=== PATIENT | female | born 1980 | race Hispanic/Latino ===

== ENCOUNTER 2018-05-28 12:55 | Emergency (ER) | payer SELFPAY ==
[2018-05-28 13:26] LABS: Urine Blood NEGATIVE (NEG); Urine Glucose NEGATIVE (NEG); Urine Protein NEGATIVE (NEG); Urine Specific Gravity 1.015 (1.005-1.030); Urine pH 6.5 (5.0-7.0)
[2018-05-28 14:08] LABS: Absolute Lymphocytes (CBC) 2.3 K/uL (0.7-4.9); Absolute Monocytes 0.6 K/uL (0.1-1.3); Absolute Neutrophil 6.1 K/uL (1.8-8.0); Basophils % 0.2 % (0-1.3); Eosinophils % 1.8 % (0-4.4); Hematocrit 30.3 % (36.0-45.0); Lymphocytes % 25.1 % (15.3-44.8); MCH 23.9 pg (27.0-35.0); MCV 73.1 fL (80-100); MPV 7.5 fL (7.6-11.3); Monocytes % 6.6 % (3.3-12.3); Protime INR 0.97; RBC Red Blood Cell Count 4.15 M/uL (3.86-4.86)
[2018-05-28] MEDS ORDERED: ASPIRIN 81 MG CHEWABLE TABLET ONE (14:11)
[2018-05-28 14:16] LABS: ALT/SGPT 27 U/L (12-78); AST/SGOT 15 U/L (15-37); Albumin 3.4 g/dL (3.4-5.0); Alkaline Phosphatase 95 U/L (45-117); BUN Blood Urea Nitrogen 11 mg/dL (7-18); Bicarbonate 28 mmol/L (21-32); Bilirubin Direct < 0.1 mg/dL (0-0.2); Bilirubin Total 0.2 mg/dL (0.2-1.0); Glucose Level 101 mg/dL (74-106); NT PRO-BNP 26 pg/mL (<125); Potassium 3.7 mmol/L (3.5-5.1); Protein, Total 7.2 g/dL (6.4-8.2); Sodium Level 141 mmol/L (136-145); Troponin (Emerg Dept Use Only) < 0.02 ng/mL (0.0-0.045)
--- NOTE | 2018-05-28 14:19 | RAD REPORT ---
EXAM DESCRIPTION: RAD - Chest Single View - 05/28/2018 2:13 pm CLINICAL HISTORY: CHEST PAIN Chest pain. COMPARISON: No comparisons FINDINGS: Portable technique limits examination quality. The lungs are grossly clear. The heart is normal in size. No displaced fractures. IMPRESSION: No acute intrathoracic process suspected.
--- NOTE | 2018-05-28 14:59 | EDPHYS ---
Physician Documentation [facility] Name: Jane Izaguirre Age: 38 yrs Sex: Female : 1980 Arrival Date: 05/28/2018 Time: 12:59 Bed 26 Private MD: ED Physician Keith Chisholm HPI: 05/28 14:48 This 38 yrs old Female presents to ER via Ambulatory with complaints of Back jr8 Pain, Breast Problem. 14:48 The patient presents with pain that is acute. The symptoms are located in the left jr8 scapular area. Onset: The symptoms/episode began/occurred suddenly, 3 month(s) ago. The pain radiates to the chest. Associated signs and symptoms: The patient has no apparent associated signs or symptoms. Modifying factors: The patient symptoms are alleviated by nothing, the patient symptoms are aggravated by nothing. Severity of symptoms: At their worst the symptoms were moderate, in the emergency department the symptoms are unchanged. The patient has not experienced similar symptoms in the past. The patient has not recently seen a physician. 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 - Social history:: Smoking status: Patient/guardian denies using tobacco. - Ebola Screening: : No symptoms or risks identified at this time. ROS: 14:48 Eyes: Negative for injury, pain, redness, and discharge, ENT: Negative for injury, jr8 pain, and discharge, Neck: Negative for injury, pain, and swelling, Respiratory: Negative for shortness of breath, cough, wheezing, and pleuritic chest pain, Abdomen/GI: Negative for abdominal pain, nausea, vomiting, diarrhea, and constipation, MS/Extremity: Negative for injury and deformity, Skin: Negative for injury, rash, and discoloration, Neuro: Negative for headache, weakness, numbness, tingling, and seizure. 14:48 Cardiovascular: Positive for chest pain, Negative for edema, orthopnea, palpitations, paroxysmal nocturnal dyspnea. 14:48 Back: Positive for pain at rest. Exam: 14:48 Head/Face: Normocephalic, atraumatic. Eyes: Pupils equal round and reactive to light, jr8 extra-ocular motions intact. Lids and lashes normal. Conjunctiva and sclera are non-icteric and not injected. Cornea within normal limits. Periorbital areas with no swelling, redness, or edema. ENT: Nares patent. No nasal discharge, no septal abnormalities noted. Tympanic membranes are normal and external auditory canals are clear. Oropharynx with no redness, swelling, or masses, exudates, or evidence of obstruction, uvula midline. Mucous membranes moist. Neck: Trachea midline, no thyromegaly or masses palpated, and no cervical lymphadenopathy. Supple, full range of motion without nuchal rigidity, or vertebral point tenderness. No Meningismus. Cardiovascular: Regular rate and rhythm with a normal S1 and S2. No gallops, murmurs, or rubs. Normal PMI, no JVD. No pulse deficits. Respiratory: Lungs have equal breath sounds bilaterally, clear to auscultation and percussion. No rales, rhonchi or wheezes noted. No increased work of breathing, no retractions or nasal flaring. Abdomen/GI: Soft, non-tender, with normal bowel sounds. No distension or tympany. No guarding or rebound. No evidence of tenderness throughout. Skin: Warm, dry with normal turgor. Normal color with no rashes, no lesions, and no evidence of cellulitis. MS/ Extremity: Pulses equal, no cyanosis. Neurovascular intact. Full, normal range of motion. Neuro: Awake and alert, GCS 15, oriented to person, place, time, and situation. Cranial nerves II-XII grossly intact. Motor strength 5/5 in all extremities. Sensory grossly intact. Cerebellar exam normal. Normal gait. 14:48 Chest/axilla: Inspection: normal, Palpation: tenderness, that is mild, of the left breast, that totally reproduces the patient's complaints, Breasts: nipple discharge, is not appreciated, tenderness, that is mild of the left breast. 14:48 Back: pain, that is moderate, of the left scapular area and left subscapular area, palpation replicates exact pain patient had been having, ROM is painful, normal spinal alignment noted, CVA tenderness, is absent. Vital Signs: 13:07 BP 131 / 64; Pulse 80; Resp 16 S; Temp 98.0(TE); Pulse Ox 99% on R/A; Weight 108.86 kg aa5 (R); Height 5 ft. 0 in. (152.40 cm) (R); Pain 8/10; 13:50 BP 103 / 73; Pulse 73; Resp 18; Pulse Ox 100% on R/A; tl3 14:58 BP 104 / 59; Pulse 74; Resp 18; Pulse Ox 99% on R/A; tl3 13:07 Body Mass Index 46.87 (108.86 kg, 152.40 cm) aa5 MDM: 13:08 Patient medically screened. jr8 14:48 Data reviewed: vital signs, nurses notes, lab test result(s), EKG, radiologic studies, jr8 plain films. Data interpreted: Pulse oximetry: on room air is 100 %. Interpretation: normal. Counseling: I had a detailed discussion with the patient and/or guardian regarding: the historical points, exam findings, and any diagnostic results supporting the discharge/admit diagnosis, lab results, radiology results, the need for outpatient follow up, a family practitioner, to return to the emergency department if symptoms worsen or persist or if there are any questions or concerns that arise at home. ED course: Recommended f/u for mammogram. Will put on medicine for musculoskeletal pain . 05/28 13:22 Order name: Urine Dipstick--Ancillary (enter results); Complete Time: 13:26 eb 05/28 13:22 Order name: Urine --Ancillary (enter results); Complete Time: 13:26 eb 05/28 13:34 Order name: Basic Metabolic Panel 8 05/28 13:34 Order name: CBC with Diff jr8 05/28 13:34 Order name: LFT's jr8 05/28 13:34 Order name: Magnesium jr8 05/28 13:34 Order name: NT PRO-BNP jr8 05/28 13:34 Order name: PT-INR; Complete Time: 14:25 jr8 05/28 13:34 Order name: Troponin (emerg Dept Use Only); Complete Time: 14:25 8 05/28 13:34 Order name: Basic Metabolic Panel; Complete Time: 14:25 EDMS 05/28 13:34 Order name: CBC with Automated Diff; Complete Time: 14:25 EDMS 05/28 13:34 Order name: Liver (Hepatic) Function; Complete Time: 14:25 [facility] 05/28 13:34 Order name: Magnesium; Complete Time: 14: [facility] 05/28 13:34 Order name: NT PRO-BNP; Complete Time: 14:25 [facility] 05/28 13:34 Order name: XRAY Chest (1 view); Complete Time: 14:25 [facility] 05/28 13:34 Order name: EKG; Complete Time: 13:35 [facility] 05/28 13:34 Order name: Cardiac monitoring; Complete Time: 14: [facility] 05/28 13:34 Order name: EKG - Nurse/Tech; Complete Time: 14: [facility] 05/28 13:34 Order name: IV Saline Lock; Complete Time: 14: [facility] 05/28 13:34 Order name: Labs collected and sent; Complete Time: 14:03 [facility] 05/28 13:34 Order name: O2 Per Protocol; Complete Time: 14: [facility] 05/28 13:34 Order name: O2 Sat Monitoring; Complete Time: 14: [facility] Administered Medications: 14:10 Drug: Aspirin Chewable Tablet 324 mg Route: PO; tl3 15:20 Follow up: Response: No adverse reaction tl3 Disposition: 17:52 Co-signature as Attending Physician, Keith Chisholm MD. rn Disposition: 05/28/18 14:59 Discharged to Home. Impression: Muscle spasm of back, Breast Tenderness . - Condition is Stable. - Discharge Instructions: Muscle Cramps and Spasms, Back Exercises, Dsxa-ex-Icuw, Heat Therapy. - Prescriptions for Ibuprofen 800 mg Oral Tablet - take 1 tablet by ORAL route every 12 hours As needed take with food; 20 tablet. Cyclobenzaprine 10 mg Oral Tablet - take 1 tablet by ORAL route every 8 hours As needed; 30 tablet. - Medication Reconciliation Form, Thank You Letter, Antibiotic Education, Prescription Opioid Use, Work release form form. - Follow up: Private Physician; When: 2 - 3 days; Reason: Recheck today's complaints, Continuance of care, Re-evaluation by your physician. - Problem is new. - Symptoms have improved. Signatures: Dispatcher [employer] [facility] Keith Chisholm MD MD rn Calderon, Audri RN RN aa5 Walter Beltran PA PA jr8 Loreta Fairchild, RN RN tl3 Corrections: (The following items were deleted from the chart) 15:37 14:59 05/28/2018 14:59 Discharged to Home. Impression: Muscle spasm of back; Breast tl3 Tenderness . Condition is Stable. Forms are Medication Reconciliation Form, Thank You Letter, Antibiotic Education, Prescription Opioid Use. Follow up: Private Physician; When: 2 - 3 days; Reason: Recheck today's complaints, Continuance of care, Re-evaluation by your physician. Problem is new. Symptoms have improved. jr8
--- NOTE | 2018-05-28 14:59 | ER ---
Nurse's Notes [facility] Name: Jane Izaguirre Age: 38 yrs Sex: Female : 1980 Arrival Date: 05/28/2018 Time: 12:59 Bed 26 Private MD: Diagnosis: Muscle spasm of back;Breast Tenderness Presentation: 05/28 13:05 Presenting complaint: Patient states: left breast pain radiating to left scapular area aa5 that began 2-3 months ago. Pt also c/o pain to left ear and left side of back of head, pt states "I went to a doctor for the ear and head pain and he told me it was stress". Pt reports pain got worse 5 days ago. Transition of care: patient was not received from another setting of care. Onset of symptoms was 2017. Risk Assessment: Do you want to hurt yourself or someone else? Patient reports no desire to harm self or others. Initial Sepsis Screen: Does the patient meet any 2 criteria? No. Patient's initial sepsis screen is negative. Does the patient have a suspected source of infection? No. Patient's initial sepsis screen is negative. Care prior to arrival: None. 13:05 Method Of Arrival: Ambulatory aa5 13:05 Acuity: JENISE 3 aa5 Triage Assessment: 15:33 General: Behavior is calm, cooperative, appropriate for age. 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 - Social history:: Smoking status: Patient/guardian denies using tobacco. - Ebola Screening: : No symptoms or risks identified at this time. Screenin:50 Abuse screen: Denies threats or abuse. Nutritional screening: No deficits noted. tl3 Tuberculosis screening: No symptoms or risk factors identified. Fall Risk None identified. Assessment: 13:50 General: Appears uncomfortable, obese, well groomed, well developed, well nourished. tl3 Pain: Complains of pain in left clavicle, left nipple and left breast Pain currently is 4 out of 10 on a pain scale. Neuro: Level of Consciousness is awake, alert, obeys commands, Oriented to person, place, time, situation, Appropriate for age. Cardiovascular: Heart tones S1 S2 present Patient's skin is warm and dry. Rhythm is regular. Respiratory: Airway is patent Respiratory effort is even, unlabored, Respiratory pattern is regular, symmetrical, Breath sounds are clear bilaterally. GI: No signs and/or symptoms were reported involving the gastrointestinal system. : No signs and/or symptoms were reported regarding the genitourinary system. EENT: No signs and/or symptoms were reported regarding the EENT system. Derm: No signs and/or symptoms reported regarding the dermatologic system. Musculoskeletal: No signs and/or symptoms reported regarding the musculoskeletal system. 13:50 Reassessment: pt states that pain has been intermittent for the last two months but in tl3 the last 5 days has progressively gotten worse. 14:58 Reassessment: Patient appears in no apparent distress at this time. No changes from tl3 previously documented assessment. Patient and/or family updated on plan of care and expected duration. Pain level reassessed. Patient is alert, oriented x 3, equal unlabored respirations, skin warm/dry/pink. obtained information for free screening thru the [employer] [facility] for pt and gave the flyer and a list of items needed to get screened. Vital Signs: 13:07 BP 131 / 64; Pulse 80; Resp 16 S; Temp 98.0(TE); Pulse Ox 99% on R/A; Weight 108.86 kg aa5 (R); Height 5 ft. 0 in. (152.40 cm) (R); Pain 8/10; 13:50 BP 103 / 73; Pulse 73; Resp 18; Pulse Ox 100% on R/A; tl3 14:58 BP 104 / 59; Pulse 74; Resp 18; Pulse Ox 99% on R/A; tl3 13:07 Body Mass Index 46.87 (108.86 kg, 152.40 cm) aa5 ED Course: 12:59 Patient arrived in ED. mr 13:06 Triage completed. aa5 13:06 Arm band placed on. aa5 13:08 Walter Beltran PA is PHCP. jr8 13:08 Keith Chisholm MD is Attending Physician. jr8 13:19 Loreta Fairchild, RN is Primary Nurse. tl3 13:50 Patient has correct armband on for positive identification. Placed in gown. Bed in low tl3 position. Call light in reach. Side rails up X 1. Adult w/ patient. bake room worker on. Pulse ox on. NIBP on. Door closed. Warm blanket given. Pillow given. 13:50 No provider procedures requiring assistance completed. Initial lab(s) drawn, by va, tl3 sent to lab. Urine collected: EKG done, X-ray(s) taken. Inserted saline lock: 20 gauge in left antecubital area, using aseptic technique. Blood collected. 14:00 EKG done, by database technician. reviewed by Walter AYALA. at1 14:02 XRAY Chest (1 view) Sent. tl3 14:12 X-ray completed. Portable x-ray completed in exam room. Patient tolerated procedure sw well. 14:13 XRAY Chest (1 view) In Process Unspecified. EDMS 15:25 Basic Metabolic Panel Sent. tl3 15:32 CBC with Diff Sent. tl3 15:32 LFT's Sent. tl3 15:32 Magnesium Sent. tl3 15:32 NT PRO-BNP Sent. tl3 15:32 IV discontinued, intact, bleeding controlled, No redness/swelling at site. Pressure tl3 dressing applied. Administered Medications: 14:10 Drug: Aspirin Chewable Tablet 324 mg Route: PO; tl3 15:20 Follow up: Response: No adverse reaction tl3 Outcome: 14:59 Discharge ordered by . rahel 15:32 Discharged to home ambulatory. tl3 15:32 Condition: stable 15:32 Discharge instructions given to patient, family, Instructed on discharge instructions, follow up and referral plans. medication usage, Demonstrated understanding of instructions, follow-up care, medications, Prescriptions given X 2. 15:37 Patient left the ED. tl3 Signatures: Dispatcher [employer] EDAZ Victoria Palacios Audri, RN RN [email or web address] Walter Beltran PA PA jr8 Yamile Neff, production planning supervisor EKG Tat1 Leann Gutierrez Tammy, RN RN tl3 Corrections: (The following items were deleted from the chart) 15:33 14:58 Patient did not have IV access during this emergency room visit. tl3 tl3
[2018-05-28 15:42] VITALS: TEMP 98
[2018-05-28 15:44] VITALS: BP 104/59; O2SAT 99
--- NOTE | 2018-05-28 16:46 | EKG ---
Test Date: 2018-05-28 Test Time: 13:59:35 Specialty Person: GALE MEASUREMENT RESULTS: Intervals: Rate: 73 CA: 162 QRSD: 96 QT: 382 QTc: 420 [place]: P: 34 CA: 162 QRS: 31 T: 23 INTERPRETIVE STATEMENTS: Normal sinus rhythm Normal ECG No previous ECG available for comparison Electronically Signed On 05-28-18 16:44:24 CDT by Luisito John
== END 2018-05-28 15:37 | disposition home or self-care (01) ==
LOC: ER 12:55
DX: M62.830 Muscle spasm of back (principal); N64.4 Mastodynia
CPT/HCPCS: 36415; 71045; 80048; 80076; 81003; 81025; 83735; 83880; 84484; 85025; 85610; 93005; 99285

== ENCOUNTER 2019-01-01 22:50 | Emergency (ER) | payer SELFPAY ==
--- NOTE | 2019-01-01 23:40 | ER ---
Nurse's Notes [facility] Name: Jane Izaguirre Age: 38 yrs Sex: Female : 1980 Arrival Date: 01/01/2019 Time: 22:52 Bed 19 Private MD: Diagnosis: Otalgia, left ear;Dizziness and giddiness Presentation: 01/01 22:58 Presenting complaint: Child states: She has been dizzy and her left ear hurts. ed1 Transition of care: patient was not received from another setting of care. Onset of symptoms was December 28, 2018. Risk Assessment: Do you want to hurt yourself or someone else? Patient reports no desire to harm self or others. Initial Sepsis Screen: Does the patient meet any 2 criteria? No. Patient's initial sepsis screen is negative. Does the patient have a suspected source of infection? No. Patient's initial sepsis screen is negative. Care prior to arrival: Medication(s) given: Tylenol. 22:58 Method Of Arrival: Ambulatory ed1 22:58 Acuity: JENISE 4 ed1 Triage Assessment: 23:00 General: Appears in no apparent distress. Behavior is calm, cooperative, Pt reports ed1 receiving a pain injection yesterday. Pain: Complains of pain in left ear Pain currently is 0 out of 10 on a pain scale. EENT: Reports loss of hearing in left ear. 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 - Social history:: Smoking status: Patient/guardian denies using tobacco. - Ebola Screening: : Patient negative for fever greater than or equal to 101.5 degrees Fahrenheit, and additional compatible Ebola Virus Disease symptoms Patient denies exposure to infectious person Patient denies travel to an Ebola-affected area in the 21 days before illness onset No symptoms or risks identified at this time. Screenin:04 Abuse screen: Denies threats or abuse. Denies injuries from another. Nutritional cc3 screening: No deficits noted. Tuberculosis screening: No symptoms or risk factors identified. Fall Risk Ambulatory Aid- None/Bed Rest/Nurse Assist (0 pts). Gait- Normal/Bed Rest/Wheelchair (0 pts) Mental Status- Oriented to own ability (0 pts). Assessment: 23:04 Reassessment: Patient appears in no apparent distress at this time. Patient and/or cc3 family updated on plan of care and expected duration. Pain level reassessed. Patient is alert, oriented x 3, equal unlabored respirations, skin warm/dry/pink. 01/02 00:10 Reassessment: Patient appears in no apparent distress at this time. Patient and/or cc3 family updated on plan of care and expected duration. Pain level reassessed. Patient is alert, oriented x 3, equal unlabored respirations, skin warm/dry/pink. LUCY Mittal discharged the patient home with prescriptions given. No IV cannula in situ. Patient left ER vitally stable and ambulatory with her daughter. Patient denies pain at this time. Patient states feeling better. Vital Signs: 01/01 23:00 BP 140 / 69; Pulse 69; Resp 18; Temp 97.3; Pulse Ox 97% on R/A; Height 5 ft. 1 in. ed1 (154.94 cm); Pain 0/10; 01/02 00:06 BP 135 / 63; Pulse 72; Resp 17 S; Pulse Ox 97% on R/A; cc3 05 23:00 Pt does not know her weight ed1 ED Course: 22:52 Patient arrived in ED. am2 22:59 Triage completed. ed1 23:00 Arm band placed on. ed1 23:03 Jose Armando Mittal PA is PHCP. cp 23:03 Jose Armando Read MD is Attending Physician. cp 23:04 Anabella Peralta is Primary Nurse. cc3 23:04 Patient has correct armband on for positive identification. Bed in low position. Call cc3 light in reach. Side rails up X 1. Pulse ox on. NIBP on. 23:38 Mady Wick MD is Referral Physician. cp 01/02 00:10 No provider procedures requiring assistance completed. Patient did not have IV access cc3 during this emergency room visit. Administered Medications: 01/01 23:58 Drug: Meclizine 25 mg Route: PO; cc3 01/02 00:10 Follow up: Response: No adverse reaction cc3 Outcome: 01/01 23:39 Discharge ordered by MD. boudreaux 01/02 00:10 Discharged to home ambulatory, with family. cc3 Condition: stable Discharge instructions given to patient, family, Instructed on discharge instructions, follow up and referral plans. medication usage, Demonstrated understanding of instructions, follow-up care, medications, Prescriptions given X 3. 00:11 Patient left the ED. cc3 Signatures: Gabriela Guerra RN RN ed1 Jose Armando Mittal PA PA cp Moreno, Amanda amAnabella Pérez cc3
--- NOTE | 2019-01-01 23:40 | EDPHYS ---
Physician Documentation [facility] Name: Jane Izaguirre Age: 38 yrs Sex: Female : 1980 Arrival Date: 01/01/2019 Time: 22:52 Bed 19 Private MD: ED Physician Jose Armando Read HPI: 01/01 23:26 This 38 yrs old Female presents to ER via Ambulatory with complaints of Ear cp Pain. 23:26 The patient presents with pain, that is acute. The complaints affect the left ear. cp Onset: The symptoms/episode began/occurred 4 day(s) ago. 23:26 Associated signs and symptoms: Pertinent positives: dizziness, decreased hearing, cp Pertinent negatives: cough, fever, sinus trouble. 23:26 Severity of symptoms: in the emergency department the symptoms are unchanged despite cp home interventions. 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 - Social history:: Smoking status: Patient/guardian denies using tobacco. - Ebola Screening: : Patient negative for fever greater than or equal to 101.5 degrees Fahrenheit, and additional compatible Ebola Virus Disease symptoms Patient denies exposure to infectious person Patient denies travel to an Ebola-affected area in the 21 days before illness onset No symptoms or risks identified at this time. ROS: 23:20 Constitutional: Negative for body aches, chills, fever, poor PO intake. cp 23:20 Eyes: Negative for injury, pain, redness, and discharge. cp 23:20 ENT: Positive for ear pain, hearing loss, Negative for drainage from ear(s), sinus congestion, sinus pain, sore throat, difficulty swallowing, difficulty handling secretions. 23:20 Respiratory: Negative for cough, wheezing. 23:20 Abdomen/GI: Negative for abdominal pain, vomiting, diarrhea, constipation. 23:20 Skin: Negative for rash. 23:20 Neuro: Positive for dizziness, Negative for altered mental status, headache, weakness. 23:20 All other systems are negative. Exam: 23:20 Constitutional: The patient appears in no acute distress, alert, awake, comfortable, cp well developed, well nourished. 23:20 Head/Face: Normocephalic, atraumatic. cp 23:20 Eyes: Periorbital structures: appear normal, Conjunctiva: normal, no exudate, no injection, Lids and lashes: appear normal, bilaterally. 23:20 ENT: External ear(s): are unremarkable, Ear canal(s): are normal, clear, TM's: erythema, that is mild, on the left, Nose: is normal, Mouth: Lips: moist, Oral mucosa: pink and intact, moist, Posterior pharynx: is normal, airway is patent, no erythema, no exudate, Voice: is normal. 23:20 Neck: ROM/movement: is normal, is supple, without pain, no range of motions limitations, no nuchal rigidity, Lymph nodes: no appreciated lymphadenopathy. 23:20 Chest/axilla: Inspection: normal. 23:20 Cardiovascular: Rate: normal. 23:20 Respiratory: the patient does not display signs of respiratory distress, Respirations: normal. 23:20 Skin: cellulitis, is not appreciated, lesion(s), probable vesicle(s) noted, located on the left tympanic membrane. 23:20 Neuro: Cerebellar function: is grossly normal, Motor: moves all fours, strength is normal, Sensation: is normal, Gait: is steady, at a normal pace, without difficulty. Vital Signs: 23:00 BP 140 / 69; Pulse 69; Resp 18; Temp 97.3; Pulse Ox 97% on R/A; Height 5 ft. 1 in. ed1 (154.94 cm); Pain 0/10; 05/11 00:06 BP 135 / 63; Pulse 72; Resp 17 S; Pulse Ox 97% on R/A; cc3 05/10 23:00 Pt does not know her weight ed1 MDM: 23:03 Patient medically screened. cp 23:38 Data reviewed: vital signs, nurses notes, I have discussed the patient's cp presentation/case with the attending Emergency Department Physician; and as a result, I will discharge patient. 23:38 Differential diagnosis: otitis media, otitis externa, ruptured TM, acute otalgia, cp cerumen impaction. Response to treatment: the patient's symptoms have mildly improved after treatment, and as a result, I will discharge patient. Administered Medications: 23:58 Drug: Meclizine 25 mg Route: PO; cc3 01/02 00:10 Follow up: Response: No adverse reaction cc3 Disposition: 01/01/19 23:39 Discharged to Home. Impression: Otalgia, left ear, Dizziness and giddiness. - Condition is Stable. - Discharge Instructions: Dizziness, Earache, Adult. - Prescriptions for prednisone 50 mg Oral tablet - take 1 tablet by ORAL route once daily for 5 days; 5 tablet. Meclizine 25 mg Oral Tablet - take 1 tablet by ORAL route every 8 hours As needed; 30 tablet. Acyclovir 800 mg Oral Tablet - take 1 tablet by ORAL route 5 times per day for 10 days; 50 tablet. - Medication Reconciliation Form, Thank You Letter, Antibiotic Education, Prescription Opioid Use form. - Follow up: Mady Wick MD; When: 2 - 3 days; Reason: Worsening of condition. - Problem is new. - Symptoms are unchanged. Addendum: 01/04/2019 09:19 Co-signature as Attending Physician, Jose Armando Read MD I agree with the assessment and c [place] plan of care. Signatures: Jose Armando Read MD MD cha Riggs, Erika, RN RN ed1 Jose Armando Mittal PA PA Anabella Schmid cc3 Corrections: (The following items were deleted from the chart) 01/02 00:11 05 23:39 01/01/2019 23:39 Discharged to Home. Impression: Otalgia, left ear; cc3 Dizziness and giddiness. Condition is Stable. Forms are Medication Reconciliation Form, Thank You Letter, Antibiotic Education, Prescription Opioid Use. Follow up: Mady Wick; When: 2 - 3 days; Reason: Worsening of condition. Problem is new. Symptoms are unchanged. cp
[2019-01-02] MEDS ORDERED: MECLIZINE HCL 12.5 MG TAB ONE (00:13)
[2019-01-02 00:54] VITALS: BP 140/69; TEMP 97.3; O2SAT 97
== END 2019-01-02 00:11 | disposition home or self-care (01) ==
LOC: ER 22:50
DX: H92.02 Otalgia, left ear (principal); R42 Dizziness and giddiness; E07.9 Disorder of thyroid, unspecified
CPT/HCPCS: 99283

== ENCOUNTER 2019-01-04 13:46 | Emergency (ER) | payer SELFPAY ==
--- NOTE | 2019-01-04 18:07 | ER ---
Nurse's Notes [facility] Name: Jane Izaguirre Age: 38 yrs Sex: Female : 1980 Arrival Date: 01/04/2019 Time: 13:51 Bed Waiting Private MD: Diagnosis: Presentation: 01/04 14:06 Presenting complaint: Child states: Daughter states pt seen here in the ER and sent sv home with prescriptions but she is feeling worse than before. Unable to hear out of the left ear and dizziness. Transition of care: patient was not received from another setting of care. Onset of symptoms was December 2018. Care prior to arrival: None. 14:06 Method Of Arrival: Ambulatory sv 14:06 Acuity: JENISE 3 sv Triage Assessment: 14:06 General: Appears in no apparent distress. uncomfortable, well developed, Behavior is sv calm, cooperative, appropriate for age. Pain: Denies pain. Neuro: Level of Consciousness is awake, alert, obeys commands, Oriented to person, place, time, situation, Gait is steady. Neuro: Reports dizziness. Respiratory: Respiratory effort is even, unlabored, Respiratory pattern is regular, symmetrical. Historical: - Allergies: 14:07 No Known Drug Allergies; sv Vital Signs: 14:07 BP 120 / 56; Pulse 69; Resp 18; Temp 97.0; Pulse Ox 99% ; Height 5 ft. 1 in. (154.94 sv cm); Pain 0/10; ED Course: 13:51 Patient arrived in ED. mr 14:07 Triage completed. sv 14:08 Arm band placed on. sv 17:48 Patient's name was called from ER lobby. No response. sv 18:06 Patient's name was called from ER lobby. No response. sv Administered Medications: No medications were administered Outcome: 18:07 Patient left the ED. sv Signatures: Mady Macias, RN RN sv Victoria Palacios mr
[2019-01-04 22:16] VITALS: BP 120/56; TEMP 97; O2SAT 99
== END 2019-01-04 18:07 | disposition left against medical advice (07) ==
LOC: ER 13:46
DX: R42 Dizziness and giddiness (principal); Z53.21 Procedure and treatment not carried out due to patient leaving prior to being seen by health care provider
CPT/HCPCS: 99281

== ENCOUNTER 2019-01-04 23:53 | Emergency (ER) | payer SELFPAY ==
--- NOTE | 2019-01-05 01:16 | ER ---
Nurse's Notes [facility] Name: Jane Izaguirre Age: 38 yrs Sex: Female : 1980 Arrival Date: 01/04/2019 Time: 23:55 Bed 20 Private MD: Diagnosis: Conductive hearing loss, unspecified Presentation: 01/05 00:17 Presenting complaint: Patient states: she was seen here several days ago and diagnosed bb with an ear infection but her symptoms are getting worse, pt is dizzy now which caused her fall Friday and she is feeling dizzy she also says her head and neck are sweating mostly on the left side. Transition of care: patient was not received from another setting of care. Onset of symptoms was January 05, 2019. Risk Assessment: Do you want to hurt yourself or someone else? Patient reports no desire to harm self or others. Initial Sepsis Screen: Does the patient meet any 2 criteria? No. Patient's initial sepsis screen is negative. Does the patient have a suspected source of infection? No. Patient's initial sepsis screen is negative. Care prior to arrival: None. 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 - Social history:: Smoking status: Patient/guardian denies using tobacco, Patient/guardian denies using alcohol, street drugs. - Ebola Screening: : No symptoms or risks identified at this time. Screenin:26 Abuse screen: Denies threats or abuse. Nutritional screening: No deficits noted. jd3 Tuberculosis screening: No symptoms or risk factors identified. Fall Risk Ambulatory Aid- None/Bed Rest/Nurse Assist (0 pts). Gait- Normal/Bed Rest/Wheelchair (0 pts) Mental Status- Oriented to own ability (0 pts). Total Williamson Fall Scale indicates No Risk (0-24 pts). Assessment: 00:24 General: Appears in no apparent distress. uncomfortable, Behavior is calm, cooperative, jd3 appropriate for age. Pain: Complains of pain in left ear Quality of pain is described as aching. Neuro: Level of Consciousness is awake, alert, obeys commands, Oriented to person, place, time, situation, Appropriate for age Reports dizziness, headache. Cardiovascular: Capillary refill < 3 seconds Patient's skin is warm and dry. Respiratory: Airway is patent Respiratory effort is even, unlabored, Respiratory pattern is regular, symmetrical. GI: No signs and/or symptoms were reported involving the gastrointestinal system. : No signs and/or symptoms were reported regarding the genitourinary system. EENT: No signs and/or symptoms were reported regarding the EENT system. Derm: Skin is intact, Skin is dry, Skin is normal, Skin temperature is warm. Musculoskeletal: Circulation, motion, and sensation intact. Range of motion: intact in all extremities. 01:23 Reassessment: Patient appears in no apparent distress at this time. Patient and/or jd3 family updated on plan of care and expected duration. Pain level reassessed. Patient is alert, oriented x 3, equal unlabored respirations, skin warm/dry/pink. Vital Signs: 00:19 BP 99 / 74; Pulse 69; Resp 16 S; Temp 98.8(O); Pulse Ox 100% on R/A; Weight 109.77 kg bb (R); Height 5 ft. 1 in. (154.94 cm) (R); Pain 10/10; 01:23 BP 105 / 64; Pulse 62; Resp 17 S; Pulse Ox 99% on R/A; jd3 00:19 Body Mass Index 45.73 (109.77 kg, 154.94 cm) ED Course: 01/04 23:55 Patient arrived in ED. 01/05 00:19 Triage completed. bb 00:19 Wilder Myles, RN is Primary Nurse. jd3 00:19 Arm band placed on Patient placed in an exam room, on a stretcher, on pulse oximetry. bb Family accompanied patient. 00:27 Patient has correct armband on for positive identification. Bed in low position. Call jd3 light in reach. Side rails up X 1. Adult w/ patient. 00:45 Polo Johnson MD is Attending Physician. tw4 01:15 Mady Wick MD is Referral Physician. tw4 01:22 No provider procedures requiring assistance completed. Patient did not have IV access jsol during this emergency room visit. Administered Medications: No medications were administered Outcome: 01:16 Discharge ordered by . tw4 01:22 Discharged to home ambulatory, with family. jd3 01:22 Condition: stable 01:22 Discharge instructions given to patient, family, Instructed on discharge instructions, follow up and referral plans. Demonstrated understanding of instructions, follow-up care. 01:24 Patient left the ED. jd3 Signatures: Oriana King Brenda, RN RN Wilder Schwarz RN RN Polo Pineda MD MD tw4
[2019-01-05 10:27] VITALS: TEMP 98.8
[2019-01-05 10:29] VITALS: BP 105/64; O2SAT 99
--- NOTE | 2019-01-06 01:30 | EDPHYS ---
Physician Documentation [facility] Name: Jane Izaguirre Age: 38 yrs Sex: Female : 1980 Arrival Date: 01/04/2019 Time: 23:55 Bed 20 Private MD: ED Physician Polo Johnson HPI: 01/05 06:49 This 38 yrs old Female presents to ER via Ambulatory with complaints of tw4 Dizziness, Hearing problem. 06:49 The patient presents with dizziness. Onset: The symptoms/episode began/occurred today. tw4 Context: occurred at home. Associated signs and symptoms: The patient has no apparent associated signs or symptoms. The patient has not experienced similar symptoms in the past. 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 - Social history:: Smoking status: Patient/guardian denies using tobacco, Patient/guardian denies using alcohol, street drugs. - Ebola Screening: : No symptoms or risks identified at this time. ROS: 06:49 Constitutional: Negative for fever, chills, and weight loss, Eyes: Negative for injury, tw4 pain, redness, and discharge. 06:49 ENT: Positive for hearing loss. Exam: 06:49 Constitutional: This is a well developed, well nourished patient who is awake, alert, tw4 and in no acute distress. Head/Face: Normocephalic, atraumatic. 06:49 Neck: Trachea midline, no thyromegaly or masses palpated, and no cervical lymphadenopathy. Supple, full range of motion without nuchal rigidity, or vertebral point tenderness. No Meningismus. Chest/axilla: Normal chest wall appearance and motion. Nontender with no deformity. No lesions are appreciated. Cardiovascular: Regular rate and rhythm with a normal S1 and S2. No gallops, murmurs, or rubs. Normal PMI, no JVD. No pulse deficits. Respiratory: Lungs have equal breath sounds bilaterally, clear to auscultation and percussion. No rales, rhonchi or wheezes noted. No increased work of breathing, no retractions or nasal flaring. 06:49 ENT: Ear canal(s): TM's: erythema, that is mild, on the left. Vital Signs: 00:19 BP 99 / 74; Pulse 69; Resp 16 S; Temp 98.8(O); Pulse Ox 100% on R/A; Weight 109.77 kg bb (R); Height 5 ft. 1 in. (154.94 cm) (R); Pain 10/10; 01:23 BP 105 / 64; Pulse 62; Resp 17 S; Pulse Ox 99% on R/A; jd3 00:19 Body Mass Index 45.73 (109.77 kg, 154.94 cm) bb MDM: 00:45 Patient medically screened. tw4 06:49 Data reviewed: vital signs, nurses notes. Counseling: I had a detailed discussion with tw4 the patient and/or guardian regarding: the historical points, exam findings, and any diagnostic results supporting the discharge/admit diagnosis. Special discussion: I discussed with the patient/guardian in detail that at this point there is no indication for admission to the hospital. It is understood, however, that if the symptoms persist or worsen the patient needs to return immediately for re-evaluation. Administered Medications: No medications were administered Disposition: 01/05/19 01:16 Discharged to Home. Impression: Conductive hearing loss, unspecified. - Condition is Stable. - Discharge Instructions: Hearing Loss. - Medication Reconciliation Form, Thank You Letter, Antibiotic Education, Prescription Opioid Use form. - Follow up: Mady Wick MD; When: Tomorrow; Reason: If symptoms return, Recheck today's complaints, Continuance of care. - Problem is new. - Symptoms have improved. Signatures: Heidy Ling RN RN Wilder Schwarz RN RN jd3 Wadley, Terrence, MD MD tw4 Corrections: (The following items were deleted from the chart) 01:24 01:16 01/05/2019 01:16 Discharged to Home. Impression: Conductive hearing loss, jd3 unspecified. Condition is Stable. Forms are Medication Reconciliation Form, Thank You Letter, Antibiotic Education, Prescription Opioid Use. Follow up: Mady Wick; When: Tomorrow; Reason: If symptoms return, Recheck today's complaints, Continuance of care. Problem is new. Symptoms have improved. tw4
== END 2019-01-05 01:24 | disposition home or self-care (01) ==
LOC: ER 23:53
DX: H90.2 Conductive hearing loss, unspecified (principal)
CPT/HCPCS: 99283

== ENCOUNTER 2020-07-17 00:50 | Emergency (ER) | payer SELFPAY ==
[2020-07-17] MEDS ORDERED: ACETAMINOPHEN 500 MG TAB ONE (02:56)
[2020-07-17 04:08] LABS: Urine Blood NEGATIVE (NEG); Urine Glucose NEGATIVE (NEG); Urine Protein NEGATIVE (NEG); Urine Specific Gravity >1.030 (1.005-1.030)
[2020-07-17 04:09] LABS: Absolute Lymphocytes (CBC) 3.3 K/uL (0.7-4.9); Basophils % 0.3 % (0-1.3); Hematocrit 32.4 % (36.0-45.0); Lymphocytes % 42.9 % (15.3-44.8); MPV 7.9 fL (7.6-11.3); RBC Red Blood Cell Count 4.15 M/uL (3.86-4.86)
[2020-07-17 04:16] LABS: ALT/SGPT 25 U/L (12-78); AST/SGOT 14 U/L (15-37); Albumin 3.4 g/dL (3.4-5.0); Alkaline Phosphatase 80 U/L (45-117); BUN Blood Urea Nitrogen 18 mg/dL (7-18); Bicarbonate 27 mmol/L (21-32); Bilirubin Direct < 0.1 mg/dL (0-0.2); Bilirubin Total 0.2 mg/dL (0.2-1.0); Creatine Phosphokinase 65 U/L (26-192); Glucose Level 103 mg/dL (74-106); Potassium 3.6 mmol/L (3.5-5.1); Sodium Level 143 mmol/L (136-145); Troponin (Emerg Dept Use Only) < 0.02 ng/mL (0.0-0.045)
--- NOTE | 2020-07-17 05:30 | EDPHYS ---
Physician Documentation [facility] Name: Jane Izaguirre Age: 40 yrs Sex: Female : 1980 Arrival Date: 07/17/2020 Time: 00:52 Bed 20 Private MD: KRISTINA Physician Henry Freedman HPI: 07/17 03:05 This 40 yrs old Female presents to ER via Ambulatory with complaints of Back mh7 Pain, PAIN IN LUNGS. 03:05 The patient presents with pain that is acute, with no known mechanism of injury. The mh7 symptoms are located in the left scapular area and right scapular area. Onset: The symptoms/episode began/occurred 3 day(s) ago. The pain does not radiate. 03:07 Associated signs and symptoms: Pertinent negatives: abdominal pain, chest pain, mh7 constipation, dysuria, fever, headache, hematuria, incontinence, nausea, numbness, tingling, urinary retention, vomiting, weakness. The problem was sustained without known cause. Modifying factors: The patient symptoms are alleviated by nothing, the patient symptoms are aggravated by nothing. Severity of symptoms: At their worst the symptoms were moderate, yesterday, in the emergency department the symptoms are unchanged. Historical: - Allergies: 03:11 No Known Allergies; jb4 - Home Meds: 03:11 "thyroid medication" [Active]; jb4 - PMHx: 03:11 Thyroid problem; jb4 - PSHx: 03:11 ; Cholecystectomy; jb4 ROS: 03:07 Constitutional: Negative for fever, chills, and weight loss, Eyes: Negative for injury, mh7 pain, redness, and discharge, ENT: Negative for injury, pain, and discharge, Neck: Negative for injury, pain, and swelling, Cardiovascular: Negative for chest pain, palpitations, and edema, Respiratory: Negative for shortness of breath, cough, wheezing, and pleuritic chest pain, Abdomen/GI: Negative for abdominal pain, nausea, vomiting, diarrhea, and constipation, : Negative for injury, bleeding, discharge, and swelling, MS/Extremity: Negative for injury and deformity, Skin: Negative for injury, rash, and discoloration, Neuro: Negative for headache, weakness, numbness, tingling, and seizure, Psych: Negative for depression, anxiety, suicide ideation, homicidal ideation, and hallucinations, Allergy/Immunology: Negative for hives, rash, and allergies, Endocrine: Negative for neck swelling, polydipsia, polyuria, polyphagia, and marked weight changes, Hematologic/Lymphatic: Negative for swollen nodes, abnormal bleeding, and unusual bruising. Exam: 03:07 Constitutional: This is a well developed, well nourished patient who is awake, alert, mh7 and in no acute distress. Head/Face: Normocephalic, atraumatic. Eyes: Pupils equal round and reactive to light, extra-ocular motions intact. Lids and lashes normal. Conjunctiva and sclera are non-icteric and not injected. Cornea within normal limits. Periorbital areas with no swelling, redness, or edema. Neck: Trachea midline, no thyromegaly or masses palpated, and no cervical lymphadenopathy. Supple, full range of motion without nuchal rigidity, or vertebral point tenderness. No Meningismus. Chest/axilla: Normal chest wall appearance and motion. Nontender with no deformity. No lesions are appreciated. Cardiovascular: Regular rate and rhythm with a normal S1 and S2. No gallops, murmurs, or rubs. Normal PMI, no JVD. No pulse deficits. Respiratory: Lungs have equal breath sounds bilaterally, clear to auscultation and percussion. No rales, rhonchi or wheezes noted. No increased work of breathing, no retractions or nasal flaring. Abdomen/GI: Soft, non-tender, with normal bowel sounds. No distension or tympany. No guarding or rebound. No evidence of tenderness throughout. 03:07 MS/ Extremity: Pulses equal, no cyanosis. Neurovascular intact. Full, normal range of motion. Neuro: Awake and alert, GCS 15, oriented to person, place, time, and situation. Cranial nerves II-XII grossly intact. Motor strength 5/5 in all extremities. Sensory grossly intact. Cerebellar exam normal. Normal gait. Psych: Awake, alert, with orientation to person, place and time. Behavior, mood, and affect are within normal limits. 03:07 Back: pain, that is mild, of the left scapular area and right scapular area, ROM is normal, normal spinal alignment noted, CVA tenderness, is absent, vertebral tenderness, is not appreciated, muscle spasm, is not present. Vital Signs: 01:11 BP 131 / 53; Pulse 62; Resp 18; Temp 98.5; Pulse Ox 97% on R/A; Weight 97.52 kg (R); dm5 Height 5 ft. 0 in. (152.40 cm); Pain 4/10; 03:05 BP 115 / 54; Pulse 53; Resp 16; Pulse Ox 100% on R/A; jb4 04:32 BP 109 / 63; Pulse 60; Resp 16; Pulse Ox 99% on R/A; jb4 01:11 Body Mass Index 41.99 (97.52 kg, 152.40 cm) dm5 MDM: 05:26 Differential diagnosis: chronic back pain, Ligament Injury Obesity sprain, mh7 Musculoskeletal Pain. Data reviewed: vital signs, nurses notes, old medical records, lab test result(s), cardiac enzymes, CBC, electrolytes, urinalysis, EKG, radiologic studies, plain films. Data interpreted: Pulse oximetry: on room air is 99 %. Interpretation: normal. Counseling: I had a detailed discussion with the patient and/or guardian regarding: the historical points, exam findings, and any diagnostic results supporting the discharge/admit diagnosis, lab results, radiology results, the need for outpatient follow up, to return to the emergency department if symptoms worsen or persist or if there are any questions or concerns that arise at home. Response to treatment: the patient's symptoms have resolved after treatment, the patient's blood pressure is in an acceptable range, mental status has returned to baseline, the patient no longer shows bradycardia, the patient is not short of breath, the patient is not tachycardic, the patient's pain is gone, the patient's temperature has normalized. 05:29 Patient medically screened. [facility] 07/17 02:07 Order name: CBC with Diff; Complete Time: 05:14 [facility] 07/17 02:07 Order name: Basic Metabolic Panel; Complete Time: 04:22 [facility] 07/17 02:07 Order name: LFT's; Complete Time: 04:22 [facility] 07/17 02:59 Order name: Urine Dipstick--Ancillary (enter results); Complete Time: 04:15 [facility] 07/17 02:59 Order name: Urine --Ancillary (enter results); Complete Time: 04:15 [facility] 07/17 02:07 Order name: Urine Dipstick-Ancillary (obtain specimen); Complete Time: 02:57 [facility] 07/17 02:07 Order name: Urine Test (obtain specimen); Complete Time: 02:57 [facility] 07/17 02:07 Order name: Chest Single View XRAY [facility] 07/17 02:08 Order name: EKG - Nurse/Tech; Complete Time: 02:57 [facility] 07/17 03:39 Order name: Creatine Phosphokinase; Complete Time: 04:22 [facility] 07/17 03:39 Order name: Troponin (Emerg Dept Use Only); Complete Time: 04:22 [facility] Administered Medications: 02:45 Drug: Tylenol 1000 mg Route: PO; 4 03:45 Follow up: Response: No adverse reaction; Pain is decreased jb4 Disposition: 07/17/20 05:29 Discharged to Home. Impression: Back Pain. - Condition is Stable. - Discharge Instructions: Back Pain, Adult, [id number]. - Prescriptions for ketorolac 10 mg Oral tablet - take 1 tablet by ORAL route every 8 hours As needed not to exceed 40 mg in 24hrs; 15 tablet. Robaxin 500 mg Oral Tablet - take 2 tablet by ORAL route every 6 hours As needed; 40 tablet. - Medication Reconciliation Form, Thank You Letter, Antibiotic Education, Prescription Opioid Use form. - Follow up: Private Physician; When: 1 - 2 days; Reason: Worsening of condition, Recheck today's complaints, Continuance of care, Re-evaluation by your physician. - Problem is new. - Symptoms have improved. Signatures: Dis[facility] Cristo Andrew RN RN jb4 Henry Freedman MD MD 7 Corrections: (The following items were deleted from the chart) 03:38 03:08 TROPONIN (EMERG DEPT USE ONLY)+C.LAB.BRZ ordered. [facility] 03:38 03:08 CREATINE PHOSPHOKINASE+C.LAB.BRZ ordered. [facility] 05:37 05:29 07/17/2020 05:29 Discharged to Home. Impression: Back Pain. Condition is Stable. jb4 Forms are Medication Reconciliation Form, Thank You Letter, Antibiotic Education, Prescription Opioid Use. Follow up: Private Physician; When: 1 - 2 days; Reason: Worsening of condition, Recheck today's complaints, Continuance of care, Re-evaluation by your physician. Problem is new. Symptoms have improved. mh7
--- NOTE | 2020-07-17 05:30 | ER ---
Nurse's Notes [facility] Name: Jane Izaguirre Age: 40 yrs Sex: Female : 1980 Arrival Date: 07/17/2020 Time: 00:52 Bed 20 Private MD: Diagnosis: Back Pain Presentation: 07/17 01:11 Chief complaint: Patient states: diagnosed with COVID on 07/04. Pt states she has a dm5 pain in her lungs that is somewhat relieved by Tylenol but not all the way. Denies being short of breath. Coronavirus screen: Client reports previous positive COVID test result. Date of collection: July 04, 2020. Ebola Screen: Patient negative for fever greater than or equal to 101.5 degrees Fahrenheit, and additional compatible Ebola Virus Disease symptoms Patient denies exposure to infectious person. Patient denies travel to an Ebola-affected area in the 21 days before illness onset. No symptoms or risks identified at this time. Initial Sepsis Screen: Does the patient meet any 2 criteria? No. Patient's initial sepsis screen is negative. Does the patient have a suspected source of infection? Yes: Productive cough/pneumonia. Risk Assessment: Do you want to hurt yourself or someone else? Patient reports no desire to harm self or others. Onset of symptoms was July 04, 2020. 01:11 Method Of Arrival: Ambulatory dm5 01:11 Acuity: JENISE 3 dm5 Historical: - Allergies: 03:11 No Known Allergies; jb4 - Home Meds: 03:11 "thyroid medication" [Active]; jb4 - PMHx: 03:11 Thyroid problem; jb4 - PSHx: 03:11 ; Cholecystectomy; jb4 Screenin:45 Abuse screen: Denies threats or abuse. Nutritional screening: No deficits noted. jb4 Tuberculosis screening: No symptoms or risk factors identified. Fall Risk None identified. Assessment: 01:45 General: Appears in no apparent distress. comfortable, Behavior is calm, cooperative, jb4 appropriate for age. Pain: Complains of pain in back Pain does not radiate. Pain currently is 4 out of 10 on a pain scale. Neuro: Level of Consciousness is awake, alert, obeys commands, Oriented to person, place, time, situation. Cardiovascular: Patient's skin is warm and dry. Respiratory: Airway is patent Respiratory effort is even, unlabored, Respiratory pattern is regular, symmetrical. GI: No signs and/or symptoms were reported involving the gastrointestinal system. : No signs and/or symptoms were reported regarding the genitourinary system. EENT: No signs and/or symptoms were reported regarding the EENT system. Derm: Skin is intact, Skin is pink, warm \\T\\ dry. Musculoskeletal: Circulation, motion, and sensation intact. Range of motion: intact in all extremities. 02:58 Reassessment: Patient appears in no apparent distress at this time. Patient and/or jb4 family updated on plan of care and expected duration. Pain level reassessed. Patient is alert, oriented x 3, equal unlabored respirations, skin warm/dry/pink. 04:32 Reassessment: Patient appears in no apparent distress at this time. Patient and/or jb4 family updated on plan of care and expected duration. Pain level reassessed. Patient is alert, oriented x 3, equal unlabored respirations, skin warm/dry/pink. 05:36 Reassessment: Patient appears in no apparent distress at this time. Patient and/or jb4 family updated on plan of care and expected duration. Pain level reassessed. Patient is alert, oriented x 3, equal unlabored respirations, skin warm/dry/pink. Vital Signs: 01:11 BP 131 / 53; Pulse 62; Resp 18; Temp 98.5; Pulse Ox 97% on R/A; Weight 97.52 kg (R); dm5 Height 5 ft. 0 in. (152.40 cm); Pain 4/10; 03:05 BP 115 / 54; Pulse 53; Resp 16; Pulse Ox 100% on R/A; jb4 04:32 BP 109 / 63; Pulse 60; Resp 16; Pulse Ox 99% on R/A; jb4 01:11 Body Mass Index 41.99 (97.52 kg, 152.40 cm) 5 ED Course: 00:52 Patient arrived in ED. cf2 01:14 Triage completed. dm5 01:38 Henry Freedman MD is Attending Physician. 7 01:45 Patient has correct armband on for positive identification. Bed in low position. Call jb4 light in reach. Side rails up X 1. Pulse ox on. NIBP on. 02:00 Missed attempt(s): 20 gauge in right forearm. 22 gauge in right forearm. Bleeding jb4 controlled, band aid applied, catheter tip intact. 02:08 Cristo Andrew, RN is Primary Nurse. jb4 03:37 Chest Single View XRAY In Process Unspecified. EDMS 05:36 No provider procedures requiring assistance completed. Patient did not have IV access jb4 during this emergency room visit. Administered Medications: 02:45 Drug: Tylenol 1000 mg Route: PO; jb4 03:45 Follow up: Response: No adverse reaction; Pain is decreased jb4 Outcome: 05:29 Discharge ordered by . 7 05:36 Discharged to home ambulatory, with family. jb4 05:36 Condition: stable 05:36 Discharge instructions given to patient, Instructed on discharge instructions, follow up and referral plans. medication usage, Demonstrated understanding of instructions, follow-up care, medications, Prescriptions given X 2. 05:37 Patient left the ED. jb4 Signatures: Dispatcher [employer] EDWI Delphine Parish RN RN dm5 Cristo Andrew, RN RN jb4 Serena Arceo 2 Henry Freedman MD MD 7
[2020-07-17 11:18] VITALS: TEMP 98.5
[2020-07-17 11:22] VITALS: BP 109/63; O2SAT 99
--- NOTE | 2020-07-17 11:55 | RAD REPORT ---
EXAM DESCRIPTION: XR Chest, 1 View CLINICAL HISTORY: The patient is 40 years old and is Female; CONGESTION TECHNIQUE: Single view of the chest. COMPARISON: No relevant prior studies available. FINDINGS: Lungs: Unremarkable. No consolidation. Pleural space: Unremarkable. No pneumothorax. Heart: Unremarkable. No cardiomegaly. Mediastinum: Unremarkable. Bones/joints: No acute fracture visualized. Upper abdomen: No free air in the visualized upper abdomen. IMPRESSION: No acute cardiopulmonary process identified. Electronically signed by: Mady Garcia MD 07/17/2020 4:46 AM PRODUCT DEVELOPMENT INTERN Due to temporary technical issues with the PACS/Fluency reporting system, reports are being signed by the in house radiologist without review as a courtesy to ensure prompt reporting. The interpreting r adiologist is fully responsible for the content of the report.
== END 2020-07-17 05:37 | disposition home or self-care (01) ==
LOC: ER 00:50
DX: M54.9 Dorsalgia, unspecified (principal); E07.9 Disorder of thyroid, unspecified
CPT/HCPCS: 36415; 71045; 80048; 80076; 81003; 81025; 82550; 84484; 85025; 93005; 99284

== ENCOUNTER 2022-01-10 02:55 | Emergency (ER) | payer SELFPAY ==
--- OUTSIDE RECORDS SUMMARY | 2022-01-10 02:57 | XMS REPORT | Continuity of Care Document ---
:1980 Author Organization [facility] t Address [address] [place] [address] Care Team Providers Name Role Phone Unavailable Unavailable Unavailable Problems This patient has no known problems. Allergies, Adverse Reactions, Alerts This patient has no known allergies or adverse reactions. Medications This patient has no known medications. Procedures This patient has no known procedures. Results Test Description Test Time Test Comments Results Result Comments Source SARS-CoV-2 (COVID-19), RT-PCR/TMA 2021-09-06 18:36:33 Test Item Value Reference Range Interpretation Comme nts SARS-CoV-2 INTERPRETATION NEGATIVE SEE NOTE S ARS-CoV-2 RNA NOT (test code = 13122) DETECTED Negative results do not preclude SARS-C oV-2 infection and should notb e used as the sole basis for patient management deci sions. Negativeresults must be combined with clinical o bservations, patient history ,and epidemiological information. Optimum specime n types and timingfor peak viral levels during infectio ns caused by SARS-CoV-2 have notbeen determined. Col lection of multiple specim ens or types ofspecimens may be necessary to detect virus. I mproper specimencollect ion and handling, sequence variab ility under primers/probes, or organism present below t he limit of detection may l ead to falsenegative r esults. Positive and negative pr edictive values oftesting are h ighly dependent on prevalence. False negative testresults are more likely when prevalence is h igh. SOURCE (test code = 63118) NASOPHARYNGEAL Note: Methodology is Bj Emily Real-Time RT-PCR. The expected r esult or reference range is NEGATIVE (Not Detected). For more information regarding COVID -19 testing to include clinica linformation, methodology det ail, intended use, FDA author ization andrecommended fact sheets for patients or hea lthcare providers, see [employer] Announcement: S ARS-CoV-2 (COVID-19) by Marah CRAFT at URL below (note,fact shee ts are provided by method given in report:https:// www.[employer]/c trip/rico t-communications/ Alternatively, see downloadable PDF fact sheet at:https://www. [employer]/COVID -19-RT-PCR UNLESS OTHERWISE INDIC ATED, ALL TESTING PERFORMED [facility]OLOG[facility], [place] [address] LABORATORY DIRE CTOR: MOLLY DAHL M.D. CLIA NUMBER [id number] [facility] [place]. [id number]
--- NOTE | 2022-01-10 03:28 | EDPHYS ---
Physician Documentation [facility] Name: Jane Izaguirre Age: 41 yrs Sex: Female : 1980 Arrival Date: 01/10/2022 Time: 02:58 Bed 6 Private MD: ED Physician Keith Chisholm HPI: 01/10 03:21 This 41 yrs old Female presents to ER via Unassigned with complaints of Sore rn Throat, Throat Pain. 03:21 The patient presents with sore throat. The patient describes throat pain as burning, rn raw. Onset: The symptoms/episode began/occurred last night. Severity of symptoms: At their worst the symptoms were moderate, in the emergency department the symptoms have improved. Modifying factors: The symptoms are alleviated by nothing, the symptoms are aggravated by swallowing, Patient's oral intake status: good. Associated signs and symptoms: Pertinent positives: Sore throat Pertinent negatives chest pain, cough, fever, flu-like symptoms, rhinorrhea, shortness of breath. The patient has experienced similar episodes in the past. The patient has not recently seen a physician. Pt reports sore throat/throat pain, got bad last night, worse when swallowing spit. No fever/congestion. Reports eating and drinking fine lately. No trauma. Only hx is hypothyroidism, was not taking meds for a while, but now back on her levothyroxine for last 2 months. Denies sob. . 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 - Social history:: Smoking status: Patient denies any tobacco usage or history of. - Family history:: not pertinent. - Hospitalizations: : No recent hospitalization is reported. ROS: 03:21 Constitutional: Negative for fever, chills, and weight loss, Eyes: Negative for injury, rn pain, redness, and discharge, ENT: Negative for injury, + sore throat Neck: Negative for injury, and swelling, Cardiovascular: Negative for chest pain, palpitations, and edema, Respiratory: Negative for shortness of breath, cough, wheezing, and pleuritic chest pain, Neuro: Negative for headache, weakness, numbness, tingling, and seizure. Exam: 03:21 Constitutional: This is a well developed, well nourished patient who is awake, alert, rn and in no acute distress. Ambulatory to room without difficulty or assistance. Head/Face: Normocephalic, atraumatic. Eyes: Pupils equal round and reactive to light, extra-ocular motions intact. Lids and lashes normal. Conjunctiva and sclera are non-icteric and not injected. Cornea within normal limits. Periorbital areas with no swelling, redness, or edema. ENT: Mild pharyngeal erythema, no stridor, uvula midline, no evidence of GRAPHIC DESIGN INTERN. Handling secretions well. Neck: Trachea midline, + mild left sided cervical tender LAD, no crepitus. Cardiovascular: Regular rate and rhythm. No pulse deficits. Respiratory: No increased work of breathing, no retractions or nasal flaring. Vital Signs: 03:23 BP 151 / 74; Pulse 63; Resp 20 S; Temp 97.3(TE); Pulse Ox 97% on R/A; Weight 99.79 kg; as6 Height 5 ft. 1 in. (154.94 cm); Pain 4/10; 03:23 Body Mass Index 41.57 (99.79 kg, 154.94 cm) as6 MDM: 03:01 Patient medically screened. rn 03:26 Differential diagnosis: pharyngitis, lymphadenitis, laryngitis. Data reviewed: vital rn signs, nurses notes, and as a result, I will discharge patient. Counseling: I had a detailed discussion with the patient and/or guardian regarding: the historical points, exam findings, and any diagnostic results supporting the discharge/admit diagnosis, the need for outpatient follow up, to return to the emergency department if symptoms worsen or persist or if there are any questions or concerns that arise at home. Special discussion: I discussed with the patient/guardian in detail that at this point there is no indication for admission to the hospital. It is understood, however, that if the symptoms persist or worsen the patient needs to return immediately for re-evaluation. ED course: No stridor or acute emergent finding on exam, + mild pharyngeal erythema with tender LAD, will dc home with abx and pcp f/u. . Administered Medications: 03:32 Drug: Augmentin (Amoxicillin-Clavulanate) 875 mg Route: PO; as6 04:01 Follow up: Response: No adverse reaction as6 Disposition Summary: 01/10/22 03:28 Discharge Ordered Location: Home rn Problem: new rn Symptoms: have improved rn Condition: Stable rn Diagnosis - Acute pharyngitis, unspecified rn Followup: rn - With: Private Physician - When: As needed - Reason: Recheck today's complaints, Re-evaluation by your physician Discharge Instructions: - Discharge Summary Sheet rn - Pharyngitis rn - Sore Throat rn Forms: - Medication Reconciliation Form rn - Thank You Letter rn - Antibiotic yarn handler - Prescription Opioid Use rn - Work release form as6 Prescriptions: - Augmentin 875-125 mg Oral Tablet - take 1 tablet by ORAL route every 12 hours for 10 days; 20 tablet; Refills: 0, rn Product Selection Permitted Signatures: Keith Chisholm MD MD rn Slawson, Ashby, RN RN as6 Corrections: (The following items were deleted from the chart) 03:25 03:24 PMHx: Thyroid problem; as6 as6
--- NOTE | 2022-01-10 03:28 | ER ---
Nurse's Notes [facility] Name: Jane Izaguirre Age: 41 yrs Sex: Female : 1980 Arrival Date: 01/10/2022 Time: 02:58 Bed 6 Private MD: Diagnosis: Acute pharyngitis, unspecified Presentation: 01/10 03:23 Chief complaint: Patient states: left sided throat pain when she swallows x1 month. as6 Coronavirus screen: At this time, the client does not indicate any symptoms associated with coronavirus-19. Ebola Screen: No symptoms or risks identified at this time. Initial Sepsis Screen: Does the patient meet any 2 criteria? No. Patient's initial sepsis screen is negative. Does the patient have a suspected source of infection? No. Patient's initial sepsis screen is negative. Risk Assessment: Do you want to hurt yourself or someone else? Patient reports no desire to harm self or others. Onset of symptoms is unknown. 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 - Social history:: Smoking status: Patient denies any tobacco usage or history of. - Family history:: not pertinent. - Hospitalizations: : No recent hospitalization is reported. Screenin:26 Abuse screen: Denies threats or abuse. Denies injuries from another. Nutritional as6 screening: No deficits noted. Tuberculosis screening: No symptoms or risk factors identified. Fall Risk None identified. Assessment: 03:25 General: Appears in no apparent distress. Behavior is calm, cooperative. Pain: as6 Complains of pain in left submandibular area and left sternocleidomastoid. Neuro: Level of Consciousness is awake, alert, obeys commands, Oriented to person, place, time, situation. Cardiovascular: JVD is absent Patient's skin is warm and dry. Respiratory: Respiratory effort is even, unlabored, Respiratory pattern is regular, symmetrical. EENT: Reports pain in left jaw when swallowing. Vital Signs: 03:23 BP 151 / 74; Pulse 63; Resp 20 S; Temp 97.3(TE); Pulse Ox 97% on R/A; Weight 99.79 kg; as6 Height 5 ft. 1 in. (154.94 cm); Pain 4/10; 03:23 Body Mass Index 41.57 (99.79 kg, 154.94 cm) as6 ED Course: 02:58 Patient arrived in ED. bp1 03:01 Keith Chisholm MD is Attending Physician. rn 03:09 Elie Del Cid, TAMAR is Primary Nurse. as6 03:24 Triage completed. as6 03:25 Arm band placed on. as6 03:26 Bed in low position. Call light in reach. Adult w/ patient. Pulse ox on. NIBP on. as6 04:01 No provider procedures requiring assistance completed. Patient did not have IV access as6 during this emergency room visit. Administered Medications: 03:32 Drug: Augmentin (Amoxicillin-Clavulanate) 875 mg Route: PO; as6 04:01 Follow up: Response: No adverse reaction as6 Medication: 03:26 VIS not applicable for this client. as6 Outcome: 03:28 Discharge ordered by . rn 04:01 Discharged to home ambulatory, with significant other. as6 04:01 Condition: stable 04:01 Discharge instructions given to patient, family, Instructed on discharge instructions, follow up and referral plans. medication usage, Demonstrated understanding of instructions, follow-up care, medications, Prescriptions given X 1. 04:02 Patient left the ED. as6 Signatures: Keith Chisholm MD MD rn [place], Brittany bp1 Elie Del Cid, TAMAR RN as6 Corrections: (The following items were deleted from the chart) 03:25 03:24 PMHx: Thyroid problem; as6 as6
[2022-01-10] MEDS ORDERED: AMOX/K CLAV 875 MG TAB ONE (03:35)
[2022-01-10 04:07] VITALS: BP 151/74; TEMP 97.3; O2SAT 97
== END 2022-01-10 04:02 | disposition home or self-care (01) ==
LOC: ER 02:55
DX: J02.9 Acute pharyngitis, unspecified (principal); E03.9 Hypothyroidism, unspecified
CPT/HCPCS: 99283

== ENCOUNTER 2023-01-27 12:32 | Emergency (ER) | payer OTHER, SELFPAY ==
--- OUTSIDE RECORDS SUMMARY | 2023-01-27 12:37 | XMS REPORT | Continuity of Care Document ---
:1980 Author Organization [facility] [place] [facility] t Address [address] [facility] [address] [place] [address] Care Team Providers Name Role Phone Abraham Melanie Primary Care Physician [phone] EMILIANA MELENDREZ Attending Clinician Unavailable Emiliana Melendrez MD Attending Clinician ELIZ SEVILLA Attending Clinician Unavailable Eliz Rubio Attending Clinician Doctor Unassigned, [place] Attending Clinician Unavailable EMILIANA MELENDREZ Admitting Clinician Unavailable ELIZ SEVILLA Admitting Clinician Unavailable Problems Condition Condition Condition Status Onset Resolution Last Treating Co mments Source Name Details Category Date Date Treatment Clinician Date Sore Sore Disease Active 2015-08 Univers throat throat 0-12 ity of 00:00: [address] Vaginal Vaginal Disease Active 2015-08 Univers itching itching 0-12 ity of 00:: [address] Hypothyroi Hypothyroi Disease Active U nivers dism dism 6-20 ity of 00:00: [address] Screening Screening Disease Active Uni vers for for 6-17 ity of thyroid thyroid 00:00: [place] disorder disorder 00 Medica l Branch Abnormal Abnormal Disease Active Unive rs weight weight 6-17 ity of gain gain 00:00: [address] Contracept Contracept Disease Active U nivers idris idris 4-27 [place] [facility] Allergies, Adverse Reactions, Alerts Allergy Allergy Status Severity Reaction(s) Onset Inactive Treating Comm ents Source Name Type Date Date Clinician NO KNOWN Drug Active Univers ALLERGIE Class ity of S [facility] Social History Social Habit Start Date Stop Date Quantity Comments Source Exposure to 2022-10-05 2022-10-[address] [facility]-CoV-2 00:00:00 21:56:00 [facility] (event) [place] Alcohol intake 2022-10-15 2022-10-15 0 /d [facility] 00:00:00 00:00:00 [facility] Tobacco use and 2016-02-09 2016-02-09 Smokeless tobacco Un iversity of exposure 00:00:00 00:00:00 non-user [facility] Sex Assigned At [birth year] Universit y of 00:00:00 00:00:00 [facility] Smoking Status Start Date Stop Date Source Never smoked tobacco [facility] Medications Ordered Filled Start Stop Current Ordering Indication Dosage Frequency Signature Comments Components Source Medication Medication Date Date Medication? Clinician (SIG) Name Name iopamidol 2022- No [id number] 100mL 100 mL, Univers (ISOVUE 10-16 Intravenou ity o f 370-500 mL) 08:00: 08:00 s, ONCE, 1 [place] injection 00 :00 dose, On Medica l 100 mL Fri [place] 10/16/22 at 0200, Routine acetaminoph 2022- No 1000mg 1,000 mg, Univers en 10-16 Oral, ity of (TYLENOL) 06:30: 06:27 ONCE[place] tablet [place] :[place] dose, On Medical 1,000 mg Fri [place] 10/16/22 at 0030, TAMMY FENTanyl PF 2022- No 25ug 25 mcg, Un becky (SUBLIMAZE 10-16 Slow IV ity o f (PF)) 04:30: 04:25 Push, [place] injection 00 :00 ONCE, 1 Medical 25 mcg dose, On Branch 10/15/22 at 2230, STAT diphenhydrA 2022- No 12.5mg 12.5 mg, Univers MINE 10-16 Slow IV ity of (BENADRYL) 04:30: 04:26 Push, [place] injection 00 :00 ONCE, 1 Medical 12.5 mg dose, On Branch 10/15/22 at 2230, STAT metoclopram 0 2022- No 10mg 10 mg, Uni vers bridget HCl 10-16 Slow IV ity of (REGLAN) 04:30: 04:26 Push, [place] injection 00 :00 ONCE, 1 Medical 10 mg dose, On Branch 10/15/22 at 2230, TAMMY traMADoL Yes [id number] 50mg Take 1 Univers (ULTRAM) 50 2-22 tablet by ity of mg tablet 00:00: mouth [place] 00 every 6 Medical (six) Branch hours as needed for Pain (scale 7-10). Indication s: acute pain TAKE 1 2021-08 No TABLET 2-13 DAILY. 00:00: 00 NaCl 0.9% 2021-08 No 1000mL at 999 Uni vers (NS) bolus 0- 10-23 mL/hr, ity of infusion 20:15: 21:07 1,000 mL, [place] as 1,000 mL 00 :00 IV Medical Infusion, Branch ONCE, 1 dose, On [place] 06/16/22 at 1515, TAMMY diphenhydrA 2021-08- No 25mg 25 mg, Uni vers MINE 0-23 10-23 Oral, ity of (BENADRYL) 19:45: 19:51 ONCE, 1 [place] as tablet 25 00 :00 dose, On Medica l mg [place] 06/16/22 at 1445, TAMMY metoclopram 2021-08- No 10mg 10 mg, Uni vers bridget HCl 0-16 06-23 Slow IV ity of (REGLAN) 19:45: 19:51 Push, [place] injection 00 :00 ONCE, 1 Medical 10 mg dose, On Branch [place] 06/16/22 at 1445, TAMMY ketorolac 2021-08- No 30mg 30 mg, Unive rs (TORADOL) 0- 10-23 Slow IV ity of injection 19:45: 19:51 Push, [place] 30 mg 00 :00 ONCE, 1 Medical dose, On Branch [place] 06/16/22 at 1445, Routine butalbital- 2021-08 Yes [id number] 1{tbl} Take 1 Univers acetaminoph 0-23 tablet by ity of en-caff 00:00: mouth [place] 50-325-40 00 every 6 Medical mg tablet (six) Branch hours as needed for Pain (scale 7-10). butalbital- 2021-08 Yes [id number] 1{tbl} Take 1 Univers acetaminoph 0-23 tablet by ity of en-caff 00:00: mouth [place] 50-325-40 00 every 6 Medical mg tablet (six) Branch hours as needed for Pain (scale 7-10). Dose 2021-0 No Unknown 4-25 00:00: 00 Dose 2-0 No Unknown 4-25 00:00: 00 Dose 2022-0 No Unknown 4-25 00:00: 00 Dose 2022-0 No Unknown 4-25 00:00: 00 Dose 2022-0 No Unknown 4-25 00:00: 00 Dose 2022-0 No Unknown 4-25 00:00: 00 Dose 2022-0 No Unknown 4-25 00:00: 00 Dose 2022-0 No Unknown 4-25 00:00: 00 Dose 2022-0 No Unknown 4-25 00:00: 00 Dose 2022-0 No Unknown 4-25 00:00: 00 Dose 2022-0 No Unknown 4-25 00:00: 00 Dose 2022-0 No Unknown 4-25 00:00: 00 Dose 2022-0 No Unknown 4-25 00:00: 00 Dose 2022-0 No Unknown 4-25 00:00: 00 Dose 2021-1 No Unknown 1-11 00:00: 00 Dose 2021-1 No Unknown 1-11 00:00: 00 meclizine Yes [id number] 25mg Take 1 U nivers 25 mg 5-16 tablet by ity of tablet 00:00: mouth [place] 00 every 6 Medical (six) Branch hours as needed for Dizziness. meclizine Yes [id number] 25mg Take 1 U nivers 25 mg 5-16 tablet by ity of tablet 00:00: mouth [place] 00 every 6 Medical (six) Branch hours as needed for Dizziness. meclizine Yes [id number] 25mg Take 1 U nivers 25 mg 5-16 tablet by ity of tablet 00:00: mouth [place] 00 every 6 Medical (six) Branch hours as needed for Dizziness. phenazopyri Yes 200mg Take 1 Uni vers dine 200 mg 6-26 tablet by ity of tablet 00:00: mouth 3 [place] 00 (three) Medical times Branch daily after meals. phenazopyri Yes 200mg Take 1 Uni vers dine 200 mg 6-26 tablet by ity of tablet 00:00: mouth 3 [place] 00 (three) Medical times Branch daily after meals. phenazopyri Yes 200mg Take 1 Uni vers dine 200 mg 6-26 tablet by ity of tablet 00:00: mouth 3 [place] 00 (three) Medical times Branch daily after meals. levothyroxi 2015-08 Yes [id number] 50ug Take 1 Univers ne 0-12 tablet by ity of (SYNTHROID) 00:00: mouth [place] 50 mcg 00 every Medical tablet morning. Branch levothyroxi 2015-08 Yes [id number] 50ug Take 1 Univers ne 0-12 tablet by ity of (SYNTHROID) 00:00: mouth [place] 50 mcg 00 every Medical tablet morning. Branch levothyroxi 2015-08 Yes [id number] 50ug Take 1 Univers ne 0-12 tablet by ity of (SYNTHROID) 00:00: mouth [place] 50 mcg 00 every Medical tablet morning. Branch naproxen Yes 550mg Take 1 Univer s sodium 4-26 tablet by ity of (ANAPROX) 00:00: mouth 2 [place] 550 mg 00 (two) Medical tablet times Branch daily with meals. levofloxaci 2015-0 Yes 500mg Take 1 Uni vers n 4-26 tablet by ity of (LEVAQUIN) 00:00: mouth [place] 500 mg 00 every 24 Medical tablet (twenty-fo Branch ur) hours. naproxen 2015-0 Yes 550mg Take 1 Univer s sodium 4-26 tablet by ity of (ANAPROX) 00:00: mouth 2 [place] 550 mg 00 (two) Medical tablet times Branch daily with meals. levofloxaci 2015-0 Yes 500mg Take 1 Uni vers n 4-26 tablet by ity of (LEVAQUIN) 00:00: mouth [place] 500 mg 00 every 24 Medical tablet (twenty-fo Branch ur) hours. naproxen 2016-0 Yes 550mg Take 1 Univer s sodium 4-26 tablet by ity of (ANAPROX) 00:00: mouth 2 [place] 550 mg 00 (two) Medical tablet times Branch daily with meals. levofloxaci 2016-0 Yes 500mg Take 1 Uni vers n 4-26 tablet by ity of (LEVAQUIN) 00:00: mouth [place] 500 mg 00 every 24 Medical tablet (-fo Branch ur) hours. Immunizations Ordered Filled Immunization Date Status Comments [facility] Immunization Name Name Huy COVID-19 2021-03-02 Completed Vaccine 00:00:00 Moderna COVID-19 2021-03-02 Completed Vaccine 00:00:00 Mikaa COVID-19 2021-01-26 Completed Vaccine 00:00:00 Moderna COVID-19 2021-01-26 Completed Vaccine 00:00:00 Varicella 2012-08-05 Completed [facility] (varivax)(chicken 00:00:00 [facility] edical pox) Branch Varicella 2012-08-05 Completed [facility] (varivax)(chicken 00:00:00 [facility] edical pox) Branch Varicella 2012-08-05 Completed [place] of (varivax)(chicken 00:00:00 [facility] edical pox) Branch TDAP 2011-08-25 Completed University of 00:00:00 [facility] TDAP 2011-08-25 Completed University of 00:00:00 [facility] TDAP 2011-08-25 Completed [place] of 00:00:00 [facility] Vital Signs Vital Name Observation Time Observation Value Comments Source Systolic blood 2022-10-16 07:00:00 106 mm[Hg] Univer sity of pressure [facility] Diastolic blood 2022-10-16 07:00:00 88 mm[Hg] [facility] Heart rate 2022-10-16 07:00:00 93 /min [facility] Oxygen saturation in 2022-10-16 07:00:00 96 /min [facility] Arterial blood by [facility] Pulse oximetry Branch Respiratory rate 2022-10-16 06:25:00 27 /min [facility] Body temperature 2022-10-16 06:25:00 38.94 [place] [facility] Body height 2022-10-16 03:51:00 152.4 cm [facility] [place] [facility] Body weight 2022-10-16 03:51:00 111.585 kg [facility] [place] [facility] BMI 2022-10-16 03:51:00 48.04 kg/m2 Universi ty [facility] Medical Branch Systolic blood 2022-06-16 21:00:00 116 mm[Hg] Univer sity of pressure [facility] Diastolic blood 2022-06-16 21:00:00 76 mm[Hg] Unive rsity of pressure [place] Medical [place] Heart rate 2022-06-16 21:00:00 61 /min [facility] [place] [facility] Respiratory rate 2022-06-16 21:00:00 18 /min [facility] Oxygen saturation in 2022-06-16 21:00:00 97 /min [facility] Arterial blood by [facility] Pulse oximetry Branch Body temperature 2022-06-16 17:24:00 37.06 Lynsey [facility] [place] [facility] [place] Body height 2022-06-16 17:24:00 152.4 cm [facility] [place] [facility] Body weight 2022-06-16 17:24:00 106.595 kg Universi ty [facility] Medical Branch BMI 2022-06-16 17:24:00 45.90 kg/m2 [facility] BP Systolic 2022-08-06 14:42:00 123 mm[Hg] BP Diastolic 2022-08-06 14:42:00 81 mm[Hg] Weight Measured 2022-08-06 14:42:00 251.00 pounds Height Measured 2022-08-06 14:42:00 60.04 inches Body Temperature 2022-08-06 14:42:00 99.00 degrees Heart Rate 2022-08-06 14:42:00 66.00 /min Respiratory Rate 2022-08-06 14:42:00 BP Systolic 2022-07-25 11:55:00 119 mm[Hg] BP Diastolic 2022-07-25 11:55:00 77 mm[Hg] Weight Measured 2022-07-25 11:55:00 247.60 pounds Height Measured 2022-07-25 11:55:00 60.04 inches Body Temperature 2022-07-25 11:55:00 98.50 degrees Heart Rate 2022-07-25 11:55:00 72.00 /min Respiratory Rate 2022-07-25 11:55:00 16.00 /min BP Systolic 2021-07-05 08:21:00 123 mm[Hg] BP Diastolic 2021-07-05 08:21:00 83 mm[Hg] Weight Measured 2021-07-05 08:21:00 245.40 pounds Height Measured 2021-07-05 08:21:00 60.04 inches Body Temperature 2021-07-05 08:21:00 97.40 degrees Heart Rate 2021-07-05 08:21:00 76.00 /min Respiratory Rate 2021-07-05 08:21:00 Procedures Procedure Date / Time Performed Performing Clinician [facility] e TROPONIN I 2022-10-16 06:30:00 Emiliana Melendrez [facility] XR CHEST 1 VW 2022-10-16 04:33:53 Emiliana Melendrez [facility] D-DIMER 2022-10-16 04:26:00 Emiliana Melendrez [facility] URINALYSIS 2022-10-16 04:26:00 Emiliana Melendrez [facility] POCT TEST 2022-10-16 04:07:00 Emiliana Melendrez [facility] LIPASE 2022-10-16 03:58:00 Emiliana Melendrez [facility] TROPONIN I 2022-10-16 03:58:00 Emiliana Melendrez [facility] COMP. METABOLIC PANEL 2022-10-16 03:58:00 Emiliana Melendrez [facility] ([id number]) [facility] CBC WITH DIFF 2022-10-16 03:58:00 Emiliana Melendrez [facility] RAPID INFLUENZA A/B 2022-10-16 03:58:00 Emiliana Melendrez [facility] COVID-19 (ID NOW RAPID 2022-10-16 03:58:00 Emiliana Melendrez [facility] TESTING) [facility] NOTICE OF PRIVACY 2022-10-16 03:42:26 Doctor Unassigned, No [facility] PRACTICES Name Medical Branch CONSENT/REFUSAL FOR 2022-10-16 03:41:57 Doctor Unassigned, No [facility] [place] DIAGNOSIS AND Name Medical Branch TREATMENT COMP. METABOLIC PANEL 2022-06-16 19:50:00 [facility] ([id number]) [facility] CT HEAD WO CONTRAST 2022-06-16 18:28:00 Eliz Sevilla [facility] CBC WITH DIFF 2022-06-16 18:09:00 Eliz Sevilla [facility] URINALYSIS 2022-06-16 18:09:00 Eliz Sevilla [facility] ASSIGNMENT OF BENEFITS 2022-06-16 17:57:56 Doctor Unassigned, No [facility] CONSENT/REFUSAL FOR 2022-06-16 17:20:01 Doctor Unassigned, No [facility] [place] DIAGNOSIS AND Name Medical Branch TREATMENT Plan of Care Planned Activity Planned Date Details Comments Source Goal Plan of Care Note [code = 73314-2] Goal Plan of Care Note [code = 08486-8] Goal Plan of Care Note [code = 60365-2] Goal Plan of Care Note [code = 50677-6] Goal Plan of Care Note [code = 08480-5] Goal Plan of Care Note [code = 79095-7] Goal Plan of Care Note [code = 62564-0] Goal Plan of Care Note [code = 05840-7] Goal Plan of Care Note [code = 93439-7] Goal Plan of Care Note [code = 11622-5] Goal Plan of Care Note [code = 52740-7] Goal Plan of Care Note [code = 30122-2] Goal Plan of Care Note [code = 71644-0] Goal Plan of Care Note [code = 98252-6] Goal Plan of Care Note [code = 59106-6] Goal Plan of Care Note [code = 43054-1] Goal Plan of Care Note [code = 62779-9] Goal Plan of Care Note [code = 08600-8] Goal Plan of Care Note [code = 03740-8] Goal Plan of Care Note [code = 99750-7] Goal Plan of Care Note [code = 29132-3] Goal Plan of Care Note [code = 95153-8] Goal Plan of Care Note [code = 59675-2] Goal Plan of Care Note [code = 08566-8] Goal Plan of Care Note [code = 94360-2] Goal Plan of Care Note [code = 48498-6] Goal Plan of Care Note [code = 20717-6] Goal Plan of Care Note [code = 87085-7] Goal Plan of Care Note [code = 36142-7] Goal Plan of Care Note [code = 42609-3] Encounters Start End Encounter Admission Attending Care Care Encounter Source Date/Time Date/Time Type Type Clinicians Facility Department ID 2022-10-15 2022-10-16 Emergency [facility] [id number] Univers 21:44:00 02:14:00 EMILIANA [facility] 2022-10-15 2022-10-16 Emergency [facility] [id number] Univers 21:44:00 02:14:00 Emiliana Hernandez [place] [id number] [id number] [id number] [address] 2022-09-16 2022-09-16 Outpatient SFA SFA [id number] Deni 13:48:54 13:48:54 [address] [place] 2022-08-06 2022-08-06 Outpatient SFA SFA [id number] [place]i 14:32:16 14:32:16 [address] [place] 2022-08-06 2022-08-06 Outpatient [id number] 00:00:00 00:00:00 Visit [id number] 2022-07-26 2022-07-26 Outpatient SFA SFA [id number] [place] 08:02:44 08:02:44 1202 F Bhaves[place] 2022-07-25 2022-07-25 Outpatient SFA SFA [id number] [place] 11:42:15 11:42:15 1201 F Bhavesh 2022-07-252022-07-25 Outpatient [id number] 00:00:00 00:00:00 Visit [id number] [id number] 2022-06-16 2022-06-16 Emergency X SEVILLA, [facility] ERT [id number] Univers 12:26:00 16:15:00 ELIZ ity of [facility] 2022-06-16 2022-06-16 Emergency Sevilla, [facility] [id number] Univers 12:26:00 16:15:00 Eliz TIJOSEPH [id number] i ty [facility] [id number] [facility] [id number] [facility] 084 Branch 2022-06-16 2022-06-16 Orders Doctor ALF [id number] Univers 00:00:00 00:00:00 Only Unassigned, [place] [id number] ity of [place] [facility] 4.2.7.2.686 [facility] [place] [facility] [id number] [facility] 009 Branch Results Test Description Test Time Test Comments Results Result Comments Source TROPONIN I 2022-10-16 07:01:26 Test Item Value Reference Range Interpretation Comme nts TROPONIN I (test code = 1533440152) 0.004 ng/mL <=0.034 GEORGETTE (test code = GEORGETTE) Reference (Normal) Range (defined by the 99th percentile reference limit): <= 0.034 ng/mL Note: Cardiac troponin begins to rise 3-4 hours after the onset of ischemia. Repeat in 4-6 hours if the sample was drawn within 3-4 hours of the onset of the symptom and found normal. Diagnosis of myocardial injury is made with acute changes in cTn concentrations with at least one serial sample above the 99th percentile upper reference limit (URL), taken together with the patient's clinical presentation. Biotin has been reported to cause a negative bias, interpret results relative to patient's use of biotin. Lab Interpretation (test code = Normal 49319-8) [facility][id number] 04:50:17 Test Item Value Reference Interpretation Comments Range D-DIMER (test code = 0.73 See_Comment H [Autom ated [id number]) message] The system which generated this result transmitted reference range : <0.41 ?g/mL (FEU). The reference range was not used to interpret this result as normal/abnormal . GEORGETTE (test code = This test may be GEORGETTE) used in conjunction with a clinical pretest probability (PTP) assessment model to exclude venous thromboembolism (VTE) in patients suspected of deep venous thrombosis (DVT) and pulmonary embolism (PE) A D-Dimer value less than 0.50 ?g/ml (FEU) has a negative predicative value of 96 to 100% (95% CI)and 97 to 100% (95% CI) as an aid in the diagnosis of deep vein thrombosis (DVT) and pulmonary embolism when there is low or moderate pretest probability of PE or DVT. D-Dimer values are expressed in initial fibrinogen equivalent units (FEU)" The assay results should be used with other information, including the clinical context, in forming a diagnosis. Lab Interpretation Abnormal (test code = 50717-4) [facility] [id number] 04:39:55 Test Item Value Reference Range Interpretation Comments TROPONIN I (test code = 0.003 ng/mL <=0.034 [id number]) GEORGETTE (test code = GEORGETTE) Reference (Normal) Range (defined by the 99th percentile reference limit): <= 0.034 ng/mL Note: Cardiac troponin begins to rise 3-4 hours after the onset of ischemia. Repeat in 4-6 hours if the sample was drawn within 3-4 hours of the onset of the symptom and found normal. Diagnosis of myocardial injury is made with acute changes in cTn concentrations with at least one serial sample above the 99th percentile upper reference limit (URL), taken together with the patient's clinical presentation. Biotin has been reported to cause a negative bias, interpret results relative to patient's use of biotin. Lab Interpretation Normal (test code = 31299-2) [facility]OL[facility] PANEL ([id number])2022-10-16 04:28:17 Test Item Value Reference Range Interpretation Comments NA (test code = 137 mmol/L 135-145 9266346838) K (test code = 4.2 mmol/L 3.5-5.0 6051060700) CL (test code = 105 mmol/L 98-108 9306343620) CO2 TOTAL (test code = 24 mmol/L 23-31 6672020293) AGAP (test code = 8 2-16 0856298990) BUN (test code = 12 mg/dL 7-23 6675086228) GLUCOSE (test code = 115 mg/dL 70-110 H 0274124090) CREATININE (test code = 0.62 mg/dL 0.50-1.04 4247297575) TOTAL BILI (test code = 0.7 mg/dL 0.1-1.2 6567155558) CALCIUM (test code = 8.7 mg/dL 8.6-10.6 5616592131) T PROTEIN (test code = 7.7 g/dL 6.3-8.2 1045354451) ALBUMIN (test code = 4.5 g/dL 3.5-5.0 6120410463) ALK PHOS (test code = 78 U/L 34-122 4040972031) ALTv (test code = 27 U/L 5-35 2-6) AST(SGOT) (test code = 29 U/L 13-40 9665089047) eGFR (test code = 105.6 mL/min/1.73m2 5102391371) GEORGETTE (test code = GEORGETTE) Association of Glomerular Filtration Rate (GFR) and Staging of Kidney Disease* + --+ --+ ------+| GFR (mL/min/1.73 m2) ?| With Kidney Damage ?| ?Without Kidney Damage+ --------+ --------+ +| ?>90 ?| ?Stage one ?| ? Normal ?+ ---+ ---+ -------+| ?60-89 ?| ?Stage two ?| ? Decreased GFR ? + --+ --+ ------+| ?30-59 ?| ?Stage three ?| ? Stage three ? + --+ --+ ------+| ?15-29 ?| ?Stage four ? | ? Stage four ?+ ---+ ---+ -------+| ?<15 (or dialysis) ? ?| ?Stage five ? | ? Stage five ?+ ---+ ---+ -------+ *Each stage assumes the associated GFR level has been in effect for at least three months. ?Stages 1 to 5, with or without kidney disease, indicate chronic kidney disease. Notes: Determination of stages one and two (with eGFR >59mL/min/1.73 m2) requires estimation of kidney damage for at least three months as defined by structural or functional abnormalities of the kidney, manifested by either:Pathological abnormalities or Markers of kidney damage (including abnormalities in the composition of the blood or urine or abnormalities in imaging tests). Lab Interpretation Abnormal (test code = 17571-0) [facility], [id number] 04:28:17 Test Item Value Reference Range Interpretation Comments LIPASE (test code = 3752451771) 69 U/L 0-220 Lab Interpretation (test code = Normal 56376-8) [facility] WITH [id number] 04:17:33 Test Item Value Reference Range Interpretation Comments WBC (test code = 11.78 See_Comment H [Automated 4814-2) message] The sy stem which generated this result transmitted reference range : 4.30 - 11.10 10*3/?L. The reference range was not used to interpret this result as normal/abnormal . RBC (test code = 4.55 See_Comment [Automated 319-8) message] The sy stem which generated this result transmitted reference range : 3.93 - 5.25 10*6/?L. The reference range was not used to interpret this result as normal/abnormal . HGB (test code = 13.2 g/dL 11.6-15.0 718-7) HCT (test code = 38.7 % 35.7-45.2 4544-3) MCV (test code = 85.1 fL 80.6-95.5 787-2) MCH (test code = 29.0 pg 25.9-32.8 785-6) MCHC (test code = 34.1 g/dL 31.6-35.1 786-4) RDW-SD (test code = 38.2 fL 39.0-49.9 L 26794-6) RDW-CV (test code = 12.3 % 12.0-15.5 788-0) PLT (test code = 253 See_Comment [Automated 993-3) message] The sy stem which generated this result transmitted reference range : 166 - 358 10*3/ ?L. The reference r gloria was not used to interpret this result as normal/abnormal . MPV (test code = 9.2 fL 9.5-12.9 L 53564-5) NRBC/100 WBC (test 0.0 See_Comment [Automat ed code = [id number]) message] The system which generated this result transmitted reference range : 0.0 - 10.0 /100 WBCs. The refer ence range was not u sed to interpret th is result as normal/abnormal . NRBC x10^3 (test code See_Comment [Auto mated = [id number]) message] The s ystem which generated this result transmitted reference range : 10*3/?L. The reference range was not used to interpret this result as normal/abnormal . GRAN MAT (NEUT) % 77.1 % (test code = 770-8) IMM GRAN % (test code 0.60 % = 9036146216) LYMPH % (test code = 15.4 % 736-9) MONO % (test code = 6.2 % 5905-5) EOS % (test code = 0.4 % 713-8) BASO % (test code = 0.3 % 706-2) GRAN MAT x10^3(ANC) 9.08 10*3/uL 1.88-7.09 H (test code = 2172407700) IMM GRAN x10^3 (test 0.07 10*3/uL 0.00-0.06 H code = 7632144438) LYMPH x10^3 (test code 1.82 10*3/uL 1.32-3.29 = 731-0) MONO x10^3 (test code 0.73 10*3/uL 0.33-0.92 = 742-7) EOS x10^3 (test code = 0.05 10*3/uL 0.03-0.39 711-2) BASO x10^3 (test code 0.03 10*3/uL 0.01-0.07 = 704-7) Lab Interpretation Abnormal (test code = 41849-0) [facility] [id number] 04:07:00 Test Item Value Reference Range Interpretation Comments POCT PREG (test code = 1605) Negative On board controls acceptable with Positive C Line (test code = 3574) POCT PREG LOT # (test code = 3575) [id number] POCT PREG TEST DATE (test 11/23/2023 code = 3576) Lab Interpretation (test code = Normal 72530-4) [facility], THIRD [id number] 05:49:05 Test Item Value Reference Range Interpretation Comments TSH, THIRD GENERATION (test code 2.500 UIU/ML 0.400-4.100 = 2821) LIPID [id number] 03:31:11 Test Item Value Reference Range Interpretation Comments CHOLESTEROL (test 188 MG/DL <200 code = 2210) TRIGLYCERIDES (test 282 MG/DL <150 H code = 2232) HDL CHOLESTEROL (test 31 MG/DL >39 L code = 2220) CALC LDL CHOL (test 117 MG/DL <100 H NOTE: C ALCULATED LDL code = 2237) IS BASED ON SRINIVASAN-CABRAL METHOD WHICHINCLUDES ADJUSTABLE TRIGLYCERIDE:VL DL CHOLESTEROL RAT IO.THIS FACTOR VARIES B Y MEASURED TRIGLY CERIDE AND NON-HDLCHOL ESTEROL CONCENTRATIONS WITH INCREASED CALCU LATED LDL SEENIN HIGH ER TRIGLYCERIDE OR LOWER NON-HDL SPECIME NS. FOR MOREINFORMATION , SEE CLIENT ANNOUNCE MENT AT [email or web address] [email or web address] RATIO LDL/HDL 3.77 RATIO <3.22 H (test code = 2238) COMPREHENSIVE METABOLIC [id number] 03:31:11 Test Item Value Reference Range Interpretation Comments GLUCOSE (test code = 99 MG/DL 70-99 2216) BUN (test code = 14 MG/DL 02-11) CREATININE (test 0.74 MG/DL 0.60-1.30 code = 2214) eGFR (2020 CKD-EPI) 104 >60 (test code = 98967) ML/MIN/1.73 CALC BUN/CREAT (test 19 RATIO 02-19 code = 2235) SODIUM (test code = 141 MEQ/L 807-739 3834) POTASSIUM (test code 4.0 MEQ/L 3.5-5.4 = 2227) CHLORIDE (test code 104 MEQ/L 95-107 = 2214) CARBON DIOXIDE (test 26 MEQ/L code = 2206) CALCIUM (test code = 9.5 MG/DL 8.5-10.5 2208) PROTEIN, TOTAL (test 7.0 G/DL 6.1-8.3 code = 2229) ALBUMIN (test code = 4.5 G/DL 3.5-5.2 2200) CALC GLOBULIN (test 2.5 G/DL 1.9-3.7 code = 2240) CALC A/G RATIO (test 1.8 RATIO 1.0-2.6 code = 2234) BILIRUBIN, TOTAL 0.3 MG/DL See_Comment [Automated message] (test code = 2206) The syste m which generated this result transmit naty reference range : <=1.2. The refe rence range was not u sed to interpret th is result as normal/abnormal . ALKALINE PHOSPHATASE 91 U/L 40-113 (test code = 2203) AST (test code = 21 U/L 9-40 2217) ALT (test code = 26 U/L 5-40 2218) HEMOGLOBIN [id number] 03:01:44 Test Item Value Reference Range Interpretation Comments HEMOGLOBIN A1c (test 5.9 % 4.2-5.6 H UNLESS OTHERWISE code = 22639) INDICATED, ALL TESTING PERFORMED [facility]. [address] [place] [place] [address] [place] [address] DIRECTOR: Santa CRANDALLIA NUMBER [id number] [facility] ACCREDITATION N O. [id number] CBC W/AUTO [id number] 00:00:00 Test Item Value Reference Range Interpretation Comments WBC (test code = 1001) 5.8 K/UL RBC (test code = 1002) 4.39 M/UL HEMOGLOBIN (test code = 1003) 12.7 G/DL HEMATOCRIT (test code = 1004) 36.9 % MCV (test code = 1005) 84.1 fL MCH (test code = 1006) 28.9 PG MCHC (test code = 1007) 34.4 G/DL RDW (test code = 1038) 13.1 % NEUTROPHILS (test code = 1008) 46.7 % LYMPHOCYTES (test code = 1010) 41.4 % MONOCYTES (test code = 1011) 6.4 % EOSINOPHILS (test code = 1012) 5.0 % BASOPHILS (test code = 1013) 0.2 % IMMATURE GRANULOCYTES (test 0.3 % code = 1036) NUCLEATED RBCS (test code = 0.0 /100WBC'S 1065) PLATELET COUNT (test code = 246 K/UL 1015) ABSOLUTE NEUTROPHILS (test code 2.72 K/UL = 1066) ABSOLUTE LYMPHOCYTES (test code 2.41 K/UL = 1067) ABSOLUTE MONOCYTES (test code = 0.37 K/UL 1068) ABSOLUTE EOSINOPHILS (test code 0.29 K/UL = 1040) ABSOLUTE BASOPHILS (test code = 0.01 K/UL 1069) ABS IMMATURE GRANULOCYTES (test 0.02 K/UL code = 1020) ABS NUCLEATED RBCS (test code = 0.00 K/UL 85245) CBC W/AUTO [id number] 00:00:00 Test Item Value Reference Range Interpretation Comments WBC (test code = 1001) 5.8 K/UL RBC (test code = 1002) 4.39 M/UL HEMOGLOBIN (test code = 1003) 12.7 G/DL HEMATOCRIT (test code = 1004) 36.9 % MCV (test code = 1005) 84.1 fL MCH (test code = 1006) 28.9 PG MCHC (test code = 1007) 34.4 G/DL RDW (test code = 1038) 13.1 % NEUTROPHILS (test code = 1008) 46.7 % LYMPHOCYTES (test code = 1010) 41.4 % MONOCYTES (test code = 1011) 6.4 % EOSINOPHILS (test code = 1012) 5.0 % BASOPHILS (test code = 1013) 0.2 % IMMATURE GRANULOCYTES (test 0.3 % code = 1036) NUCLEATED RBCS (test code = 0.0 /100WBC'S 1065) PLATELET COUNT (test code = 246 K/UL 1015) ABSOLUTE NEUTROPHILS (test code 2.72 K/UL = 1066) ABSOLUTE LYMPHOCYTES (test code 2.41 K/UL = 1067) ABSOLUTE MONOCYTES (test code = 0.37 K/UL 1068) ABSOLUTE EOSINOPHILS (test code 0.29 K/UL = 1040) ABSOLUTE BASOPHILS (test code = 0.01 K/UL 1069) ABS IMMATURE GRANULOCYTES (test 0.02 K/UL code = 1020) ABS NUCLEATED RBCS (test code = 0.00 K/UL 05630) CBC W/AUTO [id number] 00:00:00 Test Item Value Reference Range Interpretation Comments WBC (test code = 1001) 5.8 K/UL RBC (test code = 1002) 4.39 M/UL HEMOGLOBIN (test code = 1003) 12.7 G/DL HEMATOCRIT (test code = 1004) 36.9 % MCV (test code = 1005) 84.1 fL MCH (test code = 1006) 28.9 PG MCHC (test code = 1007) 34.4 G/DL RDW (test code = 1038) 13.1 % NEUTROPHILS (test code = 1008) 46.7 % LYMPHOCYTES (test code = 1010) 41.4 % MONOCYTES (test code = 1011) 6.4 % EOSINOPHILS (test code = 1012) 5.0 % BASOPHILS (test code = 1013) 0.2 % IMMATURE GRANULOCYTES (test 0.3 % code = 1036) NUCLEATED RBCS (test code = 0.0 /100WBC'S 1065) PLATELET COUNT (test code = 246 K/UL 1015) ABSOLUTE NEUTROPHILS (test code 2.72 K/UL = 1066) ABSOLUTE LYMPHOCYTES (test code 2.41 K/UL = 1067) ABSOLUTE MONOCYTES (test code = 0.37 K/UL 1068) ABSOLUTE EOSINOPHILS (test code 0.29 K/UL = 1040) ABSOLUTE BASOPHILS (test code = 0.01 K/UL 1069) ABS IMMATURE GRANULOCYTES (test 0.02 K/UL code = 1020) ABS NUCLEATED RBCS (test code = 0.00 K/UL 47584) TSH, THIRD [id number] 00:00:00 Test Item Value Reference Range Interpretation Comments TSH, THIRD GENERATION (test code 4.590 UIU/ML = 2821) TSH, THIRD [id number] 00:00:00 Test Item Value Reference Range Interpretation Comments TSH, THIRD GENERATION (test code 4.590 UIU/ML = 2821) TSH, THIRD [id number] 00:00:00 Test Item Value Reference Range Interpretation Comments TSH, THIRD GENERATION (test code 4.590 UIU/ML = 2821) LIPID [id number] 00:00:00 Test Item Value Reference Range Interpretation Comments CHOLESTEROL (test code = 2210) 188 MG/DL TRIGLYCERIDES (test code = 2232) 112 MG/DL HDL CHOLESTEROL (test code = 2220) 30 MG/DL CALC LDL CHOL (test code = 2237) 136 MG/DL RISK RATIO LDL/HDL (test code = 4.53 RATIO 2238) LIPID [id number] 00:00:00 Test Item Value Reference Range Interpretation Comments CHOLESTEROL (test code = 2210) 188 MG/DL TRIGLYCERIDES (test code = 2232) 112 MG/DL HDL CHOLESTEROL (test code = 2220) 30 MG/DL CALC LDL CHOL (test code = 2237) 136 MG/DL RISK RATIO LDL/HDL (test code = 4.53 RATIO 2238) CBC WITH [id number] 19:07:54 Test Item Value Reference Range Interpretation Comments WBC (test code = See_Comment [Automated 4390-2) message] The sy stem which generated this result transmitted reference range : 4.30 - 11.10 10*3/?L. The reference range was not used to interpret this result as normal/abnormal . RBC (test code = See_Comment [Automated 639-8) message] The sy stem which generated this result transmitted reference range : 3.93 - 5.25 10*6/?L. The reference range was not used to interpret this result as normal/abnormal . HGB (test code = 14.1 g/dL 11.6-15 718-7) HCT (test code = 40.3 % 35.7-45.2 4544-3) MCV (test code = 83.8 fL 80.6-95.5 787-2) MCH (test code = 29.3 pg 25.9-32.8 785-6) MCHC (test code = 35.0 g/dL 31.6-35.1 786-4) RDW-SD (test code = 37.8 fL 39-49.9 L 07786-2) RDW-CV (test code = 12.4 % 12-15.5 788-0) PLT (test code = See_Comment [Automated 777-3) message] The sy stem which generated this result transmitted reference range : 166 - 358 10*3/ ?L. The reference r gloria was not used to interpret this result as normal/abnormal . MPV (test code = 10.2 fL 9.5-12.9 46589-9) IPF % (test code = 1.5 % 1.3-7.7 Platelet count 7051913792) measured by fluorescence method. NRBC/100 WBC (test See_Comment [Automat ed code = 5949480247) message] The system which generated this result transmitted reference range : 0.0 - 10.0 /100 WBCs. The refer ence range was not u sed to interpret th is result as normal/abnormal . NRBC x10^3 (test code See_Comment [Auto mated = [id number]) message] The s ystem which generated this result transmitted reference range : 10*3/?L. The reference range was not used to interpret this result as normal/abnormal . GRAN MAT (NEUT) % 57.1 % (test code = 770-8) IMM GRAN % (test code 0.40 % = 8017102129) LYMPH % (test code = 34.9 % 736-9) MONO % (test code = 5.4 % 5905-5) EOS % (test code = 1.9 % 713-8) BASO % (test code = 0.3 % 706-2) GRAN MAT x10^3(ANC) 5.36 10*3/uL 1.88-7.09 (test code = 6050399363) IMM GRAN x10^3 (test 0.04 10*3/uL 0-0.06 code = 3286400180) LYMPH x10^3 (test code 3.28 10*3/uL 1.32-3.29 = 731-0) MONO x10^3 (test code 0.51 10*3/uL 0.33-0.92 = 742-7) EOS x10^3 (test code = 0.18 10*3/uL 0.03-0.39 711-2) BASO x10^3 (test code 0.03 10*3/uL 0.01-0.07 = 704-7) Lab Interpretation Abnormal (test code = 02090-9) [facility] RT-PCR/[id number] 18:36:33 Test Item Value Reference Interpretation Comments Range SARS-CoV-2 NEGATIVE SEE NOTE SARS-CoV-2 RNA NOT INTERPRETATION DETECTEDNegat idris (test code = 22852) results do not preclude SARS-C oV-2 infection and s hould notbe used as t he sole basis for patie nt management deci sions. Negativeresults must be combined wit h clinical observ ations, patient history ,and epidemiological information. Op timum specimen types and timingfor peak viral levels during infections caus ed by SARS-CoV-2 have notbeen determi rahul. Collection of m ultiple specimens or ty pes ofspecimens may be necessary to de tect virus. Improper specimencollect ion and handling, seque nce variability und er primers/probes, or organism presen t below the limit of de tection may lead to falsenegative r esults. Positive and ne gative predictive valu es oftesting are h ighly dependent on prevalence. Fal se negative testre sults are more likely when prevalence is h igh. SOURCE (test code = NASOPHARYNGEAL Note: [place] [address]) Bj Emily Mary Ellen l-Time RT-PCR. The exp ected result or refer ence range is NEGATI VE (Not Detected). For more information reg arding COVID-19 testin g to include clinicalinforma tion, methodology det ail, intended use, F DA authorization andrecommended fact sheets for maddy ents or healthcare prov iders, see [employer] Announcement: SARS-CoV-2 (COV ID-19) by NAAT at URL below (note,fact shee ts are provided by met hod given in report:https:// [email or web address] [email or web address] [email or web address] Alternatively, see downloadable PD F fact sheet at:[email or web address]. [email or web address] T-PCR UNLESS OTHERWIS E INDICATED, ALL TESTING PERFORMED [facility], [facility]. [address] [place] [address] LABOR ATORY DIRECTOR: MOLLY DAHL M.D. CLIA NUMBER [id number] CAP ACCREDITATION N O. [id number] SARS-CoV-2 (COVID-19) by RT-PCR (HIGH RISK)2021-09-06 00:00:00 Test Item Value Reference Range Interpretation Comments SARS-CoV-2 INTERPRETATION NEGATIVE (test code = 63271) SOURCE (test code = 48197) NASOPHARYNGEAL SARS-CoV-2 (COVID-19) by RT-PCR (HIGH RISK)2021-09-06 00:00:00 Test Item Value Reference Range Interpretation Comments SARS-CoV-2 INTERPRETATION NEGATIVE (test code = 67786) SOURCE (test code = 15511) NASOPHARYNGEAL SARS-CoV-2 (COVID-19) by RT-PCR (HIGH RISK)2021-09-06 00:00:00 Test Item Value Reference Range Interpretation Comments SARS-CoV-2 INTERPRETATION NEGATIVE (test code = 74511) SOURCE (test code = 85559) NASOPHARYNGEAL SARS-CoV-2 (COVID-19) by RT-PCR (HIGH RISK)2021-09-06 00:00:00 Test Item Value Reference Range Interpretation Comments SARS-CoV-2 INTERPRETATION NEGATIVE (test code = 76986) SOURCE (test code = 68615) NASOPHARYNGEAL CBC W/AUTO [id number] 00:00:00 Test Item Value Reference Range Interpretation Comments WBC (test code = 1001) 9.0 K/UL RBC (test code = 1002) 4.58 M/UL HEMOGLOBIN (test code = 1003) 13.2 G/DL HEMATOCRIT (test code = 1004) 38.1 % MCV (test code = 1005) 83.2 fL MCH (test code = 1006) 28.8 PG MCHC (test code = 1007) 34.6 G/DL RDW (test code = 1038) 13.7 % NEUTROPHILS (test code = 1008) 63.7 % LYMPHOCYTES (test code = 1010) 28.1 % MONOCYTES (test code = 1011) 5.3 % EOSINOPHILS (test code = 1012) 2.3 % BASOPHILS (test code = 1013) 0.3 % IMMATURE GRANULOCYTES (test 0.3 % code = 1036) NUCLEATED RBCS (test code = 0.0 /100WBC'S 1065) PLATELET COUNT (test code = 321 K/UL 1015) ABSOLUTE NEUTROPHILS (test code 5.73 K/UL = 1066) ABSOLUTE LYMPHOCYTES (test code 2.53 K/UL = 1067) ABSOLUTE MONOCYTES (test code = 0.48 K/UL 1068) ABSOLUTE EOSINOPHILS (test code 0.21 K/UL = 1040) ABSOLUTE BASOPHILS (test code = 0.03 K/UL 1069) ABS IMMATURE GRANULOCYTES (test 0.03 K/UL code = 1020) ABS NUCLEATED RBCS (test code = 0.00 K/UL 07237) CBC W/AUTO [id number] 00:00:00 Test Item Value Reference Range Interpretation Comments WBC (test code = 1001) 9.0 K/UL RBC (test code = 1002) 4.58 M/UL HEMOGLOBIN (test code = 1003) 13.2 G/DL HEMATOCRIT (test code = 1004) 38.1 % MCV (test code = 1005) 83.2 fL MCH (test code = 1006) 28.8 PG MCHC (test code = 1007) 34.6 G/DL RDW (test code = 1038) 13.7 % NEUTROPHILS (test code = 1008) 63.7 % LYMPHOCYTES (test code = 1010) 28.1 % MONOCYTES (test code = 1011) 5.3 % EOSINOPHILS (test code = 1012) 2.3 % BASOPHILS (test code = 1013) 0.3 % IMMATURE GRANULOCYTES (test 0.3 % code = 1036) NUCLEATED RBCS (test code = 0.0 /100WBC'S 1065) PLATELET COUNT (test code = 321 K/UL 1015) ABSOLUTE NEUTROPHILS (test code 5.73 K/UL = 1066) ABSOLUTE LYMPHOCYTES (test code 2.53 K/UL = 1067) ABSOLUTE MONOCYTES (test code = 0.48 K/UL 1068) ABSOLUTE EOSINOPHILS (test code 0.21 K/UL = 1040) ABSOLUTE BASOPHILS (test code = 0.03 K/UL 1069) ABS IMMATURE GRANULOCYTES (test 0.03 K/UL code = 1020) ABS NUCLEATED RBCS (test code = 0.00 K/UL 54555) CBC W/AUTO [id number] 00:00:00 Test Item Value Reference Range Interpretation Comments WBC (test code = 1001) 9.0 K/UL RBC (test code = 1002) 4.58 M/UL HEMOGLOBIN (test code = 1003) 13.2 G/DL HEMATOCRIT (test code = 1004) 38.1 % MCV (test code = 1005) 83.2 fL MCH (test code = 1006) 28.8 PG MCHC (test code = 1007) 34.6 G/DL RDW (test code = 1038) 13.7 % NEUTROPHILS (test code = 1008) 63.7 % LYMPHOCYTES (test code = 1010) 28.1 % MONOCYTES (test code = 1011) 5.3 % EOSINOPHILS (test code = 1012) 2.3 % BASOPHILS (test code = 1013) 0.3 % IMMATURE GRANULOCYTES (test 0.3 % code = 1036) NUCLEATED RBCS (test code = 0.0 /100WBC'S 1065) PLATELET COUNT (test code = 321 K/UL 1015) ABSOLUTE NEUTROPHILS (test code 5.73 K/UL = 1066) ABSOLUTE LYMPHOCYTES (test code 2.53 K/UL = 1067) ABSOLUTE MONOCYTES (test code = 0.48 K/UL 1068) ABSOLUTE EOSINOPHILS (test code 0.21 K/UL = 1040) ABSOLUTE BASOPHILS (test code = 0.03 K/UL 1069) ABS IMMATURE GRANULOCYTES (test 0.03 K/UL code = 1020) ABS NUCLEATED RBCS (test code = 0.00 K/UL 10866) LIPID [id number] 00:00:00 Test Item Value Reference Range Interpretation Comments CHOLESTEROL (test code = 2210) 211 MG/DL TRIGLYCERIDES (test code = 2232) 159 MG/DL HDL CHOLESTEROL (test code = 2220) 35 MG/DL CALC LDL CHOL (test code = 2237) 147 MG/DL RISK RATIO LDL/HDL (test code = 4.20 RATIO 2238) LIPID [id number] 00:00:00 Test Item Value Reference Range Interpretation Comments CHOLESTEROL (test code = 2210) 211 MG/DL TRIGLYCERIDES (test code = 2232) 159 MG/DL HDL CHOLESTEROL (test code = 2220) 35 MG/DL CALC LDL CHOL (test code = 2237) 147 MG/DL RISK RATIO LDL/HDL (test code = 4.20 RATIO 2238) COMPREHENSIVE METABOLIC [id number] 00:00:00 Test Item Value Reference Range Interpretation Comments GLUCOSE (test code = 2217) 95 MG/DL BUN (test code = 2208) 15 MG/DL CREATININE (test code = 2214) 0.79 MG/DL eGFR AMER. (test code 108 ML/MIN/1.73 = 56388) eGFR NON- AMER. (test 93 ML/MIN/1.73 code = 32734) CALC BUN/CREAT (test code = 19 RATIO 2235) SODIUM (test code = 2231) 141 MEQ/L POTASSIUM (test code = 2228) 4.5 MEQ/L CHLORIDE (test code = 2215) 103 MEQ/L CARBON DIOXIDE (test code = 26 MEQ/L 2205) CALCIUM (test code = 2209) 9.6 MG/DL PROTEIN, TOTAL (test code = 7.7 G/DL 2228) ALBUMIN (test code = 2201) 4.5 G/DL CALC GLOBULIN (test code = 3.2 G/DL 2240) CALC A/G RATIO (test code = 1.4 RATIO 2234) BILIRUBIN, TOTAL (test code = 0.2 MG/DL 2206) ALKALINE PHOSPHATASE (test 97 U/L code = 2204) AST (test code = 2218) 17 U/L ALT (test code = 2219) 19 U/L COMPREHENSIVE METABOLIC [id number] 00:00:00 Test Item Value Reference Range Interpretation Comments GLUCOSE (test code = 2217) 95 MG/DL BUN (test code = 2208) 15 MG/DL CREATININE (test code = 2214) 0.79 MG/DL eGFR AMER. (test code 108 ML/MIN/1.73 = 30056) eGFR NON- AMER. (test 93 ML/MIN/1.73 code = 82032) CALC BUN/CREAT (test code = 19 RATIO 2235) SODIUM (test code = 2231) 141 MEQ/L POTASSIUM (test code = 2228) 4.5 MEQ/L CHLORIDE (test code = 2215) 103 MEQ/L CARBON DIOXIDE (test code = 26 MEQ/L 2205) CALCIUM (test code = 2209) 9.6 MG/DL PROTEIN, TOTAL (test code = 7.7 G/DL 2228) ALBUMIN (test code = 2201) 4.5 G/DL CALC GLOBULIN (test code = 3.2 G/DL 2240) CALC A/G RATIO (test code = 1.4 RATIO 2234) BILIRUBIN, TOTAL (test code = 0.2 MG/DL 2206) ALKALINE PHOSPHATASE (test 97 U/L code = 2204) AST (test code = 2218) 17 U/L ALT (test code = 2219) 19 U/L [id number] 00:00:00 Test Item Value Reference Range Interpretation Comments TSH, THIRD GENERATION (test code 3.630 UIU/ML = 2821) [id number] 00:00:00 Test Item Value Reference Range Interpretation Comments TSH, THIRD GENERATION (test code 3.630 UIU/ML = 2821) [id number] 00:00:00 Test Item Value Reference Range Interpretation Comments TSH, THIRD GENERATION (test code 3.630 UIU/ML = 2821) CBC W/AUTO [id number] 00:00:00 Test Item Value Reference Range Interpretation Comments WBC (test code = 1001) 9.0 K/UL RBC (test code = 1002) 4.58 M/UL HEMOGLOBIN (test code = 1003) 13.2 G/DL HEMATOCRIT (test code = 1004) 38.1 % MCV (test code = 1005) 83.2 fL MCH (test code = 1006) 28.8 PG MCHC (test code = 1007) 34.6 G/DL RDW (test code = 1038) 13.7 % NEUTROPHILS (test code = 1008) 63.7 % LYMPHOCYTES (test code = 1010) 28.1 % MONOCYTES (test code = 1011) 5.3 % EOSINOPHILS (test code = 1012) 2.3 % BASOPHILS (test code = 1013) 0.3 % IMMATURE GRANULOCYTES (test 0.3 % code = 1036) NUCLEATED RBCS (test code = 0.0 /100WBC'S 1065) PLATELET COUNT (test code = 321 K/UL 1015) ABSOLUTE NEUTROPHILS (test code 5.73 K/UL = 1066) ABSOLUTE LYMPHOCYTES (test code 2.53 K/UL = 1067) ABSOLUTE MONOCYTES (test code = 0.48 K/UL 1068) ABSOLUTE EOSINOPHILS (test code 0.21 K/UL = 1040) ABSOLUTE BASOPHILS (test code = 0.03 K/UL 1069) ABS IMMATURE GRANULOCYTES (test 0.03 K/UL code = 1020) ABS NUCLEATED RBCS (test code = 0.00 K/UL 28687) CBC W/AUTO [id number] 00:00:00 Test Item Value Reference Range Interpretation Comments WBC (test code = 1001) 9.0 K/UL RBC (test code = 1002) 4.58 M/UL HEMOGLOBIN (test code = 1003) 13.2 G/DL HEMATOCRIT (test code = 1004) 38.1 % MCV (test code = 1005) 83.2 fL MCH (test code = 1006) 28.8 PG MCHC (test code = 1007) 34.6 G/DL RDW (test code = 1038) 13.7 % NEUTROPHILS (test code = 1008) 63.7 % LYMPHOCYTES (test code = 1010) 28.1 % MONOCYTES (test code = 1011) 5.3 % EOSINOPHILS (test code = 1012) 2.3 % BASOPHILS (test code = 1013) 0.3 % IMMATURE GRANULOCYTES (test 0.3 % code = 1036) NUCLEATED RBCS (test code = 0.0 /100WBC'S 1065) PLATELET COUNT (test code = 321 K/UL 1015) ABSOLUTE NEUTROPHILS (test code 5.73 K/UL = 1066) ABSOLUTE LYMPHOCYTES (test code 2.53 K/UL = 1067) ABSOLUTE MONOCYTES (test code = 0.48 K/UL 1068) ABSOLUTE EOSINOPHILS (test code 0.21 K/UL = 1040) ABSOLUTE BASOPHILS (test code = 0.03 K/UL 1069) ABS IMMATURE GRANULOCYTES (test 0.03 K/UL code = 1020) ABS NUCLEATED RBCS (test code = 0.00 K/UL 82228) CBC W/AUTO [id number] 00:00:00 Test Item Value Reference Range Interpretation Comments WBC (test code = 1001) 9.0 K/UL RBC (test code = 1002) 4.58 M/UL HEMOGLOBIN (test code = 1003) 13.2 G/DL HEMATOCRIT (test code = 1004) 38.1 % MCV (test code = 1005) 83.2 fL MCH (test code = 1006) 28.8 PG MCHC (test code = 1007) 34.6 G/DL RDW (test code = 1038) 13.7 % NEUTROPHILS (test code = 1008) 63.7 % LYMPHOCYTES (test code = 1010) 28.1 % MONOCYTES (test code = 1011) 5.3 % EOSINOPHILS (test code = 1012) 2.3 % BASOPHILS (test code = 1013) 0.3 % IMMATURE GRANULOCYTES (test 0.3 % code = 1036) NUCLEATED RBCS (test code = 0.0 /100WBC'S 1065) PLATELET COUNT (test code = 321 K/UL 1015) ABSOLUTE NEUTROPHILS (test code 5.73 K/UL = 1066) ABSOLUTE LYMPHOCYTES (test code 2.53 K/UL = 1067) ABSOLUTE MONOCYTES (test code = 0.48 K/UL 1068) ABSOLUTE EOSINOPHILS (test code 0.21 K/UL = 1040) ABSOLUTE BASOPHILS (test code = 0.03 K/UL 1069) ABS IMMATURE GRANULOCYTES (test 0.03 K/UL code = 1020) ABS NUCLEATED RBCS (test code = 0.00 K/UL 29584) LIPID [id number] 00:00:00 Test Item Value Reference Range Interpretation Comments CHOLESTEROL (test code = 2210) 211 MG/DL TRIGLYCERIDES (test code = 2232) 159 MG/DL HDL CHOLESTEROL (test code = 2220) 35 MG/DL CALC LDL CHOL (test code = 2237) 147 MG/DL RISK RATIO LDL/HDL (test code = 4.20 RATIO 2238) LIPID [id number] 00:00:00 Test Item Value Reference Range Interpretation Comments CHOLESTEROL (test code = 2210) 211 MG/DL TRIGLYCERIDES (test code = 2232) 159 MG/DL HDL CHOLESTEROL (test code = 2220) 35 MG/DL CALC LDL CHOL (test code = 2237) 147 MG/DL RISK RATIO LDL/HDL (test code = 4.20 RATIO 2238) COMPREHENSIVE METABOLIC [id number] 00:00:00 Test Item Value Reference Range Interpretation Comments GLUCOSE (test code = 2217) 95 MG/DL BUN (test code = 2208) 15 MG/DL CREATININE (test code = 2214) 0.79 MG/DL eGFR AMER. (test code 108 ML/MIN/1.73 = 84089) eGFR NON- AMER. (test 93 ML/MIN/1.73 code = 29200) CALC BUN/CREAT (test code = 19 RATIO 2235) SODIUM (test code = 2231) 141 MEQ/L POTASSIUM (test code = 2228) 4.5 MEQ/L CHLORIDE (test code = 2215) 103 MEQ/L CARBON DIOXIDE (test code = 26 MEQ/L 2205) CALCIUM (test code = 2209) 9.6 MG/DL PROTEIN, TOTAL (test code = 7.7 G/DL 2228) ALBUMIN (test code = 220) 4.5 G/DL CALC GLOBULIN (test code = 3.2 G/DL 2239) CALC A/G RATIO (test code = 1.4 RATIO 2234) BILIRUBIN, TOTAL (test code = 0.2 MG/DL 2206) ALKALINE PHOSPHATASE (test 97 U/L code = 2204) AST (test code = 2218) 17 U/L ALT (test code = 2219) 19 U/L COMPREHENSIVE METABOLIC [id number] 00:00:00 Test Item Value Reference Range Interpretation Comments GLUCOSE (test code = 2217) 95 MG/DL BUN (test code = 2208) 15 MG/DL CREATININE (test code = 2214) 0.79 MG/DL eGFR AMER. (test code 108 ML/MIN/1.73 = 56744) eGFR NON- AMER. (test 93 ML/MIN/1.73 code = 66873) CALC BUN/CREAT (test code = 19 RATIO 2235) SODIUM (test code = 2231) 141 MEQ/L POTASSIUM (test code = 2228) 4.5 MEQ/L CHLORIDE (test code = 2215) 103 MEQ/L CARBON DIOXIDE (test code = 26 MEQ/L 2205) CALCIUM (test code = 2209) 9.6 MG/DL PROTEIN, TOTAL (test code = 7.7 G/DL 2228) ALBUMIN (test code = 2201) 4.5 G/DL CALC GLOBULIN (test code = 3.2 G/DL 0) CALC A/G RATIO (test code = 1.4 RATIO 4) BILIRUBIN, TOTAL (test code = 0.2 MG/DL 2206) ALKALINE PHOSPHATASE (test 97 U/L code = 2204) AST (test code = 2218) 17 U/L ALT (test code = 2219) 19 U/L [id number] 00:00:00 Test Item Value Reference Range Interpretation Comments TSH, THIRD GENERATION (test code 3.630 UIU/ML = 2821) [id number] 00:00:00 Test Item Value Reference Range Interpretation Comments TSH, THIRD GENERATION (test code 3.630 UIU/ML = 2821) [id number] 00:00:00 Test Item Value Reference Range Interpretation Comments TSH, THIRD GENERATION (test code 3.630 UIU/ML = 2821) SARS-CoV-2 (COVID-19) by RT-PCR (HIGH RISK)2020-07-20 00:00:00 Test Item Value Reference Range Interpretation Comments SARS-CoV-2 INTERPRETATION (test NEGATIVE code = 57579) SOURCE (test code = 90649) NOT SPECIFIED SARS-CoV-2 (COVID-19) by RT-PCR (HIGH RISK)2020-07-20 00:00:00 Test Item Value Reference Range Interpretation Comments SARS-CoV-2 INTERPRETATION (test NEGATIVE code = 38464) SOURCE (test code = 00233) NOT SPECIFIED SARS-CoV-2 (COVID-19) by RT-PCR (HIGH RISK)2020-07-20 00:00:00 Test Item Value Reference Range Interpretation Comments SARS-CoV-2 INTERPRETATION (test NEGATIVE code = 38769) SOURCE (test code = 58706) NOT SPECIFIED SARS-CoV-2 (COVID-19) by RT-PCR (HIGH RISK)2020-07-20 00:00:00 Test Item Value Reference Range Interpretation Comments SARS-CoV-2 INTERPRETATION (test NEGATIVE code = 22517) SOURCE (test code = 71785) NOT SPECIFIED SARS-CoV-2 (COVID-19) by RT-PCR (HIGH RISK)2020-07-05 00:00:00 Test Item Value Reference Range Interpretation Comments SARS-CoV-2 INTERPRETATION Positive (test code = 64035) SOURCE (test code = 75992) Nasal_Swab_in_VTM__ UTM SARS-CoV-2 (COVID-19) by RT-PCR (HIGH RISK)2020-07-05 00:00:00 Test Item Value Reference Range Interpretation Comments SARS-CoV-2 INTERPRETATION Positive (test code = 23666) SOURCE (test code = 74076) Nasal_Swab_in_VTM__ UTM
[2023-01-27 14:33] LABS: Absolute Lymphocytes (CBC) 2.5 K/uL (0.7-4.9); Hematocrit 40.6 % (36.0-45.0); Lymphocytes % 35.1 % (15.3-44.8); MCV 83.5 fL (80-100); MPV 7.3 fL (7.6-11.3); RBC Red Blood Cell Count 4.86 M/uL (3.86-4.86)
[2023-01-27] MEDS ORDERED: CYCLOBENZAPRINE 10 MG TAB ONE (14:35)
[2023-01-27] MEDS ORDERED: KETOROLAC 30 MG/ML INJ ONE (14:35)
[2023-01-27 14:48] LABS: Albumin 3.9 g/dL (3.4-5.0); Bilirubin Total 0.3 mg/dL (0.2-1.0); Potassium 3.7 mEq/L (3.5-5.1); Troponin High Sensitivity 15.3 pg/mL (<58.9)
--- NOTE | 2023-01-27 15:24 | EDPHYS ---
Physician Documentation [facility] Name: Jane Izaguirre Age: 42 yrs Sex: Female : 1980 Arrival Date: 01/27/2023 Time: 12:32 Bed 15 Private MD: ED Physician Chino Paulson HPI: 01/27 14:21 This 42 yrs old Female presents to ER via Ambulatory with complaints of rt Dizziness. 14:21 Patient presents to the ED with 1 month of an intermittent left-sided neck pain that rt does radiate to the chest, left arm. She reports having intermittent dizziness. Pain is aching in nature. Denies injury, other acute complaints at this time. Symptoms are aching nature, no other aggravating alleviating factors. She has taken Advil at home to some relief.. 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 - Social history:: Smoking status: Patient denies any tobacco usage or history of. - Family history:: not pertinent. ROS: 14:21 Constitutional: Negative for fever, chills, and weight loss, Respiratory: Negative for rt shortness of breath, cough, wheezing, and pleuritic chest pain, Abdomen/GI: Negative for abdominal pain, nausea, vomiting, diarrhea, and constipation, Skin: Negative for injury, rash, and discoloration, Neuro: Negative for headache, weakness, numbness, tingling, and seizure, Psych: Negative for depression, anxiety, suicide ideation, homicidal ideation, and hallucinations. 14:21 Neck: Positive for pain with movement, pain at rest. 14:21 Cardiovascular: Positive for chest pain, Negative for edema. Exam: 14:21 Constitutional: This is a well developed, well nourished patient who is awake, alert, rt and in no acute distress. Head/Face: Normocephalic, atraumatic. Chest/axilla: Normal chest wall appearance and motion. Nontender with no deformity. No lesions are appreciated. Cardiovascular: Regular rate and rhythm with a normal S1 and S2. No gallops, murmurs, or rubs. Normal PMI, no JVD. No pulse deficits. Respiratory: Lungs have equal breath sounds bilaterally, clear to auscultation and percussion. No rales, rhonchi or wheezes noted. No increased work of breathing, no retractions or nasal flaring. Abdomen/GI: Soft, non-tender, with normal bowel sounds. No distension or tympany. No guarding or rebound. No evidence of tenderness throughout. Skin: Warm, dry with normal turgor. Normal color with no rashes, no lesions, and no evidence of cellulitis. MS/ Extremity: Pulses equal, no cyanosis. Neurovascular intact. Full, normal range of motion. Neuro: Awake and alert, GCS 15, oriented to person, place, time, and situation. Cranial nerves II-XII grossly intact. Motor strength 5/5 in all extremities. Sensory grossly intact. Cerebellar exam normal. Normal gait. Psych: Awake, alert, with orientation to person, place and time. Behavior, mood, and affect are within normal limits. 14:21 Neck: Full range of motion, supple, no meningismus, tenderness over the left superior trapezius muscle, no midline tenderness. 15:25 ECG was reviewed by the Attending Physician. rt Vital Signs: 12:42 BP 137 / 94; Pulse 66; Resp 16; Temp 98.5; Pulse Ox 100% on R/A; Weight 110.22 kg; mb9 Height 5 ft. 0 in. ; Pain 6/10; 14:59 BP 135 / 81; Pulse 64; ap3 12:42 Body Mass Index 47.46 (110.22 kg, 152.4 cm) mb9 12:42 Pain Scale: Adult mb9 MDM: 14:00 Patient medically screened. rt 15:25 Differential diagnosis: Musculoskeletal pain, vertebral artery dissection, acute rt coronary syndrome. Data reviewed: vital signs, nurses notes, EKG, radiologic studies. I considered the following discharge prescriptions or medication management in the emergency department Medications were administered in the Emergency Department. See MAR. Test considered but Not performed: CT: Pain has been present for 1 month, no focal deficits, symptoms are not consistent with vertebral dissection, CT scan not indicated.. Counseling: I had a detailed discussion with the patient and/or guardian regarding: the historical points, exam findings, and any diagnostic results supporting the discharge/admit diagnosis, lab results, the need for outpatient follow up, to return to the emergency department if symptoms worsen or persist or if there are any questions or concerns that arise at home. Response to treatment: the patient's symptoms have resolved after treatment. 01/27 14:06 Order name: CBC with Diff; Complete Time: 14:49 rt 06 14:06 Order name: CMP; Complete Time: 14:49 rt 01/27 14:06 Order name: Troponin High Sensitivity; Complete Time: 14:49 rt 01/27 14:06 Order name: EKG - Nurse/Tech; Complete Time: 15:25 rt EC:25 Rate is 57 beats/min. Rhythm is regular, Normal Sinus Rhythm with No ectopy. QRS [place] rt is Normal. MS interval is normal. QRS interval is normal. QT interval is normal. No Q waves. T waves are Normal. No ST changes noted. Interpreted by me. Administered Medications: 14:32 Drug: Ketorolac IVP 30 mg Route: IVP; Site: right hand; ap3 15:25 Follow up: Response: No adverse reaction; Pain is decreased ap3 14:32 Drug: Cyclobenzaprine PO 10 mg Route: PO; ap3 15:25 Follow up: Response: No adverse reaction; Pain is decreased ap3 Disposition Summary: 01/27/23 15:24 Discharge Ordered Location: Home rt Problem: new rt Symptoms: are resolved rt Condition: Stable rt Diagnosis - Neck pain rt Followup: rt - With: Private Physician - When: 2 - 3 days - Reason: Discharge Instructions: - Discharge Summary Sheet rt - Muscle Cramps and Spasms rt Forms: - Work release form rt - Medication Reconciliation Form rt - Thank You Letter rt - Antibiotic Education rt - Prescription Opioid Use rt Prescriptions: - Cyclobenzaprine 10 mg Oral Tablet - take 1 tablet by ORAL route every 8 hours As needed; 30 tablet; Refills: 0, rt Product Selection Permitted Signatures: Dispatcher [employer] Yamile Khan RN RN ap3 Victoria Cason RN RN mb9 Chino Paulson MD MD rt
--- NOTE | 2023-01-27 15:24 | ER ---
Nurse's Notes [facility] Name: Jane Izaguirre Age: 42 yrs Sex: Female : 1980 Arrival Date: 01/27/2023 Time: 12:32 Bed 15 Private MD: Diagnosis: Neck pain Presentation: 01/27 12:42 Chief complaint: Left sided neck pain that radiates to left arm and dizziness x 1 mb9 month. Coronavirus screen: At this time, the client does not indicate any symptoms associated with coronavirus-19. Ebola Screen: No symptoms or risks identified at this time. Initial Sepsis Screen: Does the patient meet any 2 criteria? No. Patient's initial sepsis screen is negative. Does the patient have a suspected source of infection? No. Patient's initial sepsis screen is negative. Risk Assessment: Do you want to hurt yourself or someone else? Patient reports no desire to harm self or others. Onset of symptoms was December 2022. 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 - Social history:: Smoking status: Patient denies any tobacco usage or history of. - Family history:: not pertinent. Screenin:58 [facility] ED Fall Risk Assessment (Adult) History of falling in the last 3 months, ap3 including since admission No falls in past 3 months (0 pts). Abuse screen: Denies threats or abuse. Nutritional screening: No deficits noted. Tuberculosis screening: No symptoms or risk factors identified. Assessment: 14:58 General: Appears comfortable, Behavior is calm, cooperative. Pain:. Neuro: Level of ap3 Consciousness is awake, alert, obeys commands, Oriented to person, place, time, situation, Gait is steady, Speech is normal. Neuro: Reports dizziness. Cardiovascular: Patient's skin is warm and dry. Respiratory: Airway is patent Respiratory effort is even, unlabored, Respiratory pattern is regular, symmetrical. 14:59 Pain: Complains of pain in neck. ap3 Vital Signs: 12:42 BP 137 / 94; Pulse 66; Resp 16; Temp 98.5; Pulse Ox 100% on R/A; Weight 110.22 kg; mb9 Height 5 ft. 0 in. ; Pain 6/10; 14:59 BP 135 / 81; Pulse 64; ap3 12:42 Body Mass Index 47.46 (110.22 kg, 152.4 cm) mb9 12:42 Pain Scale: Adult mb9 ED Course: 12:37 Patient arrived in ED. im 12:43 Triage completed. mb9 12:44 Arm band placed on. mb9 13:08 Chino Paulson MD is Attending Physician. rt 13:59 Yamile Salgado, RN is Primary Nurse. ap3 14:59 Patient has correct armband on for positive identification. Bed in low position. Call ap3 light in reach. Side rails up X 1. Adult w/ patient. Pulse ox on. NIBP on. Door closed. Noise minimized. Warm blanket given. 15:24 EKG done, by ED staff, reviewed by Yamile Salgado RN. ap3 15:40 No provider procedures requiring assistance completed. IV discontinued, intact, ap3 bleeding controlled, No redness/swelling at site. Pressure dressing applied. Administered Medications: 14:32 Drug: Ketorolac IVP 30 mg Route: IVP; Site: right hand; ap3 15:25 Follow up: Response: No adverse reaction; Pain is decreased ap3 14:32 Drug: Cyclobenzaprine PO 10 mg Route: PO; ap3 15:25 Follow up: Response: No adverse reaction; Pain is decreased ap3 Medication: 14:59 VIS not applicable for this client. ap3 Outcome: 15:24 Discharge ordered by . rt 15:40 Discharged to home ambulatory, with family. ap3 15:40 Condition: good 15:40 Discharge instructions given to patient, Instructed on discharge instructions, follow up and referral plans. medication usage, Demonstrated understanding of instructions, follow-up care, medications, Prescriptions given X 1. 15:42 Patient left the ED. ap3 Signatures: Yamile Salgado RN RN ap3 Victoria Cason RN RN mb9 Chino Paulson MD MD rt Shanda Rico
[2023-01-27 16:03] VITALS: TEMP 98.5; O2SAT 100
[2023-01-27 16:05] VITALS: BP 135/81
--- NOTE | 2023-01-29 07:21 | EKG ---
Test Date: 2023-01-27 Test Time: 15:16:34 Quality Systems Manager: ALP MEASUREMENT RESULTS: Intervals: Rate: 57 ME: 166 QRSD: 92 QT: 436 QTc: 424 [place]: P: 56 ME: 166 QRS: 66 T: 42 INTERPRETIVE STATEMENTS: Sinus bradycardia with sinus arrhythmia Otherwise normal ECG Compared to ECG 06/03/2022 05:55:42 No significant changes Electronically Signed On 01-29-23 07:15:09 CDT by Luisito John
== END 2023-01-27 15:42 | disposition home or self-care (01) ==
LOC: ER 12:32
DX: M54.2 Cervicalgia (principal); R42 Dizziness and giddiness; E03.9 Hypothyroidism, unspecified
CPT/HCPCS: 36415; 80053; 84484; 85025; 93005; 96374; 99284

== ENCOUNTER 2023-02-22 17:44 | Emergency (ER) | payer OTHER ==
--- OUTSIDE RECORDS SUMMARY | 2023-02-22 17:49 | XMS REPORT | Continuity of Care Document ---
:1980 Author Organization [facility] t Address [address] [facility] [facility] [address] [place] [address] Care Team Providers Name Role Phone Abraham Melanie Primary Care Physician [phone] EMILIANA MELENDREZ Attending Clinician Unavailable Emiliana Melendrez MD Attending Clinician ELIZ SEVILLA Attending Clinician Unavailable Eliz Rubio Attending Clinician Doctor Unassigned, [place] Attending Clinician Unavailable EMILIANA MELENDREZ Admitting Clinician Unavailable ELIZ SEVILLA Admitting Clinician Unavailable Problems Condition Condition Condition Status Onset Resolution Last Treating Co mments Source Name Details Category Date Date Treatment Clinician Date Sore Sore Disease Active 2015-08 Univers throat throat 0-12 ity of 00:00: [address] Vaginal Vaginal Disease Active 2015-08 Univers itching itching 0-12 ity of 00:00: [address] Hypothyroi Hypothyroi Disease Active U nivers dism dism 6-20 ity of 00:00: [address] Screening Screening Disease Active Uni vers for for 6-17 ity of thyroid thyroid 00:00: [place] disorder disorder 00 Medica l Branch Abnormal Abnormal Disease Active Unive rs weight weight 6-17 ity of gain gain 00:00: [address] Contracept Contracept Disease Active U nivers idris idris 4-27 [place] [address] [place] [address] Allergies, Adverse Reactions, Alerts Allergy Allergy Status Severity Reaction(s) Onset Inactive Treating Comm ents Source Name Type Date Date Clinician NO KNOWN Drug Active Univers ALLERGIE Class ity of S [facility] Social History Social Habit Start Date Stop Date Quantity Comments Source Exposure to 2022-10-05 2022-10-15 Not sure [facility]-CoV-2 00:00:00 21:56:00 [facility] (event) [place] Alcohol intake 2022-10-15 2022-10-15 0 /d [facility] 00:00:00 00:00:00 [facility] Tobacco use and 2016-02-09 2016-02-09 Smokeless tobacco Un iversity of exposure 00:00:00 00:00:00 non-user [facility] Sex Assigned At [birth year] Universit y of 00:00:00 00:00:00 [facility] Smoking Status Start Date Stop Date Source Never smoked tobacco [facility] Medications Ordered Filled Start Stop Current Ordering Indication Dosage Frequency Signature Comments Components Source Medication Medication Date Date Medication? Clinician (SIG) Name Name iopamidol 2022- No [id number] 100mL 100 mL, Univers (ISOVUE 10-16 Intravenou ity o f 370-500 mL) 08:00: 08:00 s, ONCE, 1 [place] injection 00 :00 dose, On Medica l 100 mL [facility] 10/16/22 at 0200, Routine acetaminoph 2022- No 1000mg 1,000 mg, Univers en 10-16 Oral, ity of (TYLENOL) 06:30: 06:27 ONCE, 1 [place] tablet 00 :00 dose, On Medical 1,000 mg Fri [place] 10/16/22 at 0030, TAMMY FENTanyl PF 2022- No 25ug 25 mcg, Un becky (SUBLIMAZE 10-16 Slow IV ity o f (PF)) 04:30: 04:25 Push, [place] injection 00 :00 ONCE, 1 Medical 25 mcg dose, On Branch 10/15/22 at 2230, STAT diphenhydrA 2022- No 12.5mg 12.5 mg, [facility] MINE 10-16 Slow IV ity of (BENADRYL) 04:30: 04:26 Push, [place] injection 00 :00 ONCE, 1 Medical 12.5 mg dose, On Branch Fri10/15/22 at 2230, STAT metoclopram 0 2022- No [...] Medical Infusion, Branch ONCE, 1 dose, On [place] 06/16/22 at 1515, TAMMY diphenhydrA 2021-08- No 25mg 25 mg, Uni vers MINE 0-23 10-23 Oral, ity of (BENADRYL) 19:45: 19:51 ONCE, 1 [place] tablet 25 00 :00 dose, On Medica l mg Sun [place] 06/16/22 at 1445, TAMMY metoclopram 2021-08- No 10mg 10 mg, Uni vers bridget HCl 0- 10-23 Slow IV ity of (REGLAN) 19:45: 19:51 Push, [place] injection 00 :00 ONCE, 1 Medical 10 mg dose, On Branch [place] 06/16/22 at 1445, TAMMY ketorolac 2021-08- No 30mg 30 mg, Unive rs (TORADOL) 0- 10-23 Slow IV ity of injection 19:45: 19:51 Push, [place] 30 mg 00 :00 ONCE, 1 Medical dose, On Branch 06/16/22 at 1445, Routine butalbital- 2021-08 Yes [id number] 1{tbl} Take 1 Univers acetaminoph 0-23 tablet by ity of en-caff 00:00: mouth [place] 50-325-40 00 every 6 Medical mg tablet (six) Branch hours as needed for Pain (scale 7-10). butalbital- 2021-08 Yes [id number] 1{tbl} Take 1 Univers acetaminoph 0-23 tablet by ity of en-caff 00:00: mouth [place] 50-325-40 00 every 6 Medical mg tablet (six) Branch hours as needed for Pain (scale 7-10). Dose 2021-0 No Unknown 4-25 00:00: 00 Dose 2-0 No Unknown 4-25 00:00: 00 Dose 2-0 [...] 2021-1 No Unknown 1-11 00:00: 00 Dose 202-1 No Unknown 1-11 00:00: 00 meclizine Yes [id number] 25mg Take 1 U nivers 25 mg 5-16 tablet by ity of tablet 00:00: mouth [place] 00 every 6 Medical (six) Branch hours as needed for Dizziness. meclizine Yes [id number] 25mg Take 1 U nivers 25 mg 5-16 tablet by ity of tablet 00:00: mouth [place] 00 every 6 Medical (six) Branch hours as needed for Dizziness. meclizine Yes [id number] 25mg Take 1 U nivers 25 mg 5-16 tablet by ity of tablet 00:00: mouth [place] 00 every 6 Medical (six) Branch hours as needed for Dizziness. phenazopyri 2016- Yes 200mg Take 1 Uni vers dine 200 mg 6-26 tablet by ity of tablet 00:00: mouth 3 [place] 00 (three) Medical times Branch daily after meals. phenazopyri 2016-0 Yes 200mg Take 1 Uni vers dine 200 mg 6-26 tablet by ity of tablet 00:00: mouth 3 [place] 00 (three) Medical times Branch daily after meals. phenazopyri 2016- Yes 200mg Take 1 Uni vers dine 200 mg 6-26 tablet by ity of tablet 00:00: mouth 3 [place] 00 (three) Medical times Branch daily after meals. levothyroxi 2015-08 Yes [id number] 50ug Take 1 Univers ne 0-12 tablet by ity of (SYNTHROID) 00:00: mouth [place] 50 mcg 00 every Medical tablet morning. Branch levothyroxi 2015-08 Yes [id number] 50ug Take 1 Univers ne 0-12 tablet by ity of (SYNTHROID) 00:00: mouth [place] 50 mcg 00 every Medical tablet morning. Branch levothyroxi 2015-08 Yes [id number] 50ug Take 1 Univers ne 0-12 tablet [...] 550 mg 00 (two) Medical tablet times [place] daily with meals. levofloxaci 2016-0 Yes 500mg Take 1 Uni vers n 4-26 tablet by ity of (LEVAQUIN) 00:00: mouth [place] 500 mg 00 every 24 Medical tablet (twenty-fo Branch ur) hours. Immunizations Ordered Filled Immunization Date Status Comments [facility] Immunization Name Name Huy COVID-19 2021-03-02 Completed Vaccine 00:00:00 Mikaa COVID-19 2021-03-02 Completed Vaccine 00:00:00 Huy COVID-19 2021-01-26 Completed Vaccine 00:00:00 Moderna COVID-19 2021-01-26 Completed Vaccine 00:00:00 Varicella 2012-08-05 Completed [facility] (varivax)(chicken 00:00:00 [facility] [place] edical pox) Branch Varicella 2012-08-05 Completed [place] of (varivax)(chicken 00:00:00 [facility] [place] edical pox) Branch Varicella 2012-08-05 Completed [place] of (varivax)(chicken 00:00:00 [facility] [place] edical pox) Branch TDAP 2011-08-25 Completed University of 00:00:00 [facility] TDAP 2011-08-25 Completed University of 00:00:00 [facility] TDAP 2011-08-25 Completed [place] of 00:00:00 [facility] Vital Signs Vital Name Observation Time Observation Value Comments Source Systolic blood 2022-10-16 07:00:00 106 mm[Hg] Univer sity of pressure [facility] Diastolic blood 2022-10-16 07:00:00 88 mm[Hg] [facility] Heart rate 2022-10-16 07:00:00 93 /min [facility] Oxygen saturation in 2022-10-16 07:00:00 96 /min [facility] Arterial blood by [facility] Pulse oximetry Branch Respiratory rate 2022-10-16 06:25:00 27 /min [facility] Body temperature 2022-10-16 06:25:00 38.94 Lynsey [facility] Body height 2022-10-16 03:51:00 152.4 cm [facility] ty [facility] [place] [facility] [place] Body weight 2022-10-16 03:51:00 111.585 kg [facility]i ty [facility] [place] [facility] BMI 2022-10-16 03:51:00 48.04 kg/m2 Universi ty [facility] Systolic blood 2022-06-16 21:00:00 116 mm[Hg] Univer sity of pressure [facility] Diastolic blood 2022-06-16 21:00:00 76 mm[Hg] Unive rsity of pressure [facility] Heart rate 2022-06-16 21:00:00 61 /min Universi ty of [facility] Respiratory rate 2022-06-16 21:00:00 18 /min [facility] Oxygen saturation in 2022-06-16 21:00:00 97 /min [facility] Arterial blood by [facility] Pulse oximetry Branch Body temperature 2022-06-16 17:24:00 37.06 Lynsey [facility] Body height 2022-06-16 17:24:00 152.4 cm [facility] [place] [facility] [place] Body weight 2022-06-16 17:24:[address] [facility] Medical [place] BMI 2022-06-16 17:24:00 45.90 kg/m2 [facility] BP Systolic 2022-08-06 14:42:00 123 mm[Hg] BP [...] Procedure Date / Time Performed Performing Clinician Sour e TROPONIN I 2022-10-16 06:30:00 Emiliana Melendrez [facility] XR CHEST 1 VW 2022-10-16 04:33:53 Emiliana Melendrez [facility] D-DIMER 2022-10-16 04:26:00 Emiliana Melendrez [facility] URINALYSIS 2022-10-16 04:26:00 Emiliana Melendrez [facility] POCT TEST 2022-10-16 04:07:00 Emiliana Melendrez [facility] LIPASE 2022-10-16 03:58:00 Emiliana Melendrez [facility] TROPONIN I 2022-10-16 03:58:00 Emiliana Melendrez [facility] COMP. METABOLIC PANEL 2022-10-16 03:58:00 Emiliana Melendrez [facility] ([id number]) [facility] CBC WITH DIFF 2022-10-16 03:58:00 Emiliana Melendrez [facility] RAPID INFLUENZA A/B 2022-10-16 03:58:00 Emiliana Melendrez [facility] COVID-19 (ID NOW RAPID 2022-10-16 03:58:00 Emiliana Melendrez [facility] TESTING) [facility] NOTICE OF PRIVACY 2022-10-16 03:42:26 Doctor Unassigned, No [facility] PRACTICES Name Medical Branch CONSENT/REFUSAL FOR 2022-10-16 03:41:57 Doctor Unassigned, No [facility] [place] DIAGNOSIS AND Name Medical Branch TREATMENT COMP. METABOLIC PANEL 2022-06-16 19:50:00 Eliz Sevilla [facility] ([id number]) [facility] CT HEAD WO CONTRAST 2022-06-16 18:28:00 Eliz Sevilla [facility] CBC WITH DIFF 2022-06-16 18:09:00 Eliz Sevilla [facility] URINALYSIS 2022-06-16 18:09:00 Eliz Sevilla [facility] ASSIGNMENT OF BENEFITS 2022-06-16 17:57:56 Doctor Unassigned, No [facility] CONSENT/REFUSAL FOR 2022-06-16 17:20:01 Doctor Unassigned, No Un [facility] [place] DIAGNOSIS AND Name Medical Branch TREATMENT Plan of Care Planned Activity Planned Date Details Comments Source Goal Plan of Care Note [code = 53709-7] Goal Plan of Care Note [code = 93787-8] Goal Plan of Care Note [code = 66571-0] Goal Plan of Care Note [code = 82315-4] Goal Plan of Care Note [code = 11479-7] Goal Plan of Care Note [code = 64568-5] Goal Plan of Care Note [code = 74118-2] Goal Plan of Care Note [code = 57610-2] Goal Plan of Care Note [code = 49084-1] Goal Plan of Care Note [code = 93662-5] Goal Plan of Care Note [code = 85561-6] Goal Plan of Care Note [code = 53990-6] Goal Plan of Care Note [code = 57775-9] Goal Plan of Care Note [code = 91496-5] Goal Plan of Care Note [code = 33503-0] Goal Plan of Care Note [code = 58998-9] Goal Plan of Care Note [code = 05704-5] Goal Plan of Care Note [code = 73079-1] Goal Plan of Care Note [code = 37651-1] Goal Plan of Care Note [code = 41951-2] Goal Plan of Care Note [code = 83795-0] Goal Plan of Care Note [code = 52123-1] Goal Plan of Care Note [code = 83976-7] Goal Plan of Care Note [code = 10310-8] Goal Plan of Care Note [code = 67917-4] Goal Plan of Care Note [code = 53064-7] Goal Plan of Care Note [code = 98560-9] Goal Plan of Care Note [code = 52219-5] Goal Plan of Care Note [code = 48166-1] Goal Plan of Care Note [code = 02570-2] Encounters Start End Encounter Admission Attending Care Care Encounter Source Date/Time Date/Time Type Type Clinicians Facility Department ID 2022-10-15 2022-10-16 Emergency X [facility] ERT [id number] Univers 21:44:00 02:14:00 EMILIANA hale [facility] 2022-10-15 2022-10-16 Emergency [facility] [id number] Univers 21:44:00 02:14:00 [facility] [id number] [address] 2022-09-16 2022-09-16 Outpatient SFA SFA [id number] [place] 13:48:54 13:48:54 0123 [address] [place] 2022-08-06 2022-08-06 Outpatient SFA SFA [id number] [place] 14:32:16 14:32:16 1213 [address] [place] 2022-08-06 2022-08-06 Outpatient [id number] 00:00:00 00:00:00 Visit 2z3y-7v34 q2v-7q78-g -bh09-fy0 v61-xv2cdu emk17g96e 67b67f 2022-07-26 2022-07-26 Outpatient SFA SFA [id number] [place] 08:02:44 08:02:44 1202 [address] [place] 2022-07-25 2022-07-25 Outpatient SFA SFA [id number] 022 [place] 11:42:15 11:42:15 1201 [address] [place] 2022-07-25 2022-07-25 Outpatient [id number] 00:00:00 00:00:00 Visit 4py6-2j8m af2-4e7d-9 -947a-f3e 47a-f3ed5c i1q840ht4 [id number] 2022-06-16 2022-06-16 Emergency X [facility] ERT [id number] Univers 12:26:00 16:15:00 ELIZ ity of [facility] 2022-06-16 2022-06-16 Emergency [place], [facility] [id number] Univers 12:26:00 16:15:00 Eliz TIJOSEPH 350.1.13.10 i ty [facility] 4.2.7.2.686 [facility] [id number] [facility] 084 Branch 2022-06-16 2022-06-16 Orders Doctor ALF [id number] Univers 00:00:00 00:00:00 Only Unassigned, KRUNAL 350.1.13.10 ity of [place] [facility] 4.2.7.2.686 [facility] [id number] [facility] 009 Branch Results Test Description Test Time Test Comments Results Result Comments Source TROPONIN I 2022-10-16 07:01:26 Test Item Value Reference Range Interpretation Comme nts TROPONIN I (test code = 2535753919) 0.004 ng/mL <=0.034 GEORGETTE (test code = [...] biotin. Lab Interpretation (test code = Normal 99005-3) [id number] 04:50:17 Test Item Value Reference Interpretation Comments Range D-DIMER (test code = 0.73 See_Comment H [Autom ated 9263822551) message] The system which generated this result [...] diagnosis. Lab Interpretation Abnormal (test code = 44806-0) [facility] [id number] 04:39:55 Test Item Value Reference Range Interpretation Comments TROPONIN I (test code = 0.003 ng/mL <=0.034 3665343007) GEORGETTE (test code = GEORGETTE) Reference (Normal) [...] biotin. Lab Interpretation Normal (test code = 76598-8) [facility] PAN[facility] (44767)2022-10-16 04:28:17 Test Item Value Reference Range Interpretation Comments NA (test code = 137 mmol/L 135-145 7763191146) K (test code = 4.2 mmol/L 3.5-5.0 8634571508) CL (test code = 105 mmol/L 98-108 4432670400) CO2 TOTAL (test code = 24 mmol/L 23-31 3726589693) AGAP (test code = 8 2-16 2061882215) BUN (test code = 12 mg/dL 7-23 1544000590) GLUCOSE (test code = 115 mg/dL 70-110 H 6434313815) CREATININE (test code = 0.62 mg/dL 0.50-1.04 3048089920) TOTAL BILI (test code = 0.7 mg/dL 0.1-1.9 9206416768) CALCIUM (test code = 8.7 mg/dL 8.6-10.6 6397825328) T PROTEIN (test code = 7.7 g/dL 6.3-8.2 1073925267) ALBUMIN (test code = 4.5 g/dL 3.5-5.0 8692801503) ALK PHOS (test code = 78 U/L 34-122 7267546085) ALTv (test code = 27 U/L 5-35 2-6) AST(SGOT) (test code = 29 U/L 13-40 5095934668) eGFR (test code = 105.6 mL/min/1.73m2 0254015229) GEORGETTE (test code = GEORGETTE) Association of [...] tests). Lab Interpretation Abnormal (test code = 41694-2) [facility], [id number] 04:28:17 Test Item Value Reference Range Interpretation Comments LIPASE (test code = 1957447789) 69 U/L 0-220 Lab Interpretation (test code = Normal 74846-2) [facility]CB WITH [id number] 04:17:33 Test Item Value Reference Range Interpretation Comments WBC (test code = 11.78 See_Comment H [Automated 8849-2) message] The sy stem which generated this result transmitted reference range : 4.30 - 11.10 10*3/?L. The reference range was not used to interpret this result as normal/abnormal . RBC (test code = 4.55 See_Comment [Automated 837-8) message] The sy stem which generated this [...] (test code = 38.2 fL 39.0-49.9 L 74541-1) RDW-CV (test code = 12.3 % 12.0-15.5 788-0) PLT (test code = 253 See_Comment [Automated 206-3) message] The sy stem which generated this result transmitted reference range : 166 - 358 10*3/ ?L. The reference r gloria was not used to interpret this result as normal/abnormal . MPV (test code = 9.2 fL 9.5-12.9 L 63374-9) NRBC/100 WBC (test 0.0 See_Comment [Automat ed code = 7416293400) message] The system which generated this result transmitted reference range : 0.0 - 10.0 /100 WBCs. The refer ence range was not u sed to interpret th is result as normal/abnormal . NRBC x10^3 (test code See_Comment [Auto mated = 4826526367) message] The s ystem which generated this result transmitted reference range : 10*3/?L. The reference range was not used to interpret this result as normal/abnormal . GRAN MAT (NEUT) % 77.1 % (test code = 770-8) IMM GRAN % (test code 0.60 % = 9482461232) LYMPH % (test code = 15.4 % 736-9) MONO % (test code = 6.2 % 5905-5) EOS % (test code = 0.4 % 713-8) BASO % (test code = 0.3 % 706-2) GRAN MAT x10^3(ANC) 9.08 10*3/uL 1.88-7.09 H (test code = 5149461461) IMM GRAN x10^3 (test 0.07 10*3/uL 0.00-0.06 H code = 2574473454) LYMPH x10^3 (test code 1.82 10*3/uL 1.32-3.29 = 731-0) MONO x10^3 (test code 0.73 10*3/uL 0.33-0.92 = 742-7) EOS x10^3 (test code = 0.05 10*3/uL 0.03-0.39 711-2) BASO x10^3 (test code 0.03 10*3/uL 0.01-0.07 = 704-7) Lab Interpretation Abnormal (test code = 97498-9) [facility] [id number] 04:07:00 Test Item Value Reference Range Interpretation Comments POCT PREG (test code = 1605) Negative On board controls acceptable with Positive C Line (test code = 3574) POCT PREG LOT # (test code = 3575) [id number] POCT PREG TEST DATE (test 11/23/2023 code = 3576) Lab Interpretation (test code = Normal 57370-7) [facility], THIRD [id number] 05:49:05 Test Item Value Reference Range Interpretation Comments TSH, THIRD GENERATION (test code 2.500 UIU/ML 0.400-4.100 = 282) LIPID [id number] 03:31:11 Test Item Value Reference Range Interpretation [...] MOREINFORMATION , SEE CLIENT ANNOUNCE MENT AT [email or web address] [email or web address] RISK RATIO LDL/HDL 3.77 RATIO <3.22 H (test code = 2238) COMPREHENSIVE METABOLIC [id number] 03:31:11 Test Item Value Reference Range Interpretation Comments GLUCOSE (test code = 99 MG/DL 70-99 2216) BUN (test code = 14 MG/DL 02-11) CREATININE (test 0.74 MG/DL 0.60-1.30 code = 2214) eGFR (2020 CKD-EPI) 104 >60 (test code = 53259) ML/MIN/1.73 CALC BUN/CREAT (test 19 RATIO 02-19 code = 2235) SODIUM (test code = 141 MEQ/L 082-213 5987) POTASSIUM (test code 4.0 MEQ/L 3.5-5.4 = [...] MG/DL See_Comment [Automated message] (test code = 220) The syste m which generated this result transmit naty reference range : <=1.2. The refe rence range was not u sed to interpret th is result as normal/abnormal . ALKALINE PHOSPHATASE 91 U/L 40-113 (test code = 2203) AST (test code = 21 U/L 9-40 2217) ALT (test code = 26 U/L 5-40 2218) HEMOGLOBIN [id number] 03:01:44 Test Item Value Reference Range Interpretation Comments HEMOGLOBIN A1c (test 5.9 % 4.2-5.6 H UNLESS OTHERWISE code = 66109) INDICATED, ALL TESTING PERFORMED [facility], [facility]. [address] [place], [place] [id number] [place] [address] DIRECTOR: Santa CRANDALLIA NUMBER [id number] CAP ACCREDITATION N O. [id number] LIPID [id number] 00:00:00 Test Item Value Reference Range Interpretation Comments CHOLESTEROL (test code = 2210) 188 MG/DL TRIGLYCERIDES (test code = 2232) 112 MG/DL HDL CHOLESTEROL (test code = 2220) 30 MG/DL CALC LDL CHOL (test code = 2237) 136 MG/DL RISK RATIO LDL/HDL (test code = 4.53 RATIO 2238) LIPID [id number] 00:00:00 Test Item Value Reference Range Interpretation Comments CHOLESTEROL (test code = 2210) 188 MG/DL TRIGLYCERIDES (test code = 2232) 112 MG/DL HDL CHOLESTEROL (test code = 2220) 30 MG/DL CALC LDL CHOL (test code = 2237) 136 MG/DL RISK RATIO LDL/HDL (test code = 4.53 RATIO 2238) CBC W/AUTO [id number] 00:00:00 Test Item Value Reference Range Interpretation [...] NUCLEATED RBCS (test code = 0.00 K/UL 32343) CBC W/AUTO [id number] 00:00:00 Test Item Value Reference Range Interpretation [...] NUCLEATED RBCS (test code = 0.00 K/UL 24674) CBC W/AUTO [id number] 00:00:00 Test Item Value Reference Range Interpretation [...] NUCLEATED RBCS (test code = 0.00 K/UL 62746) TSH, THIRD [id number] 00:00:00 Test Item Value Reference Range Interpretation Comments TSH, THIRD GENERATION (test code 4.590 UIU/ML = 2821) TSH, THIRD [id number] 00:00:00 Test Item Value Reference Range Interpretation Comments TSH, THIRD GENERATION (test code 4.590 UIU/ML = 2821) TSH, THIRD [id number] 00:00:00 Test Item Value Reference Range Interpretation Comments TSH, THIRD GENERATION (test code 4.590 UIU/ML = 2821) CBC WITH [id number] 19:07:54 Test Item Value Reference Range Interpretation Comments WBC (test code = See_Comment [Automated 4079-2) message] The sy stem which generated this result transmitted reference range : 4.30 - 11.10 10*3/?L. The reference range was not used to interpret this result as normal/abnormal . RBC (test code = See_Comment [Automated 459-8) message] The sy stem which generated this [...] (test code = 37.8 fL 39-49.9 L 22227-6) RDW-CV (test code = 12.4 % 12-15.5 788-0) PLT (test code = See_Comment [Automated 777-3) message] The sy stem which generated this result transmitted reference range : 166 - 358 10*3/ ?L. The reference r gloria was not used to interpret this result as normal/abnormal . MPV (test code = 10.2 fL 9.5-12.9 12172-4) IPF % (test code = 1.5 % 1.3-7.7 Platelet count 0652724893) measured by fluorescence method. NRBC/100 WBC (test See_Comment [Automat ed code = 4132934876) message] The system which generated this result transmitted reference range : 0.0 - 10.0 /100 WBCs. The refer ence range was not u sed to interpret th is result as normal/abnormal . NRBC x10^3 (test code See_Comment [Auto mated = 7878506204) message] The s ystem which generated this result transmitted reference range : 10*3/?L. The reference range was not used to interpret this result as normal/abnormal . GRAN MAT (NEUT) % 57.1 % (test code = 770-8) IMM GRAN % (test code 0.40 % = 1716137502) LYMPH % (test code = 34.9 % 736-9) MONO % (test code = 5.4 % 5905-5) EOS % (test code = 1.9 % 713-8) BASO % (test code = 0.3 % 706-2) GRAN MAT x10^3(ANC) 5.36 10*3/uL 1.88-7.09 (test code = 6516350584) IMM GRAN x10^3 (test 0.04 10*3/uL 0-0.06 code = 0160598078) LYMPH x10^3 (test code 3.28 10*3/uL 1.32-3.29 = 731-0) MONO x10^3 (test code 0.51 10*3/uL 0.33-0.92 = 742-7) EOS x10^3 (test code = 0.18 10*3/uL 0.03-0.39 711-2) BASO x10^3 (test code 0.03 10*3/uL 0.01-0.07 = 704-7) Lab Interpretation Abnormal (test code = 48957-8) [facility] RT-[id number] 18:36:33 Test Item Value Reference Interpretation Comments Range SARS-CoV-2 NEGATIVE SEE NOTE SARS-CoV-2 RNA NOT INTERPRETATION DETECTEDNegat idris (test code = 68299) results do not preclude SARS-C oV-2 infection [...] (test code = NASOPHARY[place]: [place] [address]) Bj Emily Mary Ellen l-Time RT-PCR. The [...] provided by met hod given in report:https:// www.[email or web address]/clinic ians/cl ient-communicat ions/ Alternatively, see downloadable PD F fact sheet at:[email or web address]://www. [email or web address] .[email or web address]/COVID-19-R T-PCR UNLESS OTHERWIS E INDICATED, ALL TESTING PERFORMED [facility], [facility]. [address] [place], [place] [id number] LABOR ATORY DIRECTOR: MOLLY DAHL M.D. CLIA NUMBER [id number] CAP ACCREDITATION N O. [id number] SARS-CoV-2 (COVID-19) by RT-PCR (HIGH RISK)2021-09-06 00:00:00 Test Item Value Reference Range Interpretation Comments SARS-CoV-2 INTERPRETATION NEGATIVE (test code = 80782) SOURCE (test code = 03930) NASOPHARYNGEAL SARS-CoV-2 (COVID-19) by RT-PCR (HIGH RISK)2021-09-06 00:00:00 Test Item Value Reference Range Interpretation Comments SARS-CoV-2 INTERPRETATION NEGATIVE (test code = 22074) SOURCE (test code = 66082) NASOPHARYNGEAL SARS-CoV-2 (COVID-19) by RT-PCR (HIGH RISK)2021-09-06 00:00:00 Test Item Value Reference Range Interpretation Comments SARS-CoV-2 INTERPRETATION NEGATIVE (test code = 40636) SOURCE (test code = 85743) NASOPHARYNGEAL SARS-CoV-2 (COVID-19) by RT-PCR (HIGH RISK)2021-09-06 00:00:00 Test Item Value Reference Range Interpretation Comments SARS-CoV-2 INTERPRETATION NEGATIVE (test code = 83697) SOURCE (test code = 78879) NASOPHARYNGEAL COMPREHENSIVE METABOLIC [id number] 00:00:00 Test Item Value Reference Range Interpretation Comments GLUCOSE (test code = 2217) 95 MG/DL BUN (test code = 2208) 15 MG/DL CREATININE (test code = 2214) 0.79 MG/DL eGFR AMER. (test code 108 ML/MIN/1.73 = 34168) eGFR NON- AMER. (test 93 ML/MIN/1.73 code = 78780) CALC BUN/CREAT (test code = 19 RATIO 2235) SODIUM (test code = 2231) 141 MEQ/L POTASSIUM (test code = 2228) 4.5 MEQ/L CHLORIDE (test code = 2215) 103 MEQ/L CARBON DIOXIDE (test code = 26 MEQ/L 2206) CALCIUM (test code = 2209) 9.6 MG/DL [...] ALT (test code = 2219) 19 U/L [id number] 00:00:00 Test Item Value Reference Range Interpretation Comments TSH, THIRD GENERATION (test code 3.630 UIU/ML = 2821) [id number] 00:00:00 Test Item Value Reference Range Interpretation Comments TSH, THIRD GENERATION (test code 3.630 UIU/ML = 2821) [id number] 00:00:00 Test Item Value Reference Range Interpretation Comments TSH, THIRD GENERATION (test code 3.630 UIU/ML = 2821) CBC W/AUTO [id number] 00:00:00 Test Item Value Reference Range Interpretation [...] NUCLEATED RBCS (test code = 0.00 K/UL 77695) CBC W/AUTO [id number] 00:00:00 Test Item Value Reference Range Interpretation [...] NUCLEATED RBCS (test code = 0.00 K/UL 98468) CBC W/AUTO [id number] 00:00:00 Test Item Value Reference Range Interpretation [...] NUCLEATED RBCS (test code = 0.00 K/UL 28245) LIPID [id number] 00:00:00 Test Item Value Reference Range Interpretation Comments CHOLESTEROL (test code = 2210) 211 MG/DL TRIGLYCERIDES (test code = 2232) 159 MG/DL HDL CHOLESTEROL (test code = 2220) 35 MG/DL CALC LDL CHOL (test code = 2237) 147 MG/DL RISK RATIO LDL/HDL (test code = 4.20 RATIO 2238) LIPID [id number] 00:00:00 Test Item Value Reference Range Interpretation Comments CHOLESTEROL (test code = 2210) 211 MG/DL TRIGLYCERIDES (test code = 2232) 159 MG/DL HDL CHOLESTEROL (test code = 2220) 35 MG/DL CALC LDL CHOL (test code = 2237) 147 MG/DL RISK RATIO LDL/HDL (test code = 4.20 RATIO 2238) COMPREHENSIVE METABOLIC [id number] 00:00:00 Test Item Value Reference Range Interpretation Comments GLUCOSE (test code = 2217) 95 MG/DL BUN (test code = 2208) 15 MG/DL CREATININE (test code = 2214) 0.79 MG/DL eGFR AMER. (test code 108 ML/MIN/1.73 = 72288) eGFR NON- AMER. (test 93 ML/MIN/1.73 code = 09624) CALC BUN/CREAT (test code = 19 RATIO [...] code = 2219) 19 U/L COMPREHENSIVE METABOLIC [id number] 00:00:00 Test Item Value Reference Range Interpretation Comments GLUCOSE (test code = 2217) 95 MG/DL BUN (test code = 2208) 15 MG/DL CREATININE (test code = 2214) 0.79 MG/DL eGFR AMER. (test code 108 ML/MIN/1.73 = 21479) eGFR NON- AMER. (test 93 ML/MIN/1.73 code = 87992) CALC BUN/CREAT (test code = 19 RATIO [...] ALT (test code = 2219) 19 U/L [id number] 00:00:00 Test Item Value Reference Range Interpretation Comments TSH, THIRD GENERATION (test code 3.630 UIU/ML = 2821) [id number] 00:00:00 Test Item Value Reference Range Interpretation Comments TSH, THIRD GENERATION (test code 3.630 UIU/ML = 2821) [id number] 00:00:00 Test Item Value Reference Range Interpretation Comments TSH, THIRD GENERATION (test code 3.630 UIU/ML = 2821) CBC W/AUTO [id number] 00:00:00 Test Item Value Reference Range Interpretation [...] NUCLEATED RBCS (test code = 0.00 K/UL 84226) CBC W/AUTO [id number] 00:00:00 Test Item Value Reference Range Interpretation [...] NUCLEATED RBCS (test code = 0.00 K/UL 63977) CBC W/AUTO [id number] 00:00:00 Test Item Value Reference Range Interpretation [...] NUCLEATED RBCS (test code = 0.00 K/UL 34097) LIPID [id number] 00:00:00 Test Item Value Reference Range Interpretation Comments CHOLESTEROL (test code = 2210) 211 MG/DL TRIGLYCERIDES (test code = 2232) 159 MG/DL HDL CHOLESTEROL (test code = 2220) 35 MG/DL CALC LDL CHOL (test code = 2237) 147 MG/DL RISK RATIO LDL/HDL (test code = 4.20 RATIO 2238) LIPID [id number] 00:00:00 Test Item Value Reference Range Interpretation Comments CHOLESTEROL (test code = 2210) 211 MG/DL TRIGLYCERIDES (test code = 2232) 159 MG/DL HDL CHOLESTEROL (test code = 2220) 35 MG/DL CALC LDL CHOL (test code = 2237) 147 MG/DL RISK RATIO LDL/HDL (test code = 4.20 RATIO 2238) COMPREHENSIVE METABOLIC [id number] 00:00:00 Test Item Value Reference Range Interpretation Comments GLUCOSE (test code = 2217) 95 MG/DL BUN (test code = 2208) 15 MG/DL CREATININE (test code = 2214) 0.79 MG/DL eGFR AMER. (test code 108 ML/MIN/1.73 = 04805) eGFR NON- AMER. (test 93 ML/MIN/1.73 code = 28383) CALC BUN/CREAT (test code = 19 RATIO [...] ALT (test code = 2219) 19 U/L SARS-CoV-2 (COVID-19) by RT-PCR (HIGH RISK)2020-07-20 00:00:00 Test Item Value Reference Range Interpretation Comments SARS-CoV-2 INTERPRETATION (test NEGATIVE code = 60557) SOURCE (test code = 55766) NOT SPECIFIED SARS-CoV-2 (COVID-19) by RT-PCR (HIGH RISK)2020-07-20 00:00:00 Test Item Value Reference Range Interpretation Comments SARS-CoV-2 INTERPRETATION (test NEGATIVE code = 44239) SOURCE (test code = 97040) NOT SPECIFIED SARS-CoV-2 (COVID-19) by RT-PCR (HIGH RISK)2020-07-20 00:00:00 Test Item Value Reference Range Interpretation Comments SARS-CoV-2 INTERPRETATION (test NEGATIVE code = 82080) SOURCE (test code = 72966) NOT SPECIFIED SARS-CoV-2 (COVID-19) by RT-PCR (HIGH RISK)2020-07-20 00:00:00 Test Item Value Reference Range Interpretation Comments SARS-CoV-2 INTERPRETATION (test NEGATIVE code = 88845) SOURCE (test code = 95711) NOT SPECIFIED SARS-CoV-2 (COVID-19) by RT-PCR (HIGH RISK)2020-07-05 00:00:00 Test Item Value Reference Range Interpretation Comments SARS-CoV-2 INTERPRETATION Positive (test code = 03653) SOURCE (test code = 39151) Nasal_Swab_in_VTM__ UTM SARS-CoV-2 (COVID-19) by RT-PCR (HIGH RISK)2020-07-05 00:00:00 Test Item Value Reference Range Interpretation Comments SARS-CoV-2 INTERPRETATION Positive (test code = 33042) SOURCE (test code = 90330) Nasal_Swab_in_VTM__ UTM
[2023-02-22] MEDS ORDERED: TRIAMCINOLONE ACETON 40 MG/ML VIAL ONE (18:13)
--- NOTE | 2023-02-22 18:28 | ER ---
Nurse's Notes [facility] Name: Jane Izaguirre Age: 42 yrs Sex: Female : 1980 Arrival Date: 02/22/2023 Time: 17:44 Bed 11 Private MD: Diagnosis: Radiculopathy, cervical region;Muscle spasm Presentation: 02/22 18:00 Chief complaint: Patient states: L sided neck pain that radiates down shoulder to upper ss L arm since last night. Coronavirus screen: Client denies travel out of the [place] in the last 14 days. Ebola Screen: Patient denies exposure to infectious person. Patient denies travel to an Ebola-affected area in the 21 days before illness onset. Initial Sepsis Screen: Does the patient meet any 2 criteria? No. Patient's initial sepsis screen is negative. Does the patient have a suspected source of infection? No. Patient's initial sepsis screen is negative. Risk Assessment: Do you want to hurt yourself or someone else? Patient reports no desire to harm self or others. Onset of symptoms was February 21, 2023. 18:00 Method Of Arrival: Ambulatory ss 18:00 Acuity: JENISE 3 ss Historical: - Allergies: 18:01 No Known Allergies; ss - Home Meds: 18:01 levothyroxine 50 mcg capsule daily [Active]; ss - PMHx: 18:01 Hypothyroidism; ss - PSHx: 18:01 section; Cholecystectomy; ss - Immunization history:: Client reports receiving the 2nd dose of the Covid vaccine. - Social history:: Smoking status: Patient denies any tobacco usage or history of. Vital Signs: 18:00 BP 131 / 71; Pulse 74; Resp 16; Temp 97.4(TE); Pulse Ox 99% on R/A; Weight 106.59 kg; ss Height 5 ft. 0 in. ; Pain 6/10; 18:00 Body Mass Index 45.89 (106.59 kg, 152.4 cm) ss 18:00 Pain Scale: Adult ss ED Course: 17:45 Patient arrived in ED. ts1 17:50 Yris Kitchen [facility]C [facility] snw 17:50 Keith Chisholm MD is Attending Physician. snw 18:01 Triage completed. ss 18:01 Arm band placed on right wrist. ss 18:33 Bettina Weeks, RN is Primary Nurse. ss 18:42 No provider procedures requiring assistance completed. Patient did not have IV access ss during this emergency room visit. Administered Medications: 18:33 Drug: Triamcinolone Acetonide IM 40 mg {Note: administered by STEVE Arndt.} Route: IM; ss Site: affected area; Outcome: 18:27 Discharge ordered by . snw 18:42 Discharge instructions given to patient, Instructed on discharge instructions, follow ss up and referral plans. medication usage, Demonstrated understanding of instructions, follow-up care, medications, Prescriptions given X 4. 18:42 Patient left the ED. Signatures: Yris Kitchen, [employer] PROFESSION[employer] EMPLOYER CONSULTANT-Csnw Bettina Weeks RN RN Huma Ceja PAS PAS ts1 Corrections: (The following items were deleted from the chart) 18:03 18:01 Allergies: Aspirin; [facility]
--- NOTE | 2023-02-22 18:28 | EDPHYS ---
Physician Documentation [facility] Name: Jane Izaguirre Age: 42 yrs Sex: Female : 1980 Arrival Date: 02/22/2023 Time: 17:44 Bed 11 Private MD: ED Physician Keith Chisholm HPI: 02/22 18:25 This 42 yrs old Female presents to ER via Ambulatory with complaints of Neck snw and Upper Back Pain. 18:25 The patient or guardian complains of decreased range of motion, pain, that is acute. snw The symptoms are located on the left trapezius and left scapular area. Onset: The symptoms/episode began/occurred acutely. Context: The problem was sustained at home, The neck injury/problem resulted from from unknown cause. Severity of symptoms: At their worst the symptoms were moderate. It is unknown whether or not the patient has had similar symptoms in the past. The patient has not recently seen a physician. Historical: - Allergies: 18:01 No Known Allergies; ss - Home Meds: 18:01 levothyroxine 50 mcg capsule daily [Active]; ss - PMHx: 18:01 Hypothyroidism; ss - PSHx: 18:01 section; Cholecystectomy; ss - Immunization history:: Client reports receiving the 2nd dose of the Covid vaccine. - Social history:: Smoking status: Patient denies any tobacco usage or history of. ROS: 18:23 Constitutional: Negative for fever, chills, and weight loss, Eyes: Negative for injury, snw pain, redness, and discharge, Cardiovascular: Negative for chest pain, palpitations, and edema, Respiratory: Negative for shortness of breath, cough, wheezing, and pleuritic chest pain, Abdomen/GI: Negative for abdominal pain, nausea, vomiting, diarrhea, and constipation, Back: Negative for injury and pain, : Negative for injury, bleeding, discharge, and swelling, MS/Extremity: Negative for injury and deformity, Skin: Negative for injury, rash, and discoloration, Neuro: Negative for headache, weakness, numbness, tingling, and seizure, Psych: Negative for depression, anxiety, suicide ideation, homicidal ideation, and hallucinations. 18:23 ENT: Negative for injury, pain, and discharge. 18:23 Neck: Positive for stiffness, tenderness, of the left lateral aspect of neck and left posterior aspect of neck and left trapezius. Exam: 18:04 Constitutional: This is a well developed, well nourished patient who is awake, alert, snw and in no acute distress. Head/Face: Normocephalic, atraumatic. Eyes: Pupils equal round and reactive to light, extra-ocular motions intact. Lids and lashes normal. Conjunctiva and sclera are non-icteric and not injected. Cornea within normal limits. Periorbital areas with no swelling, redness, or edema. ENT: Nares patent. No nasal discharge, no septal abnormalities noted. Tympanic membranes are normal and external auditory canals are clear. Oropharynx with no redness, swelling, or masses, exudates, or evidence of obstruction, uvula midline. Mucous membranes moist. Chest/axilla: Normal chest wall appearance and motion. Nontender with no deformity. No lesions are appreciated. Cardiovascular: Regular rate and rhythm with a normal S1 and S2. No gallops, murmurs, or rubs. Normal PMI, no JVD. No pulse deficits. Respiratory: Lungs have equal breath sounds bilaterally, clear to auscultation and percussion. No rales, rhonchi or wheezes noted. No increased work of breathing, no retractions or nasal flaring. Abdomen/GI: Soft, non-tender, with normal bowel sounds. No distension or tympany. No guarding or rebound. No evidence of tenderness throughout. Skin: Warm, dry with normal turgor. Normal color with no rashes, no lesions, and no evidence of cellulitis. MS/ Extremity: Pulses equal, no cyanosis. Neurovascular intact. Full, normal range of motion. Neuro: Awake and alert, GCS 15, oriented to person, place, time, and situation. Cranial nerves II-XII grossly intact. Motor strength 5/5 in all extremities. Sensory grossly intact. Cerebellar exam normal. Normal gait. Psych: Awake, alert, with orientation to person, place and time. Behavior, mood, and affect are within normal limits. 18:04 Neck: External neck: is normal, tenderness, that is moderate, of the left trapezius, left posterior aspect of neck and left lateral aspect of neck, ROM/movement: is normal. 18:04 Back: pain, that is moderate, of the left trapezius, ROM is normal. Vital Signs: 18:00 BP 131 / 71; Pulse 74; Resp 16; Temp 97.4(TE); Pulse Ox 99% on R/A; Weight 106.59 kg; ss Height 5 ft. 0 in. ; Pain 6/10; 18:00 Body Mass Index 45.89 (106.59 kg, 152.4 cm) ss 18:00 Pain Scale: Adult ss Procedures: 18:24 Performed trigger point injection x 2, 1 ml each location with 1/2ml lidocaine and 20mg snw Kenalog. MDM: 17:56 Patient medically screened. snw 18:25 Differential diagnosis: arthritis, Cervical Raiculopathy Cervical Spondylosis cervical snw strain, torticollis. Data reviewed: vital signs, nurses notes. Historians other than the Patient: Daughter/Son: Son. Special discussion: Based on the history and exam findings, there is no indication for further emergent testing or inpatient evaluation. I discussed with the patient/guardian the need to see the orthopedic surgeon for further evaluation of the symptoms. I discussed with the patient/guardian the need to see the primary care provider for further evaluation of the symptoms. Administered Medications: 18:33 Drug: Triamcinolone Acetonide IM 40 mg {Note: administered by STEVE Arndt.} Route: IM; ss Site: affected area; Disposition: 18:46 Co-signature as Attending Physician, Keith Chisholm MD I reviewed the patient's care rn provided by the Advanced Practice Provider and agree with the diagnosis and treatment plan. Disposition Summary: 02/22/23 18:27 Discharge Ordered Location: Home snw Condition: Stable snw Diagnosis - Radiculopathy, cervical region snw - Muscle spasm snw Followup: snw - With: Emergency Department - When: As needed - Reason: Worsening of condition Followup: snw - With: Private Physician - When: 2 - 3 days - Reason: Recheck today's complaints, Continuance of care, Re-evaluation by your physician Discharge Instructions: - Discharge Summary Sheet snw - Cervical Radiculopathy snw - Heat Therapy snw - Radicular Pain snw Forms: - Work release form snw - Medication Reconciliation Form snw - Thank You Letter snw - Antibiotic Education snw - Prescription Opioid Use snw - [email or web address] snw Prescriptions: - Mobic 7.5 mg Oral Tablet - take 1 tablet by ORAL route once daily take with food; 20 tablet; Refills: 0, snw Product Selection Permitted - Zyrtec 10 mg Oral Tablet - take 1 tablet by ORAL route once daily As needed; 20 tablet; Refills: 0, snw Product Selection Permitted - orphenadrine citrate 100 mg Oral Tablet Sustained Release - take 1 tablet by ORAL route 2 times per day As needed; 20 tablet; Refills: 0, snw Product Selection Permitted - Pepcid 20 mg Oral Tablet - take 1 tablet by ORAL route once daily; 20 tablet; Refills: 0, Product snw Selection Permitted Signatures: Yris Kitchen, CHILDRENS CLUB ATTENDANT-C CHILDRENS CLUB ATTENDANT-Csnw Kieth Chisholm MD MD rn Blanchard, Shelby, RN RN ss Corrections: (The following items were deleted from the chart) 18:03 18:01 Allergies: Aspirin; ss ss
[2023-02-22 18:46] VITALS: BP 131/71; TEMP 97.4; O2SAT 99
== END 2023-02-22 18:42 | disposition home or self-care (01) ==
LOC: ER 17:44
DX: M54.12 Radiculopathy, cervical region (principal); M62.838 Other muscle spasm; E03.9 Hypothyroidism, unspecified
CPT/HCPCS: 96372; 99284; J3301

== ENCOUNTER 2023-11-26 20:42 | Emergency (ER) | payer OTHER ==
--- OUTSIDE RECORDS SUMMARY | 2023-11-26 20:45 | XMS REPORT | Continuity of Care Document ---
Author Name Unknown Address [address] [facility] [address] [place] [address] [facility] thconnect Address [address] [facility] [address] [place] [address] Care Team Providers Care Community Health Navigator Name Role Phone PCP, PATIENT DOES NOT HAVE A Primary Care Physic humza Unavailable BALAJI KWONG Attending Clinician Unavailable LAB90 Attending Clinician Unavailable FAREED HOLBROOK Attending Clinician Mika ilEMILIANA Burleson Attending Clinician Unavailable Emiliana Scherer MD Attending Clinician [phone] ELIZ SEVILLA Attending Clinician Unavailable Eliz Rubio Attending Clinician [phone] Doctor Unassigned, [place] Attending Clinician U EMILIANA Mcdaniel Admitting Clinician Unavailable ELIZ SEVILLA Admitting Clinician Unavailable Payers Payer Name Policy Type Policy Number Effective Date Expirati on Date Source RAQUEL LOPEZ [facility] [employer] O [employer] 94 ON 9 [id number] 2023 00:00:00 Problems Condition Name Condition Details Condition Category Status Onset Date Resolution Date Last Treatment Date Treating Clinician Comments Source Hypothyroi dism (acquired) Hypothyroi dism (acquired) Disease Active 11-03 00:00: 00 Khushboo pat History of iron deficiency anemia History of iron deficiency anemia Disease Active 11-03 00:00: 00 Khushboo pat Obesity Obesity Disease Active 11-03 00:00: 00 Khushboo pat Family history of diabetes mellitus in mother Family history of diabetes mellitus in mother Disease Active 11-03 00:00: 00 Khushboo pat Sore throat Sore throat Disease Active 2015-08 00:00: 00 [facility] Vaginal itching Vaginal itching Disease Active 2015-08 00:00: 00 [facility] Hypothyroi dism Hypothyroi dism Disease Active 02-11 00:00: 00 [facility] Screening for thyroid disorder Screening for thyroid disorder Disease Active 02-08 00:00: 00 [facility] Abnormal weight gain Abnormal weight gain Disease Active 02-08 00:00: 00 [facility] Contracept idris management Contracept idris management Disease Active 12-19 00:00: 00 [facility] Allergies, Adverse Reactions, Alerts Allergy Name Allergy Type Status Severity Reaction(s) Onset Date Inactive Date Treating Clinician Comments Source NO KNOWN ALLERGIE S Drug Class Active [facility] Social History Social Habit Start Date Stop Date Quantity Comments Source Sexual orientation Helga Pillai - External Education - What is the highest level of school you have completed or the highest degree you have received? 2023-11-04 00:00:00 2023-11-04 00:00:00 6th grade Khushboo Pillai - External Alcohol Comment 2023-11-04 00:00:00 2023-11-04 00:00:00 occasionally Khushboo Pillai - External Alcohol intake 2023-11-04 00:00:00 2023-11-04 00:00:00 Current drinker of alcohol (finding) Khushboo Pillai - External History of Social function 2023-10-01 00:00:00 2023-10-01 00:00:00 Khushboo Pillai - External Tobacco use and exposure 2023-10-01 00:00:00 2023-10-01 00:00:00 Smokeless tobacco non-user Khushboo Pillai - External Exposure to SARS-CoV-2 (event) 2022-10-05 00:00:00 2022-10-15 21:56:00 Not sure [facility] Sex Assigned At 1980 00:00:00 1980 00:00:00 Khushboo Reneetamikoosei - External Smoking Status Start Date Stop Date Source Never smoked tobacco Khushboo Reneetamikoosei - External Medications Ordered Medication Name Filled Medication Name Start Date Stop Date Current Medication? Ordering Clinician Indication Dosage Frequency Signature (SIG) Comments Components Source Levothyroxi ne Sodium 50 MCG oral Tablet 11-03 00:00: 00 Yes [id number] 50ug Take 1 tablet (50 mcg total) by mouth daily. Khushboo Mccalla l Levothyroxi ne Sodium 50 MCG oral Tablet 10-02 00:00: 00 11-03 00:00 :00 No 50ug Take 1 tablet (50 mcg total) by mouth daily. Khushboo Sethi l iopamidol (ISOVUE 370-500 mL) injection 100 mL 10-16 08:00: 00 10-16 08:00 :00 No [id number] 100mL 100 mL, Intravenou s, ONCE, 1 dose, On Fri10/16/22 at 0200, Routine [facility] acetaminoph en (TYLENOL) tablet 1,000 mg 10-16 06:30: 00 10-16 06:27 :00 No 1000mg 1,000 mg, Oral, ONCE, 1 dose, On Fri10/16/22 at 0030, TAMMY [facility] FENTanyl PF (SUBLIMAZE (PF)) injection 25 mcg 10-16 04:30: 00 10-16 04:25 :00 No 25ug 25 mcg, Slow IV Push, ONCE, 1 dose, On Fri10/15/22 at 2230, STAT [facility] diphenhydrA MINE (BENADRYL) injection 12.5 mg 10-16 04:30: 00 10-16 04:26 :00 No 12.5mg 12.5 mg, Slow IV Push, ONCE, 1 dose, On Fri10/15/22 at 2230, STAT [facility] metoclopram bridget HCl (REGLAN) injection 10 mg 10-16 04:30: 00 10-16 04:26 :00 No 10mg 10 mg, Slow IV Push, ONCE, 1 dose, On Fri10/15/22 at 2230, [facility] traMADoL (ULTRAM) 50 mg tablet 10-16 00:00: 00 Yes [id number] 50mg Take 1 tablet by mouth every 6 (six) hours as needed for Pain (scale 7-10). Indication s: acute pain [facility] TAKE 1 TABLET DAILY. 2021-08 00:00: 00 No NaCl 0.9% (NS) bolus infusion 1,000 mL 2021-08 20:15: 00 06-16 21:07 :00 No 1000mL at 999 mL/hr, 1,000 mL, IV Infusion, ONCE, 1 dose, On Fri06/16/22 at 1515, [facility] diphenhydrA MINE (BENADRYL) tablet 25 mg 2021-08 19:45: 00 06-16 19:51 :00 No 25mg 25 mg, Oral, ONCE, 1 dose, On Fri06/16/22 at 1445, [facility] metoclopram bridget HCl (REGLAN) injection 10 mg 2021-08 19:45: 00 06-16 19:51 :00 No 10mg 10 mg, Slow IV Push, ONCE, 1 dose, On Fri06/16/22 at 1445, [facility] ketorolac (TORADOL) injection 30 mg 2021-08 19:45: 00 06-16 19:51 :00 No 30mg 30 mg, Slow IV Push, ONCE, 1 dose, On Fri06/16/22 at 1445, Routine [facility] butalbital- acetaminoph en-caff 50-325-40 mg tablet 2021-08 00:00: 00 Yes [id number] 1{tbl} Take 1 tablet by mouth every 6 (six) hours as needed for Pain (scale 7-10). [facility] Dose Unknown 12-17 00:00: 00 No Dose Unknown 12-17 00:00: 00 No Dose Unknown 2020-08 00:00: 00 No Dose Unknown 2020-08 00:00: 00 No meclizine 25 mg tablet 01-07 00:00: 00 Yes [id number] 25mg Take 1 tablet by mouth every 6 (six) hours as needed for Dizziness. [facility] phenazopyri dine 200 mg tablet 02-17 00:00: 00 Yes 200mg Take 1 tablet by mouth 3 (three) times daily after meals. [facility] levothyroxi ne (SYNTHROID) 50 mcg tablet 2015-08 00:00: 00 Yes [id number] 50ug Take 1 tablet by mouth every morning. [facility] naproxen sodium (ANAPROX) 550 mg tablet 12-18 00:00: 00 Yes 550mg Take 1 tablet by mouth 2 (two) times daily with meals. [facility] levofloxaci n (LEVAQUIN) 500 mg tablet 12-18 00:00: 00 Yes 500mg Take 1 tablet by mouth every 24 (twenty-fo ur) hours. [facility] Immunizations Ordered Immunization Name Filled Immunization Name Date Status Comments Source Moderna COVID-19 Vaccine 2021-03-02 00:00:00 Completed Moderna COVID-19 Vaccine 2021-03-02 00:00:00 Completed Moderna COVID-19 Vaccine 2021-01-26 00:00:00 Completed Moderna COVID-19 Vaccine 2021-01-26 00:00:00 Completed Varicella (varivax)(chicken pox) 2012-08-05 00:00:00 Completed [facility] Varicella (varivax)(chicken pox) 2012-08-05 00:00:00 Completed [facility] Varicella (varivax)(chicken pox) 2012-08-05 00:00:00 Completed [facility] TDAP 2011-08-25 00:00:00 Completed [facility] TDAP 2011-08-25 00:00:00 Completed [facility] TDAP 2011-08-25 00:00:00 Completed [facility] Covid-19 Vaccine Moderna (Spikevax), Mrna-lnp, Stanford Protein, Pf Unknown Completed Khushboo Bravoold - External Covid-19 Vaccine Moderna (Spikevax), Mrna-lnp, Stanford Protein, Pf Unknown Completed Khushboo Pillai - External Varicella Vaccine Unknown Completed Mars lopez Seybold - External Tdap- (Boostrix, Adacel) Unknown Completed Khushboo Pillai - External Vital Signs Vital Name Observation Time Observation Value Comments S ource Body height 2023-11-04 21:34:00 152.4 cm Marli kwan Seybold - External Systolic blood pressure 2023-11-04 21:11:00 116 mm[Hg] Khushboo tamikoo ld - External Diastolic blood pressure 2023-11-04 21:11:00 61 mm[Hg] Khushboo Setamikoo ld - External Heart rate 2023-11-04 21:11:00 58 /min Mark freeman Seybold - External Respiratory rate 2023-11-04 21:11:00 15 /min Khushboo Seybold - External Body weight 2023-11-04 21:11:00 112.946 kg Marli aquiles Seybold - External BMI 2023-11-04 21:11:00 48.63 kg/m2 Marli kwan Seybold - External Oxygen saturation in Arterial blood by Pulse oximetry 2023-11-04 21:11:00 100 /min Khushboo Epps ld - External Systolic blood pressure 2022-10-16 07:00:00 106 mm[Hg] [facility] Diastolic blood pressure 2022-10-16 07:00:00 88 mm[Hg] [facility] Heart rate 2022-10-16 07:00:00 93 /min [facility] Oxygen saturation in Arterial blood by Pulse oximetry 2022-10-16 07:00:00 96 /min [facility] Respiratory rate 2022-10-16 06:25:00 27 /min [facility] Body temperature 2022-10-16 06:25:00 38.94 Lynsey [facility] Body height 2022-10-16 03:51:00 152.4 cm [facility] Body weight 2022-10-16 03:51:00 111.585 kg [facility] BMI 2022-10-16 03:51:00 48.04 kg/m2 [facility] Systolic blood pressure 2022-06-16 21:00:00 116 mm[Hg] [facility] Diastolic blood pressure 2022-06-16 21:00:00 76 mm[Hg] [facility] Heart rate 2022-06-16 21:00:00 61 /min [facility] Respiratory rate 2022-06-16 21:00:00 18 /min [facility] Oxygen saturation in Arterial blood by Pulse oximetry 2022-06-16 21:00:00 97 /min [facility] Body temperature 2022-06-16 17:24:00 37.06 Lynsey [facility] Body height 2022-06-16 17:24:00 152.4 cm [facility] Body weight 2022-06-16 17:24:00 106.595 kg [facility] BMI 2022-06-16 17:24:00 45.90 kg/m2 [facility] BP Systolic 2022-08-06 14:42:00 123 mm[Hg] [...] Procedures Procedure Date / Time Performed Performing Clinicia n Source TROPONIN I 2022-10-16 06:30:00 Emiliana Scherer [facility] XR CHEST 1 VW 2022-10-16 04:33:53 Emiliana Scherer [facility] D-DIMER 2022-10-16 04:26:00 Emiliana Scherer [facility] URINALYSIS 2022-10-16 04:26:00 Emiliana Scherer [facility] POCT TEST 2022-10-16 04:07:00 Emiliana Scherer [facility] LIPASE 2022-10-16 03:58:00 Emiliana Scherer [facility] TROPONIN I 2022-10-16 03:58:00 Emiliana Scherer [facility] COMP. METABOLIC PANEL ([id number]) 2022-10-16 03:58:00 Emiliana Scherer [facility] CBC WITH DIFF 2022-10-16 03:58:00 Emiliana Scherer [facility] RAPID INFLUENZA A/B 2022-10-16 03:58:00 Emiliana Scherer [facility] COVID-19 (ID NOW RAPID TESTING) 2022-10-16 03:58:00 Emiliana Scherer [facility] NOTICE OF PRIVACY PRACTICES 2022-10-16 03:42:26 Doctor Unassigned, [place] [facility] CONSENT/REFUSAL FOR DIAGNOSIS AND TREATMENT 2022-10-16 03:41:57 Doctor Unassigned, [place] [facility] COMP. METABOLIC PANEL ([id number]) 2022-06-16 19:50:00 Eliz Sevilla [facility] CT HEAD WO CONTRAST 2022-06-16 18:28:00 Cheryl Sevilla [facility] CBC WITH DIFF 2022-06-16 18:09:00 Eliz Sevilla [facility] URINALYSIS 2022-06-16 18:09:00 Eliz Sevilla [facility] ASSIGNMENT OF BENEFITS 2022-06-16 17:57:56 Docto r Unassigned, [place] [facility] CONSENT/REFUSAL FOR DIAGNOSIS AND TREATMENT 2022-06-16 17:20:01 Doctor Unassigned, [place] [facility] Plan of Care Planned Activity Planned Date Details Comments Source Goal Plan of Care Note [code = 02514-1] Goal Plan of Care Note [code = 18178-3] Goal Plan of Care Note [code = 66342-8] Goal Plan of Care Note [code = 54264-7] Goal Plan of Care Note [code = 53805-0] Goal Plan of Care Note [code = 88190-5] Goal Plan of Care Note [code = 67948-7] Goal Plan of Care Note [code = 04301-1] Goal Plan of Care Note [code = 15795-4] Goal Plan of Care Note [code = 36542-6] Goal Plan of Care Note [code = 42632-0] Goal Plan of Care Note [code = 79199-6] Goal Plan of Care Note [code = 61888-2] Goal Plan of Care Note [code = 26725-7] Goal Plan of Care Note [code = 79736-8] Goal Plan of Care Note [code = 48402-4] Goal Plan of Care Note [code = 19382-5] Goal Plan of Care Note [code = 86345-3] Goal Plan of Care Note [code = 93319-5] Goal Plan of Care Note [code = 25989-6] Goal Plan of Care Note [code = 48781-1] Goal Plan of Care Note [code = 77234-5] Goal Plan of Care Note [code = 82887-2] Goal Plan of Care Note [code = 31092-1] Goal Plan of Care Note [code = 61779-7] Goal Plan of Care Note [code = 34826-8] Goal Plan of Care Note [code = 14134-5] Goal Plan of Care Note [code = 52728-3] Goal Plan of Care Note [code = 28474-4] Goal Plan of Care Note [code = 11759-0] Encounters Start Date/Time End Date/Time Encounter Type Admission Type Attending [facility] Care Department Encounter ID Source 2023-12-18 16:00:00 2023-12-18 16:00:00 Outpatient BALAJI KWONG [id number] [facility]boo [facility] 2023-11-21 00:00:00 2023-11-21 00:00:00 Outpatient BALAJI KWONG [id number] [facility]ushbo[facility] 2023-11-10 00:00:00 2023-11-10 00:00:00 Outpatient BALAJI KWONG [id number] [facility]bo[facility] 2023-11-10 00:00:00 2023-11-10 00:00:00 Outpatient BALAJI KWONG [id number] [facility]ushboo [facility] 2023-11-05 09:10:00 2023-11-05 09:10:00 Outpatient LAB90 KHUSHBOO MURPHY [id number] [facility] 2023-11-04 16:15:00 2023-11-04 16:15:00 Outpatient BALAJI KWONG [id number] [facility]ushboo [facility] 2023-10-20 10:15:00 2023-10-20 10:15:00 Outpatient FAREED HOLBROOK [id number] [facility]boo [facility] 2023-10-20 00:00:00 2023-10-20 00:00:00 Outpatient BALAJI KWONG [id number] [facility] 2023-10-02 17:47:46 2023-10-02 17:47:46 Outpatient SFA SFA [id number] Deni Ospina 2023-10-02 10:00:00 2023-10-02 10:00:00 Outpatient FAREED HOLBROOK KHUSHBOO MURPHY [id number] Khushboo Pillai 2023-10-02 00:00:00 2023-10-02 00:00:00 Outpatient FAREED HOLBROOK KHUSHBOO MURPHY [id number] [facility] 2023-04-04 17:29:23 2023-04-04 17:29:23 Outpatient SFA SFA [id number] Deni Ospina 2022-10-15 21:44:00 2022-10-16 02:14:00 Emergency X EMILIANA SCHERER [facility] ERT [id number] [facility] 2022-10-15 21:44:00 2022-10-16 02:14:00 Emergency Emiliana Scherer [facility] [id number] [facility] 2022-09-16 13:48:54 2022-09-16 13:48:54 Outpatient SFA SFA [id number] Deni Ospina 2022-08-06 14:32:16 2022-08-06 14:32:16 Outpatient SFA SFA [id number] Deni Ospina 2022-08-06 00:00:00 2022-08-06 00:00:00 Outpatient Visit [id number] 2022-07-26 08:02:44 2022-07-26 08:02:44 Outpatient SFA SFA [id number] Deni Ospina 2022-07-25 11:42:15 2022-07-25 11:42:15 Outpatient SFA SFA [id number] Deni Ospina 2022-07-25 00:00:00 2022-07-25 00:00:00 Outpatient Visit [id number] 2022-06-16 12:26:00 2022-06-16 16:15:00 Emergency X ELIZ SEVILLA [facility] ERT [id number] [facility] 2022-06-16 12:26:00 2022-06-16 16:15:00 Emergency Eliz Sevilla [facility] [id number] [id number] [id number] [id number] [facility] 2022-06-16 00:00:00 2022-06-16 00:00:00 Orders Only Doctor Unassigned, [place] [facility] [id number] 350.1.13.10 4.2.7.2.686 [id number] [facility] Results Test Description Test Time Test Comments Results Result Co mments Source [id number] 04:50:17* Test Item Value Reference Range Interpretation Comments D-DIMER (test code = 3485674475) 0.73 See_Comment H [Automated message] The system which generated this result transmitted reference range: <0.41 ?g/mL (FEU). The reference range was not used to interpret this result as normal/abnormal. GEORGETTE (test code = GEORGETTE) This test may be used in conjunction with a clinical pretest [...] context, in forming a diagnosis. Lab Interpretation (test code = 07416-7) Abnormal [facility] [id number] 04:39:55* Test Item Value Reference Range Interpretation Comme nts TROPONIN I (test code = 6258275349) 0.003 ng/mL <=0.034 GEORGETTE (test code = GEORGETTE) [...] of biotin. Lab Interpretation (test code = 42584-3) Normal [facility] MET[facility]OLIC PANEL (84354)2022-10-16 04:28:17* Test Item Value Reference Range Interpretation Comme nts NA (test code = 5703602475) 137 mmol/L 135-145 K (test code = 1563846153) 4.2 mmol/L 3.5-5.0 CL (test code = 5306178191) 105 mmol/L 98-108 CO2 TOTAL (test code = 0146120098) 24 mmol/L 23-31 AGAP (test code = 8933419978) 8 2-16 BUN (test code = 1036033534) 12 mg/dL 7-23 GLUCOSE (test code = 2364724689) 115 mg/dL 70-110 H CREATININE (test code = 0746096115) 0.62 mg/dL 0.50-1.04 TOTAL BILI (test code = 4352187860) 0.7 mg/dL 0.1-1.1 CALCIUM (test code = 1526515058) 8.7 mg/dL 8.6-10.6 T PROTEIN (test code = 8661714726) 7.7 g/dL 6.3-8.2 ALBUMIN (test code = 5105598923) 4.5 g/dL 3.5-5.0 ALK PHOS (test code = 9587602380) 78 U/L 34-122 ALTv (test code = 1742-6) 27 U/L 5-35 AST(SGOT) (test code = 4297441237) 29 U/L 13-40 eGFR (test code = 9526493021) 105.6 mL/min/1.73m2 GEORGETTE (test code = GEORGETTE) Association of [...] or abnormalities in imaging tests). Lab Interpretation (test code = 24659-0) Abnormal [facility], [id number] 04:28:17* Test Item Value Reference Range Interpretation Comme nts LIPASE (test code = 5548907226) 69 U/L 0-220 Lab Interpretation (test cod e = 05970-6) Normal [facility] WITH [id number] 04:17:33* Test Item Value Reference Range Interpretation Comme nts WBC (test code = 6690-2) 11.78 See_Comment H [Automated messa ge] The system which generated this result transmitted reference range: 4.30 - 11.10 10*3/?L. The reference range was not used to interpret this result as normal/abnormal. RBC (test code = 789-8) 4.55 See_Comment [Automated messa ge] The system which generated this result transmitted reference range: 3.93 - 5.25 10*6/?L. The reference range was not used to interpret this result as normal/abnormal. HGB (test code = 718-7) 13.2 g/dL 11.6-15.0 HCT (test code = 4544-3) 38.7 % 35.7-45.2 MCV (test code = 787-2) 85.1 fL 80.6-95.5 MCH (test code = 785-6) 29.0 pg 25.9-32.8 MCHC (test code = 786-4) 34.1 g/dL 31.6-35.1 RDW-SD (test code = 26969-2) 38.2 fL 39.0-49.9 L RDW-CV (test code = 788-0) 12.3 % 12.0-15.5 PLT (test code = 777-3) 253 See_Comment [Automated messa ge] The system which generated this result transmitted reference range: 166 - 358 10*3/?L. The reference range was not used to interpret this result as normal/abnormal. MPV (test code = 58573-3) 9.2 fL 9.5-12.9 L NRBC/100 WBC (test code = 2768096401) 0.0 See_Comment [Automated [employer] ssage] The system which generated this result transmitted reference range: 0.0 - 10.0 /100 WBCs. The reference range was not used to interpret this result as normal/abnormal. NRBC x10^3 (test code = 8793173817) See_Comment [Automated messa ge] The system which generated this result transmitted reference range: 10*3/?L. The reference range was not used to interpret this result as normal/abnormal. GRAN MAT (NEUT) % (test code = 770-8) 77.1 % IMM GRAN % (test code = 7234941877) 0.60 % LYMPH % (test code = 736-9) 15.4 % MONO % (test code = 5905-5) 6.2 % EOS % (test code = 713-8) 0.4 % BASO % (test code = 706-2) 0.3 % GRAN MAT x10^3(ANC) (test code = 3053220315) 9.08 10*3/uL 1.88-7.09 H IMM GRAN x10^3 (test code = 1651880136) 0.07 10*3/uL 0.00-0.06 H LYMPH x10^3 (test code = 731-0) 1.82 10*3/uL 1.32-3.29 MONO x10^3 (test code = 742-7) 0.73 10*3/uL 0.33-0.92 EOS x10^3 (test code = 711-2) 0.05 10*3/uL 0.03-0.39 BASO x10^3 (test code = 704-7) 0.03 10*3/uL 0.01-0.07 Lab Interpretation (test code = 82674-0) Abnormal [facility] [id number] 04:07:00* Test Item Value Reference Range Interpretation Comme nts POCT PREG (test code = 1605) Negative On board controls acceptable with C Line (test code = 3574) Positive POCT PREG LOT # (test code = 3575) [id number] POCT PREG TEST DATE ( test code = 3576) 11/23/2023 Lab Interpretation (test cod e = 02160-1) Normal [facility] CenterTSH, THIRD [id number] 05:49:05* Test Item Value Reference Range Interpretation Comme [facility] TSH, THIRD GENERATION (test code = 2821) 2.500 UIU/ML 0.400-4.100 LIPID [id number] 03:31:11* Test Item Value Reference Range Interpretation Comme nts CHOLESTEROL (test code = 2210) 188 MG/DL <200 TRIGLYCERIDES (test code = 2232) 282 MG/DL <150 H HDL CHOLESTEROL (test code = 2220) 31 MG/DL >39 L CALC LDL CHOL (test code = 2236) 117 MG/DL <100 H NOTE: CALCULATED LDL IS BASED ON SRINIVASAN-CABRAL METHOD WHICHINCLUDES ADJUSTABLE TRIGLYCERIDE:VLDL CHOLESTEROL RATIO.THIS FACTOR VARIES BY MEASURED TRIGLYCERIDE AND NON-HDLCHOLESTEROL CONCENTRATIONS WITH INCREASED CALCULATED LDL SEENIN HIGHER TRIGLYCERIDE OR LOWER NON-HDL SPECIMENS. FOR MOREINFORMATION, SEE CLIENT ANNOUNCEMENT AT [email or web address] RISK RATIO LDL/HDL (test code = 2237) 3.77 RATIO <3.22 H COMPREHENSIVE METABOLIC [id number] 03:31:11* Test Item Value Reference Range Interpretation Comme nts GLUCOSE (test code = 2216) 99 MG/DL 70-99 BUN (test code = 2207) 14 MG/DL 6-20 CREATININE (test code = 221) 0.74 MG/DL 0.60-1.30 eGFR (2020 CKD-EPI) (test code = 62900) 104 ML/MIN/1.73 >60 CALC BUN/CREAT (test code = 2235) 19 RATIO 6-28 SODIUM (test code = 2230) 141 MEQ/L 133-146 POTASSIUM (test code = 2228) 4.0 MEQ/L 3.5-5.4 CHLORIDE (test code = 2215) 104 MEQ/L 95-107 CARBON DIOXIDE (test code = 6) 26 MEQ/L 19-31 CALCIUM (test code = 220) 9.5 MG/DL 8.5-10.5 PROTEIN, TOTAL (test code = 2228) 7.0 G/DL 6.1-8.3 ALBUMIN (test code = 2200) 4.5 G/DL 3.5-5.2 CALC GLOBULIN (test code = 2240) 2.5 G/DL 1.9-3.7 CALC A/G RATIO (test code = 223) 1.8 RATIO 1.0-2.6 BILIRUBIN, TOTAL (test code = 2206) 0.3 MG/DL See_Comment [Automated me ssage] The system which generated this result transmitted reference range: <=1.2. The reference range was not used to interpret this result as normal/abnormal. ALKALINE PHOSPHATASE (test code = 2203) 91 U/L 40-113 AST (test code = 221) 21 U/L 9-40 ALT (test code = 2219) 26 U/L 5-40 HEMOGLOBIN [id number] 03:01:44* Test Item Value Reference Range Interpretation Comme nts HEMOGLOBIN A1c (test code = 46229) 5.9 % 4.2-5.6 H UNLESS OTHERWISE INDICATED, ALL TESTING PERFORMED [facility] [address] [place] [id number] [address] MAORI: MOLLY DAHL M.D. [place] NUMBER [id number] [facility] [place]. [id number] CBC W/AUTO [id number] 00:00:00* Test Item Value Reference Range Interpretation Comme nts WBC (test code = 1001) 5.8 K/UL [...] = 1013) 0.2 % IMMATURE GRANULOCYTES (test code = 1036) 0.3 % NUCLEATED RBCS (test code = 1065) 0.0 /100WBC'S PLATELET COUNT (test code = 1015) 246 K/UL ABSOLUTE NEUTROPHILS (test c ode = 1066) 2.72 K/UL ABSOLUTE LYMPHOCYTES (test c ode = 1067) 2.41 K/UL ABSOLUTE MONOCYTES (test cod e = 1068) 0.37 K/UL ABSOLUTE EOSINOPHILS (test c ode = 1040) 0.29 K/UL ABSOLUTE BASOPHILS (test cod e = 1069) 0.01 K/UL ABS IMMATURE GRANULOCYTES (t est code = 1020) 0.02 K/UL ABS NUCLEATED RBCS (test cod e = 18122) 0.00 K/UL CBC W/AUTO [id number] 00:00:00* Test Item Value Reference Range Interpretation Comme nts WBC (test code = 1001) 5.8 K/UL [...] = 1013) 0.2 % IMMATURE GRANULOCYTES (test code = 1036) 0.3 % NUCLEATED RBCS (test code = 1065) 0.0 /100WBC'S PLATELET COUNT (test code = 1015) 246 K/UL ABSOLUTE NEUTROPHILS (test c ode = 1066) 2.72 K/UL ABSOLUTE LYMPHOCYTES (test c ode = 1067) 2.41 K/UL ABSOLUTE MONOCYTES (test cod e = 1068) 0.37 K/UL ABSOLUTE EOSINOPHILS (test c ode = 1040) 0.29 K/UL ABSOLUTE BASOPHILS (test cod e = 1069) 0.01 K/UL ABS IMMATURE GRANULOCYTES (t est code = 1020) 0.02 K/UL ABS NUCLEATED RBCS (test cod e = 13199) 0.00 K/UL CBC W/AUTO [id number] 00:00:00* Test Item Value Reference Range Interpretation Comme nts WBC (test code = 1001) 5.8 K/UL [...] = 1013) 0.2 % IMMATURE GRANULOCYTES (test code = 1036) 0.3 % NUCLEATED RBCS (test code = 1065) 0.0 /100WBC'S PLATELET COUNT (test code = 1015) 246 K/UL ABSOLUTE NEUTROPHILS (test c ode = 1066) 2.72 K/UL ABSOLUTE LYMPHOCYTES (test c ode = 1067) 2.41 K/UL ABSOLUTE MONOCYTES (test cod e = 1068) 0.37 K/UL ABSOLUTE EOSINOPHILS (test c ode = 1040) 0.29 K/UL ABSOLUTE BASOPHILS (test cod e = 1069) 0.01 K/UL ABS IMMATURE GRANULOCYTES (t est code = 1020) 0.02 K/UL ABS NUCLEATED RBCS (test cod e = 99515) 0.00 K/UL TSH, THIRD [id number] 00:00:00* Test Item Value Reference Range Interpretation Comme nts TSH, THIRD GENERATION (test code = 2821) 4.590 UIU/ML TSH, THIRD [id number] 00:00:00* Test Item Value Reference Range Interpretation Comme nts TSH, THIRD GENERATION (test code = 2821) 4.590 UIU/ML TSH, THIRD [id number] 00:00:00* Test Item Value Reference Range Interpretation Comme nts TSH, THIRD GENERATION (test code = 2821) 4.590 UIU/ML LIPID [id number] 00:00:00* Test Item Value Reference Range Interpretation Comme nts CHOLESTEROL (test code = 2210) 188 MG/DL TRIGLYCERIDES (test code = 2232) 112 MG/DL HDL CHOLESTEROL (test code = 2220) 30 MG/DL CALC LDL CHOL (test code = 2237) 136 MG/DL RISK RATIO LDL/HDL (test cod e = 2238) 4.53 RATIO LIPID [id number] 00:00:00* Test Item Value Reference Range Interpretation Comme nts CHOLESTEROL (test code = 2210) 188 MG/DL TRIGLYCERIDES (test code = 2232) 112 MG/DL HDL CHOLESTEROL (test code = 2220) 30 MG/DL CALC LDL CHOL (test code = 2237) 136 MG/DL RISK RATIO LDL/HDL (test cod e = 2238) 4.53 RATIO CBC WITH [id number] 19:07:54* Test Item Value Reference Range Interpretation Comme nts WBC (test code = 6690-2) See_Comment [Automated [employer] ge] The system which generated this result transmitted reference range: 4.30 - 11.10 10*3/?L. The reference range was not used to interpret this result as normal/abnormal. RBC (test code = 789-8) See_Comment [Automated [employer] ge] The system which generated this result transmitted reference range: 3.93 - 5.25 10*6/?L. The reference range was not used to interpret this result as normal/abnormal. HGB (test code = 718-7) 14.1 g/dL 11.6-15 HCT (test code = 4544-3) 40.3 % 35.7-45.2 MCV (test code = 787-2) 83.8 fL 80.6-95.5 MCH (test code = 785-6) 29.3 pg 25.9-32.8 MCHC (test code = 786-4) 35.0 g/dL 31.6-35.1 RDW-SD (test code = 74767-8) 37.8 fL 39-49.9 L RDW-CV (test code = 788-0) 12.4 % 12-15.5 PLT (test code = 777-3) See_Comment [Automated [employer] ge] The system which generated this result transmitted reference range: 166 - 358 10*3/?L. The reference range was not used to interpret this result as normal/abnormal. MPV (test code = 84194-1) 10.2 fL 9.5-12.9 IPF % (test code = 5942985622) 1.5 % 1.3-7.7 Platelet count measured by fluorescence method. NRBC/100 WBC (test code = 6453623894) See_Comment [Automated [employer] ssage] The system which generated this result transmitted reference range: 0.0 - 10.0 /100 WBCs. The reference range was not used to interpret this result as normal/abnormal. NRBC x10^3 (test code = 3378969583) See_Comment [Automated [employer] ge] The system which generated this result transmitted reference range: 10*3/?L. The reference range was not used to interpret this result as normal/abnormal. GRAN MAT (NEUT) % (test code = 770-8) 57.1 % IMM GRAN % (test code = 1946660269) 0.40 % LYMPH % (test code = 736-9) 34.9 % MONO % (test code = 5905-5) 5.4 % EOS % (test code = 713-8) 1.9 % BASO % (test code = 706-2) 0.3 % GRAN MAT x10^3(ANC) (test code = 9518578651) 5.36 10*3/uL 1.88-7.09 IMM GRAN x10^3 (test code = 7347171486) 0.04 10*3/uL 0-0.06 LYMPH x10^3 (test code = 731-0) 3.28 10*3/uL 1.32-3.29 MONO x10^3 (test code = 742-7) 0.51 10*3/uL 0.33-0.92 EOS x10^3 (test code = 711-2) 0.18 10*3/uL 0.03-0.39 BASO x10^3 (test code = 704-7) 0.03 10*3/uL 0.01-0.07 Lab Interpretation (test code = 43366-9) [facility] ([facility]), RT-PCR/[id number] 18:36:33* Test Item Value Reference Range Interpretation Comments SARS-CoV-2 INTERPRETATION (test code = 88244) NEGATIVE SEE NOTE SARS-CoV-2 R NA NOT DETECTEDNegative results do not preclude SARS-CoV-2 infection and should notbe used as the sole basis for patient management decisions. Negativeresults must be combined with clinical observations, patient history,and epidemiological information. Optimum specimen types and timingfor peak viral levels during infections caused by SARS-CoV-2 have notbeen determined. Collection of multiple specimens or types ofspecimens may be necessary to detect virus. Improper specimencollection and handling, sequence variability under primers/probes,or organism present below the limit of detection may lead to falsenegative results. Positive and negative predictive values oftesting are highly dependent on prevalence. False negative testresults are more likely when prevalence is high. SOURCE (test code = ) NASOPHARYNGEAL Note: Methodolog y is Bj Emily Real-Time RT-PCR. The expected result or reference range is NEGATIVE (Not Detected). For more information regarding COVID-19 testing to include clinicalinformation, methodology detail, intended use, FDA authorization andrecommended fact sheets for patients or healthcare providers, see [employer] Announcement: SARS-CoV-2 (COVID-19) by NAAT at URL below (note,fact sheets are provided by method given in report:[email or web address] Alternatively, see downloadable PDF fact sheet at:[email or web address] UNLESS OTHERWISE INDICATED, ALL TESTING PERFORMED [facility]ITAL[facility] PATHOLOG[facility] [employer], [facility]. [address] [place] [id number] [address] MAORI: MOLLY DAHL M.D. CLIA NUMBER [id number] [facility] [place] [id number] SARS-CoV-2 (COVID-19) by RT-PCR (HIGH RISK)2021-09-06 00:00:00* Test Item Value Reference Range Interpretation Comme nts SARS-CoV-2 INTERPRETATION (test code = 39578) NEGATIVE SOURCE (test code = 22569) NASOPHARYNGEAL SARS-CoV-2 (COVID-19) by RT-PCR (HIGH RISK)2021-09-06 00:00:00* Test Item Value Reference Range Interpretation Comme nts SARS-CoV-2 INTERPRETATION (test code = 86925) NEGATIVE SOURCE (test code = 22995) NASOPHARYNGEAL SARS-CoV-2 (COVID-19) by RT-PCR (HIGH RISK)2021-09-06 00:00:00* Test Item Value Reference Range Interpretation Comme nts SARS-CoV-2 INTERPRETATION (test code = 29944) NEGATIVE SOURCE (test code = 31079) NASOPHARYNGEAL SARS-CoV-2 (COVID-19) by RT-PCR (HIGH RISK)2021-09-06 00:00:00* Test Item Value Reference Range Interpretation Comme nts SARS-CoV-2 INTERPRETATION (test code = 67162) NEGATIVE SOURCE (test code = 66905) NASOPHARYNGEAL CBC W/AUTO [id number] 00:00:00* Test Item Value Reference Range Interpretation Comme nts WBC (test code = 1001) 9.0 K/UL [...] = 1013) 0.3 % IMMATURE GRANULOCYTES (test code = 1036) 0.3 % NUCLEATED RBCS (test code = 1065) 0.0 /100WBC'S PLATELET COUNT (test code = 1015) 321 K/UL ABSOLUTE NEUTROPHILS (test c ode = 1066) 5.73 K/UL ABSOLUTE LYMPHOCYTES (test c ode = 1067) 2.53 K/UL ABSOLUTE MONOCYTES (test cod e = 1068) 0.48 K/UL ABSOLUTE EOSINOPHILS (test c ode = 1040) 0.21 K/UL ABSOLUTE BASOPHILS (test cod e = 1069) 0.03 K/UL ABS IMMATURE GRANULOCYTES (t est code = 1020) 0.03 K/UL ABS NUCLEATED RBCS (test cod e = 50465) 0.00 K/UL CBC W/AUTO [id number] 00:00:00* Test Item Value Reference Range Interpretation Comme nts WBC (test code = 1001) 9.0 K/UL [...] = 1013) 0.3 % IMMATURE GRANULOCYTES (test code = 1036) 0.3 % NUCLEATED RBCS (test code = 1065) 0.0 /100WBC'S PLATELET COUNT (test code = 1015) 321 K/UL ABSOLUTE NEUTROPHILS (test c ode = 1066) 5.73 K/UL ABSOLUTE LYMPHOCYTES (test c ode = 1067) 2.53 K/UL ABSOLUTE MONOCYTES (test cod e = 1068) 0.48 K/UL ABSOLUTE EOSINOPHILS (test c ode = 1040) 0.21 K/UL ABSOLUTE BASOPHILS (test cod e = 1069) 0.03 K/UL ABS IMMATURE GRANULOCYTES (t est code = 1020) 0.03 K/UL ABS NUCLEATED RBCS (test cod e = 59130) 0.00 K/UL CBC W/AUTO [id number] 00:00:00* Test Item Value Reference Range Interpretation Comme nts WBC (test code = 1001) 9.0 K/UL [...] = 1013) 0.3 % IMMATURE GRANULOCYTES (test code = 1036) 0.3 % NUCLEATED RBCS (test code = 1065) 0.0 /100WBC'S PLATELET COUNT (test code = 1015) 321 K/UL ABSOLUTE NEUTROPHILS (test c ode = 1066) 5.73 K/UL ABSOLUTE LYMPHOCYTES (test c ode = 1067) 2.53 K/UL ABSOLUTE MONOCYTES (test cod e = 1068) 0.48 K/UL ABSOLUTE EOSINOPHILS (test c ode = 1040) 0.21 K/UL ABSOLUTE BASOPHILS (test cod e = 1069) 0.03 K/UL ABS IMMATURE GRANULOCYTES (t est code = 1020) 0.03 K/UL ABS NUCLEATED RBCS (test cod e = 25078) 0.00 K/UL LIPID [id number] 00:00:00* Test Item Value Reference Range Interpretation Comme nts CHOLESTEROL (test code = 2210) 211 MG/DL TRIGLYCERIDES (test code = 2232) 159 MG/DL HDL CHOLESTEROL (test code = 2220) 35 MG/DL CALC LDL CHOL (test code = 2237) 147 MG/DL RISK RATIO LDL/HDL (test cod e = 2238) 4.20 RATIO LIPID [id number] 00:00:00* Test Item Value Reference Range Interpretation Comme nts CHOLESTEROL (test code = 2210) 211 MG/DL TRIGLYCERIDES (test code = 2232) 159 MG/DL HDL CHOLESTEROL (test code = 2220) 35 MG/DL CALC LDL CHOL (test code = 2237) 147 MG/DL RISK RATIO LDL/HDL (test cod e = 2238) 4.20 RATIO COMPREHENSIVE METABOLIC [id number] 00:00:00* Test Item Value Reference Range Interpretation Comme nts GLUCOSE (test code = 2217) 95 MG/DL BUN (test code = 2208) 15 MG/DL CREATININE (test code = 2214) 0.79 MG/DL eGFR AMER. (test cod e = 34033) 108 ML/MIN/1.73 eGFR NON- AMER. (test code = 29515) 93 ML/MIN/1.73 CALC BUN/CREAT (test code = 2235) 19 RATIO SODIUM (test code = 2231) 141 MEQ/L POTASSIUM (test code = 2228) 4.5 MEQ/L CHLORIDE (test code = 2215) 103 MEQ/L CARBON DIOXIDE (test code = 2206) 26 MEQ/L CALCIUM (test code = 2209) 9.6 MG/DL PROTEIN, TOTAL (test code = 2229) 7.7 G/DL ALBUMIN (test code = 2201) 4.5 G/DL CALC GLOBULIN (test code = 2240) 3.2 G/DL CALC A/G RATIO (test code = 2234) 1.4 RATIO BILIRUBIN, TOTAL (test code = 2207) 0.2 MG/DL ALKALINE PHOSPHATASE (test code = 2204) 97 U/L AST (test code = 2218) 17 U/L ALT (test code = 2219) 19 U/L COMPREHENSIVE METABOLIC [id number] 00:00:00* Test Item Value Reference Range Interpretation Comme nts GLUCOSE (test code = 2217) 95 MG/DL BUN (test code = 2208) 15 MG/DL CREATININE (test code = 2214) 0.79 MG/DL eGFR AMER. (test cod e = 96119) 108 ML/MIN/1.73 eGFR NON- AMER. (test code = 99119) 93 ML/MIN/1.73 CALC BUN/CREAT (test code = 2235) 19 RATIO SODIUM (test code = 2231) 141 MEQ/L POTASSIUM (test code = 2228) 4.5 MEQ/L CHLORIDE (test code = 2215) 103 MEQ/L CARBON DIOXIDE (test code = 2206) 26 MEQ/L CALCIUM (test code = 2209) 9.6 MG/DL PROTEIN, TOTAL (test code = 2229) 7.7 G/DL ALBUMIN (test code = 2201) 4.5 G/DL CALC GLOBULIN (test code = 2240) 3.2 G/DL CALC A/G RATIO (test code = 2234) 1.4 RATIO BILIRUBIN, TOTAL (test code = 2207) 0.2 MG/DL ALKALINE PHOSPHATASE (test code = 2204) 97 U/L AST (test code = 2218) 17 U/L ALT (test code = 2219) 19 U/L [id number] 00:00:00* Test Item Value Reference Range Interpretation Comme nts TSH, THIRD GENERATION (test code = 2821) 3.630 UIU/ML [id number] 00:00:00* Test Item Value Reference Range Interpretation Comme nts TSH, THIRD GENERATION (test code = 2821) 3.630 UIU/ML [id number] 00:00:00* Test Item Value Reference Range Interpretation Comme nts TSH, THIRD GENERATION (test code = 2821) 3.630 UIU/ML CBC W/AUTO [id number] 00:00:00* Test Item Value Reference Range Interpretation Comme nts WBC (test code = 1001) 9.0 K/UL [...] = 1013) 0.3 % IMMATURE GRANULOCYTES (test code = 1036) 0.3 % NUCLEATED RBCS (test code = 1065) 0.0 /100WBC'S PLATELET COUNT (test code = 1015) 321 K/UL ABSOLUTE NEUTROPHILS (test c ode = 1066) 5.73 K/UL ABSOLUTE LYMPHOCYTES (test c ode = 1067) 2.53 K/UL ABSOLUTE MONOCYTES (test cod e = 1068) 0.48 K/UL ABSOLUTE EOSINOPHILS (test c ode = 1040) 0.21 K/UL ABSOLUTE BASOPHILS (test cod e = 1069) 0.03 K/UL ABS IMMATURE GRANULOCYTES (t est code = 1020) 0.03 K/UL ABS NUCLEATED RBCS (test cod e = 23953) 0.00 K/UL CBC W/AUTO [id number] 00:00:00* Test Item Value Reference Range Interpretation Comme nts WBC (test code = 1001) 9.0 K/UL [...] = 1013) 0.3 % IMMATURE GRANULOCYTES (test code = 1036) 0.3 % NUCLEATED RBCS (test code = 1065) 0.0 /100WBC'S PLATELET COUNT (test code = 1015) 321 K/UL ABSOLUTE NEUTROPHILS (test c ode = 1066) 5.73 K/UL ABSOLUTE LYMPHOCYTES (test c ode = 1067) 2.53 K/UL ABSOLUTE MONOCYTES (test cod e = 1068) 0.48 K/UL ABSOLUTE EOSINOPHILS (test c ode = 1040) 0.21 K/UL ABSOLUTE BASOPHILS (test cod e = 1069) 0.03 K/UL ABS IMMATURE GRANULOCYTES (t est code = 1020) 0.03 K/UL ABS NUCLEATED RBCS (test cod e = 06585) 0.00 K/UL CBC W/AUTO [id number] 00:00:00* Test Item Value Reference Range Interpretation Comme nts WBC (test code = 1001) 9.0 K/UL [...] = 1013) 0.3 % IMMATURE GRANULOCYTES (test code = 1036) 0.3 % NUCLEATED RBCS (test code = 1065) 0.0 /100WBC'S PLATELET COUNT (test code = 1015) 321 K/UL ABSOLUTE NEUTROPHILS (test c ode = 1066) 5.73 K/UL ABSOLUTE LYMPHOCYTES (test c ode = 1067) 2.53 K/UL ABSOLUTE MONOCYTES (test cod e = 1068) 0.48 K/UL ABSOLUTE EOSINOPHILS (test c ode = 1040) 0.21 K/UL ABSOLUTE BASOPHILS (test cod e = 1069) 0.03 K/UL ABS IMMATURE GRANULOCYTES (t est code = 1020) 0.03 K/UL ABS NUCLEATED RBCS (test cod e = 77913) 0.00 K/UL LIPID [id number] 00:00:00* Test Item Value Reference Range Interpretation Comme nts CHOLESTEROL (test code = 2210) 211 MG/DL TRIGLYCERIDES (test code = 2232) 159 MG/DL HDL CHOLESTEROL (test code = 2220) 35 MG/DL CALC LDL CHOL (test code = 2237) 147 MG/DL RISK RATIO LDL/HDL (test cod e = 2238) 4.20 RATIO LIPID [id number] 00:00:00* Test Item Value Reference Range Interpretation Comme nts CHOLESTEROL (test code = 2210) 211 MG/DL TRIGLYCERIDES (test code = 2232) 159 MG/DL HDL CHOLESTEROL (test code = 2220) 35 MG/DL CALC LDL CHOL (test code = 2237) 147 MG/DL RISK RATIO LDL/HDL (test cod e = 2238) 4.20 RATIO COMPREHENSIVE METABOLIC [id number] 00:00:00* Test Item Value Reference Range Interpretation Comme nts GLUCOSE (test code = 2217) 95 MG/DL BUN (test code = 2208) 15 MG/DL CREATININE (test code = 2214) 0.79 MG/DL eGFR AMER. (test cod e = 84881) 108 ML/MIN/1.73 eGFR NON- AMER. (test code = 11172) 93 ML/MIN/1.73 CALC BUN/CREAT (test code = 2235) 19 RATIO SODIUM (test code = 2231) 141 MEQ/L POTASSIUM (test code = 2228) 4.5 MEQ/L CHLORIDE (test code = 2215) 103 MEQ/L CARBON DIOXIDE (test code = 2206) 26 MEQ/L CALCIUM (test code = 2209) 9.6 MG/DL PROTEIN, TOTAL (test code = 2229) 7.7 G/DL ALBUMIN (test code = 2201) 4.5 G/DL CALC GLOBULIN (test code = 2240) 3.2 G/DL CALC A/G RATIO (test code = 2234) 1.4 RATIO BILIRUBIN, TOTAL (test code = 2207) 0.2 MG/DL ALKALINE PHOSPHATASE (test code = 2204) 97 U/L AST (test code = 2218) 17 U/L ALT (test code = 2219) 19 U/L COMPREHENSIVE METABOLIC [id number] 00:00:00* Test Item Value Reference Range Interpretation Comme nts GLUCOSE (test code = 2217) 95 MG/DL BUN (test code = 2208) 15 MG/DL CREATININE (test code = 2214) 0.79 MG/DL eGFR AMER. (test cod e = 91530) 108 ML/MIN/1.73 eGFR NON- AMER. (test code = 75175) 93 ML/MIN/1.73 CALC BUN/CREAT (test code = 2235) 19 RATIO SODIUM (test code = 2231) 141 MEQ/L POTASSIUM (test code = 2228) 4.5 MEQ/L CHLORIDE (test code = 2215) 103 MEQ/L CARBON DIOXIDE (test code = 2206) 26 MEQ/L CALCIUM (test code = 2209) 9.6 MG/DL PROTEIN, TOTAL (test code = 2229) 7.7 G/DL ALBUMIN (test code = 2201) 4.5 G/DL CALC GLOBULIN (test code = 2240) 3.2 G/DL CALC A/G RATIO (test code = 2234) 1.4 RATIO BILIRUBIN, TOTAL (test code = 2207) 0.2 MG/DL ALKALINE PHOSPHATASE (test code = 2204) 97 U/L AST (test code = 2218) 17 U/L ALT (test code = 2219) 19 U/L [id number] 00:00:00* Test Item Value Reference Range Interpretation Comme nts TSH, THIRD GENERATION (test code = 2821) 3.630 UIU/ML [id number] 00:00:00* Test Item Value Reference Range Interpretation Comme nts TSH, THIRD GENERATION (test code = 2821) 3.630 UIU/ML [id number] 00:00:00* Test Item Value Reference Range Interpretation Comme nts TSH, THIRD GENERATION (test code = 2821) 3.630 UIU/ML SARS-CoV-2 (COVID-19) by RT-PCR (HIGH RISK)2020-07-20 00:00:00* Test Item Value Reference Range Interpretation Comme nts SARS-CoV-2 INTERPRETATION (t est code = 43538) NEGATIVE SOURCE (test code = 08184) NOT SPECIFIED SARS-CoV-2 (COVID-19) by RT-PCR (HIGH RISK)2020-07-20 00:00:00* Test Item Value Reference Range Interpretation Comme nts SARS-CoV-2 INTERPRETATION (t est code = 30429) NEGATIVE SOURCE (test code = 98542) NOT SPECIFIED SARS-CoV-2 (COVID-19) by RT-PCR (HIGH RISK)2020-07-20 00:00:00* Test Item Value Reference Range Interpretation Comme nts SARS-CoV-2 INTERPRETATION (t est code = 19854) NEGATIVE SOURCE (test code = 33099) NOT SPECIFIED SARS-CoV-2 (COVID-19) by RT-PCR (HIGH RISK)2020-07-20 00:00:00* Test Item Value Reference Range Interpretation Comme nts SARS-CoV-2 INTERPRETATION (t est code = 45329) NEGATIVE SOURCE (test code = 22556) NOT SPECIFIED SARS-CoV-2 (COVID-19) by RT-PCR (HIGH RISK)2020-07-05 00:00:00* Test Item Value Reference Range Interpretation Comme nts SARS-CoV-2 INTERPRETATION (test code = 64536) Positive SOURCE (test code = 97542) Nasal_Swab_in _VTM__ UTM SARS-CoV-2 (COVID-19) by RT-PCR (HIGH RISK)2020-07-05 00:00:00* Test Item Value Reference Range Interpretation Comme nts SARS-CoV-2 INTERPRETATION (test code = 33410) Positive SOURCE (test code = 61420) Nasal_Swab_in _VTM__ UTM
--- NOTE | 2023-11-26 22:28 | ER ---
Nurse's Notes [facility] Name: Jane Izaguirre Age: 43 yrs Sex: Female : 1980 Arrival Date: 11/26/2023 Time: 20:42 Bed 12 Private MD: Diagnosis: Pain in left breast Presentation: 11/25 20:51 Chief complaint: Patient states: Left breast pain onset 2 days ago. Pt also reports cm10 that she has a lump on her left breast that is worse when she pushes on it. Coronavirus screen: Client denies travel out of the [place] in the last 14 days. At this time, the client does not indicate any symptoms associated with coronavirus-19. Ebola Screen: Patient denies travel to an Ebola-affected area in the 21 days before illness onset. No symptoms or risks identified at this time. Initial Sepsis Screen: Does the patient meet any 2 criteria? No. Patient's initial sepsis screen is negative. Does the patient have a suspected source of infection? No. Patient's initial sepsis screen is negative. Risk Assessment: Do you want to hurt yourself or someone else? Patient reports no desire to harm self or others. Onset of symptoms was November 26, 2023. 20:51 Method Of Arrival: Ambulatory cm10 20:51 Acuity: JENISE 3 cm10 Triage Assessment: 20:52 General: Appears in no apparent distress. comfortable, Behavior is calm, cooperative. cm10 Pain: Complains of pain in left breast. Neuro: No deficits noted. Level of Consciousness is awake, alert, obeys commands, Oriented to person, place, time, situation. Respiratory: No deficits noted. Airway is patent Respiratory effort is even, unlabored, Respiratory pattern is regular, symmetrical. Historical: - Allergies: 20:52 No Known Allergies; cm10 - PMHx: 20:52 Hypothyroidism; cm10 - PSHx: 20:52 section; Cholecystectomy; cm10 - Immunization history:: Adult Immunizations up to date. - Infectious Disease History:: Denies. - Social history:: Smoking status: Patient denies any tobacco usage or history of. Screenin:45 [facility] ED Fall Risk Assessment (Adult) History of falling in the last 3 months, cm10 including since admission No falls in past 3 months (0 pts) Confusion or Disorientation No (0 pts) Intoxicated or Sedated No (0 pts) Impaired Gait No (0 pts) Mobility Assist Device Used No (0 pt) Altered Elimination No (0 pt) Score/Fall Risk Level 0 - 2 = Low Risk Oriented to surroundings, Maintained a safe environment, Hourly rounding (assess needs \T\ fall precautionary measures) done. Abuse screen: Denies threats or abuse. Denies injuries from another. Nutritional screening: No deficits noted. Tuberculosis screening: No symptoms or risk factors identified. Vital Signs: 20:51 BP 105 / 47; Pulse 65; Resp 18; Temp 98.2; Pulse Ox 99% on R/A; Weight 112.04 kg; cm10 Height 5 ft. 9 in. ; Pain 7/10; 20:51 Body Mass Index 36.48 (112.04 kg, 175.26 cm) cm10 20:51 Pain Scale: Adult cm10 ED Course: 20:45 Patient arrived in ED. im 20:48 [facility]ann [facility]C [facility] kb 20:48 Huber Cheng MD is Attending Physician. kb 20:52 Triage completed. cm10 20:52 Arm band placed on Patient placed in waiting room. cm10 22:45 Patient has correct armband on for positive identification. Provided Education on: cm10 Follow-up instructions. . 22:45 No provider procedures requiring assistance completed. Patient did not have IV access cm10 during this emergency room visit. Administered Medications: No medications were administered Medication: 22:45 VIS not applicable for this client. cm10 Outcome: 22:27 Discharge ordered by . kb 22:46 Discharged to home with family, cm10 22:46 Condition: good 22:46 Discharge instructions given to Pt left prior to receiving discharge instructions. 22:47 Patient left the ED. cm10 Signatures: Alesia Spann FNP-C FNP-Shanda Valenzuela Clarissa, RN RN cm10
--- NOTE | 2023-11-26 22:28 | EDPHYS ---
Physician Documentation [facility] Name: Jane Izaguirre Age: 43 yrs Sex: Female : 1980 Arrival Date: 11/26/2023 Time: 20:42 Bed 12 Private MD: ED Physician Huber Cheng HPI: 11/25 22:06 This 43 yrs old Female presents to ER via Ambulatory with complaints of Breast kb Lump. 22:06 Pt is a 43 year old female who presents for left breast pain and believes she has felt kb a lump. Denies fever, erythema. States there was some swelling yesterday. . Historical: - Allergies: 20:52 No Known Allergies; cm10 - PMHx: 20:52 Hypothyroidism; cm10 - PSHx: 20:52 section; Cholecystectomy; cm10 - Immunization history:: Adult Immunizations up to date. - Infectious Disease History:: Denies. - Social history:: Smoking status: Patient denies any tobacco usage or history of. ROS: 22:06 Constitutional: As per HPI kb Exam: 22:06 Constitutional: This is a well developed, well nourished patient who is awake, alert, kb and in no acute distress. Head/Face: Normocephalic, atraumatic. ENT: Moist Mucous membranes Cardiovascular: Regular rate Respiratory: Respirations even and unlabored. No increased work of breathing. Talking in full sentences Abdomen/GI: Soft, non-tender. No distention Skin: Warm, dry with normal turgor. Normal color. MS/ Extremity: Pulses equal, no cyanosis. Neurovascular intact. Full, normal range of motion. Neuro: Awake and alert, GCS 15, oriented to person, place, time, and situation. Moves all extremities. Normal gait. Vital Signs: 20:51 BP 105 / 47; Pulse 65; Resp 18; Temp 98.2; Pulse Ox 99% on R/A; Weight 112.04 kg; cm10 Height 5 ft. 9 in. ; Pain 7/10; 20:51 Body Mass Index 36.48 (112.04 kg, 175.26 cm) cm10 20:51 Pain Scale: Adult cm10 MDM: 20:48 Patient medically screened. kb 22:07 Differential diagnosis: abscess, cellulitis, malignancy, cyst. Data reviewed: vital kb signs, nurses notes. 22:26 Historians other than the Patient: Daughter/Son: daughter. Counseling: I had a detailed kb discussion with the patient and/or guardian regarding the historical points, exam findings, and any diagnostic results supporting the discharge/admit diagnosis, the need for outpatient follow up, an OB/Gyne specialist, to return to the emergency department if symptoms worsen or persist or if there are any questions or concerns that arise at home. Administered Medications: No medications were administered Disposition: 23:31 Co-signature as Attending Physician, Huber Cheng MD I agree with the assessment sp4 and plan of care. I reviewed the patient's care provided by the Advanced Practice Provider and agree with the diagnosis and treatment plan. Disposition Summary: 11/26/23 22:27 Discharge Ordered Notes: Location: Home kb Condition: Stable kb Diagnosis - Pain in left breast kb Followup: kb - With: Emergency Department - When: As needed - Reason: Worsening of condition Followup: kb - With: Private Physician - When: 2 - 3 days - Reason: Recheck today's complaints, Continuance of care, Re-evaluation by your physician Discharge Instructions: - Discharge Summary Sheet kb - Breast Tenderness kb Forms: - Medication Reconciliation Form kb - Thank You Letter kb - Antibiotic Education kb - Prescription Opioid Use kb - Patient Portal Instructions kb - Leadership Thank You Letter kb Signatures: Alesia Spann, SMILEY-C SMILEY-Huber Wright MD MD sp4 Maria D Forde, RN RN cm10
[2023-11-26 23:13] VITALS: BP 105/47; TEMP 98.2; O2SAT 99
== END 2023-11-26 22:47 | disposition home or self-care (01) ==
LOC: ER 20:42
DX: N64.4 Mastodynia (principal)

== ENCOUNTER 2023-12-24 16:54 | Emergency (ER) | payer OTHER ==
--- OUTSIDE RECORDS SUMMARY | 2023-12-24 16:58 | XMS REPORT | Continuity of Care Document ---
Author Name Unknown Address [address] [place] [address] [facility] thconnect Address [address] [place] [address] Care Team Providers Care Enterprise Systems Administrator Name Role Phone PCP, PATIENT DOES NOT HAVE A Primary Care Physic humza Unavailable BALAJI KWONG Attending Clinician Unavailable CARI WARREN Attending Clinician Unavailabl e LAB90 Attending Clinician Unavailable FAREED HOLBROOK Attending Clinician Unaboom ilEMILIANA Burleson Attending Clinician Unavailable Emiliana Scherer MD Attending Clinician ELIZ SEVILLA Attending Clinician Unavailable Eliz Rubio Attending Clinician Doctor Unassigned, [place] Attending Clinician U EMILIANA Mcdaniel Admitting Clinician Unavailable ELIZ SEVILLA Admitting Clinician Unavailable Payers Payer Name Policy Type Policy Number Effective Date Expirati on Date Source RAQUEL LOPEZ [employer] 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 ON 9 [id number] 2023 00:00:00 Problems Condition Name Condition Details Condition Category Status Onset Date Resolution Date Last Treatment Date Treating Clinician Comments Source Prediabete s Prediabete s Disease Active 12-17 00:00: 00 Khushboo Pillai - Externa l Snoring Snoring Disease Active 12-17 00:00: 00 Khushboo Bravoold - Externa l Hypothyroi dism (acquired) Hypothyroi dism (acquired) Disease Active 11-03 00:00: 00 Khushboo Pillai - Externa l History of iron deficiency anemia History of iron deficiency anemia Disease Active 11-03 00:00: 00 Khushboo Pillai - Externa l Obesity Obesity Disease Active 11-03 00:00: 00 Khushboo Pillai - Externa l Family history of diabetes mellitus in mother Family history of diabetes mellitus in mother Disease Active 11-03 00:00: 00 Khushboo Pillai - Externa l Sore throat Sore throat Disease Active 2015-08 00:00: 00 [facility] Vaginal itching Vaginal itching Disease Active 2015-08 00:00: 00 [facility] Hypothyroi dism Hypothyroi dism Disease Active 02-11 00:00: 00 [facility] Screening for thyroid disorder Screening for thyroid disorder Disease Active 02-08 00:00: 00 [facility] Abnormal weight gain Abnormal weight gain Disease Active 02-08 00:00: 00 [facility] Contracept idris management Contracept idris management Disease Active 12-19 00:00: 00 [facility] Allergies, Adverse Reactions, Alerts Allergy Name Allergy Type Status Severity Reaction(s) Onset Date Inactive Date Treating Clinician Comments Source NO KNOWN ALLERGIE S Drug Class Active [facility] Social History Social Habit Start Date Stop Date Quantity Comments Source Sexual orientation Helga Pillai - External Alcoholic beverage intake 2023-12-18 00:00:00 2023-12-18 00:00:00 Current drinker of alcohol (finding) Khushboo Pillai - External Education - What is [...] (event) 2022-10-05 00:00:00 2022-10-15 21:56:00 Not sure [facility] Sex assigned at 1980 00:00:00 1980 00:00:00 Khushboo Pillai - External Smoking Status Start Date Stop Date Source Never smoked tobacco Khushboo Pillai - External Medications Ordered Medication Name Filled Medication Name Start Date Stop Date Current Medication? Ordering Clinician Indication Dosage Frequency Signature (SIG) Comments Components Source Topiramate 25 MG oral Tablet 12-17 00:00: 00 Yes [id number] 104 25mg Take 1 tablet (25 mg total) by mouth daily. Khushboo pat Levothyroxi ne Sodium 50 MCG oral Tablet 11-03 00:00: 00 Yes [id number] 50ug Take 1 tablet (50 mcg total) by mouth daily. Khushboo pat Levothyroxi ne Sodium 50 MCG oral Tablet 10-02 00:00: 00 11-03 00:00 :00 No 50ug Take 1 tablet (50 mcg total) by mouth daily. Khushboo pat iopamidol (ISOVUE 370-500 mL) injection 100 mL 10-16 08:00: 00 10-16 08:00 :00 No [id number] 100mL 100 mL, Intravenou s, ONCE, 1 dose, On Fri10/16/22 at 0200, [facility] (TYLENOL[facility] tablet 1,000 mg 10-16 06:30: 00 10-16 06:27 :00 No 1000mg 1,000 mg, Oral, ONCE, 1 dose, On Fri10/16/22 at 0030, [facility] FENTanyl PF (SUBLIMAZE (PF)) injection 25 mcg 10-16 04:30: 00 10-16 04:25 :00 No 25ug 25 mcg, Slow IV Push, ONCE, 1 dose, On Fri10/15/22 at 2230, [facility] diphenhydrA MINE (BENADRYL) injection 12.5 mg 10-16 04:30: 00 10-16 04:26 :00 No 12.5mg 12.5 mg, Slow IV Push, ONCE, 1 dose, On Fri10/15/22 at 2230, [facility] metoclopram bridget HCl (REGLAN) injection 10 mg 10-16 04:30: 00 10-16 04:26 :00 No 10mg 10 mg, Slow IV Push, ONCE, 1 dose, On Fri10/15/22 at 2230, [facility] traMADoL (ULTRAM) 50 mg tablet 10-16 00:00: 00 Yes [id number] 50mg Take 1 tablet by mouth every 6 (six) hours as needed for Pain (scale 7-10). Indication s: acute pain [facility] TAKE 1 TABLET DAILY. 2021-08 00:00: 00 No NaCl 0.9% (NS) bolus infusion 1,000 mL 2021-08 20:15: 00 06-16 21:07 :00 No 1000mL at 999 mL/hr, 1,000 mL, IV Infusion, ONCE, 1 dose, On Fri06/16/22 at 1515, [facility] diphenhydrA MINE (BENADRYL) tablet 25 mg 2021-08 19:45: 00 06-16 19:51 :00 No 25mg 25 mg, Oral, ONCE, 1 dose, On Fri06/16/22 at 1445, T[facility] metoclopram bridget HCl (REGLAN) injection 10 mg 2021-08 19:45: 00 06-16 19:51 :00 No 10mg 10 mg, Slow IV Push, ONCE, 1 dose, On 06/16/22 at 1445, T[facility] ketorolac (TORADOL) injection 30 mg 2021-08 19:45: 00 06-16 19:51 :00 No 30mg 30 mg, Slow IV Push, ONCE, 1 dose, On 06/16/22 at 1445, Routine [facility] butalbital- acetaminoph en-caff 50-325-40 mg tablet 2021-08 00:00: 00 Yes [id number] 1{tbl} Take 1 tablet by mouth every 6 (six) hours as needed for Pain (scale 7-10). [facility] Dose Unknown 12-17 00:00: 00 No Dose Unknown 12-17 00:00: 00 No Dose Unknown 2020-08 00:00: 00 No Dose Unknown 2020-08 00:00: 00 No meclizine 25 mg tablet 01-07 00:00: 00 Yes [id number] 25mg Take 1 tablet by mouth every 6 (six) hours as needed for Dizziness. [facility] phenazopyri dine 200 mg tablet 02-17 00:00: 00 Yes 200mg Take 1 tablet by mouth 3 (three) times daily after meals. [facility] levothyroxi ne (SYNTHROID) 50 mcg tablet 2015-08 00:00: 00 Yes [id number] 50ug Take 1 tablet by mouth every morning. [facility] naproxen sodium (ANAPROX) 550 mg tablet 12-18 00:00: 00 Yes 550mg Take 1 tablet by mouth 2 (two) times daily with meals. [facility] levofloxaci n (LEVAQUIN) 500 mg tablet 12-18 00:00: 00 Yes 500mg Take 1 tablet by mouth every 24 (twenty-fo ur) hours. [facility] Immunizations Ordered Immunization Name Filled Immunization Name Date Status Comments Source Moderna COVID-19 Vaccine 2021-03-02 00:00:00 Completed Moderna COVID-19 Vaccine 2021-03-02 00:00:00 Completed Moderna COVID-19 Vaccine 2021-01-26 00:00:00 Completed Moderna COVID-19 Vaccine 2021-01-26 00:00:00 Completed Varicella (varivax)(chicken pox) 2012-08-05 00:00:00 Completed [facility] Varicella (varivax)(chicken pox) 2012-08-05 00:00:00 Completed [facility] Varicella (varivax)(chicken pox) 2012-08-05 00:00:00 Completed [facility] TDAP 2011-08-25 00:00:00 Completed [facility] TDAP 2011-08-25 00:00:00 Completed [facility] TDAP 2011-08-25 00:00:00 Completed [facility] Covid-19 Vaccine Moderna (Spikevax), Mrna-lnp, Stanford Protein, Pf Unknown Completed Khushboo Olea External Covid-19 Vaccine Moderna (Spikevax), Mrna-lnp, [employer] Protein, Pf Unknown Completed Khushboo Pillai - External Varicella Vaccine Unknown Completed Mars Pillai - External Tdap- (Boostrix, Adacel) Unknown Completed Khushboo Pillai - External Covid-19 Vaccine Moderna (Spikevax), Mrna-lnp, [employer] Protein, Pf Unknown Completed Khushboo Bravoold - External Covid-19 Vaccine Moderna (Spikevax), Mrna-lnp, Stanford Protein, Pf Unknown Completed Khushboo Pillai - External Varicella Vaccine Unknown Completed Mars lopez Seybold - External Tdap- (Boostrix, Adacel) Unknown Completed Khushboo Pillai - External Vital Signs Vital Name Observation Time Observation Value Comments S ource Systolic blood pressure 2023-12-18 21:05:00 119 mm[Hg] Khushboo Epps ld - External Diastolic blood pressure 2023-12-18 21:05:00 74 mm[Hg] Khushboo Epps ld - External Heart rate 2023-12-18 21:05:00 68 /min Kelse y Seybold - External Body temperature 2023-12-18 21:05:00 36.61 Lynsey Khushboo Seybold - External Respiratory rate 2023-12-18 21:05:00 20 /min Khushboo Seybold - External Body height 2023-12-18 21:05:00 152.4 cm Marli ey Seybold - External Body weight 2023-12-18 21:05:00 112.038 kg Marli ey Seybold - External BMI 2023-12-18 21:05:00 48.24 kg/m2 Marli ey Seybold - External Oxygen saturation in Arterial blood by Pulse oximetry 2023-12-18 21:05:00 97 /min Khushboo Reneeybo ld - External Body height 2023-11-04 21:34:00 152.4 cm Marli ey Seybold - External Systolic blood pressure 2023-11-04 21:11:00 116 mm[Hg] Khushboo Seybo ld - External Diastolic blood pressure 2023-11-04 21:11:00 61 mm[Hg] Khushboo Reneeybo ld - External Heart rate 2023-11-04 21:11:00 58 /min Mark y Seybold - External Respiratory rate 2023-11-04 21:11:00 15 /min Khushboo Seybold - External Body weight 2023-11-04 21:11:00 112.946 kg Marli ey Seybold - External BMI 2023-11-04 21:11:00 48.63 kg/m2 Marli ey Seybold - External Oxygen saturation in Arterial blood by Pulse oximetry 2023-11-04 21:11:00 100 /min Khushboo Reneeybo ld - External Systolic blood pressure 2022-10-16 07:00:00 106 mm[Hg] [facility] Diastolic blood pressure 2022-10-16 07:00:00 88 mm[Hg] [facility] Heart rate 2022-10-16 07:00:00 93 /min [facility] Oxygen saturation in Arterial blood by Pulse oximetry 2022-10-16 07:00:00 96 /min [facility] Respiratory rate 2022-10-16 06:25:00 27 /min [facility] Body temperature 2022-10-16 06:25:00 38.94 Lynsey [facility] Body height 2022-10-16 03:51:00 152.4 cm [facility] Body weight 2022-10-16 03:51:00 111.585 kg [facility] BMI 2022-10-16 03:51:00 48.04 kg/m2 [facility] Systolic blood pressure 2022-06-16 21:00:00 116 mm[Hg] [facility] Diastolic blood pressure 2022-06-16 21:00:00 76 mm[Hg] [facility] Heart rate 2022-06-16 21:00:00 61 /min [facility] Respiratory rate 2022-06-16 21:00:00 18 /min [facility] Oxygen saturation in Arterial blood by Pulse oximetry 2022-06-16 21:00:00 97 /min [facility] Body temperature 2022-06-16 17:24:00 37.06 Lynsey [facility] Body height 2022-06-16 17:24:00 152.4 cm [facility] Body weight 2022-06-16 17:24:00 106.595 kg [facility] BMI 2022-06-16 17:24:00 45.90 kg/m2 [facility] BP Systolic 2022-08-06 14:42:00 123 mm[Hg] BP [...] Source TROPONIN I 2022-10-16 06:30:00 Emiliana Scherer [facility] XR CHEST 1 VW 2022-10-16 04:33:53 Emiliana Scherer [facility] D-DIMER 2022-10-16 04:26:00 Emiliana Scherer [facility] URINALYSIS 2022-10-16 04:26:00 Emiliana Scherer [facility] POCT TEST 2022-10-16 04:07:00 Emiliana Scherer [facility] LIPASE 2022-10-16 03:58:00 Emiliana Scherer [facility] TROPONIN I 2022-10-16 03:58:00 Emiliana Scherer [facility] COMP. METABOLIC PANEL (72654) 2022-10-16 03:58:00 Emiliana Scherer [facility] CBC WITH DIFF 2022-10-16 03:58:00 Emiliana Scherer [facility] RAPID INFLUENZA A/B 2022-10-16 03:58:00 Emiliana Scherer [facility] COVID-19 (ID NOW RAPID TESTING) 2022-10-16 03:58:00 Emiliana Scherer [facility] NOTICE OF PRIVACY PRACTICES 2022-10-16 03:42:26 Doctor Unassigned, [place] [facility] CONSENT/REFUSAL FOR DIAGNOSIS AND TREATMENT 2022-10-16 03:41:57 Doctor Unassigned, [place] [facility] COMP. METABOLIC PANEL (23246) 2022-06-16 19:50:00 Eliz Sevilla [facility] CT HEAD WO CONTRAST 2022-06-16 18:28:00 Cheryl Sevilla [facility] CBC WITH DIFF 2022-06-16 18:09:00 Eliz Sevilla [facility] URINALYSIS 2022-06-16 18:09:00 Eliz Sevilla [facility] ASSIGNMENT OF BENEFITS 2022-06-16 17:57:56 Docto r Unassigned, [place] [facility] CONSENT/REFUSAL FOR DIAGNOSIS AND TREATMENT 2022-06-16 17:20:01 Doctor Unassigned, [place] [facility] Plan of Care Planned Activity Planned Date Details Comments Source Goal Plan of Care Note [code = 32966-4] Goal Plan of Care Note [code = 65833-1] Goal Plan of Care Note [code = 61338-5] Goal Plan of Care Note [code = 86883-8] Goal Plan of Care Note [code = 47940-0] Goal Plan of Care Note [code = 48576-3] Goal Plan of Care Note [code = 23389-0] Goal Plan of Care Note [code = 97149-6] Goal Plan of Care Note [code = 26888-5] Goal Plan of Care Note [code = 91226-7] Goal Plan of Care Note [code = 25434-0] Goal Plan of Care Note [code = 70214-3] Goal Plan of Care Note [code = 58519-9] Goal Plan of Care Note [code = 50580-0] Goal Plan of Care Note [code = 44479-0] Goal Plan of Care Note [code = 49685-8] Goal Plan of Care Note [code = 85650-2] Goal Plan of Care Note [code = 21087-9] Goal Plan of Care Note [code = 21422-5] Goal Plan of Care Note [code = 21243-4] Goal Plan of Care Note [code = 24079-5] Goal Plan of Care Note [code = 92642-4] Goal Plan of Care Note [code = 96945-8] Goal Plan of Care Note [code = 58407-8] Goal Plan of Care Note [code = 33840-7] Goal Plan of Care Note [code = 48488-2] Goal Plan of Care Note [code = 34908-3] Goal Plan of Care Note [code = 07135-2] Goal Plan of Care Note [code = 66435-7] Goal Plan of Care Note [code = 91730-1] Encounters Start Date/Time End Date/Time Encounter Type Admission Type Attending [facility] Care Department Encounter ID Source 2024-03-18 16:00:00 2024-03-18 16:00:00 Outpatient PREZAS, BALAJI MURPHY [id number] [facility] 2024-01-15 16:00:00 2024-01-15 16:00:00 Outpatient KELVIN, CARI MURPHY [id number] [facility] 2023-12-18 16:00:00 2023-12-18 16:00:00 Outpatient PREZAS, BALAJI MURPHY [id number] [facility] 2023-11-21 00:00:00 2023-11-21 00:00:00 Outpatient PREZAS, BALAJI MURPHY [id number] [facility] 2023-11-10 00:00:00 2023-11-10 00:00:00 Outpatient PREZASBALAJI [id number] [facility] 2023-11-10 00:00:00 2023-11-10 00:00:00 Outpatient PREZASBALAJI [id number] Khushboo [facility] 2023-11-05 09:10:00 2023-11-05 09:10:00 Outpatient LAB90 KHUSHBOO MURPHY [id number] [facility] 2023-11-04 16:15:00 2023-11-04 16:15:00 Outpatient PREZASBALAJI [id number] [facility] 2023-10-20 10:15:00 2023-10-20 10:15:00 Outpatient FAREED HOLBROOK KHUSHBOO MURPHY [id number] [facility]ush[facility]o [facility] 2023-10-20 00:00:00 2023-10-20 00:00:00 Outpatient BALAJI KWONG KHUSHBOO MURPHY [id number] [facility] 2023-10-02 17:47:46 2023-10-02 17:47:46 Outpatient SFA SFA [id number] Deni Ospina 2023-10-02 10:00:00 2023-10-02 10:00:00 Outpatient FAREED HOLBROOK KHUSHBOO MURPHY [id number] [facility]o [facility] 2023-10-02 00:00:00 2023-10-02 00:00:00 Outpatient FAREED HOLBROOK KHUSHBOO MURPHY [id number] [facility] 2023-04-04 17:29:23 2023-04-04 17:29:23 Outpatient SFA SFA [id number] Deni Ospina 2022-10-15 21:44:00 2022-10-16 02:14:00 Emergency X GABRIELEBASIMRG EMILIANA [facility] ERT [id number] [facility] 2022-10-15 21:44:00 2022-10-16 02:14:00 Emergency Solis Schererestelita Hernandez [facility] [id number] [facility] 2022-09-16 13:48:54 2022-09-16 13:48:54 Outpatient SFA SFA [id number] Deni Ospina 2022-08-06 14:32:16 2022-08-06 14:32:16 Outpatient SFA SFA [id number] Deni Ospina 2022-08-06 00:00:00 2022-08-06 00:00:00 Outpatient Visit [id number] 2022-07-26 08:02:44 2022-07-26 08:02:44 Outpatient [facility] [id number] Deni Ospina 2022-07-25 11:42:15 2022-07-25 11:42:15 Outpatient [facility] [id number] Deni Ospina 2022-07-25 00:00:00 2022-07-25 00:00:00 Outpatient Visit [id number] 2022-06-16 12:26:00 2022-06-16 16:15:00 Emergency X SEVILLAELIZ [facility] ERT [id number] [facility] 2022-06-16 12:26:00 2022-06-16 16:15:00 Emergency SevillaEliz elena [facility] 1..840.114 350.1.13.10 4.2.7.2.686 [id number] [facility] 2022-06-16 00:00:00 2022-06-16 00:00:00 Orders Only Doctor Unassigned, [place] [facility] [id number] 350.1.13.10 4.2.7.2.686 [id number] [facility] Results Test Description Test Time Test Comments Results Result Co mments Source [id number] 04:50:17* Test Item Value Reference Range Interpretation Comments D-DIMER (test code = 3638771093) 0.73 See_Comment H [Automated message] The system [...] a diagnosis. Lab Interpretation (test code = 56953-7) [facility]normal [id number] 04:39:55* Test Item Value Reference Range Interpretation Comme nts TROPONIN I (test code = 9698944179) 0.003 ng/mL <=0.034 GEORGETTE (test code = [...] of biotin. Lab Interpretation (test code = 00326-3) Normal [facility]. METABOLIC PANEL (57734)2022-10-16 04:28:17* Test Item Value Reference Range Interpretation Comme nts NA (test code = 5784525234) 137 mmol/L 135-145 K (test code = 9743294526) 4.2 mmol/L 3.5-5.0 CL (test code = 7863732158) 105 mmol/L 98-108 CO2 TOTAL (test code = 8803288974) 24 mmol/L 23-31 AGAP (test code = 0056178286) 8 2-16 BUN (test code = 9790086648) 12 mg/dL 7-23 GLUCOSE (test code = 8216391242) 115 mg/dL 70-110 H CREATININE (test code = 8553130410) 0.62 mg/dL 0.50-1.04 TOTAL BILI (test code = 7674528251) 0.7 mg/dL 0.1-1.1 CALCIUM (test code = 4590286769) 8.7 mg/dL 8.6-10.6 T PROTEIN (test code = 5374060838) 7.7 g/dL 6.3-8.2 ALBUMIN (test code = 2066864793) 4.5 g/dL 3.5-5.0 ALK PHOS (test code = 9976312254) 78 U/L 34-122 ALTv (test code = 1742-6) 27 U/L 5-35 AST(SGOT) (test code = 3570626474) 29 U/L 13-40 eGFR (test code = 6387932743) 105.6 mL/min/1.73m2 GEORGETTE (test code = GEORGETTE) [...] imaging tests). Lab Interpretation (test code = 75294-0) [facility] [id number] 04:28:17* Test Item Value Reference Range Interpretation Comme nts LIPASE (test code = 0613971458) 69 U/L 0-220 Lab Interpretation (test cod e = 52482-8) Normal [facility] WITH [id number] 04:17:33* Test Item Value Reference Range Interpretation Comme nts WBC (test code = 6690-2) 11.78 See_Comment H [Automated Jalbuma ge] The system which generated this result transmitted reference range: 4.30 - 11.10 10*3/?L. The reference range was not used to interpret this result as normal/abnormal. RBC (test code = 789-8) 4.55 See_Comment [Automated Jalbuma ge] The system which generated this result [...] 34.1 g/dL 31.6-35.1 RDW-SD (test code = 50171-5) 38.2 fL 39.0-49.9 L RDW-CV (test code = 788-0) 12.3 % 12.0-15.5 PLT (test code = 777-3) 253 See_Comment [Automated Jalbuma ge] The system which generated this result transmitted reference range: 166 - 358 10*3/?L. The reference range was not used to interpret this result as normal/abnormal. MPV (test code = 59592-7) 9.2 fL 9.5-12.9 L NRBC/100 WBC (test code = 4548991931) 0.0 See_Comment [Automated Swifto ssage] The system which generated this result transmitted reference range: 0.0 - 10.0 /100 WBCs. The reference range was not used to interpret this result as normal/abnormal. NRBC x10^3 (test code = 7965371630) See_Comment [Automated messa ge] The system which generated this result transmitted reference range: 10*3/?L. The reference range was not used to interpret this result as normal/abnormal. GRAN MAT (NEUT) % (test code = 770-8) 77.1 % IMM GRAN % (test code = 9334075927) 0.60 % LYMPH % (test code = 736-9) 15.4 % MONO % (test code = 5905-5) 6.2 % EOS % (test code = 713-8) 0.4 % BASO % (test code = 706-2) 0.3 % GRAN MAT x10^3(ANC) (test code = 0903280800) 9.08 10*3/uL 1.88-7.09 H IMM GRAN x10^3 (test code = 5426333348) 0.07 10*3/uL 0.00-0.06 H LYMPH x10^3 (test code = 731-0) 1.82 10*3/uL 1.32-3.29 MONO x10^3 (test code = 742-7) 0.73 10*3/uL 0.33-0.92 EOS x10^3 (test code = 711-2) 0.05 10*3/uL 0.03-0.39 BASO x10^3 (test code = 704-7) 0.03 10*3/uL 0.01-0.07 Lab Interpretation (test code = 04162-2) [facility]normal [facility] [id number] 04:07:00* Test Item Value Reference Range Interpretation Comme nts POCT PREG (test code = 1605) Negative On board controls acceptable with C Line (test code = 3574) Positive POCT PREG LOT # (test code = 3575) [id number] POCT PREG TEST DATE ( test code = 3576) 11/23/2023 Lab Interpretation (test cod e = 17409-1) [facility] [id number] 05:49:05* Test Item Value Reference Range Interpretation Comme nts TSH, THIRD GENERATION (test code = 2821) 2.500 UIU/ML 0.400-4.100 COMPREHENSIVE METABOLIC [id number] 03:31:11* Test Item Value Reference Range Interpretation Comme nts GLUCOSE (test code = 2216) 99 MG/DL 70-99 BUN (test code = 2207) 14 MG/DL 6-20 CREATININE (test code = 2213) 0.74 MG/DL 0.60-1.30 eGFR (2020 CKD-EPI) (test code = ) 104 ML/MIN/1.73 >60 CALC BUN/CREAT (test code = 2234) 19 RATIO 6-28 SODIUM (test code = 2230) 141 MEQ/L 133-146 POTASSIUM (test code = 2227) 4.0 MEQ/L 3.5-5.4 CHLORIDE (test code = 2214) 104 MEQ/L 95-107 CARBON DIOXIDE (test code = 2205) 26 MEQ/L 19-31 CALCIUM (test code = 2208) 9.5 MG/DL 8.5-10.5 PROTEIN, TOTAL (test code = 2228) 7.0 G/DL 6.1-8.3 ALBUMIN (test code = 2200) 4.5 G/DL 3.5-5.2 CALC GLOBULIN (test code = 0) 2.5 G/DL 1.9-3.7 CALC A/G RATIO (test code = 2233) 1.8 RATIO 1.0-2.6 BILIRUBIN, TOTAL (test code = 2206) 0.3 MG/DL See_Comment [Automated me ssage] The system which generated this result transmitted reference range: <=1.2. The reference range was not used to interpret this result as normal/abnormal. ALKALINE PHOSPHATASE (test code = 2203) 91 U/L 40-113 AST (test code = 2217) 21 U/L 9-40 ALT (test code = 9) 26 U/L 5-40 LIPID [id number] 03:31:11* Test Item Value Reference Range Interpretation Comme nts CHOLESTEROL (test code = 0) 188 MG/DL <200 TRIGLYCERIDES (test code = 2232) 282 MG/DL <150 H HDL CHOLESTEROL (test code = 2219) 31 MG/DL >39 L CALC LDL CHOL (test code = 2236) 117 MG/DL <100 H NOTE: CALCULATED LDL IS BASED ON SRINIVASAN-CABRAL METHOD WHICHINCLUDES ADJUSTABLE TRIGLYCERIDE:VLDL CHOLESTEROL RATIO.THIS FACTOR VARIES BY MEASURED TRIGLYCERIDE AND NON-HDLCHOLESTEROL CONCENTRATIONS WITH INCREASED CALCULATED LDL SEENIN HIGHER TRIGLYCERIDE OR LOWER NON-HDL SPECIMENS. FOR MOREINFORMATION, SEE CLIENT ANNOUNCEMENT AT [email or web address] [email or web address] RATIO LDL/HDL (test code = 2238) 3.77 RATIO <3.22 H HEMOGLOBIN [id number] 03:01:44* Test Item Value Reference Range Interpretation Comme nts HEMOGLOBIN A1c (test code = 63947) 5.9 % 4.2-5.6 H UNLESS OTHERWISE INDICATED, ALL TESTING PERFORMED [facility] [employer] [employer] [address] [place] [id number] [employer] F[employer]ICATOR: MOLLY DAHL M.D. CLIA NUMBER [id number] [facility] [id number] CBC W/AUTO [id number] 00:00:00* Test Item Value Reference Range Interpretation [...] ABS NUCLEATED RBCS (test cod e = 31634) 0.00 K/UL CBC W/AUTO [id number] 00:00:00* Test Item Value Reference Range Interpretation [...] ABS NUCLEATED RBCS (test cod e = 71137) 0.00 K/UL CBC W/AUTO [id number] 00:00:00* Test Item Value Reference Range Interpretation [...] ABS NUCLEATED RBCS (test cod e = 07273) 0.00 K/UL TSH, THIRD [id number] 00:00:00* Test Item Value Reference Range Interpretation Comme nts TSH, THIRD GENERATION (test code = 2821) 4.590 UIU/ML TSH, THIRD [id number] 00:00:00* Test Item Value Reference Range Interpretation Comme nts TSH, THIRD GENERATION (test code = 2821) 4.590 UIU/ML TSH, THIRD [id number] 00:00:00* Test Item Value Reference Range Interpretation Comme nts TSH, THIRD GENERATION (test code = 2821) 4.590 UIU/ML LIPID [id number] 00:00:00* Test Item Value Reference Range Interpretation Comme nts CHOLESTEROL (test code = 2210) 188 MG/DL TRIGLYCERIDES (test code = 2232) 112 MG/DL HDL CHOLESTEROL (test code = 2220) 30 MG/DL CALC LDL CHOL (test code = 2237) 136 MG/DL RISK RATIO LDL/HDL (test cod e = 2238) 4.53 RATIO LIPID [id number] 00:00:00* Test Item Value Reference Range Interpretation Comme nts CHOLESTEROL (test code = 2210) 188 MG/DL TRIGLYCERIDES (test code = 2232) 112 MG/DL HDL CHOLESTEROL (test code = 2220) 30 MG/DL CALC LDL CHOL (test code = 2237) 136 MG/DL RISK RATIO LDL/HDL (test cod e = 2238) 4.53 RATIO CBC WITH [id number] 19:07:54* Test Item Value Reference Range Interpretation Comme nts WBC (test code = 6690-2) See_Comment [Automated [employer]] The system which generated this result transmitted reference range: 4.30 - 11.10 10*3/?L. The reference range was not used to interpret this result as normal/abnormal. RBC (test code = 789-8) See_Comment [Automated [employer]] The system which generated this result transmitted [...] 35.0 g/dL 31.6-35.1 RDW-SD (test code = 37984-1) 37.8 fL 39-49.9 L RDW-CV (test code = 788-0) 12.4 % 12-15.5 PLT (test code = 777-3) See_Comment [Automated [employer]] The system which generated this result transmitted reference range: 166 - 358 10*3/?L. The reference range was not used to interpret this result as normal/abnormal. MPV (test code = 90474-6) 10.2 fL 9.5-12.9 IPF % (test code = 3306310875) 1.5 % 1.3-7.7 Platelet count measured by fluorescence method. NRBC/100 WBC (test code = 7704902817) See_Comment [Automated [employer]] The system which generated this result transmitted reference range: 0.0 - 10.0 /100 WBCs. The reference range was not used to interpret this result as normal/abnormal. NRBC x10^3 (test code = 8921670545) See_Comment [Automated messa ge] The system which generated this result transmitted reference range: 10*3/?L. The reference range was not used to interpret this result as normal/abnormal. GRAN MAT (NEUT) % (test code = 770-8) 57.1 % IMM GRAN % (test code = 4895958561) 0.40 % LYMPH % (test code = 736-9) 34.9 % MONO % (test code = 5905-5) 5.4 % EOS % (test code = 713-8) 1.9 % BASO % (test code = 706-2) 0.3 % GRAN MAT x10^3(ANC) (test code = 8455512475) 5.36 10*3/uL 1.88-7.09 IMM GRAN x10^3 (test code = 8191244502) 0.04 10*3/uL 0-0.06 LYMPH x10^3 (test code = 731-0) 3.28 10*3/uL 1.32-3.29 MONO x10^3 (test code = 742-7) 0.51 10*3/uL 0.33-0.92 EOS x10^3 (test code = 711-2) 0.18 10*3/uL 0.03-0.39 BASO x10^3 (test code = 704-7) 0.03 10*3/uL 0.01-0.07 Lab Interpretation (test code = 23322-2) [facility]/[id number] 18:36:33* Test Item Value Reference Range Interpretation Comments SARS-CoV-2 INTERPRETATION (test code = 00840) NEGATIVE SEE NOTE SARS-CoV-2 R NA NOT [...] prevalence is high. SOURCE (test code = 50822) NASOPHARYNGEAL Note: Methodolog y is Bj Emily Real-Time RT-PCR. The expected result or reference range is NEGATIVE (Not Detected). For more information regarding COVID-19 testing to include clinicalinformation, methodology detail, intended use, FDA authorization andrecommended fact sheets for patients or healthcare providers, see [employer] Announcement: SARS-CoV-2 (COVID-19) by NAAT at URL below (note,fact sheets are provided by method given in report:[email or web address] Alternatively, see downloadable PDF fact sheet at:[email or web address] UNLESS OTHERWISE INDICATED, ALL TESTING PERFORMED [facility] [employer], [facility]. [address] [place] [address] STOCK PARTS FABRICATOR: MOLLY DAHL M.D. CLIA NUMBER [id number] [facility]. [id number] SARS-CoV-2 (COVID-19) by RT-PCR (HIGH RISK)2021-09-06 00:00:00* Test Item Value Reference Range Interpretation Comme nts SARS-CoV-2 INTERPRETATION (test code = 35074) NEGATIVE SOURCE (test code = 24103) NASOPHARYNGEAL SARS-CoV-2 (COVID-19) by RT-PCR (HIGH RISK)2021-09-06 00:00:00* Test Item Value Reference Range Interpretation Comme nts SARS-CoV-2 INTERPRETATION (test code = 16021) NEGATIVE SOURCE (test code = 94289) NASOPHARYNGEAL SARS-CoV-2 (COVID-19) by RT-PCR (HIGH RISK)2021-09-06 00:00:00* Test Item Value Reference Range Interpretation Comme nts SARS-CoV-2 INTERPRETATION (test code = 41186) NEGATIVE SOURCE (test code = 13913) NASOPHARYNGEAL SARS-CoV-2 (COVID-19) by RT-PCR (HIGH RISK)2021-09-06 00:00:00* Test Item Value Reference Range Interpretation Comme nts SARS-CoV-2 INTERPRETATION (test code = 60661) NEGATIVE SOURCE (test code = 81212) NASOPHARYNGEAL CBC W/AUTO [id number] 00:00:00* Test Item Value Reference Range Interpretation [...] ABS NUCLEATED RBCS (test cod e = 16501) 0.00 K/UL CBC W/AUTO [id number] 00:00:00* Test Item Value Reference Range Interpretation [...] ABS NUCLEATED RBCS (test cod e = 12911) 0.00 K/UL CBC W/AUTO [id number] 00:00:00* Test Item Value Reference Range Interpretation [...] ABS NUCLEATED RBCS (test cod e = 19517) 0.00 K/UL LIPID [id number] 00:00:00* Test Item Value Reference Range Interpretation Comme nts CHOLESTEROL (test code = 2210) 211 MG/DL TRIGLYCERIDES (test code = 2232) 159 MG/DL HDL CHOLESTEROL (test code = 2220) 35 MG/DL CALC LDL CHOL (test code = 2237) 147 MG/DL RISK RATIO LDL/HDL (test cod e = 2238) 4.20 RATIO LIPID [id number] 00:00:00* Test Item Value Reference Range Interpretation Comme nts CHOLESTEROL (test code = 2210) 211 MG/DL TRIGLYCERIDES (test code = 2232) 159 MG/DL HDL CHOLESTEROL (test code = 2220) 35 MG/DL CALC LDL CHOL (test code = 2237) 147 MG/DL RISK RATIO LDL/HDL (test cod e = 2238) 4.20 RATIO COMPREHENSIVE METABOLIC [id number] 00:00:00* Test Item Value Reference Range Interpretation Comme nts GLUCOSE (test code = 2217) 95 MG/DL BUN (test code = 2208) 15 MG/DL CREATININE (test code = 2214) 0.79 MG/DL eGFR AMER. (test cod e = 42022) 108 ML/MIN/1.73 eGFR NON- AMER. (test code = 39904) 93 ML/MIN/1.73 CALC BUN/CREAT (test code = [...] code = 2219) 19 U/L COMPREHENSIVE METABOLIC [id number] 00:00:00* Test Item Value Reference Range Interpretation Comme nts GLUCOSE (test code = 2217) 95 MG/DL BUN (test code = 2208) 15 MG/DL CREATININE (test code = 2214) 0.79 MG/DL eGFR AMER. (test cod e = 06345) 108 ML/MIN/1.73 eGFR NON- AMER. (test code = 14856) 93 ML/MIN/1.73 CALC BUN/CREAT (test code = [...] ALT (test code = 2219) 19 U/L [id number] 00:00:00* Test Item Value Reference Range Interpretation Comme nts TSH, THIRD GENERATION (test code = 2821) 3.630 UIU/ML [id number] 00:00:00* Test Item Value Reference Range Interpretation Comme nts TSH, THIRD GENERATION (test code = 2821) 3.630 UIU/ML [id number] 00:00:00* Test Item Value Reference Range Interpretation Comme nts TSH, THIRD GENERATION (test code = 2821) 3.630 UIU/ML CBC W/AUTO [id number] 00:00:00* Test Item Value Reference Range Interpretation [...] ABS NUCLEATED RBCS (test cod e = 25658) 0.00 K/UL CBC W/AUTO [id number] 00:00:00* Test Item Value Reference Range Interpretation [...] ABS NUCLEATED RBCS (test cod e = 27089) 0.00 K/UL CBC W/AUTO [id number] 00:00:00* Test Item Value Reference Range Interpretation [...] ABS NUCLEATED RBCS (test cod e = 18940) 0.00 K/UL LIPID [id number] 00:00:00* Test Item Value Reference Range Interpretation Comme nts CHOLESTEROL (test code = 2210) 211 MG/DL TRIGLYCERIDES (test code = 2232) 159 MG/DL HDL CHOLESTEROL (test code = 2220) 35 MG/DL CALC LDL CHOL (test code = 2237) 147 MG/DL RISK RATIO LDL/HDL (test cod e = 2238) 4.20 RATIO LIPID [id number] 00:00:00* Test Item Value Reference Range Interpretation Comme nts CHOLESTEROL (test code = 2210) 211 MG/DL TRIGLYCERIDES (test code = 2232) 159 MG/DL HDL CHOLESTEROL (test code = 2220) 35 MG/DL CALC LDL CHOL (test code = 2237) 147 MG/DL RISK RATIO LDL/HDL (test cod e = 2238) 4.20 RATIO COMPREHENSIVE METABOLIC [id number] 00:00:00* Test Item Value Reference Range Interpretation Comme nts GLUCOSE (test code = 2217) 95 MG/DL BUN (test code = 2208) 15 MG/DL CREATININE (test code = 2214) 0.79 MG/DL eGFR AMER. (test cod e = 69553) 108 ML/MIN/1.73 eGFR NON- AMER. (test code = 01987) 93 ML/MIN/1.73 CALC BUN/CREAT (test code = [...] code = 2219) 19 U/L COMPREHENSIVE METABOLIC [id number] 00:00:00* Test Item Value Reference Range Interpretation Comme nts GLUCOSE (test code = 2217) 95 MG/DL BUN (test code = 2208) 15 MG/DL CREATININE (test code = 2214) 0.79 MG/DL eGFR AMER. (test cod e = 81919) 108 ML/MIN/1.73 eGFR NON- AMER. (test code = 93936) 93 ML/MIN/1.73 CALC BUN/CREAT (test code = [...] ALT (test code = 2219) 19 U/L [id number] 00:00:00* Test Item Value Reference Range Interpretation Comme nts TSH, THIRD GENERATION (test code = 2821) 3.630 UIU/ML [id number] 00:00:00* Test Item Value Reference Range Interpretation Comme nts TSH, THIRD GENERATION (test code = 2821) 3.630 UIU/ML [id number] 00:00:00* Test Item Value Reference Range Interpretation Comme nts TSH, THIRD GENERATION (test code = 2821) 3.630 UIU/ML SARS-CoV-2 (COVID-19) by RT-PCR (HIGH RISK)2020-07-20 00:00:00* Test Item Value Reference Range Interpretation Comme nts SARS-CoV-2 INTERPRETATION (t est code = 73731) NEGATIVE SOURCE (test code = 57262) NOT SPECIFIED SARS-CoV-2 (COVID-19) by RT-PCR (HIGH RISK)2020-07-20 00:00:00* Test Item Value Reference Range Interpretation Comme nts SARS-CoV-2 INTERPRETATION (t est code = 13585) NEGATIVE SOURCE (test code = 03605) NOT SPECIFIED SARS-CoV-2 (COVID-19) by RT-PCR (HIGH RISK)2020-07-20 00:00:00* Test Item Value Reference Range Interpretation Comme nts SARS-CoV-2 INTERPRETATION (t est code = 56138) NEGATIVE SOURCE (test code = 80997) NOT SPECIFIED SARS-CoV-2 (COVID-19) by RT-PCR (HIGH RISK)2020-07-20 00:00:00* Test Item Value Reference Range Interpretation Comme nts SARS-CoV-2 INTERPRETATION (t est code = 56153) NEGATIVE SOURCE (test code = 88323) NOT SPECIFIED SARS-CoV-2 (COVID-19) by RT-PCR (HIGH RISK)2020-07-05 00:00:00* Test Item Value Reference Range Interpretation Comme nts SARS-CoV-2 INTERPRETATION (test code = 07432) Positive SOURCE (test code = 27162) Nasal_Swab_in _VTM__ UTM SARS-CoV-2 (COVID-19) by RT-PCR (HIGH RISK)2020-07-05 00:00:00* Test Item Value Reference Range Interpretation Comme nts SARS-CoV-2 INTERPRETATION (test code = 57620) Positive SOURCE (test code = 53766) Nasal_Swab_in _VTM__ UTM
[2023-12-24] MEDS ORDERED: ONDANSETRON 4 MG/2 ML VIAL ONE (17:44)
[2023-12-24] MEDS ORDERED: NA CHLORIDE 0.9% 1,000 ML ONE (17:44)
[2023-12-24] MEDS ORDERED: KETOROLAC 30 MG/ML INJ ONE (17:44)
[2023-12-24 18:23] LABS: Specific Gravity 1.015 (1.005-1.030)
[2023-12-24 18:23] LABS: Absolute Eosinophils 0.1 K/uL (0-0.5); Absolute Lymphocytes (CBC) 2.2 K/uL (0.7-4.9); Absolute Monocytes 0.4 K/uL (0.1-1.3); Absolute Neutrophil 7.1 K/uL (1.8-8.0); Basophils % 0.3 % (0-1.3); Hematocrit 38.8 % (36.0-45.0); Hemoglobin 13.4 g/dL (12.0-15.0); Lymphocytes % 22.3 % (15.3-44.8); MCH 29.1 pg (27.0-35.0); MCHC 34.4 g/dL (32.0-36.0); MCV 84.6 fL (80-100); MPV 7.3 fL (7.6-11.3); Monocytes % 4.2 % (3.3-12.3); Neutrophils % 72.2 % (41.7-73.7); Platelets 299 thou/uL (152-406); RBC Red Blood Cell Count 4.59 M/uL (3.86-4.86); Red Cell Distribution Width 13.7 % (12.1-15.2)
[2023-12-24 18:42] LABS: Albumin 3.9 g/dL (3.4-5.0); Albumin/Globulin Ratio 1.1 (1.1-1.8); Anion Gap 6.5 mEq/L (5.0-15.0); Bilirubin Total 0.4 mg/dL (0.2-1.0); Globulin 3.7 g/dL (2.3-3.5); Potassium 3.5 mEq/L (3.5-5.1); Protein, Total 7.6 g/dL (6.4-8.2)
[2023-12-24 18:47] LABS: Specific Gravity 1.015 (1.005-1.030); Sqamous Epithelial <5 /HPF (None Seen); Urine Bacteria <20 /HPF (<20); Urine Bilirubin NEGATIVE (Negative); Urine Blood Negative (Negative); Urine Clarity Extremely Turbid (Clear); Urine Color Light-Yellow (Yellow); Urine Culture Reflex Order NOT NEEDED; Urine Glucose NEGATIVE (Negative); Urine Ketones NEGATIVE (Negative); Urine Microscopic Reflex YN ORDER UMIC; Urine Nitrite NEGATIVE (Negative); Urine Protein NEGATIVE (Negative); Urine RBC <5 /HPF (None Seen); Urine Urobilinogen Normal (Normal); Urine WBC <5 /HPF (<5)
--- NOTE | 2023-12-24 19:09 | EDPHYS ---
Physician Documentation [facility] Name: Jane Izaguirre Age: 43 yrs Sex: Female : 1980 Arrival Date: 12/24/2023 Time: 16:54 Bed 20 Private MD: ED Physician Mady Lopez HPI: 12/23 17:37 This 43 yrs old Female presents to ER via Ambulatory with complaints of sd2 Abdominal Pain, Vomiting. 17:37 43-year-old female presents with chief complaint of generalized abdominal pain and sd2 vomiting for the past week. She reports the vomiting just started yesterday but the abdominal pain has been intermittent for the past week. She denies any associated fevers, chest pain, shortness of breath. She does endorse associated diarrhea as well as dysuria that is mild. No recent travel or antibiotics. No known sick contacts. Reports that a friend of hers gave her some medication for pain (unsure of the name) that she took earlier today and after that she started vomiting and has not been able to keep anything down since then.. [employer]: 17:15 LMP N/A - , Not iw Historical: - Allergies: 17:15 No Known Allergies; iw - Home Meds: 17:15 levothyroxine 50 mcg capsule daily [Active]; iw - PMHx: 17:15 Hypothyroidism; iw - PSHx: 17:15 section; Cholecystectomy; iw - Immunization history:: Adult Immunizations. - Infectious Disease History:: Denies. - Social history:: Smoking status: Patient denies any tobacco usage or history of. ROS: 17:37 Constitutional: Negative for fever, chills, and weight loss, Eyes: Negative for injury, sd2 pain, redness, and discharge, Cardiovascular: Negative for chest pain, palpitations, and edema, Respiratory: Negative for shortness of breath, cough, wheezing. 17:37 MS/Extremity: Negative for injury and deformity, Skin: Negative for injury, rash, and discoloration, Neuro: Negative for headache, numbness and tingling. 17:37 Abdomen/GI: Positive for abdominal pain, nausea, vomiting, and diarrhea, Negative for 17:37 : Positive for urinary symptoms, Negative for hematuria, vaginal bleeding, vaginal discharge, Exam: 17:37 Constitutional: This is a well developed, well nourished patient who is awake, alert, sd2 and in no acute distress. Head/Face: Normocephalic, atraumatic. Eyes: EOMI, normal conjunctiva bilaterally Chest/axilla: Normal chest wall appearance and motion. Nontender with no deformity. Cardiovascular: Regular rate and rhythm with a normal S1 and S2. No gallops, murmurs, or rubs. 2+ distal pulses. Respiratory: Lungs have equal breath sounds bilaterally, clear to auscultation and percussion. No rales, rhonchi or wheezes noted. No increased work of breathing, no retractions or nasal flaring. Abdomen/GI: Soft, ND, mild tenderness to upper abdomen, no rebound or guarding Skin: Warm, dry with normal turgor. Normal color with no rashes, no lesions, and no evidence of cellulitis. MS/ Extremity: Pulses equal, no cyanosis. Neurovascular intact. Full, normal range of motion. Psych: Awake, alert, with orientation to person, place and time. Behavior, mood, and affect are within normal limits. Vital Signs: 17:09 BP 130 / 73; Pulse 68; Resp 18; Temp 98.8(O); Pulse Ox 97% on R/A; Weight 108.86 kg; iw Height 5 ft. 0 in. ; Pain 10/10; 17:09 Body Mass Index 46.87 (108.86 kg, 152.4 cm) iw 17:09 Pain Scale: Adult iw MDM: 17:27 Patient medically screened. sd2 17:37 Differential diagnosis: Gastritis, cholecystitis, pancreatitis, SBO, diverticulitis, sd2 kidney stone, appendicitis, UTI, dehydration, electrolyte abnormality among others. Data reviewed: vital signs, nurses notes, lab test result(s), EKG, radiologic studies. I considered the following discharge prescriptions or medication management in the emergency department Medications were administered in the Emergency Department. See MAR. Test considered but Not performed: CT: not indicated based upon abdominal exam and symptoms. 19:07 Counseling: I had a detailed discussion with the patient and/or guardian regarding the sd2 historical points, exam findings, and any diagnostic results supporting the discharge/admit diagnosis, lab results, the need for outpatient follow up, to return to the emergency department if symptoms worsen or persist or if there are any questions or concerns that arise at home. ED course: Labs reviewed. Grossly WNCL. Benign abdominal exam. Pt feeling improved and tolerating PO. No indication for CT at this time. Pt advised of continued supportive care and strict return precautions and verbalizes understanding.. 12/23 17:37 Order name: CBC with Diff; Complete Time: 18:46 sd2 12/23 17:37 Order name: CMP; Complete Time: 18:46 sd2 12/23 17:37 Order name: Lipase; Complete Time: 18:46 sd2 12/23 17:37 Order name: Urinalysis w/ reflexes; Complete Time: 19:02 sd2 12/23 17:37 Order name: Test, Urine; Complete Time: 18:46 sd2 Administered Medications: 17:51 Drug: NS 0.9% IV 1000 ml IV at 1 bolus Per protocol; 1000 mL bolus Route: IV; Rate: 1 nj1 bolus; Site: right forearm; 17:52 Drug: Ondansetron IVP 4 mg IVP once; over 2 minutes Route: IVP; Site: right forearm; nj1 18:52 Follow up: Response: No adverse reaction mb9 17:54 Drug: Ketorolac IVP 15 mg IVP once Route: IVP; Site: right forearm; nj1 18:52 Follow up: Response: No adverse reaction mb9 Disposition Summary: 12/24/23 19:09 Discharge Ordered Problem: new sd2 Symptoms: have improved sd2 Condition: Stable sd2 Diagnosis - Abdominal pain, Generalized sd2 - Nausea with vomiting, unspecified sd2 Followup: sd2 - With: Private Physician - When: 2 - 3 days - Reason: Recheck today's complaints, Continuance of care, Re-evaluation by your physician Discharge Instructions: - Discharge Summary Sheet sd2 - Abdominal Pain, Adult sd2 - Nausea and Vomiting, Adult sd2 Forms: - Medication Reconciliation Form sd2 - Antibiotic Education sd2 - Prescription Opioid Use sd2 - Patient Portal Instructions sd2 - Leadership Thank You Letter sd2 - Work release form bc6 Prescriptions: - ondansetron 4 mg Oral Tablet,disintegrating - take 1 tablet ORAL route every 6 hours As needed; 15 tablet; Refills: 0, sd2 Product Selection Permitted - dicyclomine 20 mg Oral tablet - take 1 tablet ORAL route every 6 hours As needed Take as needed for abdominal sd2 cramping; 15 tablet; Refills: 0, Product Selection Permitted Signatures: Dispatcher [employer] Fatoumata Florian, RN RN iw Mady Lopez MD MD sd2 Maranda Elizabeth RN RN nj1 Victoria Cason RN mb9 Corrections: (The following items were deleted from the chart) 17:37 17:37 Abdomen Limited+[id number] ordered. EDMS EDMS
--- NOTE | 2023-12-24 19:09 | ER ---
Nurse's Notes [facility] Name: Jane Izaguirre Age: 43 yrs Sex: Female : 1980 Arrival Date: 12/24/2023 Time: 16:54 Bed 20 Private MD: Diagnosis: Abdominal pain, Generalized;Nausea with vomiting, unspecified Presentation: 12/23 17:09 Chief complaint: Spouse and/or significant other states: abd pain , n/v/d X 1 week , no iw fever , she had chills today. Coronavirus screen: Client presents with at least one sign or symptom that may indicate coronavirus-19. Ebola Screen: Patient negative for fever greater than or equal to 101.5 degrees Fahrenheit, and additional compatible Ebola Virus Disease symptoms Patient denies exposure to infectious person. Patient denies travel to an Ebola-affected area in the 21 days before illness onset. No symptoms or risks identified at this time. Initial Sepsis Screen: Does the patient meet any 2 criteria? No. Patient's initial sepsis screen is negative. Does the patient have a suspected source of infection? No. Patient's initial sepsis screen is negative. Risk Assessment: Do you want to hurt yourself or someone else? Patient reports no desire to harm self or others. Onset of symptoms was December 18, 2023. 17:09 Method Of Arrival: Ambulatory iw 17:09 Acuity: JENISE 3 iw Triage Assessment: 19:30 General: Appears in no apparent distress. Behavior is calm, cooperative. 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 - Infectious Disease History:: Denies. - Social history:: Smoking status: Patient denies any tobacco usage or history of. Screenin:32 [facility] ED Fall Risk Assessment (Adult) History of falling in the last 3 months, mb9 including since admission No falls in past 3 months (0 pts) Confusion or Disorientation No (0 pts) Intoxicated or Sedated No (0 pts) Impaired Gait No (0 pts) Mobility Assist Device Used No (0 pt) Altered Elimination No (0 pt) Score/Fall Risk Level 0 - 2 = Low Risk Oriented to surroundings, Maintained a safe environment, Educated pt \T\ family on fall prevention, incl call for assistance when getting out of bed, Assessed \T\ reinforced patient's understanding of fall precautions, Provided non-skid footwear. Abuse screen: Denies threats or abuse. Nutritional screening: No deficits noted. Tuberculosis screening: No symptoms or risk factors identified. Assessment: 17:31 Pain: Complains of pain in abdomen. Neuro: Gallegos Agitation-Sedation Scale (RASS): 0 mb9 - Alert and Calm Level of Consciousness is awake, alert, obeys commands, Oriented to person, place, time, situation, Appropriate for age. Cardiovascular: Patient's skin is warm and dry. Respiratory: Airway is patent Respiratory effort is even, unlabored, Respiratory pattern is regular, symmetrical. GI: Abdomen is round non-distended, Bowel sounds present X 4 quads. Abd is soft Abdomen is tender to palpation X 4 quads. Reports nausea, vomiting. : Reports burning with urination. EENT: No signs and/or symptoms were reported regarding the EENT system. Derm: Skin is pink, warm \T\ dry. Musculoskeletal: Range of motion: intact in all extremities. Vital Signs: 17:09 BP 130 / 73; Pulse 68; Resp 18; Temp 98.8(O); Pulse Ox 97% on R/A; Weight 108.86 kg; iw Height 5 ft. 0 in. ; Pain 10/10; 17:09 Body Mass Index 46.87 (108.86 kg, 152.4 cm) iw 17:09 Pain Scale: Adult iw ED Course: 17:01 Patient arrived in ED. mg5 17:10 Mady Lopez MD is Attending Physician. sd2 17:12 Triage completed. iw 17:15 Arm band placed on. iw 17:25 Missed attempt(s): 22 gauge in right antecubital area. Bleeding controlled, band aid mb9 applied, catheter tip intact. 17:31 Victoria Cason RN is Primary Nurse. mb9 17:33 Placed in gown. Bed in low position. Call light in reach. Side rails up X 1. Provided mb9 Education on: press call light if needing anything. Client placed on continuous cardiac and pulse oximetry monitoring. NIBP monitoring applied. Door closed. Noise minimized. Warm blanket given. 17:33 No provider procedures requiring assistance completed. mb9 17:34 Missed attempt(s): 22 gauge in right forearm. Bleeding controlled, band aid applied, mb9 catheter tip intact. 17:40 Missed attempt(s): 22 gauge in right forearm. Bleeding controlled, band aid applied, nj1 catheter tip intact. 17:50 Inserted saline lock: 20 gauge in right forearm, using aseptic technique. Blood nj1 collected. Ultrasound guided. Catheter tip well visualized within vasculature during placement. 19:30 IV discontinued, intact, bleeding controlled, No redness/swelling at site. Pressure rv dressing applied. Administered Medications: 17:51 Drug: NS 0.9% IV 1000 ml IV at 1 bolus Per protocol; 1000 mL bolus Route: IV; Rate: 1 nj1 bolus; Site: right forearm; 17:52 Drug: Ondansetron IVP 4 mg IVP once; over 2 minutes Route: IVP; Site: right forearm; nj1 18:52 Follow up: Response: No adverse reaction mb9 17:54 Drug: Ketorolac IVP 15 mg IVP once Route: IVP; Site: right forearm; nj1 18:52 Follow up: Response: No adverse reaction mb9 Medication: 17:32 VIS not applicable for this client. mb9 Outcome: 19:09 Discharge ordered by . sd2 19:30 Discharged to home ambulatory, with family, rv 19:30 Condition: improved 19:30 Discharge instructions given to patient, Instructed on discharge instructions, follow up and referral plans. medication usage, Demonstrated understanding of instructions, follow-up care, medications, Prescriptions given X 2, 19:31 Patient left the ED. rv Signatures: Fatoumata Lopez, RN RN Moe White RN RN rv Dunlop, Stephanie, MD MD sd2 Breneman, Mary Beth, RN RN mb9 Maranda Elizabeth RN RN nj1 Ayde Olguin mg5
[2023-12-24 20:06] VITALS: BP 130/73; TEMP 98.8; O2SAT 97
== END 2023-12-24 19:31 | disposition home or self-care (01) ==
LOC: ER 16:54
DX: R10.84 Generalized abdominal pain (principal); R11.2 Nausea with vomiting, unspecified; E03.9 Hypothyroidism, unspecified
CPT/HCPCS: 85025; 81001; 36415; 81025; 83690; 80053; J2405; J7030; 96374; 96375; 99284

== ENCOUNTER 2024-04-13 16:47 | Emergency (ER) | payer OTHER ==
--- OUTSIDE RECORDS SUMMARY | 2024-04-13 16:51 | XMS REPORT | Continuity of Care Document ---
Author Name Unknown Address [address] [facility] [address] [place] [address] [facility] thconnect Address [address] [facility] 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 Role Phone Melanie Rosario Primary Care Physician BALAJI KWONG Attending Clinician Unavailable CARI WARREN Attending Clinician Unavailabl e LAB90 Attending Clinician Unavailable FAREED HOLBROOK Attending Clinician Unaboom ilEMILIANA Burleson Attending Clinician Unavailable Emiliana Scherer MD Attending Clinician ELIZ SEVILLA Attending Clinician Unavailable Eliz Rubio Attending Clinician [phone] Doctor Unassigned, Isabela Attending Clinician U EMILIANA Mcdaniel Admitting Clinician Unavailable ELIZ SEVILLA Admitting Clinician Unavailable Payers Payer Name Policy Type Policy Number Effective Date Expirati on Date Source RAQUEL LOPEZ [employer] 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 87 ON 9 [id number] 2024 00:00:00 Problems Condition Name Condition Details Condition [...] Sore throat Disease Active 2015-08 00:00: 00 [facility] Vaginal itching Vaginal itching Disease Active 2015-08 00:00: 00 [facility] Hypothyroi dism Hypothyroi dism Disease Active 02-11 00:00: 00 [facility] Screening for thyroid disorder Screening for thyroid disorder Disease Active 02-08 00:00: 00 [facility] Abnormal weight gain Abnormal weight gain Disease Active 02-08 00:00: 00 [facility] Contracept idris management Contracept idris management Disease Active 12-19 00:00: 00 [facility] Allergies, Adverse Reactions, Alerts Allergy Name Allergy Type Status Severity Reaction(s) Onset Date Inactive Date Treating Clinician Comments Source NO KNOWN ALLERGIE S Drug Class Active [facility] Social History Social Habit Start Date [...] (event) 2022-10-05 00:00:00 2022-10-15 21:56:00 Not sure [facility] Sex assigned at 1980 00:00:00 1980 00:00:00 Khushboo Pillai - External Smoking Status Start Date Stop Date Source Never smoked tobacco Khushboo Pillai - External Medications Ordered Medication Name Filled Medication Name Start Date Stop Date Current Medication? Ordering Clinician Indication Dosage Frequency Signature (SIG) Comments Components Source Topiramate 25 MG oral Tablet 425 00:00: 00 Yes [id number] 104 25mg Take 1 tablet (25 mg total) by mouth daily. Khushboo pat Levothyroxi ne Sodium 50 MCG oral Tablet 11-03 00:00: 00 Yes [id number] 50ug Take 1 tablet (50 mcg total) by mouth daily. Khushboo pat Levothyroxi ne Sodium 50 MCG oral Tablet 10-02 00:00: 00 11-03 00:00 :00 No 50ug Take 1 tablet (50 mcg total) by mouth daily. Khushboo pat iopamidol (ISOVUE 370-500 mL) injection 100 mL 10-16 08:00: 00 10-16 08:00 :00 No [id number] 100mL 100 mL, Intravenou s, ONCE, 1 dose, On Fri10/16/22 at 0200, [facility] (TYLENOL[facility] tablet 1,000 mg 10-16 06:30: 00 10-16 06:27 :00 No 1000mg 1,000 mg, Oral, ONCE, 1 dose, On Fri10/16/22 at 0030, [facility] FENTanyl PF (SUBLIMAZE (PF)) injection 25 mcg 10-16 04:30: 00 10-16 04:25 :00 No 25ug 25 mcg, Slow IV Push, ONCE, 1 dose, On Fri10/15/22 at 2230, [facility] diphenhydrA MINE (BENADRYL) injection 12.5 mg 10-16 04:30: 00 10-16 04:26 :00 No 12.5mg 12.5 mg, Slow IV Push, ONCE, 1 dose, On Fri10/15/22 at 2230, [facility] metoclopram bridget HCl (REGLAN) injection 10 mg 10-16 04:30: 00 10-16 04:26 :00 No 10mg 10 mg, Slow IV Push, ONCE, 1 dose, On Fri10/15/22 at 2230, [facility] traMADoL (ULTRAM) 50 mg tablet 10-16 00:00: 00 Yes [id number] 50mg Take 1 tablet by mouth every 6 (six) hours as needed for Pain (scale 7-10). Indication s: acute pain [facility] TAKE 1 TABLET DAILY. 2021-08 00:00: 00 No NaCl 0.9% (NS) bolus infusion 1,000 mL 2021-08 20:15: 00 06-16 21:07 :00 No 1000mL at 999 mL/hr, 1,000 mL, IV Infusion, ONCE, 1 dose, On Fri06/16/22 at 1515, [facility] diphenhydrA MINE (BENADRYL) tablet 25 mg 2021-08 19:45: 00 06-16 19:51 :00 No 25mg 25 mg, Oral, ONCE, 1 dose, On 10/23/22 at 1445, TAMMY [facility] metoclopram bridget HCl (REGLAN) injection 10 mg 2021-08 19:45: 00 06-16 19:51 :00 No 10mg 10 mg, Slow IV Push, ONCE, 1 dose, On 06/16/22 at 1445, TAMMY [facility] ketorolac (TORADOL) injection 30 mg 2021-08 19:45: 00 06-16 19:51 :00 No 30mg 30 mg, Slow IV Push, ONCE, 1 dose, On 06/16/22 at 1445, Routine [facility] butalbital- acetaminoph en-caff 50-325-40 mg tablet 2021-08 00:00: 00 Yes [id number] 1{tbl} Take 1 tablet by mouth every 6 (six) hours as needed for Pain (scale 7-10). [facility] Dose Unknown 12-17 00:00: 00 No Dose Unknown 12-17 00:00: 00 No Dose Unknown 2020-08 00:00: 00 No Dose Unknown 2020-08 00:00: 00 No meclizine 25 mg tablet 01-07 00:00: 00 Yes [id number] 25mg Take 1 tablet by mouth every 6 (six) hours as needed for Dizziness. [facility] phenazopyri dine 200 mg tablet 02-17 00:00: 00 Yes 200mg Take 1 tablet by mouth 3 (three) times daily after meals. [facility] levothyroxi ne (SYNTHROID) 50 mcg tablet 2015-08 00:00: 00 Yes [id number] 50ug Take 1 tablet by mouth every morning. [facility] naproxen sodium (ANAPROX) 550 mg tablet 12-18 00:00: 00 Yes 550mg Take 1 tablet by mouth 2 (two) times daily with meals. [facility] levofloxaci n (LEVAQUIN) 500 mg tablet 12-18 00:00: 00 Yes 500mg Take 1 tablet by mouth every 24 (twenty-fo ur) hours. [facility] Immunizations Ordered Immunization Name Filled Immunization Name Date Status Comments Source Moderna COVID-19 Vaccine 2021-03-02 00:00:00 Completed Moderna COVID-19 Vaccine 2021-03-02 00:00:00 Completed Moderna COVID-19 Vaccine 2021-01-26 00:00:00 Completed Moderna COVID-19 Vaccine 2021-01-26 00:00:00 Completed Varicella (varivax)(chicken pox) 2012-08-05 00:00:00 Completed [facility] Varicella (varivax)(chicken pox) 2012-08-05 00:00:00 Completed [facility] Varicella (varivax)(chicken pox) 2012-08-05 00:00:00 Completed [facility] TDAP 2011-08-25 00:00:00 Completed [facility] TDAP 2011-08-25 00:00:00 Completed [facility] TDAP 2011-08-25 00:00:00 Completed [facility] Covid-19 Vaccine Moderna (Spikevax), Mrna-lnp, Stanford Protein, Pf Unknown Completed Khushboo Pillai - External Covid-19 Vaccine Moderna (Spikevax), Mrna-lnp, [employer] Protein, Pf Unknown Completed Khushboo Pillai - External Varicella Vaccine Unknown Completed Mars Bravoold - External Tdap- (Boostrix, Adacel) Unknown Completed Khushboo Pillai - External Covid-19 Vaccine Moderna (Spikevax), Mrna-lnp, Stanford Protein, Pf Unknown Completed Khushboo Bravoold - External Covid-19 Vaccine Moderna (Spikevax), Mrna-lnp, Stanford Protein, Pf Unknown Completed Khushboo Pillai - External Varicella Vaccine Unknown Completed Mars kovacsey Seybold - External Tdap- (Boostrix, Adacel) Unknown Completed Khushboo Pillai - External Vital Signs Vital Name Observation Time Observation Value Comments S ource Systolic blood pressure 2023-12-18 21:05:00 119 mm[Hg] Khushboo vaughn - External Diastolic blood pressure 2023-12-18 21:05:00 [...] blood pressure 2023-11-04 21:11:00 116 mm[Hg] Khushboo Reneeybo ld - External Diastolic blood pressure 2023-11-04 [...] Systolic blood pressure 2022-10-16 07:00:00 106 mm[Hg] [facility] Diastolic blood pressure 2022-10-16 07:00:00 88 mm[Hg] [facility] Heart rate 2022-10-16 07:00:00 93 /min [facility] Oxygen saturation in Arterial blood by Pulse oximetry 2022-10-16 07:00:00 96 /min [facility] Respiratory rate 2022-10-16 06:25:00 27 /min [facility] Body temperature 2022-10-16 06:25:00 38.94 Lynsey [facility] Body height 2022-10-16 03:51:00 152.4 cm [facility] Body weight 2022-10-16 03:51:00 111.585 kg [facility] BMI 2022-10-16 03:51:00 48.04 kg/m2 [facility] Systolic blood pressure 2022-06-16 21:00:00 116 mm[Hg] [facility] Diastolic blood pressure 2022-06-16 21:00:00 76 mm[Hg] [facility] Heart rate 2022-06-16 21:00:00 61 /min [facility] Respiratory rate 2022-06-16 21:00:00 18 /min [facility] Oxygen saturation in Arterial blood by Pulse oximetry 2022-06-16 21:00:00 97 /min [facility] Body temperature 2022-06-16 17:24:00 37.06 Lynsey [facility] Body height 2022-06-16 17:24:00 152.4 cm [facility] Body weight 2022-06-16 17:24:00 106.595 kg [facility] BMI 2022-06-16 17:24:00 45.90 kg/m2 [facility] BP Systolic 2022-08-06 14:42:00 123 mm[Hg] [...] Source TROPONIN I 2022-10-16 06:30:[address] [facility] XR CHEST 1 VW 2022-10-16 04:33:53 Emiliana Scherer [facility] D-DIMER 2022-10-16 04:26:[address] [facility] URINALYSIS 2022-10-16 04:26:[address] [facility] POCT TEST 2022-10-16 04:07:00 Emiliana Scherer [facility] LIPASE 2022-10-16 03:58:[address] [facility] TROPONIN I 2022-10-16 03:58:[address] [facility] COMP. METABOLIC PANEL (51825) 2022-10-16 03:58:00 Emiliana Scherer [facility] CBC WITH DIFF 2022-10-16 03:58:00 Emiliana Scherer [facility] RAPID INFLUENZA A/B 2022-10-16 03:58:00 Emiliana Scherer [facility] COVID-19 (ID NOW RAPID TESTING) 2022-10-16 03:58:00 Emiliana Scherer [facility] NOTICE OF PRIVACY PRACTICES 2022-10-16 03:42:26 Doctor Unassigned, Isabela [facility] CONSENT/REFUSAL FOR DIAGNOSIS AND TREATMENT 2022-10-16 03:41:57 Doctor Unassigned, Isabela [facility] COMP. METABOLIC PANEL (76075) 2022-06-16 19:50:00 Eliz Sevilla [facility] CT HEAD WO CONTRAST 2022-06-16 18:28:00 Cheryl Sevilla [facility] CBC WITH DIFF 2022-06-16 18:09:00 Eliz Sevilla [facility] URINALYSIS 2022-06-16 18:09:00 Eliz Sevilla [facility] ASSIGNMENT OF BENEFITS 2022-06-16 17:57:56 Docto r Unassigned, Isabela [facility] CONSENT/REFUSAL FOR DIAGNOSIS AND TREATMENT 2022-06-16 17:20:01 Doctor Unassigned, Isabela [facility] Plan of Care Planned Activity Planned Date Details Comments Source Goal Plan of Care Note [code = 64500-0] Goal Plan of Care Note [code = 15826-9] Goal Plan of Care Note [code = 95280-3] Goal Plan of Care Note [code = 92025-9] Goal Plan of Care Note [code = 36097-9] Goal Plan of Care Note [code = 22757-4] Goal Plan of Care Note [code = 52336-5] Goal Plan of Care Note [code = 37848-5] Goal Plan of Care Note [code = 64265-6] Goal Plan of Care Note [code = 45840-1] Goal Plan of Care Note [code = 45433-0] Goal Plan of Care Note [code = 95384-3] Goal Plan of Care Note [code = 59674-9] Goal Plan of Care Note [code = 47890-3] Goal Plan of Care Note [code = 96224-7] Goal Plan of Care Note [code = 05539-4] Goal Plan of Care Note [code = 58540-5] Goal Plan of Care Note [code = 89701-5] Goal Plan of Care Note [code = 84190-7] Goal Plan of Care Note [code = 95894-8] Goal Plan of Care Note [code = 89230-6] Goal Plan of Care Note [code = 38385-8] Goal Plan of Care Note [code = 51291-2] Goal Plan of Care Note [code = 06741-4] Goal Plan of Care Note [code = 15640-8] Goal Plan of Care Note [code = 04158-1] Goal Plan of Care Note [code = 25908-7] Goal Plan of Care Note [code = 56752-8] Goal Plan of Care Note [code = 83636-6] Goal Plan of Care Note [code = 45676-2] Encounters Start Date/Time End Date/Time Encounter Type Ad[facility] Encounter ID Source 2024-03-28 00:00:00 2024-03-28 00:00:00 Outpatient PREZASBALAJI [id number] Khushboo [facility] 2024-03-18 16:00:00 2024-03-18 16:00:00 Outpatient PREZASBALAJI [id number] [facility] 2024-01-15 16:00:00 2024-01-15 16:00:00 Outpatient CARI WARREN [id number] [facility] 2023-12-18 16:00:00 2023-12-18 16:00:00 Outpatient PREZAS, BALAJI MURPHY [id number] [facility] 2023-11-21 00:00:00 2023-11-21 00:00:00 Outpatient PREZASBALAJI [id number] Khushboo [facility] 2023-11-10 00:00:00 2023-11-10 00:00:00 Outpatient PREZASBALAJI [id number] Kh[facility]o [facility] 2023-11-10 00:00:00 2023-11-10 00:00:00 Outpatient PREZASBALAJI [id number] Khushboo [facility] 2023-11-05 09:10:00 2023-11-05 09:10:00 Outpatient LAB KHUSHBOO MURPHY [id number] [facility] 2023-11-04 16:15:00 2023-11-04 16:15:00 Outpatient BALAJI KWONG KHUSHBOO MURPHY [id number] Khushboo [facility] 2023-10-20 10:15:00 2023-10-20 10:15:00 Outpatient YUSEFFAREED KHUSHBOO MURPHY [id number] [facility] 2023-10-20 00:00:00 2023-10-20 00:00:00 Outpatient BALAJI KWNOG KHUSHBOO MURPHY [id number] Khushboo [facility] 2023-10-02 17:47:46 2023-10-02 17:47:46 Outpatient SFA SFA [id number] Deni Ospina 2023-10-02 10:00:00 2023-10-02 10:00:00 Outpatient YUSEF FAREED MURPHY [id number] [facility] 2023-10-02 00:00:00 2023-10-02 00:00:00 Outpatient FAREED HOLBROOK [id number] [facility] 2023-04-04 17:29:23 2023-04-04 17:29:23 Outpatient SFA SFA [id number] Deni Ospina 2022-10-15 21:44:00 2022-10-16 02:14:00 Emergency X [facility] ERT [id number] [facility] 2022-10-15 21:44:00 2022-10-16 02:14:00 Emergency Sergei Scherermirian Hernandez [facility] [id number] [id number] [facility] 2022-09-16 13:48:54 2022-09-16 13:48:54 Outpatient SFA SFA [id number] Deni Ospina 2022-08-06 14:32:16 2022-08-06 14:32:16 Outpatient SFA SFA [id number] Deni Ospina 2022-08-06 00:00:00 2022-08-06 00:00:00 Outpatient Visit [id number] 2022-07-26 08:02:44 2022-07-26 08:02:44 Outpatient [facility] [id number] Deni Ospina 2022-07-25 11:42:15 2022-07-25 11:42:15 Outpatient [facility] [id number] Deni Ospina 2022-07-25 00:00:00 2022-07-25 00:00:00 Outpatient Visit [id number] 2022-06-16 12:26:00 2022-06-16 16:15:00 [facility] [id number] 2022-06-16 12:26:00 2022-06-16 16:15:00 Emergency SevillaEliz [facility] [id number] [id number] 4.2.7.2.686 [id number] [facility] 2022-06-16 00:00:00 2022-06-16 00:00:00 Orders Only Doctor Unassigned, Isabela [facility] [id number] [id number] [id number] [facility] Results Test Description Test Time Test Comments Results Result Co mments Source [facility]-[id number] 04:50:17* Test Item Value Reference Range Interpretation Comments D-DIMER (test code = 4968599052) 0.73 See_Comment H [Automated message] The system [...] a diagnosis. Lab Interpretation (test code = 12797-9) Abnormal [facility] [id number] 04:39:55* Test Item Value Reference Range Interpretation Comme nts TROPONIN I (test code = 6500057819) 0.003 ng/mL <=0.034 GEORGETTE (test code = [...] of biotin. Lab Interpretation (test code = 61078-7) Normal [facility] MET[facility]OLIC PANEL (45271)2022-10-16 04:28:17* Test Item Value Reference Range Interpretation Comme nts NA (test code = 3740790490) 137 mmol/L 135-145 K (test code = 7557930353) 4.2 mmol/L 3.5-5.0 CL (test code = 9364235845) 105 mmol/L 98-108 CO2 TOTAL (test code = 8836887352) 24 mmol/L 23-31 AGAP (test code = 4574829822) 8 2-16 BUN (test code = 2587700702) 12 mg/dL 7-23 GLUCOSE (test code = 2065149351) 115 mg/dL 70-110 H CREATININE (test code = 7502261250) 0.62 mg/dL 0.50-1.04 TOTAL BILI (test code = 4547318111) 0.7 mg/dL 0.1-1.1 CALCIUM (test code = 5712925311) 8.7 mg/dL 8.6-10.6 T PROTEIN (test code = 9107839524) 7.7 g/dL 6.3-8.2 ALBUMIN (test code = 3261619812) 4.5 g/dL 3.5-5.0 ALK PHOS (test code = 7895359049) 78 U/L 34-122 ALTv (test code = 1742-6) 27 U/L 5-35 AST(SGOT) (test code = 9750304386) 29 U/L 13-40 eGFR (test code = 5720148813) 105.6 mL/min/1.73m2 GEORGETTE (test code = GEORGETTE) [...] imaging tests). Lab Interpretation (test code = 28484-3) Abnormal [facility], [id number] 04:28:17* Test Item Value Reference Range Interpretation Comme nts LIPASE (test code = 5542379296) 69 U/L 0-220 Lab Interpretation (test cod e = 61905-9) Normal [facility] CenterCB WITH [id number] 04:17:33* Test Item Value Reference Range Interpretation Comme nts WBC (test code = 6690-2) 11.78 See_Comment H [Automated [employer]] The system which generated this result transmitted reference range: 4.30 - 11.10 10*3/?L. The reference range was not used to interpret this result as normal/abnormal. RBC (test code = 789-8) 4.55 See_Comment [Automated [employer]] The system which generated this result transmitted [...] 34.1 g/dL 31.6-35.1 RDW-SD (test code = 10535-3) 38.2 fL 39.0-49.9 L RDW-CV (test code = 788-0) 12.3 % 12.0-15.5 PLT (test code = 777-3) 253 See_Comment [Automated [employer]] The system which generated this result transmitted reference range: 166 - 358 10*3/?L. The reference range was not used to interpret this result as normal/abnormal. MPV (test code = 48769-7) 9.2 fL 9.5-12.9 L NRBC/100 WBC (test code = 2169680314) 0.0 See_Comment [Automated me ssage] The system which generated this result transmitted reference range: 0.0 - 10.0 /100 WBCs. The reference range was not used to interpret this result as normal/abnormal. NRBC x10^3 (test code = 9976208582) See_Comment [Automated messa ge] The system which generated this result transmitted reference range: 10*3/?L. The reference range was not used to interpret this result as normal/abnormal. GRAN MAT (NEUT) % (test code = 770-8) 77.1 % IMM GRAN % (test code = 1313654459) 0.60 % LYMPH % (test code = 736-9) 15.4 % MONO % (test code = 5905-5) 6.2 % EOS % (test code = 713-8) 0.4 % BASO % (test code = 706-2) 0.3 % GRAN MAT x10^3(ANC) (test code = 4369985033) 9.08 10*3/uL 1.88-7.09 H IMM GRAN x10^3 (test code = 2159802562) 0.07 10*3/uL 0.00-0.06 H LYMPH x10^3 (test code = 731-0) 1.82 10*3/uL 1.32-3.29 MONO x10^3 (test code = 742-7) 0.73 10*3/uL 0.33-0.92 EOS x10^3 (test code = 711-2) 0.05 10*3/uL 0.03-0.39 BASO x10^3 (test code = 704-7) 0.03 10*3/uL 0.01-0.07 Lab Interpretation (test code = 78225-5) Abnormal [facility] [id number] 04:07:00* Test Item Value Reference Range Interpretation Comme nts POCT PREG (test code = 1605) Negative On board controls acceptable with C Line (test code = 3574) Positive POCT PREG LOT # (test code = 3575) [id number] POCT PREG TEST DATE ( test code = 3576) 11/23/2023 Lab Interpretation (test cod e = 79926-0) Normal [facility], THIRD [id number] 05:49:05* Test Item Value Reference Range Interpretation Comme nts TSH, THIRD GENERATION (test code = 2821) 2.500 UIU/ML 0.400-4.100 LIPID [id number] 03:31:11* Test Item Value Reference Range Interpretation Comme nts CHOLESTEROL (test code = 2210) 188 MG/DL <200 TRIGLYCERIDES (test code = 2232) 282 MG/DL <150 H HDL CHOLESTEROL (test code = 2220) 31 MG/DL >39 L CALC LDL CHOL (test code = 2237) 117 MG/DL <100 H NOTE: CALCULATED LDL IS BASED ON SRINIVASAN-CABRAL METHOD WHICHINCLUDES ADJUSTABLE TRIGLYCERIDE:VLDL CHOLESTEROL RATIO.THIS FACTOR VARIES BY MEASURED TRIGLYCERIDE AND NON-HDLCHOLESTEROL CONCENTRATIONS WITH INCREASED CALCULATED LDL SEENIN HIGHER TRIGLYCERIDE OR LOWER NON-HDL SPECIMENS. FOR MOREINFORMATION, SEE CLIENT ANNOUNCEMENT AT [email or web address] RISK RATIO LDL/HDL (test code = 2238) 3.77 RATIO <3.22 H COMPREHENSIVE METABOLIC [id number] 03:31:11* Test Item Value Reference Range Interpretation Comme nts GLUCOSE (test code = 2217) 99 MG/DL 70-99 BUN (test code = 2208) 14 MG/DL 6-20 CREATININE (test code = 2214) 0.74 MG/DL 0.60-1.30 eGFR (2020 CKD-EPI) (test code = 49254) 104 ML/MIN/1.73 >60 CALC BUN/CREAT (test code = 2235) 19 RATIO 6-28 SODIUM (test code = 223) 141 MEQ/L 133-146 POTASSIUM (test code = 2228) 4.0 MEQ/L 3.5-5.4 CHLORIDE (test code = 2215) 104 MEQ/L 95-107 CARBON DIOXIDE (test code = 2206) 26 MEQ/L 19-31 CALCIUM (test code = 2209) 9.5 MG/DL 8.5-10.5 PROTEIN, TOTAL (test code = 222) 7.0 G/DL 6.1-8.3 ALBUMIN (test code = 220) 4.5 G/DL 3.5-5.2 CALC GLOBULIN (test code = 224) 2.5 G/DL 1.9-3.7 CALC A/G RATIO (test code = 2234) 1.8 RATIO 1.0-2.6 BILIRUBIN, TOTAL (test code = 2207) 0.3 MG/DL See_Comment [Automated me ssage] The system which generated this result transmitted reference range: <=1.2. The reference range was not used to interpret this result as normal/abnormal. ALKALINE PHOSPHATASE (test code = 2204) 91 U/L 40-113 AST (test code = 2218) 21 U/L 9-40 ALT (test code = 2219) 26 U/L 5-40 HEMOGLOBIN [id number] 03:01:44* Test Item Value Reference Range Interpretation Comme nts HEMOGLOBIN A1c (test code = 17600) 5.9 % 4.2-5.6 H UNLESS OTHERWISE INDICATED, ALL TESTING PERFORMED [facility] [employer] [address] [place] [address] DROP SHIPMENT CLERK: MOLLY DAHL M.D. CLIA NUMBER [id number] [facility] [place]. [id number] CBC W/AUTO [id number] 00:00:00* Test Item Value Reference Range Interpretation [...] ABS NUCLEATED RBCS (test cod e = 34046) 0.00 K/UL CBC W/AUTO [id number] 00:00:00* Test Item Value Reference Range Interpretation [...] ABS NUCLEATED RBCS (test cod e = 18006) 0.00 K/UL CBC W/AUTO [id number] 00:00:00* Test Item Value Reference Range Interpretation [...] ABS NUCLEATED RBCS (test cod e = 95038) 0.00 K/UL TSH, THIRD [id number] 00:00:00* Test Item Value Reference Range Interpretation Comme nts TSH, THIRD GENERATION (test code = 2821) 4.590 UIU/ML TSH, THIRD [id number] 00:00:00* Test Item Value Reference Range Interpretation Comme nts TSH, THIRD GENERATION (test code = 2821) 4.590 UIU/ML TSH, THIRD [id number] 00:00:00* Test Item Value Reference Range Interpretation Comme nts TSH, THIRD GENERATION (test code = 2821) 4.590 UIU/ML LIPID [id number] 00:00:00* Test Item Value Reference Range Interpretation Comme nts CHOLESTEROL (test code = 2210) 188 MG/DL TRIGLYCERIDES (test code = 2232) 112 MG/DL HDL CHOLESTEROL (test code = 2220) 30 MG/DL CALC LDL CHOL (test code = 2237) 136 MG/DL RISK RATIO LDL/HDL (test cod e = 2238) 4.53 RATIO LIPID [id number] 00:00:00* Test Item Value Reference Range Interpretation Comme nts CHOLESTEROL (test code = 2210) 188 MG/DL TRIGLYCERIDES (test code = 2232) 112 MG/DL HDL CHOLESTEROL (test code = 2220) 30 MG/DL CALC LDL CHOL (test code = 2237) 136 MG/DL RISK RATIO LDL/HDL (test cod e = 2238) 4.53 RATIO CBC WITH [id number] 19:07:54* Test Item Value Reference Range Interpretation Comme nts WBC (test code = 6690-2) See_Comment [Automated Jolic[employer]oud] The system which generated this result transmitted reference range: 4.30 - 11.10 10*3/?L. The reference range was not used to interpret this result as normal/abnormal. RBC (test code = 789-8) See_Comment [Automated Jolic[employer]oud] The system which generated this result transmitted [...] 35.0 g/dL 31.6-35.1 RDW-SD (test code = 00035-4) 37.8 fL 39-49.9 L RDW-CV (test code = 788-0) 12.4 % 12-15.5 PLT (test code = 777-3) See_Comment [Automated Jolic[employer]oud] The system which generated this result transmitted reference range: 166 - 358 10*3/?L. The reference range was not used to interpret this result as normal/abnormal. MPV (test code = 60092-3) 10.2 fL 9.5-12.9 IPF % (test code = 1372387243) 1.5 % 1.3-7.7 Platelet count measured by fluorescence method. NRBC/100 WBC (test code = 8902167880) See_Comment [Automated me ssage] The system which generated this result transmitted reference range: 0.0 - 10.0 /100 WBCs. The reference range was not used to interpret this result as normal/abnormal. NRBC x10^3 (test code = 7916243894) See_Comment [Automated messa ge] The system which generated this result transmitted reference range: 10*3/?L. The reference range was not used to interpret this result as normal/abnormal. GRAN MAT (NEUT) % (test code = 770-8) 57.1 % IMM GRAN % (test code = 3509433440) 0.40 % LYMPH % (test code = 736-9) 34.9 % MONO % (test code = 5905-5) 5.4 % EOS % (test code = 713-8) 1.9 % BASO % (test code = 706-2) 0.3 % GRAN MAT x10^3(ANC) (test code = 1137667575) 5.36 10*3/uL 1.88-7.09 IMM GRAN x10^3 (test code = 0647538482) 0.04 10*3/uL 0-0.06 LYMPH x10^3 (test code = 731-0) 3.28 10*3/uL 1.32-3.29 MONO x10^3 (test code = 742-7) 0.51 10*3/uL 0.33-0.92 EOS x10^3 (test code = 711-2) 0.18 10*3/uL 0.03-0.39 BASO x10^3 (test code = 704-7) 0.03 10*3/uL 0.01-0.07 Lab Interpretation (test code = 34474-8) [facility]/[id number] 18:36:33* Test Item Value Reference Range Interpretation Comments SARS-CoV-2 INTERPRETATION (test code = 22221) NEGATIVE SEE NOTE SARS-CoV-2 R NA NOT [...] prevalence is high. SOURCE (test code = 70171) NASOPHARYNGEAL Note: Methodolog y is Bj Emily Real-Time RT-PCR. The expected result or reference range is NEGATIVE (Not Detected). For more information regarding COVID-19 testing to include clinicalinformation, methodology detail, intended use, FDA authorization andrecommended fact sheets for patients or healthcare providers, see [employer]ot Announcement: SARS-CoV-2 (COVID-19) by NAAT at URL below (note,fact sheets are provided by method given in report:[email or web address] Alternatively, see downloadable PDF fact sheet at:[email or web address] UNLESS OTHERWISE INDICATED, ALL TESTING PERFORMED [facility] [address] [place] [address] DROP SHIPMENT CLERK: MOLLY DAHL M.D. [place] NUMBER [id number] [facility] [place]. [id number] SARS-CoV-2 (COVID-19) by RT-PCR (HIGH RISK)2021-09-06 00:00:00* Test Item Value Reference Range Interpretation Comme nts SARS-CoV-2 INTERPRETATION (test code = 85050) NEGATIVE SOURCE (test code = 21779) NASOPHARYNGEAL SARS-CoV-2 (COVID-19) by RT-PCR (HIGH RISK)2021-09-06 00:00:00* Test Item Value Reference Range Interpretation Comme nts SARS-CoV-2 INTERPRETATION (test code = 20674) NEGATIVE SOURCE (test code = 53417) NASOPHARYNGEAL SARS-CoV-2 (COVID-19) by RT-PCR (HIGH RISK)2021-09-06 00:00:00* Test Item Value Reference Range Interpretation Comme nts SARS-CoV-2 INTERPRETATION (test code = 70006) NEGATIVE SOURCE (test code = 91681) NASOPHARYNGEAL SARS-CoV-2 (COVID-19) by RT-PCR (HIGH RISK)2021-09-06 00:00:00* Test Item Value Reference Range Interpretation Comme nts SARS-CoV-2 INTERPRETATION (test code = 52749) NEGATIVE SOURCE (test code = 59050) NASOPHARYNGEAL CBC W/AUTO [id number] 00:00:00* Test Item Value Reference Range Interpretation [...] ABS NUCLEATED RBCS (test cod e = 07133) 0.00 K/UL CBC W/AUTO [id number] 00:00:00* Test Item Value Reference Range Interpretation [...] ABS NUCLEATED RBCS (test cod e = 63293) 0.00 K/UL CBC W/AUTO [id number] 00:00:00* Test Item Value Reference Range Interpretation [...] ABS NUCLEATED RBCS (test cod e = 82080) 0.00 K/UL LIPID [id number] 00:00:00* Test Item Value Reference Range Interpretation Comme nts CHOLESTEROL (test code = 2210) 211 MG/DL TRIGLYCERIDES (test code = 2232) 159 MG/DL HDL CHOLESTEROL (test code = 2220) 35 MG/DL CALC LDL CHOL (test code = 2237) 147 MG/DL RISK RATIO LDL/HDL (test cod e = 2238) 4.20 RATIO LIPID [id number] 00:00:00* Test Item Value Reference Range Interpretation Comme nts CHOLESTEROL (test code = 2210) 211 MG/DL TRIGLYCERIDES (test code = 2232) 159 MG/DL HDL CHOLESTEROL (test code = 2220) 35 MG/DL CALC LDL CHOL (test code = 2237) 147 MG/DL RISK RATIO LDL/HDL (test cod e = 2238) 4.20 RATIO COMPREHENSIVE METABOLIC [id number] 00:00:00* Test Item Value Reference Range Interpretation Comme nts GLUCOSE (test code = 2217) 95 MG/DL BUN (test code = 2208) 15 MG/DL CREATININE (test code = 2214) 0.79 MG/DL eGFR AMER. (test cod e = 51228) 108 ML/MIN/1.73 eGFR NON- AMER. (test code = 50900) 93 ML/MIN/1.73 CALC BUN/CREAT (test code = [...] code = 2219) 19 U/L COMPREHENSIVE METABOLIC [id number] 00:00:00* Test Item Value Reference Range Interpretation Comme nts GLUCOSE (test code = 2217) 95 MG/DL BUN (test code = 2208) 15 MG/DL CREATININE (test code = 2214) 0.79 MG/DL eGFR AMER. (test cod e = 76962) 108 ML/MIN/1.73 eGFR NON- AMER. (test code = 87346) 93 ML/MIN/1.73 CALC BUN/CREAT (test code = [...] ALT (test code = 2219) 19 U/L [id number] 00:00:00* Test Item Value Reference Range Interpretation Comme nts TSH, THIRD GENERATION (test code = 2821) 3.630 UIU/ML [id number] 00:00:00* Test Item Value Reference Range Interpretation Comme nts TSH, THIRD GENERATION (test code = 2821) 3.630 UIU/ML [id number] 00:00:00* Test Item Value Reference Range Interpretation Comme nts TSH, THIRD GENERATION (test code = 2821) 3.630 UIU/ML CBC W/AUTO [id number] 00:00:00* Test Item Value Reference Range Interpretation [...] ABS NUCLEATED RBCS (test cod e = 75608) 0.00 K/UL CBC W/AUTO [id number] 00:00:00* Test Item Value Reference Range Interpretation [...] ABS NUCLEATED RBCS (test cod e = 95784) 0.00 K/UL CBC W/AUTO [id number] 00:00:00* Test Item Value Reference Range Interpretation [...] ABS NUCLEATED RBCS (test cod e = 33831) 0.00 K/UL LIPID [id number] 00:00:00* Test Item Value Reference Range Interpretation Comme nts CHOLESTEROL (test code = 2210) 211 MG/DL TRIGLYCERIDES (test code = 2232) 159 MG/DL HDL CHOLESTEROL (test code = 2220) 35 MG/DL CALC LDL CHOL (test code = 2237) 147 MG/DL RISK RATIO LDL/HDL (test cod e = 2238) 4.20 RATIO LIPID [id number] 00:00:00* Test Item Value Reference Range Interpretation Comme nts CHOLESTEROL (test code = 2210) 211 MG/DL TRIGLYCERIDES (test code = 2232) 159 MG/DL HDL CHOLESTEROL (test code = 2220) 35 MG/DL CALC LDL CHOL (test code = 2237) 147 MG/DL RISK RATIO LDL/HDL (test cod e = 2238) 4.20 RATIO COMPREHENSIVE METABOLIC [id number] 00:00:00* Test Item Value Reference Range Interpretation Comme nts GLUCOSE (test code = 2217) 95 MG/DL BUN (test code = 2208) 15 MG/DL CREATININE (test code = 2214) 0.79 MG/DL eGFR AMER. (test cod e = 07660) 108 ML/MIN/1.73 eGFR NON- AMER. (test code = 94839) 93 ML/MIN/1.73 CALC BUN/CREAT (test code = [...] code = 2219) 19 U/L COMPREHENSIVE METABOLIC [id number] 00:00:00* Test Item Value Reference Range Interpretation Comme nts GLUCOSE (test code = 2217) 95 MG/DL BUN (test code = 2208) 15 MG/DL CREATININE (test code = 2214) 0.79 MG/DL eGFR AMER. (test cod e = 60011) 108 ML/MIN/1.73 eGFR NON- AMER. (test code = 00205) 93 ML/MIN/1.73 CALC BUN/CREAT (test code = [...] ALT (test code = 2219) 19 U/L [id number] 00:00:00* Test Item Value Reference Range Interpretation Comme nts TSH, THIRD GENERATION (test code = 2821) 3.630 UIU/ML [id number] 00:00:00* Test Item Value Reference Range Interpretation Comme nts TSH, THIRD GENERATION (test code = 2821) 3.630 UIU/ML [id number] 00:00:00* Test Item Value Reference Range Interpretation Comme nts TSH, THIRD GENERATION (test code = 2821) 3.630 UIU/ML SARS-CoV-2 (COVID-19) by RT-PCR (HIGH RISK)2020-07-20 00:00:00* Test Item Value Reference Range Interpretation Comme nts SARS-CoV-2 INTERPRETATION (t est code = 41879) NEGATIVE SOURCE (test code = 00316) NOT SPECIFIED SARS-CoV-2 (COVID-19) by RT-PCR (HIGH RISK)2020-07-20 00:00:00* Test Item Value Reference Range Interpretation Comme nts SARS-CoV-2 INTERPRETATION (t est code = 42314) NEGATIVE SOURCE (test code = 54997) NOT SPECIFIED SARS-CoV-2 (COVID-19) by RT-PCR (HIGH RISK)2020-07-20 00:00:00* Test Item Value Reference Range Interpretation Comme nts SARS-CoV-2 INTERPRETATION (t est code = 68442) NEGATIVE SOURCE (test code = 43221) NOT SPECIFIED SARS-CoV-2 (COVID-19) by RT-PCR (HIGH RISK)2020-07-20 00:00:00* Test Item Value Reference Range Interpretation Comme nts SARS-CoV-2 INTERPRETATION (t est code = 84299) NEGATIVE SOURCE (test code = 97463) NOT SPECIFIED SARS-CoV-2 (COVID-19) by RT-PCR (HIGH RISK)2020-07-05 00:00:00* Test Item Value Reference Range Interpretation Comme nts SARS-CoV-2 INTERPRETATION (test code = 65395) Positive SOURCE (test code = 19617) Nasal_Swab_in _VTM__ UTM SARS-CoV-2 (COVID-19) by RT-PCR (HIGH RISK)2020-07-05 00:00:00* Test Item Value Reference Range Interpretation Comme nts SARS-CoV-2 INTERPRETATION (test code = 31439) Positive SOURCE (test code = 25992) Nasal_Swab_in _VTM__ UTM
[2024-04-13 18:20] LABS: Specific Gravity 1.011 (1.005-1.030); Sqamous Epithelial <5 /HPF (None Seen); Urine Bacteria None Seen /HPF (<20); Urine Bilirubin NEGATIVE (Negative); Urine Blood Negative (Negative); Urine Clarity Clear (Clear); Urine Color Light-Yellow (Yellow); Urine Culture Reflex Order NOT NEEDED; Urine Glucose NEGATIVE (Negative); Urine Ketones NEGATIVE (Negative); Urine Micro Reflex YN NO BILL MICROSCOPIC; Urine Nitrite NEGATIVE (Negative); Urine Protein NEGATIVE (Negative); Urine RBC <5 /HPF (None Seen); Urine Urobilinogen Normal (Normal); Urine WBC <5 /HPF (<5); Urine pH 5.5 (5.0-7.0)
[2024-04-13 18:22] LABS: Absolute Eosinophils 0.1 K/uL (0-0.5); Absolute Lymphocytes (CBC) 1.1 K/uL (0.7-4.9); Absolute Monocytes 0.3 K/uL (0.1-1.3); Absolute Neutrophil 7.2 K/uL (1.8-8.0); Basophils % 0.3 % (0-1.3); Eosinophils % 0.6 % (0-4.4); Hematocrit 42.2 % (36.0-45.0); Hemoglobin 13.8 g/dL (12.0-15.0); Lymphocytes % 12.8 % (15.3-44.8); MCH 28.3 pg (27.0-35.0); MCHC 32.8 g/dL (32.0-36.0); MCV 86.1 fL (80-100); MPV 7.5 fL (7.6-11.3); Monocytes % 3.3 % (3.3-12.3); Platelets 264 thou/uL (152-406); Red Cell Distribution Width 13.6 % (12.1-15.2)
[2024-04-13 18:57] LABS: Anion Gap 8.5 mEq/L (5.0-15.0); Potassium 3.5 mEq/L (3.5-5.1)
[2024-04-13] MEDS ORDERED: METOCLOPRAMIDE 10 MG/2mL INJ ONE (19:33)
[2024-04-13] MEDS ORDERED: DIPHENHYDRAMINE 50 MG/ML VIAL ONE (19:33)
[2024-04-13] MEDS ORDERED: NA CHLORIDE 0.9% 1,000 ML ONE (19:34)
--- NOTE | 2024-04-13 20:26 | EDPHYS ---
Physician Documentation [facility] Name: Jane Izaguirre Age: 43 yrs Sex: Female : 1980 Arrival Date: 04/13/2024 Time: 16:47 Bed 10 Private MD: ED Physician Edmund Diaz HPI: 04/13 17:27 This 43 yrs old Female presents to ER via Ambulatory with complaints of ec2 Headache, Nausea. 17:27 Patient arrives today for evaluation of headache and nausea. Patient reports that she ec2 is been having left-sided headache ongoing for several days, reports some associated nausea. Denies any urinary complaints. Patient reports no cough and cold symptoms.. Historical: - Allergies: 17:18 No Known Allergies; db - Home Meds: 17:18 levothyroxine 50 mcg capsule daily [Active]; db - PMHx: 17:18 Hypothyroidism; db - PSHx: 17:18 section; Cholecystectomy; db - Immunization history:: Adult Immunizations. - Infectious Disease History:: Denies. - Social history:: Smoking status: Patient denies any tobacco usage or history of. ROS: 17:27 Constitutional: as per hpi ec2 Exam: 17:27 Constitutional: GEN: NAD Head: atraumatic Eyes: EOMI Ears: External ears are ec2 normal. CV: regular rate LUNGS: no respiratory distress ABD: non-distended SKIN: no evidence of rashes MSK: no evidence of trauma Vital Signs: 17:14 BP 139 / 67; Pulse 83; Resp 16; Temp 99; Pulse Ox 100% on R/A; Weight 104.33 kg; Height db 5 ft. 0 in. ; 19:59 BP 112 / 57; Pulse 82; Resp 16; Pulse Ox 95% ; me1 20:44 BP 118 / 62; Pulse 78; Resp 16; Pulse Ox 98% ; vc1 17:14 Body Mass Index 44.92 (104.33 kg, 152.4 cm) db MDM: 17:12 Patient medically screened. ec2 17:27 Data reviewed: vital signs. ED course: Patient arrives today for evaluation of ec2 headache. Examination remarkable for well-appearing nontoxic neuro intact individuals otherwise in no acute distress with a reassuring examination. Will obtain labs, urine studies, treat patient's headache. Differential includes nonspecific headache syndrome, additionally evaluating process such as anemia, electrolyte disturbances, dehydration.. 20:25 ED course: On reassessment patient with complete resolution of symptoms. Will discharge ec2 home, instructed her on hydration, [id number] medications. Return precautions given.. 04/13 17:27 Order name: CBC with Diff; Complete Time: 18:54 ec2 04/13 17:27 Order name: BMP; Complete Time: 19:00 ec2 04/13 17:27 Order name: UAM; Complete Time: 18:54 ec2 Administered Medications: 19:42 Drug: NS 0.9% IV 1000 ml IV at 1 bolus Per protocol; 1000 mL bolus Route: IV; Rate: 1 me1 bolus; Site: left antecubital; 20:45 Follow up: IV Status: Completed infusion; IV Intake: 1000ml vc1 19:42 Drug: metoCLOPramide IVP 10 mg IVP once; over 1 to 2 minutes Route: IVP; Site: left me1 antecubital; 20:03 Follow up: Response: No adverse reaction me1 19:42 Drug: diphenhydrAMINE IVP 25 mg IVP once Route: IVP; Site: left antecubital; [facility] [place] [place] 20:03 Follow up: Response: No adverse reaction me1 Disposition Summary: 04/13/24 20:25 Discharge Ordered Notes: Location: Home ec2 Condition: Stable ec2 Diagnosis - Headache ec2 Followup: ec2 - With: Private Physician - When: - Reason: Re-evaluation by your physician Discharge Instructions: - Discharge Summary Sheet ec2 - General Headache Without Cause ec2 Forms: - Work release form me1 - Medication Reconciliation Form ec2 - Antibiotic Education ec2 - Prescription Opioid Use ec2 - Patient Portal Instructions ec2 - Leadership Thank You Letter ec2 Prescriptions: - Compazine 10 mg Oral Tablet - take 1 tablet ORAL route every 8 hours As needed; 20 tablet; Refills: 0, ec2 Product Selection Permitted Signatures: Dispatcher [employer] [place] Ng RN RN Naila Kerr RN RN me1 Edmund Diaz MD MD ec2 Cyndee Sidhu RN vc1
--- NOTE | 2024-04-13 20:26 | ER ---
Nurse's Notes [facility] Name: Jane Izaguirre Age: 43 yrs Sex: Female : 1980 Arrival Date: 04/13/2024 Time: 16:47 Bed 10 Private MD: Diagnosis: Headache Presentation: 04/13 17:14 Chief complaint: Patient states: LEFT SIDED HEADACHE, DIZZINESS, STARTED A COUPLE OF db DAYS AGO. COMPLAINS OF NAUSEA NO VOMITING. TOOK ADVIL X 3 PILLS HELPED A LITTLE. Coronavirus screen: Client denies travel out of the [place] in the last 14 days. At this time, the client does not indicate any symptoms associated with coronavirus-19. Ebola Screen: Patient negative for fever greater than or equal to 101.5 degrees Fahrenheit, and additional compatible Ebola Virus Disease symptoms Patient denies exposure to infectious person. Patient denies travel to an Ebola-affected area in the 21 days before illness onset. No symptoms or risks identified at this time. Initial Sepsis Screen: Does the patient meet any 2 criteria? No. Patient's initial sepsis screen is negative. Does the patient have a suspected source of infection? No. Patient's initial sepsis screen is negative. Risk Assessment: Do you want to hurt yourself or someone else? Patient reports no desire to harm self or others. Onset of symptoms was April 13, 2024. 17:14 Method Of Arrival: Ambulatory db 17:14 Acuity: JENISE 3 db Triage Assessment: 17:18 Headache History: The patient has had previous headaches and this one is similar to db previous episodes. General: Appears. General: Appears in no apparent distress. comfortable, Behavior is calm, cooperative. Pain: Complains of pain in head Pain Pain began gradually. Neuro: Level of Consciousness is awake, alert, obeys commands, Oriented to person, place, time, situation. Respiratory: Airway is patent Respiratory effort is even, unlabored, Respiratory pattern is regular, symmetrical. 20:42 General: Appears in no apparent distress. comfortable, Behavior is cooperative. Pain: vc1 Also complains of nausea. Historical: - Allergies: 17:18 No Known Allergies; db - Home Meds: 17:18 levothyroxine 50 mcg capsule daily [Active]; db - PMHx: 17:18 Hypothyroidism; db - PSHx: 17:18 section; Cholecystectomy; db - Immunization history:: Adult Immunizations. - Infectious Disease History:: Denies. - Social history:: Smoking status: Patient denies any tobacco usage or history of. Screenin:30 [facility] ED Fall Risk Assessment (Adult) History of falling in the last 3 months, me1 including since admission No falls in past 3 months (0 pts) Confusion or Disorientation No (0 pts) Intoxicated or Sedated No (0 pts) Impaired Gait No (0 pts) Mobility Assist Device Used No (0 pt) Altered Elimination No (0 pt) Score/Fall Risk Level 0 - 2 = Low Risk Maintained a safe environment, Provided non-skid footwear, Hourly rounding (assess needs \T\ fall precautionary measures) done. Abuse screen: Denies threats or abuse. Nutritional screening: No deficits noted. Tuberculosis screening: No symptoms or risk factors identified. Assessment: 19:30 General: Appears uncomfortable, obese, well groomed, well developed, Behavior is calm, me1 cooperative, appropriate for age, Reports LEFT SIDED HEADACHE, DIZZINESS, STARTED A COUPLE OF DAYS AGO. COMPLAINS OF NAUSEA NO VOMITING. TOOK ADVIL X 3 PILLS HELPED A LITTLE. Pain: Complains of pain in head Pain does not radiate. Pain currently is 9 out of 10 on a pain scale. Quality of pain is described as aching, Pain began gradually, 2-3 days ago. Is continuous. Neuro: Level of Consciousness is awake, alert, obeys commands, Oriented to person, place, time, situation, Appropriate for age Reports dizziness, headache in left. Cardiovascular: Patient's skin is warm and dry. Respiratory: Airway is patent Respiratory effort is even, unlabored, Respiratory pattern is regular, symmetrical. GI: No signs and/or symptoms were reported involving the gastrointestinal system. : No signs and/or symptoms were reported regarding the genitourinary system. EENT: No signs and/or symptoms were reported regarding the EENT system. Derm: Skin is intact, is healthy with good turgor, Skin is pink, warm \T\ dry. Musculoskeletal: No signs and/or symptoms reported regarding the musculoskeletal system. 20:45 Reassessment: Patient and/or family updated on plan of care and expected duration. Pain vc1 level reassessed. Patient is alert, oriented x 3, equal unlabored respirations, skin warm/dry/pink. Patient states feeling better. Patient states symptoms have improved. Vital Signs: 17:14 BP 139 / 67; Pulse 83; Resp 16; Temp 99; Pulse Ox 100% on R/A; Weight 104.33 kg; Height db 5 ft. 0 in. ; 19:59 BP 112 / 57; Pulse 82; Resp 16; Pulse Ox 95% ; me1 20:44 BP 118 / 62; Pulse 78; Resp 16; Pulse Ox 98% ; vc1 17:14 Body Mass Index 44.92 (104.33 kg, 152.4 cm) db ED Course: 16:50 Patient arrived in ED. im 16:52 Edmund Diaz MD is Attending Physician. ec2 17:18 Triage completed. db 17:19 Arm band placed on Patient placed in waiting room. db 18:10 UAM Sent. bc6 18:10 BMP Sent. bc6 18:10 CBC with Diff Sent. bc6 18:10 Initial lab(s) drawn, by me, sent to lab. Inserted saline lock: 20 gauge in left bc6 antecubital area, using aseptic technique. Blood collected. Flushed with 10 mL NS. 19:30 Patient has correct armband on for positive identification. Bed in low position. Call me1 light in reach. Side rails up X 1. Provided Education on: POC. Verbalized understanding. . Client placed on continuous cardiac and pulse oximetry monitoring. NIBP monitoring applied. Pulse ox on. NIBP on. 19:30 No provider procedures requiring assistance completed. me1 19:34 Naila Kerr, RN is Primary Nurse. me1 20:44 IV discontinued, intact, bleeding controlled, No redness/swelling at site. Pressure vc1 dressing applied. Administered Medications: 19:42 Drug: NS 0.9% IV 1000 ml IV at 1 bolus Per protocol; 1000 mL bolus Route: IV; Rate: 1 me1 bolus; Site: left antecubital; 20:45 Follow up: IV Status: Completed infusion; IV Intake: 1000ml vc1 19:42 Drug: metoCLOPramide IVP 10 mg IVP once; over 1 to 2 minutes Route: IVP; Site: left me1 antecubital; 20:03 Follow up: Response: No adverse reaction me1 19:42 Drug: diphenhydrAMINE IVP 25 mg IVP once Route: IVP; Site: left antecubital; me1 20:03 Follow up: Response: No adverse reaction me1 Medication: 19:30 VIS not applicable for this client. me1 Intake: 20:45 IV: 1000ml; Total: 1000ml. vc1 Outcome: 20:25 Discharge ordered by . ec2 20:43 Discharged to home ambulatory, with family, vc1 20:43 Condition: good 20:43 Discharge instructions given to patient, Instructed on discharge instructions, follow up and referral plans. medication usage, Demonstrated understanding of instructions, follow-up care, medications, 20:45 Patient left the ED. vc1 Signatures: Cyndee Sidhu RN RN vc1 [place] Núñez RN RN db Sharifa Meza 6 Shanda Rico Michelle, RN RN me1 Edmund Diaz MD MD ec2 Corrections: (The following items were deleted from the chart) 19:57 17:14 Chief complaint: Patient states: LEFT SIDED HEADACHE, DIZZINESS, STARTED A COUPLE me1 OF DAYS AGO. COMPLAINS OF NAUSEA NO VOMITING. TOOK ADVIL X 3 PILLS HELPED A LITTLE db
[2024-04-13 20:56] VITALS: TEMP 99
[2024-04-13 20:58] VITALS: BP 118/62; O2SAT 98
== END 2024-04-13 20:45 | disposition home or self-care (01) ==
LOC: ER 16:47
DX: R51.9 Headache, unspecified (principal); E03.9 Hypothyroidism, unspecified
CPT/HCPCS: 85025; 81001; 80048; 36415; J2765; J1200; J7030

== ENCOUNTER 2025-03-29 01:39 | Emergency (ER) | payer OTHER, SELFPAY ==
--- OUTSIDE RECORDS SUMMARY | 2025-03-29 01:43 | XMS REPORT | Continuity of Care Document ---
Author Name Unknown Address [address] [place] [address] [facility] Address [address] [place] [address] Care Team Providers Care Logistics Operations Manager Name Role Phone PCP, PATIENT DOES NOT HAVE A Primary Care Physic humza Unavailable JOSHUA FLOR Attending Clinician Unavailable CALIXTO DENIS Attending Clinician Unavailable BALAJI KWONG Attending Clinician Unavailable PL, TECH 1 Attending Clinician Unavailable CARI WARREN Attending Clinician Unavailabl e LAB90 Attending Clinician Unavailable FAREED HOLBROOK Attending Clinician Unaboom ilEMILIANA Burleson Attending Clinician Unavailable Emiliana Scherer MD Attending Clinician ELIZ WILKRESON Attending Clinician Unavailable Eliz Rubio Attending Clinician [phone] Doctor Unassigned, [facility] Attending Clinician U EMILIANA Mcdaniel Admitting Clinician Unavailable ELIZ WILKERSON Admitting Clinician Unavailable Payers Payer Name Policy Type Policy Number Effective Date Expirati on Date Source [employer] 87 ON 9 [id number] 2024 00:00:00 Problems Condition Name Condition Details Condition Category Status Onset Date Resolution Date Last Treatment Date Treating Clinician Comments Source Prediabete s Prediabete s Disease Active 12-17 00:00: 00 Khushboo pat Snoring Snoring Disease Active 12-17 00:00: 00 Khushboo Mccalla adilia Hypothyroi dism (acquired) Hypothyroi dism (acquired) Disease Active 11-03 00:00: 00 Khushboo pat History of iron deficiency anemia History of iron deficiency anemia Disease Active 11-03 00:00: 00 Khushboo Mccalla adilia Obesity Obesity Disease Active 11-03 00:00: 00 Khushboo pat Family history of diabetes mellitus in mother Family history of diabetes mellitus in mother Disease Active 11-03 00:00: 00 Khushboo pat Sore throat Sore throat Disease Active 2015-08 00:00: 00 [facility] Vaginal itching Vaginal itching Disease Active 2015-08 00:00: 00 [facility] Hypothyroi dism Hypothyroi dism Disease Active 02-11 00:00: 00 Khushboo pat Screening for thyroid disorder Screening for thyroid disorder Disease Active 02-08 00:00: 00 [facility] Abnormal weight gain Abnormal weight gain Disease Active 02-08 00:00: 00 [facility] Contracept idris management Contracept idris management Disease Active 12-19 00:00: 00 [facility] Allergies, Adverse Reactions, Alerts Allergy Name Allergy Type Status Severity Reaction(s) Onset Date Inactive Date Treating Clinician Comments Source NO KNOWN ALLERGIE S Drug Class Active [facility] Social History Social Habit Start Date Stop Date Quantity Comments Source Sexual orientation Helga Pillai - External ASSERTION Not Khushboo Pillai - External History of Occupation Khushboo Plilai - External Alcoholic beverage intake 2024-06-18 00:00:00 2024-06-18 00:00:00 Current drinker of alcohol (finding) Khushboo Pillai - External Education 2023-11-04 00:00:00 2023-11-04 00:00:00 6 Khushboo Pillai - External Alcohol Comment 2023-11-04 00:00:00 2023-11-04 00:00:00 occasionally Khushboo Pillai - External Alcohol intake 2023-11-04 00:00:00 2023-11-04 00:00:00 Current drinker of alcohol (finding) Khushboo Pillai - External History of Social function 2023-10-01 00:00:00 2023-10-01 00:00:00 Khushboo Pillai - External Tobacco use and exposure 2023-10-01 00:00:00 2023-10-01 00:00:00 Smokeless tobacco non-user Khushboo Pillai - External Sex 2023-09-24 14:35:37 2023-09-24 14:35:37 Female (finding) Khushboo Pillai - External Exposure to SARS-CoV-2 (event) 2022-10-05 00:00:00 2022-10-15 21:56:00 Not sure [facility] Sex assigned at 1980 00:00:00 1980 00:00:00 Khushboo Pillai - External Smoking Status Start Date Stop Date Source Never smoked tobacco Khushboo Pillai - External Medications Ordered Medication Name Filled Medication Name Start Date Stop Date Current Medication? Ordering Clinician Indication Dosage Frequency Signature (SIG) Comments Components Source Levothyroxi ne Sodium 50 MCG oral Tablet 2023-08 0 00:00: 00 Yes [id number] 50ug QD Take 1 tablet (50 mcg total) by mouth daily. Khushboo pat Levothyroxi ne Sodium 50 MCG oral Tablet 05-24 00:00: 00 06-18 00:00 :00 No [id number] 50ug QD Take 1 tablet (50 mcg total) by mouth daily. Khushboo pat Topiramate 25 MG oral Tablet - 00:00: 00 Yes [id number] 104 25mg QD Take 1 tablet (25 mg total) by mouth daily. Khushboo pat Levothyroxi ne Sodium 50 MCG oral Tablet - 00:00: 00 Yes [id number] 50ug QD Take 1 tablet (50 mcg total) by mouth daily. Khushboo pat Levothyroxi ne Sodium 50 MCG oral Tablet 10-02 00:00: 00 11-03 00:00 :00 No 50ug Take 1 tablet (50 mcg total) by mouth daily. Khushboo pat iopamidol (ISOVUE 370-500 mL) injection 100 mL 10-16 08:00: 00 10-16 08:00 :00 No [id number] 100mL 100 mL, Intravenou s, ONCE, 1 dose, On Fri10/16/22 at 0200, Routine [facility] acetaminoph en (TYLENOL) tablet 1,000 mg 10-16 06:30: 00 10-16 06:27 :00 No 1000mg 1,000 mg, Oral, ONCE, 1 dose, [facility]/16/22 [facility] 0030[facility] (SUBLIMAZE (PF)) injection 25 mcg 10-16 04:30: 00 10-16 04:25 :00 No 25ug 25 mcg, Slow IV Push, ONCE, 1 dose, On Fri10/15/22 at 2230, STAT [facility] diphenhydrA MINE (BENADRYL) injection 12.5 mg 10-16 04:30: 00 10-16 04:26 :00 No 12.5mg 12.5 mg, Slow IV Push, ONCE, 1 dose, On Fri10/15/22 at 2230, STAT [facility] metoclopram bridget HCl (REGLAN) injection 10 mg 10-16 04:30: 00 10-16 04:26 :00 No 10mg 10 mg, Slow IV Push, ONCE, 1 dose, On Fri10/15/22 at 2230, [facility] traMADoL (ULTRAM) 50 mg tablet 10-16 00:00: 00 Yes [id number] 50mg Take 1 tablet by mouth every 6 (six) hours as needed for Pain (scale 7-10). Indication s: acute pain [facility] TAKE 1 TABLET DAILY. 2021-08 2-13 00:00: 00 No NaCl 0.9% (NS) bolus infusion 1,000 mL 2021-08 20:15: 00 06-16 21:07 :00 No 1000mL at 999 mL/hr, 1,000 mL, IV Infusion, ONCE, 1 dose, On 06/16/22 at 1515, [facility] diphenhydrA MINE (BENADRYL) tablet 25 mg 2021-08 19:45: 00 06-16 19:51 :00 No 25mg 25 mg, Oral, ONCE, 1 dose, On 06/16/22 at 1445, [facility] metoclopram bridget HCl (REGLAN) injection 10 mg 2021-08 19:45: 00 06-16 19:51 :00 No 10mg 10 mg, Slow IV Push, ONCE, 1 dose, On 06/16/22 at 1445, [facility] ketorolac (TORADOL) injection 30 mg 2021-08 19:45: 00 06-16 19:51 :00 No 30mg 30 mg, Slow IV Push, ONCE, 1 dose, On 06/16/22 at 1445, Routine [facility] butalbital- acetaminoph en-caff 50-325-40 mg tablet 2021-08 00:00: 00 Yes [id number] 1{tbl} Take 1 tablet by mouth every 6 (six) hours as needed for Pain (scale 7-10). [facility] Dose Unknown 4-25 00:00: 00 No Dose Unknown 4-25 00:00: 00 No Dose Unknown 2020-08- 00:00: 00 No Dose Unknown 2020-08- 00:00: 00 No meclizine 25 mg tablet 5-16 00:00: 00 Yes [id number] 25mg Take 1 tablet by mouth every 6 (six) hours as needed for Dizziness. [facility] phenazopyri dine 200 mg tablet 02-17 00:00: 00 Yes 200mg Take 1 tablet by mouth 3 (three) times daily after meals. [facility] levothyroxi ne (SYNTHROID) 50 mcg tablet 2015-08 00:00: 00 Yes [id number] 50ug Take 1 tablet by mouth every morning. [facility] naproxen sodium (ANAPROX) 550 mg tablet 12-18 00:00: 00 Yes 550mg Take 1 tablet by mouth 2 (two) times daily with meals. [facility] levofloxaci n (LEVAQUIN) 500 mg tablet 12-18 00:00: 00 Yes 500mg Take 1 tablet by mouth every 24 (twenty-fo ur) hours. [facility] Immunizations Ordered Immunization Name Filled Immunization Name Date Status Comments Source Moderna COVID-19 Vaccine 2021-03-02 00:00:00 Completed Moderna COVID-19 Vaccine 2021-03-02 00:00:00 Completed Moderna COVID-19 Vaccine 2021-01-26 00:00:00 Completed Moderna COVID-19 Vaccine 2021-01-26 00:00:00 Completed Varicella (varivax)(chicken pox) 2012-08-05 00:00:00 Completed [facility] Varicella (varivax)(chicken pox) 2012-08-05 00:00:00 Completed [facility] Varicella (varivax)(chicken pox) 2012-08-05 00:00:00 Completed [facility] TDAP 2011-08-25 00:00:00 Completed [facility] TDAP 2011-08-25 00:00:00 Completed [facility] TDAP 2011-08-25 00:00:00 Completed [facility] Covid-19 Vaccine Moderna (Spikevax), Mrna-lnp, Stanford Protein, Pf Unknown Completed Khushboo Pillai - External Varicella Vaccine Unknown Completed Mars Olea External Tdap- (Boostrix, Adacel) Unknown Completed Khushboo Olea External Covid-19 Vaccine Moderna (Spikevax), Mrna-lnp, Stanford Protein, Pf Unknown Completed Khushboo Pillai - External Varicella Vaccine Unknown Completed Ke lsey Seybold - External Tdap- (Boostrix, Adacel) Unknown Completed Khushboo Reneeybold - External Covid-19 Vaccine Moderna (Spikevax), Mrna-lnp, Stanford Protein, Pf Unknown Completed Khushboo Reneeybold - External Varicella Vaccine Unknown Completed Mars lopez Seybold - External Tdap- (Boostrix, Adacel) Unknown Completed Khushboo Reneeybold - External Covid-19 Vaccine Moderna (Spikevax), Mrna-lnp, Stanford Protein, Pf Unknown Completed Khushboo Bravoold - External Varicella Vaccine Unknown Completed Mars lopez Seybold - External Tdap- (Boostrix, Adacel) Unknown Completed Khushboo Reneeybold - External Vital Signs Vital Name Observation Time Observation Value Comments S ource Heart rate 2024-06-18 13:53:00 72 /min Mark freeman Seybold - External Body temperature 2024-06-18 13:53:00 36.5 Lynsey Khushboo Reneeybold - External Respiratory rate 2024-06-18 13:53:00 18 /min Khushboo Reneeybold - External Body height 2024-06-18 13:53:00 152.4 cm Marli kwan Seybold - External Body weight 2024-06-18 13:53:00 104.327 kg Marli ey Seybold - External BMI 2024-06-18 13:53:00 44.92 kg/m2 Marli ey Seybold - External Oxygen saturation in Arterial blood by Pulse oximetry 2024-06-18 13:53:00 99 /min Khushboo Reneeybo ld - External Systolic blood pressure 2024-06-18 13:53:00 117 mm[Hg] Khushboo Reneeybo ld - External Diastolic blood pressure 2024-06-18 13:53:00 82 mm[Hg] Khushboo Reneeybo ld - External BMI 2024-05-24 13:47:00 45.31 kg/m2 Marli ey Seybold - External Oxygen saturation in Arterial blood by Pulse oximetry 2024-05-24 13:47:00 99 /min Khushboo Seybo ld - External Systolic blood pressure 2024-05-24 13:47:00 126 mm[Hg] Khushboo Seybo ld - External Diastolic blood pressure 2024-05-24 13:47:00 81 mm[Hg] Khushboo Seybo ld - External Heart rate 2024-05-24 13:47:00 55 /min Kelse y Seybold - External Body temperature 2024-05-24 13:47:00 36.11 Lynsey Khushboo Seybold - External Respiratory rate 2024-05-24 13:47:00 17 /min Khushboo Seybold - External Body height 2024-05-24 13:47:00 152.4 cm Marli ey Seybold - External Body weight 2024-05-24 13:47:00 105.235 kg Marli ey Seybold - External Systolic blood pressure 2023-12-18 21:05:00 119 mm[Hg] Khushboo Seybo ld - External Diastolic blood pressure 2023-12-18 21:05:00 74 mm[Hg] Khushboo Seybo ld - External Heart rate 2023-12-18 21:05:00 [...] Pulse oximetry 2023-12-18 21:05:00 97 /min Khushboo Seybo ld - External Body height 2023-11-04 21:34:00 152.4 cm Marli ey Seybold - External Systolic blood pressure 2023-11-04 21:11:00 116 mm[Hg] Khushboo Seybo ld - External Diastolic blood pressure 2023-11-04 21:11:00 61 mm[Hg] Khushboo Seybo ld - External Heart rate 2023-11-04 21:11:00 58 /min Kelse y Seybold - External Respiratory rate 2023-11-04 21:11:00 15 /min Khushboo Seybold - External Body weight 2023-11-04 21:11:00 112.946 kg Marli ey Seybold - External BMI 2023-11-04 21:11:00 48.63 kg/m2 Marli Pillai - External Oxygen saturation in Arterial blood by Pulse oximetry 2023-11-04 21:11:00 100 /min Khushboo Epps ld - External Systolic blood pressure 2022-10-16 07:00:00 106 mm[Hg] [facility] Diastolic blood pressure 2022-10-16 07:00:00 88 mm[Hg] [facility] Heart rate 2022-10-16 07:00:00 93 /min [facility] Oxygen saturation in Arterial blood by Pulse oximetry 2022-10-16 07:00:00 96 /min [facility] Respiratory rate 2022-10-16 06:25:00 27 /min [facility] Body temperature 2022-10-16 06:25:00 38.94 Lynsey [facility] Body height 2022-10-16 03:51:00 152.4 cm [facility] Body weight 2022-10-16 03:51:00 111.585 kg [facility] BMI 2022-10-16 03:51:00 48.04 kg/m2 [facility] Systolic blood pressure 2022-06-16 21:00:00 116 mm[Hg] [facility] Diastolic blood pressure 2022-06-16 21:00:00 76 mm[Hg] [facility] Heart rate 2022-06-16 21:00:00 61 /min [facility] 2022-06-16 21:00:00 18 /min [facility] Oxygen saturation in Arterial blood by Pulse oximetry 2022-06-16 21:00:00 97 /min [facility] Body temperature 2022-06-16 17:24:00 37.06 Lynsey [facility] Body height 2022-06-16 17:24:00 152.4 cm [facility] Body weight 2022-06-16 17:24:00 106.595 kg [facility] BMI 2022-06-16 17:24:00 45.90 kg/m2 [facility] BP Systolic 2022-08-06 14:42:00 123 [...] Source TROPONIN I 2022-10-16 06:30:00 Emiliana Scherer [facility] XR CHEST 1 VW 2022-10-16 04:33:53 Emiliana Scherer [facility] D-DIMER 2022-10-16 04:26:00 Emiliana Scherer [facility] URINALYSIS 2022-10-16 04:26:00 Emiliana Scherer [facility] POCT TEST 2022-10-16 04:07:00 Emiliana Scherer [facility] LIPASE 2022-10-16 03:58:00 [facility] 2022-10-16 03:58:00 Emiliana Scherer [facility] COMP. METABOLIC PANEL (04319) 2022-10-16 03:58:00 Emiliana Scherer [facility] CBC WITH DIFF 2022-10-16 03:58:00 Emiliana Scherer [facility] RAPID INFLUENZA A/B 2022-10-16 03:58:00 Emiliana Scehrer [facility] COVID-19 (ID NOW RAPID TESTING) 2022-10-16 03:58:00 Emiliana Scherer [facility] NOTICE OF PRIVACY PRACTICES 2022-10-16 03:42:26 Doctor Unassigned, [facility] CONSENT/REFUSAL FOR DIAGNOSIS AND TREATMENT 2022-10-16 03:41:57 Doctor Unassigned, [facility] COMP. METABOLIC PANEL (88362) 2022-06-16 19:50:00 Eliz Wilkerson [facility] CT HEAD WO CONTRAST 2022-06-16 18:28:00 Cheryl Wilkerson [facility] CBC WITH DIFF 2022-06-16 18:09:00 Eliz Wilkerson [facility] URINALYSIS 2022-06-16 18:09:00 Eliz Wilkerson [facility] ASSIGNMENT OF BENEFITS 2022-06-16 17:57:56 Docto r Unassigned, [facility] CONSENT/REFUSAL FOR DIAGNOSIS AND TREATMENT 2022-06-16 17:20:01 Doctor Unassigned, [facility] Plan of Care Planned Activity Planned Date Details Comments Source Goal Plan of Care Note [code = 82440-5] Goal Plan of Care Note [code = 54640-4] Goal Plan of Care Note [code = 74699-3] Goal Plan of Care Note [code = 81607-6] Goal Plan of Care Note [code = 46850-7] Goal Plan of Care Note [code = 40859-1] Goal Plan of Care Note [code = 99632-2] Goal Plan of Care Note [code = 70070-0] Goal Plan of Care Note [code = 03425-7] Goal Plan of Care Note [code = 26221-0] Goal Plan of Care Note [code = 38244-4] Goal Plan of Care Note [code = 49007-1] Goal Plan of Care Note [code = 48841-9] Goal Plan of Care Note [code = 50082-3] Goal Plan of Care Note [code = 10952-7] Goal Plan of Care Note [code = 42658-8] Goal Plan of Care Note [code = 23089-5] Goal Plan of Care Note [code = 67144-1] Goal Plan of Care Note [code = 53332-4] Goal Plan of Care Note [code = 46985-2] Goal Plan of Care Note [code = 62332-0] Goal Plan of Care Note [code = 16515-2] Goal Plan of Care Note [code = 14569-2] Goal Plan of Care Note [code = 94318-1] Goal Plan of Care Note [code = 16792-9] Goal Plan of Care Note [code = 24551-8] Goal Plan of Care Note [code = 49836-0] Goal Plan of Care Note [code = 93979-4] Goal Plan of Care Note [code = 04516-5] Goal Plan of Care Note [code = 14022-5] Encounters Start Date/Time End Date/Time Encounter Type Admission Type Attending [facility] Care Department Encounter ID Source 2024-06-18 08:30:00 2024-06-18 08:30:00 Outpatient JOSHUA FLOR [id number] Khushboo [facility] 2024-05-24 08:30:00 2024-05-24 08:30:00 Outpatient CALIXTO DENIS [id number] Khushboo terri 2024-05-24 00:00:00 2024-05-24 00:00:00 Outpatient BALAJI KWONG [id number] Khushboo Pillai 2024-04-27 10:00:00 2024-04-27 10:00:00 Outpatient PLRADHA KHUSHBOO [id number] [facility] 2024-04-21 00:00:00 2024-04-21 00:00:00 Outpatient PREZAS, BALAJI KHUSHBOO KHUSHBOO [id number] [facility] 2024-03-28 00:00:00 2024-03-28 00:00:00 Outpatient PREZAS, BALAJI KHUSHBOO MURPHY [id number] [facility] 2024-03-18 16:00:00 2024-03-18 16:00:00 Outpatient PREZAS, BALAJI KHUSHBOO KHUSHBOO [id number] [facility] 2024-01-15 16:00:00 2024-01-15 16:00:00 Outpatient KELVINCARI KHUSHBOO MURPHY [id number] [facility] 2023-12-18 16:00:00 2023-12-18 16:00:00 Outpatient PREZAS, BALAJI KHUSHBOO MURPHY [id number] [facility] 2023-11-21 00:00:00 2023-11-21 00:00:00 Outpatient PREZAS, BALAJI KHUSHBOO MURPHY [id number] [facility] 2023-11-10 00:00:00 2023-11-10 00:00:00 Outpatient PREZAS, BALAJI KHUSHBOO MURPHY [id number] [facility] 2023-11-10 00:00:00 2023-11-10 00:00:00 Outpatient PREZAS, BALAJI KHUSHBOO MURPHY [id number] [facility] 2023-11-05 09:10:00 2023-11-05 09:10:00 Outpatient LABLj MURPHY [id number] [facility] 2023-11-04 16:15:00 2023-11-04 16:15:00 Outpatient PREZAS, BALAJI KHUSHBOO MURPHY [id number] [facility] 2023-10-20 10:15:00 2023-10-20 10:15:00 Outpatient YUSEFFAREED DIAZ [id number] [facility] 2023-10-20 00:00:00 2023-10-20 00:00:00 Outpatient PREZAS, BALAJI ODOMSEY [id number] Khushboo Pillai 2023-10-02 17:47:46 2023-10-02 17:47:46 Outpatient SFA SFA [id number] Deni Ospina 2023-10-02 10:00:00 2023-10-02 10:00:00 Outpatient FAREED HOLBROOK KHUSHBOO MURPHY [id number] Khushboo Pillai 2023-10-02 00:00:00 2023-10-02 00:00:00 Outpatient FAREED HOLBROOK KHUSHBOO MURPHY [id number] Khushboo Pillai 2023-04-04 17:29:23 2023-04-04 17:29:23 Outpatient SFA SFA [id number] Deni Ospina 2022-10-15 21:44:00 2022-10-16 02:14:00 Emergency X EMILIANA SCHERER [facility] [id number] [facility] 2022-10-15 21:44:00 2022-10-16 02:14:00 Emergency Emiliana Scherer [facility] [id number] [facility] 2022-09-16 13:48:54 2022-09-16 13:48:54 Outpatient SFA SFA [id number] Deni Ospina 2022-08-06 14:32:16 2022-08-06 14:32:16 Outpatient SFA SFA [id number] Deni Ospina 2022-08-06 00:00:00 2022-08-06 00:00:00 Outpatient Visit [id number] 2022-07-26 08:02:44 2022-07-26 08:02:44 Outpatient SFA SFA [id number] Deni Ospina 2022-07-25 11:42:15 2022-07-25 11:42:15 Outpatient SFA SFA [id number] Deni Ospina 2022-07-25 00:00:00 2022-07-25 00:00:00 Outpatient Visit [id number] 2022-06-16 12:26:00 2022-06-16 16:15:00 Emergency X ELIZ WILKERSON [facility] [id number] [facility] 2022-06-16 12:26:00 2022-06-16 16:15:00 Emergency Eliz Wilkerson [facility] [id number] [id number] [facility] 2022-06-16 00:00:00 2022-06-16 00:00:00 Orders Only Doctor Unassigned, [facility] [id number] [id number] [facility] Results Test Description Test Time Test Comments Results Result Co mments Source [id number] 04:50:17* Test Item Value Reference Range Interpretation Comments D-DIMER (test code = 5322774217) 0.73 See_Comment H [Automated message] The system [...] a diagnosis. Lab Interpretation (test code = 44239-9) [facility] [id number] 04:39:55* Test Item Value Reference Range Interpretation Comme nts TROPONIN I (test code = 7054104714) 0.003 ng/mL <=0.034 GEORGETTE (test code = [...] of biotin. Lab Interpretation (test code = 27335-3) [facility] (53176)2022-10-16 04:28:17* Test Item Value Reference Range Interpretation Comme nts NA (test code = 1626767879) 137 mmol/L 135-145 K (test code = 4628022982) 4.2 mmol/L 3.5-5.0 CL (test code = 0883536717) 105 mmol/L 98-108 CO2 TOTAL (test code = 9979323415) 24 mmol/L 23-31 AGAP (test code = 2207383048) 8 2-16 BUN (test code = 6191146074) 12 mg/dL 7-23 GLUCOSE (test code = 6988906447) 115 mg/dL 70-110 H CREATININE (test code = 7660187490) 0.62 mg/dL 0.50-1.04 TOTAL BILI (test code = 9815523830) 0.7 mg/dL 0.1-1.1 CALCIUM (test code = 8858963130) 8.7 mg/dL 8.6-10.6 T PROTEIN (test code = 4189333452) 7.7 g/dL 6.3-8.2 ALBUMIN (test code = 2048291647) 4.5 g/dL 3.5-5.0 ALK PHOS (test code = 1628798767) 78 U/L 34-122 ALTv (test code = 1742-6) 27 U/L 5-35 AST(SGOT) (test code = 4148756439) 29 U/L 13-40 eGFR (test code = 8297598989) 105.6 mL/min/1.73m2 GEORGETTE (test code = GEORGETTE) [...] imaging tests). Lab Interpretation (test code = 52544-8) [facility] [id number] 04:28:17* Test Item Value Reference Range Interpretation Comme nts LIPASE (test code = 0688052837) 69 U/L 0-220 Lab Interpretation (test cod e = 21910-4) Normal [facility] WITH [id number] 04:17:33* Test Item Value Reference Range Interpretation [...] 34.1 g/dL 31.6-35.1 RDW-SD (test code = 42371-5) 38.2 fL 39.0-49.9 L RDW-CV (test code = 788-0) 12.3 % 12.0-15.5 PLT (test code = 777-3) 253 See_Comment [Automated messa ge] The system which generated this result transmitted reference range: 166 - 358 10*3/?L. The reference range was not used to interpret this result as normal/abnormal. MPV (test code = 06937-3) 9.2 fL 9.5-12.9 L NRBC/100 WBC (test code = 3939109104) 0.0 See_Comment [Automated [employer] ssage] The system which generated this result transmitted reference range: 0.0 - 10.0 /100 WBCs. The reference range was not used to interpret this result as normal/abnormal. NRBC x10^3 (test code = 7081524942) See_Comment [Automated messa ge] The system which generated this result transmitted reference range: 10*3/?L. The reference range was not used to interpret this result as normal/abnormal. GRAN MAT (NEUT) % (test code = 770-8) 77.1 % IMM GRAN % (test code = 7309780215) 0.60 % LYMPH % (test code = 736-9) 15.4 % MONO % (test code = 5905-5) 6.2 % EOS % (test code = 713-8) 0.4 % BASO % (test code = 706-2) 0.3 % GRAN MAT x10^3(ANC) (test code = 6692660859) 9.08 10*3/uL 1.88-7.09 H IMM GRAN x10^3 (test code = 4667567010) 0.07 10*3/uL 0.00-0.06 H LYMPH x10^3 (test code = 731-0) 1.82 10*3/uL 1.32-3.29 MONO x10^3 (test code = 742-7) 0.73 10*3/uL 0.33-0.92 EOS x10^3 (test code = 711-2) 0.05 10*3/uL 0.03-0.39 BASO x10^3 (test code = 704-7) 0.03 10*3/uL 0.01-0.07 Lab Interpretation (test code = 03841-4) [facility] [id number] 04:07:00* Test Item Value Reference Range Interpretation Comme nts POCT PREG (test code = 1605) Negative On board controls acceptable with C Line (test code = 3574) Positive POCT PREG LOT # (test code = 3575) [id number] POCT PREG TEST DATE ( test code = 3576) 11/23/2023 Lab Interpretation (test cod e = 13677-4) [facility] [id number] 05:49:05* Test Item Value Reference Range Interpretation Comme nts TSH, THIRD GENERATION (test code = 2821) 2.500 UIU/ML 0.400-4.100 COMPREHENSIVE METABOLIC [id number] 03:31:11* Test Item Value Reference Range Interpretation [...] G/DL 3.5-5.2 CALC GLOBULIN (test code = 2239) 2.5 G/DL 1.9-3.7 CALC A/G RATIO (test [...] 21 U/L 9-40 ALT (test code = 2218) 26 U/L 5-40 LIPID [id number] 03:31:11* Test Item Value Reference Range Interpretation Comme nts CHOLESTEROL (test code = 2209) 188 MG/DL <200 TRIGLYCERIDES (test code = 2232) 282 MG/DL <150 H HDL CHOLESTEROL (test code = 2219) 31 MG/DL >39 L CALC LDL CHOL (test code = 7) 117 MG/DL <100 H NOTE: CALCULATED LDL IS BASED ON SRINIVASAN-CABRAL METHOD WHICHINCLUDES ADJUSTABLE TRIGLYCERIDE:VLDL CHOLESTEROL RATIO.THIS FACTOR VARIES BY MEASURED TRIGLYCERIDE AND NON-HDLCHOLESTEROL CONCENTRATIONS WITH INCREASED CALCULATED LDL SEENIN HIGHER TRIGLYCERIDE OR LOWER NON-HDL SPECIMENS. FOR MOREINFORMATION, SEE CLIENT ANNOUNCEMENT AT [email or web address] RISK RATIO LDL/HDL (test code = 2238) 3.77 RATIO <3.22 H HEMOGLOBIN [id number] 03:01:44* Test Item Value Reference Range Interpretation Comme nts HEMOGLOBIN A1c (test code = 37018) 5.9 % 4.2-5.6 H UNLESS OTHERWISE INDICATED, ALL TESTING PERFORMED [facility] [employer] [address] [place] [id number] SUPPLY CHAIN MANAGER: MOLLY DAHL M.D. CLIA NUMBER [id number] [facility] [place]. [id number] CBC W/AUTO [id number] 00:00:00* Test Item Value Reference Range Interpretation [...] ABS NUCLEATED RBCS (test cod e = 19421) 0.00 K/UL TSH, THIRD [id number] 00:00:00* Test Item Value Reference Range Interpretation Comme nts TSH, THIRD GENERATION (test code = 2821) 4.590 UIU/ML LIPID [id number] 00:00:00* Test Item Value Reference Range Interpretation Comme nts CHOLESTEROL (test code = 2210) 188 MG/DL TRIGLYCERIDES (test code = 2232) 112 MG/DL HDL CHOLESTEROL (test code = 2220) 30 MG/DL CALC LDL CHOL (test code = 2237) 136 MG/DL RISK RATIO LDL/HDL (test cod e = 2238) 4.53 RATIO CBC WITH [id number] 19:07:54* Test Item Value Reference Range Interpretation Comme nts WBC (test code = 6690-2) See_Comment [Automated TUBEa Vee24] The system which generated this result transmitted reference range: 4.30 - 11.10 10*3/?L. The reference range was not used to interpret this result as normal/abnormal. RBC (test code = 789-8) See_Comment [Automated [employer]ee[employer]] The system which generated this result transmitted [...] 35.0 g/dL 31.6-35.1 RDW-SD (test code = 90863-0) 37.8 fL 39-49.9 L RDW-CV (test code = 788-0) 12.4 % 12-15.5 PLT (test code = 777-3) See_Comment [Automated [employer]BE[employer] Vee24] The system which generated this result transmitted reference range: 166 - 358 10*3/?L. The reference range was not used to interpret this result as normal/abnormal. MPV (test code = 58392-2) 10.2 fL 9.5-12.9 IPF % (test code = 5448350214) 1.5 % 1.3-7.7 Platelet count measured by fluorescence method. NRBC/100 WBC (test code = 7759970944) See_Comment [Automated me ssage] The system which generated this result transmitted reference range: 0.0 - 10.0 /100 WBCs. The reference range was not used to interpret this result as normal/abnormal. NRBC x10^3 (test code = 2904566253) See_Comment [Automated messa ge] The system which generated this result transmitted reference range: 10*3/?L. The reference range was not used to interpret this result as normal/abnormal. GRAN MAT (NEUT) % (test code = 770-8) 57.1 % IMM GRAN % (test code = 2468505814) 0.40 % LYMPH % (test code = 736-9) 34.9 % MONO % (test code = 5905-5) 5.4 % EOS % (test code = 713-8) 1.9 % BASO % (test code = 706-2) 0.3 % GRAN MAT x10^3(ANC) (test code = 7981252137) 5.36 10*3/uL 1.88-7.09 IMM GRAN x10^3 (test code = 3698773386) 0.04 10*3/uL 0-0.06 LYMPH x10^3 (test code = 731-0) 3.28 10*3/uL 1.32-3.29 MONO x10^3 (test code = 742-7) 0.51 10*3/uL 0.33-0.92 EOS x10^3 (test code = 711-2) 0.18 10*3/uL 0.03-0.39 BASO x10^3 (test code = 704-7) 0.03 10*3/uL 0.01-0.07 Lab Interpretation (test code = 92789-0) [facility] RT-[id number] 18:36:33* Test Item Value Reference Range Interpretation Comments SARS-CoV-2 INTERPRETATION (test code = 96428) NEGATIVE SEE NOTE SARS-CoV-2 R NA NOT [...] prevalence is high. SOURCE (test code = 04807) NASOPHARYNGEAL Note: Methodolog y is Bj Emily Real-Time RT-PCR. The expected result or reference range is NEGATIVE (Not Detected). For more information regarding COVID-19 testing to include clinicalinformation, methodology detail, intended use, FDA authorization andrecommended fact sheets for patients or healthcare providers, see [employer] Announcement: SARS-CoV-2 (COVID-19) by NAAT at URL below (note,fact sheets are provided by method given in report:[email or web address] Alternatively, see downloadable PDF fact sheet at:[email or web address] UNLESS OTHERWISE INDICATED, ALL TESTING PERFORMED [facility] [address] [place] [address] SUPPLY CHAIN MANAGER: MOLLY DAHL M.D. CLIA NUMBER [id number] [place]. [id number] SARS-CoV-2 (COVID-19) by RT-PCR (HIGH RISK)2021-09-06 00:00:00* Test Item Value Reference Range Interpretation Comme nts SARS-CoV-2 INTERPRETATION (test code = 80645) NEGATIVE SOURCE (test code = 36585) NASOPHARYNGEAL SARS-CoV-2 (COVID-19) by RT-PCR (HIGH RISK)2021-09-06 00:00:00* Test Item Value Reference Range Interpretation Comme nts SARS-CoV-2 INTERPRETATION (test code = 81160) NEGATIVE SOURCE (test code = 09454) NASOPHARYNGEAL CBC W/AUTO [id number] 00:00:00* Test Item Value Reference Range Interpretation [...] ABS NUCLEATED RBCS (test cod e = 48441) 0.00 K/UL LIPID [id number] 00:00:00* Test Item Value Reference Range Interpretation Comme nts CHOLESTEROL (test code = 2210) 211 MG/DL TRIGLYCERIDES (test code = 2232) 159 MG/DL HDL CHOLESTEROL (test code = 2220) 35 MG/DL CALC LDL CHOL (test code = 2237) 147 MG/DL RISK RATIO LDL/HDL (test cod e = 2238) 4.20 RATIO COMPREHENSIVE METABOLIC [id number] 00:00:00* Test Item Value Reference Range Interpretation Comme nts GLUCOSE (test code = 2217) 95 MG/DL BUN (test code = 2208) 15 MG/DL CREATININE (test code = 2214) 0.79 MG/DL eGFR AMER. (test cod e = 88942) 108 ML/MIN/1.73 eGFR NON- AMER. (test code = 18763) 93 ML/MIN/1.73 CALC BUN/CREAT (test code = [...] ALT (test code = 2219) 19 U/L [id number] 00:00:00* Test Item Value Reference Range Interpretation Comme nts TSH, THIRD GENERATION (test code = 2821) 3.630 UIU/ML CBC W/AUTO [id number] 00:00:00* Test Item Value Reference Range Interpretation [...] ABS NUCLEATED RBCS (test cod e = 32573) 0.00 K/UL LIPID [id number] 00:00:00* Test Item Value Reference Range Interpretation Comme nts CHOLESTEROL (test code = 2210) 211 MG/DL TRIGLYCERIDES (test code = 2232) 159 MG/DL HDL CHOLESTEROL (test code = 2220) 35 MG/DL CALC LDL CHOL (test code = 2237) 147 MG/DL RISK RATIO LDL/HDL (test cod e = 2238) 4.20 RATIO COMPREHENSIVE METABOLIC [id number] 00:00:00* Test Item Value Reference Range Interpretation Comme nts GLUCOSE (test code = 2217) 95 MG/DL BUN (test code = 2208) 15 MG/DL CREATININE (test code = 2214) 0.79 MG/DL eGFR AMER. (test cod e = 87221) 108 ML/MIN/1.73 eGFR NON- AMER. (test code = 71351) 93 ML/MIN/1.73 CALC BUN/CREAT (test code = [...] ALT (test code = 2219) 19 U/L [id number] 00:00:00* Test Item Value Reference Range Interpretation Comme nts TSH, THIRD GENERATION (test code = 2821) 3.630 UIU/ML SARS-CoV-2 (COVID-19) by RT-PCR (HIGH RISK)2020-07-20 00:00:00* Test Item Value Reference Range Interpretation Comme nts SARS-CoV-2 INTERPRETATION (t est code = 93741) NEGATIVE SOURCE (test code = 82983) NOT SPECIFIED SARS-CoV-2 (COVID-19) by RT-PCR (HIGH RISK)2020-07-20 00:00:00* Test Item Value Reference Range Interpretation Comme nts SARS-CoV-2 INTERPRETATION (t est code = 94568) NEGATIVE SOURCE (test code = 85090) NOT SPECIFIED SARS-CoV-2 (COVID-19) by RT-PCR (HIGH RISK)2020-07-05 00:00:00* Test Item Value Reference Range Interpretation Comme nts SARS-CoV-2 INTERPRETATION (test code = 46290) Positive SOURCE (test code = 80346) Nasal_Swab_in _VTM__ UTM SARS-CoV-2 (COVID-19) by RT-PCR (HIGH RISK)2020-07-05 00:00:00* Test Item Value Reference Range Interpretation Comme nts SARS-CoV-2 INTERPRETATION (test code = 55164) Positive SOURCE (test code = 58002) Nasal_Swab_in _VTM__ UTM Notes Date/Time Note Provider Source 2024-06-18 08:52:41 Chief Complaint Patient presents with REFILLS-NURSE/MD Pt presents today for thyroid medication refill. 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 Sore Throat Pt c/o of swelling and sore throat x 2 weeks. Pt c/o of everyone time she swallows she feels like she's swallowing puss. [facility] 2024-05-24 08:49:43 Chief Complaint Patient presents with Consultation Home study results Kathie Ivoyr CMA II Kathie Ivory CMA II [facility]
[2025-03-29 03:14] LABS: Absolute Lymphocytes (CBC) 3.1 K/uL (0.7-4.9); D-Dimer 0.289 FEUug/mL (0-0.500); Hematocrit 38.4 % (36.0-45.0); Hemoglobin 13.5 g/dL (12.0-15.0); MCH 30.1 pg (27.0-35.0); MCHC 35.3 g/dL (32.0-36.0); MCV 85.4 fL (80-100); MPV 7.6 fL (7.6-11.3); Nucleated RBC Absolute Count 0.0 (0-0); Nucleated Red Blood Cells % 0.1 % (0-0); PT Prothrombin Time 11.1 SECONDS (10-13.0); Protime INR 0.98; RBC Red Blood Cell Count 4.49 M/uL (3.86-4.86); White Blood Count 7.50 thou/uL (4.3-10.9)
[2025-03-29 03:33] LABS: ALT/SGPT 25 U/L (13-56); Albumin 3.7 g/dL (3.4-5.0); Albumin/Globulin Ratio 1.1 (1.1-1.8); Alkaline Phosphatase 108 U/L (45-117); Anion Gap 8.6 mEq/L (5.0-15.0); BUN Blood Urea Nitrogen 14 mg/dL (7-18); Globulin 3.5 g/dL (2.3-3.5); Glucose Level 127 mg/dL (74-106); Lipase 49 U/L (13-75); NT PRO-BNP 14 pg/mL (<125); Troponin High Sensitivity 16.6 pg/mL (<58.9)
[2025-03-29 03:35] LABS: AST/SGOT 15 U/L (15-37); Bilirubin Indirect, Calculated 0.0 mg/dL (0.2-0.8); Magnesium 2.1 mg/dL (1.6-2.4); Potassium 3.6 mEq/L (3.5-5.1)
[2025-03-29] MEDS ORDERED: NA CHLORIDE 0.9% 100 ML ONE (03:36)
[2025-03-29] MEDS ORDERED: METHOCARBAMOL 1,000 MG/10 ML VIAL ONE (03:36)
[2025-03-29] MEDS ORDERED: KETOROLAC 30 MG/ML INJ ONE (03:36)
--- NOTE | 2025-03-29 05:37 | EDPHYS ---
Physician Documentation [facility] Name: Jane Izaguirre Age: 44 yrs Sex: Female : 1980 Arrival Date: 03/29/2025 Time: 01:39 Bed 4 Private MD: ED Physician Jose Armando Read HPI: 03/29 02:30 This 44 yrs old Female presents to ER via Ambulatory with complaints of Back cp Pain, Neck and Upper Back Pain. 02:30 The patient presents with pain that is acute, with no known mechanism of injury. The cp symptoms are located in the upper back. Onset: The symptoms/episode began/occurred 2 day(s) ago. 02:30 Associated signs and symptoms: Pertinent positives: chest pain, shortness of breath and cp lightheaded, Pertinent negatives: abdominal pain, fever, headache, numbness, weakness, syncope and/or near-syncope. 02:30 Severity of symptoms: in the emergency department the symptoms are unchanged, despite cp home interventions. 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 - Infectious Disease History:: Denies. - Social history:: Smoking status: Patient denies any tobacco usage or history of. Patient uses alcohol, occasionally. Patient/guardian denies using street drugs. ROS: 02:35 Constitutional: Negative for body aches, chills, fever, poor PO intake, cp 02:35 Eyes: Negative for injury, pain, redness, and discharge, cp 02:35 ENT: Negative for drainage from ear(s), ear pain, sore throat, difficulty swallowing, difficulty handling secretions, 02:35 Neck: Negative for pain with movement, pain at rest, stiffness, 02:35 Cardiovascular: Positive for chest pain, Negative for edema, palpitations, 02:35 Respiratory: Positive for shortness of breath, Negative for cough, wheezing, 02:35 Abdomen/GI: Negative for abdominal pain, vomiting, diarrhea, constipation, 02:35 Back: Positive for pain at rest, pain with movement, of the left scapular area, right scapular area, left subscapular area and right subscapular area, 02:35 Skin: Negative for rash, 02:35 Neuro: Positive for dizziness, Negative for altered mental status, headache, syncope, near syncope, weakness, 02:35 All other systems are negative, Exam: 02:40 Constitutional: The patient appears in no acute distress, alert, awake, cp non-diaphoretic, non-toxic, well developed, well nourished, obese, uncomfortable, 02:40 Head/Face: Normocephalic, atraumatic. cp 02:40 Eyes: Periorbital structures: appear normal, Pupils: equal, round, and reactive to light and accomodation, Extraocular movements: intact throughout, Conjunctiva: normal, no exudate, no injection, Sclera: no appreciated abnormality, Lids and lashes: appear normal, bilaterally, 02:40 ENT: External ear(s): are unremarkable, Nose: is normal, Mouth: Lips: moist, Oral mucosa: moist, Posterior pharynx: Airway: no evidence of obstruction, patent, 02:40 Neck: ROM/movement: is normal, is supple, without pain, no range of motions limitations, 02:40 Chest/axilla: Inspection: normal, 02:40 Cardiovascular: Rate: bradycardic, Rhythm: regular, Edema: is not appreciated, JVD: is not appreciated, 02:40 Respiratory: the patient does not display signs of respiratory distress, Respirations: normal, no use of accessory muscles, no retractions, labored breathing, is not present, Breath sounds: are clear throughout, no decreased breath sounds, no stridor, no wheezing, 02:40 Abdomen/GI: Inspection: abdomen appears normal, Palpation: abdomen is soft and non-tender, in all quadrants, 02:40 Back: pain, that is moderate, of the left trapezius, right trapezius, left scapular area, right scapular area, left subscapular area and right subscapular area, ROM is painful, with all movement, 02:40 Skin: cellulitis, is not appreciated, no rash present. 02:40 Neuro: Orientation: to person, place \T\ time. Mentation: is normal, Cerebellar function: is grossly normal, Motor: moves all fours, strength is normal, Sensation: is normal, 03:02 ECG was reviewed by the Attending Physician. Vital Signs: 01:52 BP 132 / 79; Pulse 66; Resp 18; Pulse Ox 99% on R/A; Weight 104.33 kg; Height 5 ft. 0 br2 in. ; Pain 10/10; 02:00 BP 126 / 69; Pulse 58; Resp 20; Pulse Ox 97% on R/A; ss12 03:00 BP 124 / 81; Pulse 54; Resp 20; Pulse Ox 96% on R/A; ss12 04:15 BP 121 / 98; Pulse 55; Resp 20; Pulse Ox 97% on R/A; ss12 05:30 BP 125 / 98; Pulse 52; Resp 18 S; Pulse Ox 100% on R/A; ss12 01:52 Body Mass Index 44.92 (104.33 kg, 152.4 cm) br2 01:52 Pain Scale: Adult br2 Dinora Coma Score: 02:00 Eye Response: spontaneous(4). Motor Response: obeys commands(6). Verbal Response: ss12 oriented(5). Total: 15. MDM: 01:54 Medical Screening Exam initiated cp 05:35 Data reviewed: vital signs, nurses notes, lab test result(s), EKG, radiologic studies, cp plain films, and as a result, I will discharge patient. 05:35 Differential diagnosis: Basilar Pneumonia Cholelithiasis chronic back pain, ruptured cp disc, acute ND. I considered the following discharge prescriptions or medication management in the emergency department Medications were administered in the Emergency Department. See MAR. Independent interpretation of the following test(s) in the Emergency Department EKG: See my EKG interpretation above. Test considered but Not performed: CT: chest. Care significantly affected by the following chronic conditions: Obesity. Counseling: I had a detailed discussion with the patient and/or guardian regarding the historical points, exam findings, and any diagnostic results supporting the discharge/admit diagnosis, lab results, radiology results, the need for outpatient follow up, a family practitioner, to return to the emergency department if symptoms worsen or persist or if there are any questions or concerns that arise at home. Response to treatment: the patient's symptoms have markedly improved after treatment, and as a result, I will discharge patient. Special discussion: Based on the patient's history, exam, and Dx evaluation, there is no indication for emergent intervention or inpatient Tx. It is understood by the patient/guardian that if the Sx's persist or worsen they need to return immediately for re-evaluation. 03/29 02:25 Order name: Basic Metabolic Panel; Complete Time: 03:38 cp 08/ 03:38 Interpretation: Normal except: CL 109; GLUC 127; GFR 88. cp 08 02:25 Order name: CBC with Diff; Complete Time: 03:38 cp 08 03:39 Interpretation: Reviewed. cp 03/29 02:25 Order name: D-Dimer; Complete Time: 03:38 cp 03/29 02:25 Order name: LFT's; Complete Time: 03:38 cp 08/ 03:39 Interpretation: Normal except: IBILI, CALC 0.0. cp 03/29 02:25 Order name: Magnesium; Complete Time: 03:38 cp 03/29 02:25 Order name: NT PRO-BNP; Complete Time: 03:38 cp 03/29 02:25 Order name: PT-INR; Complete Time: 03:38 cp 03/29 02:25 Order name: Troponin HS; Complete Time: 03:38 cp 08/ 03:39 Interpretation: Reviewed. cp 03/29 02:25 Order name: Lipase; Complete Time: 03:38 cp / 04:36 Order name: Troponin High Sensitivity; Complete Time: 05:33 cp 08/ 05:34 Interpretation: Reviewed. cp 08 02:25 Order name: XRAY Chest (1 view) cp 03/29 02:25 Order name: Cardiac monitoring; Complete Time: 03:00 cp 03/29 02:25 Order name: EKG - Nurse/Tech; Complete Time: 03:00 cp 03/29 02:25 Order name: IV Saline Lock; Complete Time: 02:47 cp 03/29 02:25 Order name: Labs collected and sent; Complete Time: 02:47 cp 03/29 02:25 Order name: O2 Per Protocol; Complete Time: 03:01 cp 03/29 02:25 Order name: O2 Sat Monitoring; Complete Time: 02:47 cp EC:02 Rate is 56 beats/min. Rhythm is regular. IN interval is normal. QRS interval is normal. cp QT interval is normal. T waves are Inverted in lead aVR. Interpreted by me. Reviewed by me. Administered Medications: 03:45 Drug: Methocarbamol IVPB 1 grams IVPB once over 1 hrs; (mix in NS 100 mL) Route: IVPB; ss12 Infused Over: 1 hrs; Site: right antecubital; 06:08 Follow up: IV Status: Completed infusion; IV Intake: 100ml ss12 03:45 Drug: Ketorolac IVP 15 mg IVP once Route: IVP; Site: right antecubital; ss12 04:59 Follow up: Response: No adverse reaction; Pain is decreased ss12 Disposition Summary: 03/29/25 05:36 Discharge Ordered Notes: Location: Home cp Problem: new cp Symptoms: have improved cp Condition: Stable cp Diagnosis - Chest pain, unspecified cp - Dorsalgia, unspecified cp Followup: cp - With: Private Physician - When: 2 - 3 days - Reason: Worsening of condition Discharge Instructions: - Discharge Summary Sheet cp - Acute Back Pain, Adult cp - Nonspecific Chest Pain, Adult cp - Aspirin and Your Heart cp Forms: - Medication Reconciliation Form cp - Antibiotic Education cp - Prescription Opioid Use cp - Patient Portal Instructions cp - Leadership Thank You Letter cp Prescriptions: - Diclofenac Sodium 75 mg Oral Tablet Sustained Release - take 1 tablet ORAL route 2 times per day; 30 tablet; Refills: 0, Product cp Selection Permitted - methocarbamol 750 mg Oral tablet - take 1 tablet ORAL route 3 times per day; 30 tablet; Refills: 0, Product cp Selection Permitted Addendum: 03/31/2025 15:54 Co-signature as Attending Physician, Jose Armando Read MD I agree with the assessment and c [place] plan of care. Signatures: Dispatcher [employer] Jose Armando Al MD MD cha Page, Corey, PA PA cp Paige Lake, RN RN br2 Patti Armstrong RN RN ss12 Corrections: (The following items were deleted from the chart) 03/29 01:57 01:56 PMHx: Hypothyroidism; br2 br2 02:25 02:25 BASIC METABOLIC PANEL+C.LAB.BRZ ordered. EDMS EDMS 02:25 02:25 CBC+H.LAB.BRZ ordered. EDMS EDMS 02:25 02:25 D-DIMER+COAG.LAB.BRZ ordered. EDMS EDMS 02:25 02:25 HEPATIC FUNCTION+C.LAB.BRZ ordered. EDMS EDMS 02:25 02:25 MAGNESIUM+C.LAB.BRZ ordered. EDMS EDMS 02:25 02:25 PROBNP+C.LAB.BRZ ordered. EDMS EDMS 02:25 02:25 PROTIME (+INR)+COAG.LAB.BRZ ordered. EDMS EDMS 02:25 02:25 Troponin High Sensitivity+C.LAB.BRZ ordered. EDMS EDMS 02:25 02:25 Chest Single View+RAD.RAD.BRZ ordered. EDMS EDMS 02:25 02:25 LIPASE+C.LAB.BRZ ordered. EDMS EDMS
--- NOTE | 2025-03-29 05:37 | ER ---
Nurse's Notes [facility] Name: Jane Izaguirre Age: 44 yrs Sex: Female : 1980 Arrival Date: 03/29/2025 Time: 01:39 Bed 4 Private MD: Diagnosis: Chest pain, unspecified;Dorsalgia, unspecified Presentation: 03/29 01:52 Chief complaint: Patient states: PT STATES SHE HAS BEEN FEELING SOB, LIGHTHEADED, AND br2 LEFT ARM CHILLS FOR THE LAST 2 DAYS. PT DENIES N/V/D/F....STATES SHE HAS BEEN UNDER A LOT OF STRESS. Coronavirus screen: Client denies travel out of the [place] in the last 14 days. Ebola Screen: Patient denies exposure to infectious person. Initial Sepsis Screen: Does the patient meet any 2 criteria? No. Patient's initial sepsis screen is negative. Does the patient have a suspected source of infection? No. Patient's initial sepsis screen is negative. Risk Assessment: Do you want to hurt yourself or someone else? Patient reports no desire to harm self or others. Onset of symptoms was March 27, 2025. 01:52 Method Of Arrival: Ambulatory br2 01:52 Acuity: JENISE 3 br2 Triage Assessment: 01:56 General: Appears in no apparent distress. comfortable, Behavior is calm, cooperative. br2 Pain: Complains of pain in left scapular area, right scapular area, left subscapular area, right subscapular area and thoracic area Pain currently is 10 out of 10 on a pain scale. 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 - Infectious Disease History:: Denies. - Social history:: Smoking status: Patient denies any tobacco usage or history of. Patient uses alcohol, occasionally. Patient/guardian denies using street drugs. Screenin:16 [facility] ED Fall Risk Assessment (Adult) History of falling in the last 3 months, ss12 including since admission No falls in past 3 months (0 pts) Confusion or Disorientation No (0 pts) Intoxicated or Sedated No (0 pts) Impaired Gait No (0 pts) Mobility Assist Device Used No (0 pt) Altered Elimination No (0 pt) Score/Fall Risk Level 0 - 2 = Low Risk Oriented to surroundings, Maintained a safe environment, Educated pt \T\ family on fall prevention, incl call for assistance when getting out of bed, Assessed \T\ reinforced patient's understanding of fall precautions. Abuse screen: Denies threats or abuse. Denies injuries from another. Nutritional screening: No deficits noted. Tuberculosis screening: No symptoms or risk factors identified. Assessment: 01:50 General: Appears in no apparent distress. comfortable, Behavior is calm, cooperative, ss12 quiet. Pain: Complains of pain in neck, upper back pain, back pain Pain currently is 10 out of 10 on a pain scale. Quality of pain is described as aching, throbbing. Neuro: No deficits noted. Level of Consciousness is awake, alert, obeys commands, Oriented to person, place, time, situation. Cardiovascular: No deficits noted. Denies chest pain, Patient's skin is warm and dry. Respiratory: No deficits noted. Airway is patent Respiratory effort is even, unlabored, Respiratory pattern is regular, symmetrical. GI: No deficits noted. No signs and/or symptoms were reported involving the gastrointestinal system. Abdomen is round. : No deficits noted. No signs and/or symptoms were reported regarding the genitourinary system. EENT: No deficits noted. No signs and/or symptoms were reported regarding the EENT system. Derm: No deficits noted. No signs and/or symptoms reported regarding the dermatologic system. Musculoskeletal: No deficits noted. No signs and/or symptoms reported regarding the musculoskeletal system. 03:00 Reassessment: Patient appears in no apparent distress at this time. Patient and/or ss12 family updated on plan of care and expected duration. Pain level reassessed. Patient is alert, oriented x 3, equal unlabored respirations, skin warm/dry/pink. 04:08 Reassessment: Patient appears in no apparent distress at this time. Patient and/or ss12 family updated on plan of care and expected duration. Pain level reassessed. Patient is alert, oriented x 3, equal unlabored respirations, skin warm/dry/pink. 05:30 Reassessment: Patient appears in no apparent distress at this time. Patient and/or ss12 family updated on plan of care and expected duration. Pain level reassessed. Patient is alert, oriented x 3, equal unlabored respirations, skin warm/dry/pink. Vital Signs: 01:52 BP 132 / 79; Pulse 66; Resp 18; Pulse Ox 99% on R/A; Weight 104.33 kg; Height 5 ft. 0 br2 in. ; Pain 10/10; 02:00 BP 126 / 69; Pulse 58; Resp 20; Pulse Ox 97% on R/A; ss12 03:00 BP 124 / 81; Pulse 54; Resp 20; Pulse Ox 96% on R/A; ss12 04:15 BP 121 / 98; Pulse 55; Resp 20; Pulse Ox 97% on R/A; ss12 05:30 BP 125 / 98; Pulse 52; Resp 18 S; Pulse Ox 100% on R/A; ss12 01:52 Body Mass Index 44.92 (104.33 kg, 152.4 cm) br2 01:52 Pain Scale: Adult br2 [place] Coma Score: 02:00 Eye Response: spontaneous(4). Motor Response: obeys commands(6). Verbal Response: ss12 oriented(5). Total: 15. ED Course: 01:42 Patient arrived in ED. [id number] 01:48 Jose Armando Mittal PA is PHCP. cp 01:48 Jose Armando Read MD is Attending Physician. cp 01:56 Triage completed. br2 01:56 Arm band placed on right wrist. br2 02:31 Patti Armstrong, RN is Primary Nurse. ss12 02:39 Missed attempt(s): Bleeding controlled, band aid applied, catheter tip intact. oe 02:41 Inserted saline lock: 22 gauge in left upper arm, using aseptic technique. Blood oe collected. Flushed with 10 mL NS. 02:47 Basic Metabolic Panel Sent. oe 02:47 CBC with Diff Sent. oe 02:47 D-Dimer Sent. oe 02:47 LFT's Sent. oe 02:47 Magnesium Sent. oe 02:47 NT PRO-BNP Sent. oe 02:47 PT-INR Sent. oe 02:47 Troponin HS Sent. oe 02:51 XRAY Chest (1 view) In Process Unspecified. EDMS 03:01 EKG done, by ED staff, reviewed by Jose Armando AYALA. oe 04:17 Patient has correct armband on for positive identification. Provided Education on: plan ss12 of care. 04:17 No provider procedures requiring assistance completed. ss12 04:59 Troponin High Sensitivity Sent. ss12 06:07 IV discontinued, intact, bleeding controlled, No redness/swelling at site. Pressure ss12 dressing applied. Administered Medications: 03:45 Drug: Methocarbamol IVPB 1 grams IVPB once over 1 hrs; (mix in NS 100 mL) Route: IVPB; ss12 Infused Over: 1 hrs; Site: right antecubital; 06:08 Follow up: IV Status: Completed infusion; IV Intake: 100ml ss12 03:45 Drug: Ketorolac IVP 15 mg IVP once Route: IVP; Site: right antecubital; ss12 04:59 Follow up: Response: No adverse reaction; Pain is decreased ss12 Medication: 04:17 VIS not applicable for this client. ss12 Intake: 06:08 IV: 100ml; Total: 100ml. ss12 Outcome: 05:36 Discharge ordered by MD. cp 06:07 Discharged to home ambulatory, ss12 06:07 Condition: stable 06:07 Discharge instructions given to patient, Instructed on discharge instructions, follow up and referral plans. Demonstrated understanding of instructions, follow-up care, medications, Prescriptions given X 2, 06:08 Patient left the ED. ss12 Signatures: Dispatcher [employer] EDMS Jose Armando Mittal PA PA cp Ranjith Haynes oe Xi George [id number] Paige Lake RN RN br2 Patti Armstrong, RN RN ss12 Corrections: (The following items were deleted from the chart) 01:57 01:56 PMHx: Hypothyroidism; br2 br2 02:42 02:41 Inserted saline lock: 20 gauge in right upper arm, using aseptic technique. Blood oe collected. Flushed with 10 mL NS oe
--- NOTE | 2025-03-29 06:12 | RAD REPORT ---
INDICATION: SOB COMPARISON: No existing relevant imaging studies are available FINDINGS: Single frontal view of the chest was obtained. SUPPORT DEVICES: None HEART/MEDIASTINUM: Cardiomediastinal contours are normal. LUNGS/PLEURA: Lungs are clear. No pleural effusion or pneumothorax. OTHER: No other significant findings. IMPRESSION: No acute findings. Electronically signed by: Edwardo Alfonso DO 03/29/2025 03:11 AM CDT RP NR Due to temporary technical issues with the PACS/Fingo reporting system, reports are being janine d by the in-house radiologist without review as a courtesy to ensure prompt reporting the interpreting radiologist is fully responsible for the content of the report. Transcribed Date/Time: 03/29/2025 6:11 AM
[2025-03-29 06:41] VITALS: BP 125/98; O2SAT 100
== END 2025-03-29 06:08 | disposition home or self-care (01) ==
LOC: ER 01:39
DX: R07.9 Chest pain, unspecified (principal); M54.9 Dorsalgia, unspecified
CPT/HCPCS: 36415; 71045; 80048; 80076; 83690; 83735; 83880; 84484; 85025; 85379; 85610; 93005; 96365; 96366; 96375; 99284; J2800